=== PATIENT | male | born 1955 | race Caucasian/White ===

== ENCOUNTER 2017-05-30 13:33 | Inpatient (IN) | payer OTHER ==
[2017-05-30] VITALS (11 sets, daily range): BP systolic 138–193; BP diastolic 62–94; PULSE 74–98; RESP 22–28; TEMP 96.6–99.8; O2SAT 97–100
[2017-05-30] MEDS ORDERED: PROPOFOL 1000 MG/100 ML INJ 100 ML ONE (13:40)
--- NOTE | 2017-05-30 13:58 | RADRPT ---
EXAM DATE/TIME: 05/30/2017 13:24 [facility] COMPARISON: No previous studies available for comparison. INDICATIONS : Fell 6ft hitting head, unresponsive. MEDICAL HISTORY : None. SURGICAL HISTORY : None. ENCOUNTER: Initial ACUITY: 1 day PAIN SCORE: Non-responsive. LOCATION: Bilateral pelvis. FINDINGS: A single frontal view of the pelvis demonstrates no evidence of fracture. The bony pelvic ring is in tact. Bony mineralization is normal. The soft tissues are intact. There are degenerative changes of the lower lumbar spine. CONCLUSION: The bony structures are grossly intact. Sanjay Donis MD on May 30, 2017 at 13:55 Board Certified Radiologist. This report was verified electronically.
[2017-05-30 13:59] LABS: AUTOMATED NEUTROPHIL # 7.1 TH/MM3 (1.8-7.7); BASOPHIL # 0.1 TH/MM3 (0-0.2); BASOPHIL % 0.7 % (0.0-2.0); EOSINOPHIL # 0.1 TH/MM3 (0-0.4); HEMATOCRIT 47.1 % (39.0-51.0); HEMO FLAGS DIFF FINAL; LYMPH % 35.6 % (9.0-44.0); LYMPHOCYTE # 4.5 TH/MM3 (1.0-4.8); MEAN CELL VOLUME 89.5 FL (80.0-100.0); MEAN CORPUSCULAR HEMOGLOBIN 28.6 PG (27.0-34.0); MEAN CORPUSCULAR HGB CONC 31.9 % (32.0-36.0); MONO % 6.4 % (0.0-8.0); NEUT % 56.3 % (16.0-70.0); PLATELET COUNT 222 TH/MM3 (150-450); RED BLOOD COUNT 5.26 MIL/MM3 (4.50-5.90); RED CELL DISTRIBUTION WIDTH 14.6 % (11.6-17.2); WHITE BLOOD COUNT 12.5 TH/MM3 (4.0-11.0)
--- NOTE | 2017-05-30 13:59 | RADRPT ---
EXAM DATE/TIME: 05/30/2017 13:24 [facility] COMPARISON: No previous studies available for comparison. INDICATIONS : Fell 6ft from ladder hit head. ET tube placement. MEDICAL HISTORY : None. SURGICAL HISTORY : None. ENCOUNTER: Initial ACUITY: 1 day PAIN SCORE: Non-responsive. LOCATION: Bilateral chest FINDINGS: The ET tube appears to be in good position. There is no pneumothorax. The lungs are grossly clear. Th e heart size is within normal limits. No definite pleural effusions. The bony structures are grossly intact. CONCLUSION: ET tube in good position. Lungs are grossly clear. The CT thorax will be performed for further evalua tion. Sanjay Donis MD on May 30, 2017 at 13:56 Board Certified Radiologist. This report was verified electronically.
[2017-05-30 14:01] LABS: I-STAT POTASSIUM 3.6 MMOL/L (3.5-4.9)
[2017-05-30] MEDS ORDERED: IOHEXOL 350 MG/ML 10 ML VIAL (for RAD DIAG) IV ONE (14:03)
[2017-05-30 14:08] LABS: APTT (PATIENT) 25.4 SEC (24.3-30.1); PROTHROMBIN TIME - PATIENT 10.7 SEC (9.8-11.6)
--- NOTE | 2017-05-30 14:09 | RADRPT ---
EXAM DATE/TIME: 05/30/2017 13:53 [facility] COMPARISON: No previous studies available for comparison. INDICATIONS : Trauma alert, fall from ladder. RADIATION DOSE: 56.35 CTDIvol (mGy) MEDICAL HISTORY : Non-responsive. SURGICAL HISTORY : Non-responsive. ENCOUNTER: Initial ACUITY: 1 day PAIN SCALE: Non-responsive LOCATION: cranial TECHNIQUE: Multiple contiguous axial images were obtained of the head. Using automated exposure control and adj ustment of the mA and/or kV according to patient size, radiation dose was kept as low as reasonably a chievable to obtain optimal diagnostic quality images. DICOM format image data is available electro nically for review and comparison. FINDINGS: Ventricles are normal in size and midline in position. No mass effect or midline shift is demonstrate d. There is bilateral subarachnoid hemorrhage, left greater than right. There appears to be a hemorrh agic contusion in the left temporal lobe. There is a small left-sided subdural hematoma with 6 mm of separation adjacent to the left temporal lobe. There appear to be some punctate hemorrhagic contusion s in the frontal lobes bilaterally. The calvarium appears to be grossly intact. CONCLUSION: 1. Small left-sided subdural hematoma with approximately 6 mm of separation adjacent to the left temp oral lobe. 2. Bilateral subarachnoid hemorrhage, left greater than right. 3. Tiny hemorrhagic contusions in both frontal lobes. 4. Hemorrhagic contusion the left temporal lobe. Sanjay Donis MD on May 30, 2017 at 14:03 Board Certified Radiologist. This report was verified electronically.
--- NOTE | 2017-05-30 14:12 | RADRPT ---
EXAM DATE/TIME: 05/30/2017 13:53 [facility] COMPARISON: No previous studies available for comparison. INDICATIONS : Trauma alert, fall from ladder. IV CONTRAST: 96 cc Omnipaque 350 (iohexol) IV ; Cumulative dose for multiple exams. RADIATION DOSE: 8.19 CTDIvol (mGy) ; Combined studies MEDICAL HISTORY : Non-responsive. SURGICAL HISTORY : Non-responsive. ENCOUNTER: Initial ACUITY: 1 day PAIN SCALE: Non-responsive LOCATION: cranial TECHNIQUE: Volumetric scanning of the chest was performed. Using automated exposure control and adjustment of t he mA and/or kV according to patient size, radiation dose was kept as low as reasonably achievable to obtain optimal diagnostic quality images. DICOM format image data is available electronically for review and comparison. FINDINGS: LUNGS: There are infiltrates in both posterior lung bases suggestive of pulmonary contusions. The upper lung carpenter are grossly clear. No evidence of pneumothorax. PLEURA: There is no pleural thickening or pleural effusion. MEDIASTINUM: The heart and great vessels demonstrate no acute abnormality. There is no mediastinal or hilar lymph adenopathy. AXILLAE: Within normal limits. No lymphadenopathy. SKELETAL: Within normal limits for patient age. No definite acute bony fracture. CONCLUSION: Bibasilar nonspecific infiltrates suggestive of pulmonary contusions. Sanjay Donis MD on May 30, 2017 at 14:06 Board Certified Radiologist. This report was verified electronically.
--- NOTE | 2017-05-30 14:18 | RADRPT ---
EXAM DATE/TIME: 05/30/2017 13:53 [facility] COMPARISON: No previous studies available for comparison. INDICATIONS : Trauma alert, fall from ladder. IV CONTRAST: 96 cc Omnipaque 350 (iohexol) IV ; Cumulative dose for multiple exams. ORAL CONTRAST: No oral contrast ingested. RADIATION DOSE: 8.19 CTDIvol (mGy) ; Combined studies MEDICAL HISTORY : Non-responsive. SURGICAL HISTORY : Non-responsive. ENCOUNTER: Initial ACUITY: 1 day PAIN SCALE: Non-responsive LOCATION: abdomen TECHNIQUE: Volumetric scanning of the abdomen and pelvis was performed. Using automated exposure control and ad justment of the mA and/or kV according to patient size, radiation dose was kept as low as reasonably achievable to obtain optimal diagnostic quality images. DICOM format image data is available electro nically for review and comparison. FINDINGS: LOWER LUNGS: Bibasilar infiltrates.. LIVER: Homogeneous density without lesion. There is no dilation of the biliary tree. No calcified gallston es. SPLEEN: Normal size. There is a small amount of fluid along the inferior lower portion of the spleen. Suspici ous for a small inferior laceration. PANCREAS: Within normal limits. KIDNEYS: Normal in size and shape. There is no mass, stone or hydronephrosis. 2.5 cm left renal cyst midpole. ADRENAL GLANDS: Within normal limits. VASCULAR: There is no aortic aneurysm. BOWEL/MESENTERY: The stomach, small bowel, and colon demonstrate no acute abnormality. There is no free intraperitone al air or fluid. ABDOMINAL WALL: Within normal limits. RETROPERITONEUM: There is no lymphadenopathy. BLADDER: No wall thickening or mass. REPRODUCTIVE: Within normal limits. INGUINAL: There is no lymphadenopathy or hernia. MUSCULOSKELETAL: Within normal limits for patient age. No definite acute bony fracture. CONCLUSION: 1. There appears to be a small amount of fluid along the inferior aspect of the spleen suspicious for a inferior laceration. No significant free fluid is seen in the abdomen or pelvis. 2. Benign-appearing left renal cyst. 3. Bibasilar infiltrates suggestive of pulmonary contusions. Sanjay Donis MD on May 30, 2017 at 14:10 Board Certified Radiologist. This report was verified electronically.
[2017-05-30] MEDS ORDERED: MANNITOL INJ 50 ML ONE (14:21)
--- NOTE | 2017-05-30 14:27 | PD.CONS ---
[facility] Service neurosurg Consult Requested By [facility] Reason for Consult Trauma alert Primary Care Physician Unknown History of Present Illness This is an aduklt male brought to [facility] emergency department as a trauma alert. 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 He was working with his colleagues and they saw him just prior to the accident when he was at his baseline mental status. He fell. The exact nature of the fall is unknown. According to EMS he was combative at the scene and not making sens, repeating the same words which do not make sense. Was hypertensive with blood pressure in 185 systolic. His pst medical history is unknown. At scene GCS 11 and blood pressure was 205 systolic. He was combative. Upon arrival he was intubated by ER physician, evaluated by trauma team and subsequently underwent imaging studies and was transferred to ICU. He also had some bleeding from a scalp laceration on arrival to the ICU. Patient required sedation with propofol following arrival to the ICU . Neurosurgery consultation was requested Review of Systems Unable to obtain ROS Limitations: Clinical Condition, Intubated, Altered Mental Status, Unresponsive Past Family Social History Allergies: Coded Allergies: UNOBTAINABLE (Unverified , 05/30/17) Past Medical History Unavailable Past Surgical History Unavailable Reported Medications Unavailable Active Ordered Medications Unavailable Family History Unavailable Social History Unavailable Physical Exam Physical Exam Sedated, orally intubated, Scalp laceration on posterior part of head noted with minimal oozing, Cranial Nerves: Pupils equal, round, reactive to light. Eyes appear conjugated. There was no nystagmus, no papilledema. Face musculature appeared symmetrical at rest. Face sensation, olfaction, visual carpenter, and hearing cannot be adequately assessed due to his neurological condition. The patient has a corneal reflex. He has a gag reflex. The sternocleidomastoid and trapezius are symmetrical. Cervical Spine: His neck is soft, supple, without nuchal rigidity. Motor: His muscle tone and bulk are normal. He moves purposefully all 4 extremities symmetrically. Reflexes: Deep tendon reflexes are 1+ and symmetrical in the biceps, triceps, and brachioradialis, bilaterally, in the upper extremities. In the lower extremities, the patellar and ankles are 1+, bilaterally. There is a bilateral plantar flexion response. There is no clonus or other abnormal reflexes noted. Sensory: On examination there is response to painful stimuli, localizing with both upper and lower extremities. Cerebellar: Examination cannot be adequately assessed due to the patient's neurological condition. Laboratory Laboratory Tests Test 05/30/17 13:40 White Blood Count 12.5 Red Blood Count 5.26 Hemoglobin 15.0 Bedside Hemoglobin 16.3 Hematocrit 47.1 Bedside Hematocrit 48.0 Mean Corpuscular Volume 89.5 Mean Corpuscular Hemoglobin 28.6 Mean Corpuscular Hemoglobin 31.9 Concent Red Cell Distribution Width 14.6 Platelet Count 222 Mean Platelet Volume 9.6 Neutrophils (%) (Auto) 56.3 Lymphocytes (%) (Auto) 35.6 Monocytes (%) (Auto) 6.4 Eosinophils (%) (Auto) 1.0 Basophils (%) (Auto) 0.7 Neutrophils # (Auto) 7.1 Lymphocytes # (Auto) 4.5 Monocytes # (Auto) 0.8 Eosinophils # (Auto) 0.1 Basophils # (Auto) 0.1 CBC Comment DIFF FINAL Differential Comment Prothrombin Time 10.7 Prothromb Time International 1.0 Ratio Activated Partial 25.4 Thromboplast Time Bedside Sodium 143 Bedside Potassium 3.6 Bedside Chloride 109 Bedside Blood Urea Nitrogen 14 Bedside Creatinine 1.1 Bedside Glucose 120 Blood Type O POSITIVE Result Diagram: 05/30/17 1340 Imaging Last Impressions Chest CT 05/30/171346 Signed Impressions: Service Date/Time: Tuesday, May 30, 2017 13:53 - CONCLUSION: Bibasilar nonspecific infiltrates suggestive of pulmonary contusions. Sanjay Donis MD Abdomen/Pelvis CT 05/30/171346 Signed Impressions: Service Date/Time: Tuesday, May 30, 2017 13:53 - CONCLUSION: 1. There appears to be a small amount of fluid along the inferior aspect of the spleen suspicious for a inferior laceration. No significant free fluid is seen in the abdomen or pelvis. 2. Benign-appearing left renal cyst. 3. Bibasilar infiltrates suggestive of pulmonary contusions. Sanjay Donis MD Pelvis X-Ray 05/30/177 Signed Impressions: Service Date/Time: Tuesday, May 30, 2017 13:24 - CONCLUSION: The bony structures are grossly intact. Sanjay Donis MD Head CT 05/30/171336 Signed Impressions: Service Date/Time: Tuesday, May 30, 2017 13:53 - CONCLUSION: 1. Small left-sided subdural hematoma with approximately 6 mm of separation adjacent to the left temporal lobe. 2. Bilateral subarachnoid hemorrhage, left greater than right. 3. Tiny hemorrhagic contusions in both frontal lobes. 4. Hemorrhagic contusion the left temporal lobe. Sanjay Donis MD Chest X-Ray 05/30/171336 Signed Impressions: Service Date/Time: Tuesday, May 30, 2017 13:24 - CONCLUSION: ET tube in good position. Lungs are grossly clear. The CT thorax will be performed for further evaluation. Sanjay Donis MD Cervical Spine CT 05/30/171336 Signed Impressions: Service Date/Time: Tuesday, May 30, 2017 13:55 - CONCLUSION: 1. No acute bony fracture. 2. Moderate diffuse primary bony degenerative changes, disc degeneration and disc space narrowing at multiple levels from C3-C7. Sanjay Donis MD Attending Statement Severe TBI. SAH, Subdural bleed, Neuro checks in a serial fashion. Placement of ICP monitor is recommended according to the recommendations of the [place] [employer] of neurological surgeons A follow-up CT of the head will be obtained in 24 hours. Pulmonary. Full mechanical ventilation in assist control mode of ventilation, aggressive pulmonary toilette, nasotracheal suction, and breathing treatments with nebulizers. PT and OT evaluation Splenic laceration. Defer to trauma surgeon Nutrition. NPO Renal. monitor closely urine output, BUN and creatinine Endocrine. Monitor serial Acu checks and SSI as needed in detail ID monitor for signs of infection Protonix for stress ulcer prophylaxis Vel hose and SCD's for DVT prophylaxis Thee Stone MD May 30, 2017 14:27 Vel hose and SCD's for DVT prophylaxis Thee Stone MD May 30, 2017 14:27
--- NOTE | 2017-05-30 14:28 | RADRPT ---
EXAM DATE/TIME: 05/30/2017 13:55 [facility] COMPARISON: No previous studies available for comparison. INDICATIONS : Trauma alert, fall from ladder. RADIATION DOSE: 37.59 CTDIvol (mGy) MEDICAL HISTORY : Non-responsive. SURGICAL HISTORY : Non-responsive. ENCOUNTER: Initial ACUITY: 1 day PAIN SCALE: Non-responsive LOCATION: neck TECHNIQUE: Volumetric scanning of the cervical spine was performed. Multiplanar reconstructions in the sagittal, coronal and oblique axial planes were performed. Using automated exposure control and adjustment o f the mA and/or kV according to patient size, radiation dose was kept as low as reasonably achievable to obtain optimal diagnostic quality images. DICOM format image data is available electronically f or review and comparison. FINDINGS: VERTEBRAE: Normal vertebral body height. No acute bony fracture. There is moderate diffuse primary degenerative changes, disc degeneration and disc space narrowing involving the cervical spine from C3-C7. ALIGNMENT: No evidence of subluxation. C2-C3: The bony spinal canal is normal in size. No evidence of disc bulge or herniation. The neural forami na are bilaterally patent. C3-C4: The bony spinal canal is normal in size. No evidence of disc bulge or herniation. The neural forami na are bilaterally patent. C4-C5: The bony spinal canal is normal in size. No evidence of disc bulge or herniation. The neural forami na are bilaterally patent. C5-C6: Broad-based bulging with disc osteophyte complex. There is narrowing of the neural foramina bilateral ly. C6-C7: Broad-based bulging with disc osteophyte complex. Mild narrowing of the neural foramina bilaterally. C7-T1: The bony spinal canal is normal in size. No evidence of disc bulge or herniation. The neural forami na are bilaterally patent. CONCLUSION: 1. No acute bony fracture. 2. Moderate diffuse primary bony degenerative changes, disc degeneration and disc space narrowing at multiple levels from C3-C7. Sanjay Donis MD on May 30, 2017 at 14:23 Board Certified Radiologist. This report was verified electronically.
[2017-05-30] MEDS ORDERED: MAGNESIUM HYDROXIDE SUSP 30 ML CUP PO PRN (14:30)
[2017-05-30] MEDS ORDERED: MISCELLANEOUS NURSING INFORMATION XX SCH (14:30)
[2017-05-30] MEDS ORDERED: CHLORHEXIDINE GLUCONATE 2 % 1 PACK (2 CLOTHS) TOP PRN (14:30)
--- NOTE | 2017-05-30 14:35 | PD ---
HPI Chief Complaint: trauma alert Time Seen by Provider: 13:37 Travel History International Travel<30 days: No Contact w/Intl Traveler<30days: No Traveled to known affect area: No History of Present Illness HPI Patient came in as a trauma alert. I was present in the room prior to patient' s arrival waiting for him. 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 He was working with his colleagues and they saw him just prior to the accident when he was at his baseline mental status. He fell. The exact nature of the fall is unknown. However after that he has been acting bizarre. As per EMS he was combative at the scene and not making sense. He is repeating the same words which do not make sense. Was hypertensive with blood pressure in 185 systolic. As per EMS GCS at the best was 11. Past medical history is unknown. Upon arrival patient was a GCS 11 and blood pressure was 205 systolic. He was combative. [facility] Past Medical History Narrative Medical Unknown Social History Tobacco Use: Yes Allergies-Medications (Allergen,Severity, Reaction): Coded Allergies: UNOBTAINABLE (Unverified , 05/30/17) Comments Unobtainable Reported Meds & Prescriptions Reported Meds & Active Scripts Active Reported Lisinopril 10 Mg Tab 10 Mg PO DAILY Carvedilol 3.125 Mg Tab 3.125 Mg PO BID Plavix (Clopidogrel Bisulfate) 75 Mg Tab 75 Mg PO DAILY Narrative Medication Unobtainable Review of Systems Except as stated in HPI: all other systems reviewed are Neg Physical Exam Narrative GENERAL: Eyes open but confused and repeating the same sentence that doesn't make sense. Not following commands at all SKIN: Warm and diaphoretic HEAD: Laceration on the occipital area of the scalp approximately 5 cm EYES: Pupils equal and round. No scleral icterus. No injection or drainage. ENT: No nasal bleeding or discharge. Mucous membranes pink and moist. NECK: Trachea midline. No JVD. CARDIOVASCULAR: Regular rate and rhythm. No murmur appreciated. RESPIRATORY: No accessory muscle use. Clear to auscultation. Breath sounds equal bilaterally. GASTROINTESTINAL: Abdomen soft, non-tender, nondistended. Hepatic and splenic margins not palpable. MUSCULOSKELETAL: No obvious deformities. No clubbing. No cyanosis. No edema. NEUROLOGICAL: GCS of 11, not following commands PSYCHIATRIC: Unable to assess Data Data Last Documented VS Vital Signs Date Time Temp Pulse Resp B/P Pulse Ox O2 Delivery O2 Flow Rate FiO2 05/30/17 13:45 100 05/30/17 13:34 4.00 Orders I-Stat Profile (05/30/17 13:37) I-Stat Creatinine (05/30/17 13:37) Complete Blood Count With Diff (05/30/17 13:37) Prothrombin Time / Inr (Pt) (05/30/17 13:37) Act Partial Throm Time (Ptt) (05/30/17 13:37) Type And Screen (05/30/17 13:37) Chest, Single Ap (05/30/17 13:37) Pelvis, Ap Only (Routine) (05/30/17 13:37) Ct Brain W/O Iv Contrast(Rout) (05/30/17 13:37) Ct Cerv Spine W/O Contrast (05/30/17 13:37) Iv Access Insert/Monitor (05/30/17 13:37) Ecg Monitoring (05/30/17 13:37) Oximetry (05/30/17 13:37) Oxygen Administration (05/30/17 13:37) Propofol 1000 Mg/100 Ml Inj (Diprivan 10 (05/30/17 13:40) Ct Abd/Pel W Iv Contrast(Rout) (05/30/17 13:47) Ct Thorax/ Chest W Iv Contrast (05/30/17 13:47) Iohexol 350 Inj (Omnipaque 350 Inj) (05/30/17 14:03) Admit Order (Ed Use Only) (05/30/17 14:10) Labs Laboratory Tests Test 05/30/17 13:40 White Blood Count 12.5 TH/MM3 Red Blood Count 5.26 MIL/MM3 Hemoglobin 15.0 GM/DL Bedside Hemoglobin 16.3 G/DL Hematocrit 47.1 % Bedside Hematocrit 48.0 % Mean Corpuscular Volume 89.5 FL Mean Corpuscular Hemoglobin 28.6 PG Mean Corpuscular Hemoglobin 31.9 % Concent Red Cell Distribution Width 14.6 % Platelet Count 222 TH/MM3 Mean Platelet Volume 9.6 FL Neutrophils (%) (Auto) 56.3 % Lymphocytes (%) (Auto) 35.6 % Monocytes (%) (Auto) 6.4 % Eosinophils (%) (Auto) 1.0 % Basophils (%) (Auto) 0.7 % Neutrophils # (Auto) 7.1 TH/MM3 Lymphocytes # (Auto) 4.5 TH/MM3 Monocytes # (Auto) 0.8 TH/MM3 Eosinophils # (Auto) 0.1 TH/MM3 Basophils # (Auto) 0.1 TH/MM3 CBC Comment DIFF FINAL Differential Comment Prothrombin Time 10.7 SEC Prothromb Time International 1.0 RATIO Ratio Activated Partial 25.4 SEC Thromboplast Time Bedside Sodium 143 MMOL/L Sodium Level 141 MEQ/L Bedside Potassium 3.6 MMOL/L Potassium Level 3.6 MEQ/L Bedside Chloride 109 MMOL/L Chloride Level 109 MEQ/L Carbon Dioxide Level 19.1 MEQ/L Anion Gap 13 MEQ/L Bedside Blood Urea Nitrogen 14 MG/DL Blood Urea Nitrogen 15 MG/DL Creatinine 1.28 MG/DL Bedside Creatinine 1.1 MG/DL Estimat Glomerular Filtration 48 ML/MIN Rate Bedside Glucose 120 MG/DL Random Glucose 114 MG/DL Calcium Level 10.0 MG/DL Total Bilirubin 0.4 MG/DL Aspartate Amino Transf 31 U/L (AST/SGOT) Alanine Aminotransferase 29 U/L (ALT/SGPT) Alkaline Phosphatase 89 U/L Total Protein 8.1 GM/DL Albumin 4.1 GM/DL Blood Type O POSITIVE Antibody Screen NEGATIVE MDM Medical Decision Making Medical Screen Exam Complete: Yes Emergency Medical Condition: Yes Medical Record Reviewed: Yes Differential Diagnosis Intracranial bleed, cervical fracture, intrathoracic injury, intra-abdominal injury, spontaneous head bleed due to hypertension Narrative Course 2:31 PM I made the decision to intubate the patient in order to get better control of the situation since he was so combative. Suspicion was really high for intracranial bleed. Patient had a laceration on the back of his head. Please refer to my procedure note regarding the intubation. Patient was rolled off the board after he was intubated to check the back of his head. No step- offs or contusion. There was a laceration noted on the occipital area of the scalp. Patient was given Ancef and tetanus. He was taken to the CT scanner where subarachnoid and subdural hemorrhage was noticed. The trauma surgeon to come to the ICU and patient is admitted under trauma surgeon. The surgeon was called and informed about the trauma at 1321. Critical Care Narrative Aggregate critical care time was 30 minutes. Time to perform other separately billable procedures was not included in the critical care time. My time did not include minutes spent treating any other patients simultaneously or on activities that did not directly contribute to the patient's treatment. The services I provided to this patient were to treat and/or prevent clinically significant deterioration that could result in: Trauma alert, altered mental status, respiratory failure, intubation I provided critical care services requiring my management, as noted below: Chart data review, documentation time, medication orders and management, vital sign assessments/reviewing monitor data, ordering and reviewing lab tests, ordering and interpreting/reviewing x-rays and diagnostic studies, care of the patient and discussion of the patient with the admitting physicians. Procedures Procedure Narrative After the risks and benefits were discussed the following procedure was performed: INTUBATION: The patient was put in optimal position for the procedure. Rapid sequence intubation was initiated by me using 20 milligrams of etomidate IV and 100 milligrams of succinylcholine IV. The patient was intubated with a 7.5 cuffed endotracheal tube. Tube placement was confirmed by visualization of the tube and balloon passing through the cords, capnometry and subsequent chest x-ray. Breath sounds were equal and well aerated bilaterally postintubation. No breath sounds over stomach. Patient tolerated procedure well. EKG Prior to Arrival: No Physician Communication Physician Communication Diagnosis Primary Impression: Altered mental status Qualified Code: R41.0 - Delirium Additional Impressions: Head injury Qualified Code: S09.90XA - Head injury, initial encounter Subarachnoid hemorrhage Respiratory failure Qualified Code: J96.00 - Acute respiratory failure, unspecified whether with hypoxia or hypercapnia Admitting Information Admitting Physician Requests: Mary Mercado MD May 30, 2017 14:35
[2017-05-30] MEDS ORDERED: ETOMIDATE 20 MG/10 ML VIAL ONE (14:37)
[2017-05-30] MEDS ORDERED: MANNITOL 12.5 GM/50 ML VIAL IV ONE (15:00)
[2017-05-30] MEDS ORDERED: fentaNYL DRIP 250 ML IV SCH (15:00)
--- NOTE | 2017-05-30 15:22 | PD.CONS ---
[facility] Service Critical Care Medicine Consult Requested By Primary Care Physician Unknown History of Present Illness Patient came in as a trauma alert. 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 He was working with his colleagues and they saw him just prior to the accident when he was at his baseline mental status. He fell. The exact nature of the fall is unknown. However after that he was acting bizarre. As per EMS he was combative at the scene and not making sens, repeating the same words which do not make sense. Was hypertensive with blood pressure in 185 systolic. As per EMS GCS at the best was 11. Past medical history is unknown. Upon arrival patient was a GCS 11 and blood pressure was 205 systolic. He was combative. Patient was intubated by ER physician, evaluated by trauma team and subsequently underwent imaging studies and was transferred to ICU. Critical care was consulted by Dr. Araiza for TBI with acute respiratory failure. Per discussion with Dr. Araiza patient didn't appear to have traumatic subdural and subarachnoid hemorrhage as well as a splenic laceration. He also had some bleeding from a scalp laceration on arrival to the ICU. Patient required sedation with propofol following arrival to the ICU as he was starting to gag and cough and was attempting to move both lower extremities. I emergently placed a right subclavian central line for central vascular access. Neurosurgery Dr. Stone had all ready been informed by trauma team and was planning to do a bolt for ICP monitoring. History was obtained by reviewing records and discussion with Dr. Araiza and ICU nursing staff. Review of Systems ROS Limitations: Clinical Condition, Intubated, Altered Mental Status Past Family Social History Allergies: Coded Allergies: UNOBTAINABLE (Unverified , 05/30/17) Past Medical History Unavailable Past Surgical History Unavailable Reported Medications Unavailable Family History Unavailable Social History Unavailable Physical Exam Vital Signs Vital Signs Date Time Temp Pulse Resp B/P Pulse Ox O2 Delivery O2 Flow Rate FiO2 05/30/17 13:34 97 4.00 Physical Exam HEENT/ Neuro: Sedated, orally intubated, Pallor present, no icterus, tongue/ mucosa moist. Scalp laceration on posterior part of head noted with minimal oozing. Pupils 3 mm bilaterally reacting actively to light. Moving/ localizing with both upper and lower extremities prior to sedation. Neck: Cervical collar in place Chest/Pulm: on mech vent, good air entry bilaterally, no wheezing or crackles CVS: S1-S2 regular, no murmur GI/abdomen: soft, nontender, bowel sounds sluggish Extremities: warm bilaterally, no edema Laboratory Laboratory Tests Test 05/30/17 13:40 White Blood Count 12.5 Red Blood Count 5.26 Hemoglobin 15.0 Bedside Hemoglobin 16.3 Hematocrit 47.1 Bedside Hematocrit 48.0 Mean Corpuscular Volume 89.5 Mean Corpuscular Hemoglobin 28.6 Mean Corpuscular Hemoglobin 31.9 Concent Red Cell Distribution Width 14.6 Platelet Count 222 Mean Platelet Volume 9.6 Neutrophils (%) (Auto) 56.3 Lymphocytes (%) (Auto) 35.6 Monocytes (%) (Auto) 6.4 Eosinophils (%) (Auto) 1.0 Basophils (%) (Auto) 0.7 Neutrophils # (Auto) 7.1 Lymphocytes # (Auto) 4.5 Monocytes # (Auto) 0.8 Eosinophils # (Auto) 0.1 Basophils # (Auto) 0.1 CBC Comment DIFF FINAL Differential Comment Prothrombin Time 10.7 Prothromb Time International 1.0 Ratio Activated Partial 25.4 Thromboplast Time Bedside Sodium 143 Bedside Potassium 3.6 Bedside Chloride 109 Bedside Blood Urea Nitrogen 14 Bedside Creatinine 1.1 Bedside Glucose 120 Blood Type O POSITIVE Antibody Screen NEGATIVE Result Diagram: 05/30/17 1340 Imaging Last Impressions Chest CT 05/30/171346 Signed Impressions: Service Date/Time: Tuesday, May 30, 2017 13:53 - CONCLUSION: Bibasilar nonspecific infiltrates suggestive of pulmonary contusions. Sanjay Donis MD Abdomen/Pelvis CT 05/30/171346 Signed Impressions: Service Date/Time: Tuesday, May 30, 2017 13:53 - CONCLUSION: 1. There appears to be a small amount of fluid along the inferior aspect of the spleen suspicious for a inferior laceration. No significant free fluid is seen in the abdomen or pelvis. 2. Benign-appearing left renal cyst. 3. Bibasilar infiltrates suggestive of pulmonary contusions. Sanjay Donis MD Pelvis X-Ray 05/30/177 Signed Impressions: Service Date/Time: Tuesday, May 30, 2017 13:24 - CONCLUSION: The bony structures are grossly intact. Sanjay Donis MD Head CT 05/30/171336 Signed Impressions: Service Date/Time: Tuesday, May 30, 2017 13:53 - CONCLUSION: 1. Small left-sided subdural hematoma with approximately 6 mm of separation adjacent to the left temporal lobe. 2. Bilateral subarachnoid hemorrhage, left greater than right. 3. Tiny hemorrhagic contusions in both frontal lobes. 4. Hemorrhagic contusion the left temporal lobe. Sanjay Donis MD Chest X-Ray 05/30/171336 Signed Impressions: Service Date/Time: Tuesday, May 30, 2017 13:24 - CONCLUSION: ET tube in good position. Lungs are grossly clear. The CT thorax will be performed for further evaluation. Sanjay Donis MD Cervical Spine CT 05/30/171336 Signed Impressions: Service Date/Time: Tuesday, May 30, 2017 13:55 - CONCLUSION: 1. No acute bony fracture. 2. Moderate diffuse primary bony degenerative changes, disc degeneration and disc space narrowing at multiple levels from C3-C7. Sanjay Donis MD Assessment and Plan Assessment and Plan Middle age male brought in as trauma alert following fall from a 6 foot ladder with: TBI: Left subdural hemorrhage, bilateral subarachnoid hemorrhage left greater than right, bifrontal contusions, left temporal lobe contusion Encephalopathy Splenic laceration Acute respiratory failure on mechanical ventilation Plan: Neuro: Sedation with propofol, neurosurgery consulted. Awaiting eval by Dr. Stone. Neurosurgery deciding regarding ICP monitoring with [place]. We will initiate Dilantin for seizure prophylaxis. Daily sedation vacation. Cardiovascular: IV hydration, watch for hypotension. Pulmonary: Continue mechanical ventilation, vent bundle, bronchodilators as needed. If neuro status permits, we'll initiate C Pap trials tomorrow. GI/liver: Insert OG tube. Nothing by mouth for now. Place NG tube to low intermittent wall suction. Splenic laceration noted on imaging studies, being followed by trauma team. Follow CBC. Renal/: IV hydration, strict intake output, monitor and replete electrolytes, follow BUN/creatinine. ID: Bibasilar infiltrates. Possible aspiration/ atelectasis versus pulmonary contusions. Will obtain sputum for Gram stain and cultures. Hold off on antibiotics at this time. Heme: Reportedly patient was on Brilinta per Dr. Araiza - to receive platelet transfusion. Follow CBC Endocrine: Watch for hyperglycemia, SSI for glycemic control if needed Prophylaxis: PPI/SCDs. Subcutaneous heparin/Lovenox deferred (in view of TBI with ICH/ splenic lac) till cleared by neurosurgery and trauma team. Condition critical Time spent on critical care excluding procedures: 50 minutes Perico Collado MD May 30, 2017 15:21
[2017-05-30] MEDS ORDERED: PROPOFOL 1000 MG/100 ML INJ 100 ML IV SCH (15:30)
[2017-05-30] MEDS: SODIUM CHLOR 0.9% 1000 ML INJ 1,000 ML IV SCH ×2 (15:30→23:15)
--- NOTE | 2017-05-30 15:42 | RADRPT ---
EXAM DATE/TIME: 05/30/2017 15:18 [facility] COMPARISON: CT THORAX W CONTRAST, May 30, 2017, 13:53. CHEST SINGLE AP, May 30, 2017, 13:24. INDICATIONS : Central line placement. MEDICAL HISTORY : None. SURGICAL HISTORY : None. ENCOUNTER: Subsequent ACUITY: 1 day PAIN SCORE: Non-responsive. LOCATION: Bilateral chest FINDINGS: There is a stable ETT in place. Interval placement of NGT with tip beyond the GE junction omitted fro m this image. Interval placement right subclavian central line with catheter tip projecting beyond th e imaged lower cervical soft tissues. Minimal bilateral lower lobe airspace disease. No pneumothorax. Remainder of the exam is unchanged. CONCLUSION: 1. Right subclavian central line catheter tip projecting over the course of the right IJ with tip bey ond the visualized lower cervical soft tissues. No pneumothorax. 2. Interval placement of suction type nasogastric catheter with tip beyond the GE junction omitted fr om this exam. 3. Remainder of the exam is unchanged. Cordell Parkinson MD on May 30, 2017 at 15:36 Board Certified Radiologist. This report was verified electronically.
--- NOTE | 2017-05-30 15:57 | HHI.HP ---
HPI Service Critical Care Medicine Primary Care Physician Unknown Admission Diagnosis subarachnoid hemorrhage, respiratory failure, fall Diagnosis: Chief Complaint: Fall Travel History International Travel<30 Days: No Contact w/Intl Traveler <30 Da: No Traveled to Known Affected Are: No History of Present Illness This is a gentleman in his 60s who is reportedly on a 6 foot ladder at work when he fell striking the back of his head onto a curb. He was trauma alerted for altered mental status. Patient arrived hypertensive and confused. He was intubated for patient safety and staff in order to facilitate a timely CT scan for suspected head injury. His pressure responded well to propofol and a Cardene drip was ordered to travel with the patient if needed. Review of Systems ROS Limitations: Clinical Condition, Altered Mental Status Past Family Social History Allergies: Coded Allergies: UNOBTAINABLE (Unverified , 05/30/17) Past Medical History Unobtainable due to the patient's condition Past Surgical History Unobtainable due to the patient's condition Reported Medications Unobtainable due to the patient's condition Family History Unobtainable due to the patient's condition Social History Unobtainable due to the patient's condition Physical Exam Vital Signs Vital Signs Date Time Temp Pulse Resp B/P Pulse Ox O2 Delivery O2 Flow Rate FiO2 05/30/17 14:30 100 100 05/30/17 13:45 100 05/30/17 13:34 97 4.00 Physical Exam HEENT/ Neuro: Sedated, orally intubated, Pallor present, no icterus, tongue/ mucosa moist. Scalp laceration on posterior part of head noted with minimal oozing. Pupils 3 mm bilaterally reacting actively to light. Moving/ localizing with both upper and lower extremities prior to sedation. Neck: Cervical collar in place, trachea is midline, no JVD Chest/Pulm: on mech vent, good air entry bilaterally, no wheezing or crackles, no bony crepitus or subcutaneous emphysema appreciated CVS: Regular rate and rhythm GI/abdomen: soft, nontender nondistended Extremities: Pelvis is stable, No clubbing cyanosis or edema, distal pulses are palpable bilaterally Skin is warm dry and intact, he is diaphoretic 7 cm laceration on the right occipital scalp, adjacent is a 3 cm laceration Laboratory Laboratory Tests Test 05/30/17 05/30/17 13:40 14:58 White Blood Count 12.5 Red Blood Count 5.26 Hemoglobin 15.0 Bedside Hemoglobin 16.3 Hematocrit 47.1 Bedside Hematocrit 48.0 Mean Corpuscular Volume 89.5 Mean Corpuscular Hemoglobin 28.6 Mean Corpuscular Hemoglobin 31.9 Concent Red Cell Distribution Width 14.6 Platelet Count 222 Mean Platelet Volume 9.6 Neutrophils (%) (Auto) 56.3 Lymphocytes (%) (Auto) 35.6 Monocytes (%) (Auto) 6.4 Eosinophils (%) (Auto) 1.0 Basophils (%) (Auto) 0.7 Neutrophils # (Auto) 7.1 Lymphocytes # (Auto) 4.5 Monocytes # (Auto) 0.8 Eosinophils # (Auto) 0.1 Basophils # (Auto) 0.1 CBC Comment DIFF FINAL Differential Comment Prothrombin Time 10.7 Prothromb Time International 1.0 Ratio Activated Partial 25.4 Thromboplast Time Bedside Sodium 143 Bedside Potassium 3.6 Bedside Chloride 109 Bedside Blood Urea Nitrogen 14 Bedside Creatinine 1.1 Bedside Glucose 120 Blood Type O POSITIVE Antibody Screen NEGATIVE Blood Bank Comment Result Diagram: 05/30/17 1340 Imaging Last [address] 05/30/171346 Signed Impressions: Service Date/Time: Tuesday, May 30, 2017 13:53 - CONCLUSION: Bibasilar nonspecific infiltrates suggestive of pulmonary contusions. Sanjay Donis MD Abdomen/Pelvis CT 05/30/171346 Signed Impressions: Service Date/Time: Tuesday, May 30, 2017 13:53 - CONCLUSION: 1. There appears to be a small amount of fluid along the inferior aspect of the spleen suspicious for a inferior laceration. No significant free fluid is seen in the abdomen or pelvis. 2. Benign-appearing left renal cyst. 3. Bibasilar infiltrates suggestive of pulmonary contusions. Sanjay Donis MD Pelvis X-Ray 05/30/171336 Signed Impressions: Service Date/Time: Tuesday, May 30, 2017 13:24 - CONCLUSION: The bony structures are grossly intact. Sanjay Donis MD Head CT 05/30/171336 Signed Impressions: Service Date/Time: Tuesday, May 30, 2017 13:53 - CONCLUSION: 1. Small left-sided subdural hematoma with approximately 6 mm of separation adjacent to the left temporal lobe. 2. Bilateral subarachnoid hemorrhage, left greater than right. 3. Tiny hemorrhagic contusions in both frontal lobes. 4. Hemorrhagic contusion the left temporal lobe. Sanjay Donis MD Chest X-Ray 05/30/171336 Signed Impressions: Service Date/Time: Tuesday, May 30, 2017 13:24 - CONCLUSION: ET tube in good position. Lungs are grossly clear. The CT thorax will be performed for further evaluation. Sanjay Donis MD Cervical Spine CT 05/30/171336 Signed Impressions: Service Date/Time: Tuesday, May 30, 2017 13:55 - CONCLUSION: 1. No acute bony fracture. 2. Moderate diffuse primary bony degenerative changes, disc degeneration and disc space narrowing at multiple levels from C3-C7. Sanjay Donis MD Assessment and Plan Assessment and Plan Middle age male brought in as trauma alert following fall from a 6 foot ladder with: TBI: Left subdural hemorrhage, bilateral subarachnoid hemorrhage left greater than right, bifrontal contusions, left temporal lobe contusion Encephalopathy Splenic laceration Acute respiratory failure on mechanical ventilation Plan: Maintain sedation with propofol, pain control with fentanyl, repeat head CT in the morning, continue to trend ICP with hypertonic saline boluses to treat elevations Continue full ventilator support and wean as tolerated Nothing by mouth for now, start tube feeds in the morning Continue IV rehydration with normal saline and permissive hypernatremia, [place] for urine output Ancef given in the trauma bay, no active ID issues at the moment Serial hemoglobins to trend his grade 1 splenic laceration although there is no evidence of active bleeding 2 units of platelets were given due to his medication induced platelet dysfunction Patient is critically ill as a above, total critical care time in evaluation and management of this trauma activation was 60 minutes Josr Araiza MD May 30, 2017 15:57
[2017-05-30] MEDS ORDERED: PHENYTOIN INJ 500 MG in SODIUM CHLORIDE 0.9% INJ 100 ML IV ONE (16:00)
[2017-05-30] MEDS ORDERED: CARV3.12 PO (16:06)
[2017-05-30] MEDS ORDERED: PLAV75TA29 PO (16:06)
[2017-05-30] MEDS ORDERED: LISI10TA3 PO (16:06)
[2017-05-30] MEDS: PANTOPRAZOLE SODIUM 40 MG VIAL IVP SCH (16:48)
--- NOTE | 2017-05-30 16:56 | PD.OP ---
Operative Report Date of Surgery: May 30, 2017 Preoperative Diagnosis: Severe traumatic brain injury Postoperative Diagnosis: Severe traumatic brain injury Procedure: Right frontal bur hole with placement of an intracranial pressure monitor. Anesthesia: local Surgeon: Thee Stone Line Supervisor(s): VINCE Operation and Findings: INTRAOPERATIVE FINDINGS Intracranial pressures of 12 mmHg. INDICATIONS FOR THE PROCEDURE The patient is an adult male who was brought to [facility] as a trauma alert with a severe traumatic brain injury He had a GCS of 3 wioth pupils dilated and fixed. CT of the brain showed a large acute subdural hematoma with mass effect and midline shift Placement of ICP monitor was indicated as recommended by the Trauma Commitee of [place] [employer] DETAILS OF THE SURGICAL PROCEDURE The left frontal area was shaved, prepped and draped in the usual sterile fashion. An entry point was selected behind the hairline, approximately 30 mm lateral to the midline. The incision was infiltrated with 1% lidocaine with epinephrine 1:100,000 dilution. A small incision was made with a 15 blade down to the level of the periosteum. Using a twist drill a srinivas hole was made. The dura was opened with a blunt stylet, and a Reading bolt was secured to the bone. A fiberoptic transducer was calibrated according to the carbon grinder's instructions, and advanced into the parenchyma of the frontal lobe through the bolt. An intracranial pressure of 12 mmHg was achieved with a good waveform. A Betadine sterile dressing was applied. The patient tolerated the procedure well. There were no intraoperative complications. Blood loss was minimal. Thee Stone MD May 30, 2017 16:56
--- NOTE | 2017-05-30 16:58 | PD.PROCEDR ---
Central Line Procedure REASON FOR PROCEDURE Central venous access PROCEDURE PERFORMED Central line placement: Left subclavian vein. (Previous central line placed was going up the internal jugular vein) CONSENT Informed consent not obtained as this was an emergent procedure ANESTHESIA Local injection of 1% Lidocaine DESCRIPTION OF THE PROCEDURE The patient was placed in supine, mild Trendelenburg position. The area was exposed and cleansed with ChloraPrep, times two. Large sterile drape was used to cover the patient, with the site exposed, under sterile conditions including cap, face mask, sterile gown, and sterile gloves. On single attempt, the introducer needle was inserted with negative pressure in syringe and venous flash was obtained. The guide wire was then advanced without any restriction and the needle was removed. The dilator was used without any complications. Using Seldinger technique a 20 cm antimicrobial coated triple lumen catheter was advanced over the guide wire to a depth of 18 centimeters. The guide wire was removed. All ports were aspirated with dark venous blood return and flushed easily with sterile saline. All ports were capped. Antibiotic disc was placed around central line at puncture site. The central line was secured to the skin with a stat lock. The area was bandaged with sterile see-through central line bandage. COMPLICATIONS: No apparent complications ESTIMATED BLOOD LOSS: Less than 1 cc. Perico Collado MD May 30, 2017 16:58
--- NOTE | 2017-05-30 17:13 | RADRPT ---
EXAM DATE/TIME: 05/30/2017 16:51 [facility] COMPARISON: CHEST SINGLE AP, May 30, 2017, 15:18. INDICATIONS : Central line placement. MEDICAL HISTORY : None. SURGICAL HISTORY : None. ENCOUNTER: Subsequent ACUITY: 1 day PAIN SCORE: Non-responsive. LOCATION: Bilateral chest FINDINGS: The support devices remain in place and are unchanged in position. There is a new left sided central line in place. There is no pneumothorax. The chest demonstrates the lungs to be symmetrically aerated without evidence of mass, infiltrate or effusion. The cardiomediastinal contours are unremarkable. Osseous structures are intact. CONCLUSION: 1. There is a new left sided central line in place and in good position. No pneumothorax. 2. The lungs are well-aerated. Sanjay Donis MD on May 30, 2017 at 17:09 Board Certified Radiologist. This report was verified electronically.
[2017-05-30 17:18] LABS: BLOOD GAS BASE EXCESS -1.4 mmol/L (-2-2); BLOOD GAS CARBOXYHEMOGLOBIN 1.5 % (0-4); BLOOD GAS HCO3 23 mmol/L (22-26); BLOOD GAS METHEMOGLOBIN 1.2 % (0-2); BLOOD GAS O2 HGB SATURATION 96 % (90-100); BLOOD GAS OXYGEN CONTENT 18.7 Vol % (12.0-20.0); BLOOD GAS PCO2 43 mmHg (38-42); BLOOD GAS PO2 141 mmHg (61-120); BLOOD GAS TOTAL HGB 13.7 G/DL (12.0-16.0); CRITICAL VALUE NO; DRAW SITE RT RADIAL; FIO2 50 %; NUMBER OF ARTERIAL PUNCTURES 1; OXYGEN DEVICE VENTILATOR; STAT YES; TEMP CORR TO 98.6; ULNAR PULSE PRESENT; VENT SETTINGS PRVC 20/500/1.0/5+
[2017-05-30 17:36] LABS: ALT (GPT) 29 U/L (12-78)
[2017-05-30 17:38] LABS: ALKALINE PHOSPHATASE 89 U/L (45-117); TOTAL BILIRUBIN ADULT 0.4 MG/DL (0.2-1.0)
[2017-05-30] MEDS ORDERED: NOREPINEPHRINE-DEXTROSE DRIP 250 ML IV ONE (17:48)
[2017-05-30 17:56] LABS: ANION GAP 13 MEQ/L (5-15); AST (GOT) 31 U/L (15-37); BICARBONATE 19.1 MEQ/L (21.0-32.0); BLOOD UREA NITROGEN 15 MG/DL (7-18); CHLORIDE 109 MEQ/L (98-107); GLOMERULAR FILTRATION RATE 48 ML/MIN (>89); POTASSIUM 3.6 MEQ/L (3.5-5.1); SODIUM (NA) 141 MEQ/L (136-145)
[2017-05-30] MEDS ORDERED: TERBUTALINE INJ 1 MG/ML AMP SQ PRN (18:00)
[2017-05-30] MEDS ORDERED: 3% SALINE INJ 500 ML IV ONE (18:00)
[2017-05-30] MEDS ORDERED: SODIUM CHLORIDE 23.4% INJ 240 MEQ in SYRINGE/BAG 1 EA IV ONE (18:30)
[2017-05-30] MEDS ORDERED: MIDAZOLAM 100 MG/ML INJ 100 ML IV SCH (18:45)
[2017-05-30] MEDS: MANNITOL 12.5 GM/50 ML VIAL IV SCH (20:28)
[2017-05-30] MEDS: NOREPINEPHRINE INJ 4 MG in SODIUM CHLOR 0.9% 250 ML INJ 246 ML IV SCH ×2 (20:45→23:18)
[2017-05-30] MEDS: PHENYTOIN INJ 100 MG/2 ML VIAL IV SCH (21:02)
[2017-05-30] MEDS: PROPOFOL 1000 MG/100 ML INJ 100 ML IV SCH (21:02)
[2017-05-30] MEDS: CHLORHEXIDINE 0.12% (ORAL KIT) 15 ML CUP MT SCH (23:14)
[2017-05-30] MEDS: DOCUSATE SODIUM 100 MG/10 ML UDC PO SCH (23:17)
[2017-05-30] MEDS: MIDAZOLAM 100 MG/ML INJ 100 ML IV SCH (23:29)
[2017-05-30] MEDS: fentaNYL DRIP 250 ML IV SCH (23:30)
[2017-05-31] VITALS (23 sets, daily range): BP systolic 133–148; BP diastolic 54–62; PULSE 57–67; RESP 16–28; TEMP 95.6–97.9; O2SAT 99–100
[2017-05-31] MEDS: PROPOFOL 1000 MG/100 ML INJ 100 ML IV SCH ×7 (02:34→20:10)
[2017-05-31 02:41] LABS: BLOOD GAS BASE EXCESS -4.4 mmol/L (-2-2); BLOOD GAS CARBOXYHEMOGLOBIN 0.8 % (0-4); BLOOD GAS HCO3 18 mmol/L (22-26); BLOOD GAS METHEMOGLOBIN 1.2 % (0-2); BLOOD GAS O2 HGB SATURATION 98 % (90-100); BLOOD GAS OXYGEN CONTENT 16.4 Vol % (12.0-20.0); BLOOD GAS PO2 251 mmHg (61-120); BLOOD GAS TOTAL HGB 11.5 G/DL (12.0-16.0); TEMP CORR TO 98.6
[2017-05-31 02:42] LABS: CRITICAL VALUE YES; DRAW SITE ART LINE; FIO2 50 %; OXYGEN DEVICE VENTILATOR; VENT SETTINGS PRVC/AC
[2017-05-31 02:43] LABS: BLOOD GAS PCO2 21 mmHg (38-42); STAT NO
[2017-05-31] MEDS: MANNITOL 12.5 GM/50 ML VIAL IV SCH ×3 (05:00→21:00)
[2017-05-31] MEDS: CHLORHEXIDINE GLUCONATE 2 % 1 PACK (2 CLOTHS) TOP SCH (05:07)
[2017-05-31] MEDS: SODIUM CHLOR 0.9% 1000 ML INJ 1,000 ML IV SCH ×4 (05:08→17:00)
[2017-05-31 05:21] LABS: BASOPHIL % 0.4 % (0.0-2.0); EOSINOPHIL # 0.2 TH/MM3 (0-0.4); EOSINOPHIL % 1.8 % (0.0-4.0); HEMATOCRIT 34.9 % (39.0-51.0); HEMO FLAGS DIFF FINAL; LYMPH % 16.6 % (9.0-44.0); LYMPHOCYTE # 1.8 TH/MM3 (1.0-4.8); MEAN CELL VOLUME 88.7 FL (80.0-100.0); MEAN CORPUSCULAR HEMOGLOBIN 30.2 PG (27.0-34.0); MONO % 8.8 % (0.0-8.0); NEUT % 72.4 % (16.0-70.0); PLATELET COUNT 247 TH/MM3 (150-450); RED BLOOD COUNT 3.93 MIL/MM3 (4.50-5.90); RED CELL DISTRIBUTION WIDTH 14.9 % (11.6-17.2)
--- NOTE | 2017-05-31 05:32 | RADRPT ---
EXAM DATE/TIME: 05/31/2017 04:39 [facility] COMPARISON: CHEST SINGLE AP, May 30, 2017, 16:51. INDICATIONS : Short of breath. MEDICAL HISTORY : None. SURGICAL HISTORY : None. ENCOUNTER: Subsequent ACUITY: 2 days PAIN SCORE: Non-responsive. LOCATION: Bilateral chest FINDINGS: A single view of the chest demonstrates the lungs to be symmetrically aerated without evidence of mas s, infiltrate or effusion. Endotracheal tube and nasogastric tube are unchanged. The cardiomediastina l contours are unremarkable. Osseous structures are intact. CONCLUSION: No acute disease. Terry Hussein MD on May 31, 2017 at 5:29 Board Certified Radiologist. This report was verified electronically.
[2017-05-31] MEDS: NOREPINEPHRINE INJ 4 MG in SODIUM CHLOR 0.9% 250 ML INJ 246 ML IV SCH ×3 (05:48→20:09)
[2017-05-31] MEDS: PHENYTOIN INJ 100 MG/2 ML VIAL IV SCH ×3 (05:48→21:43)
[2017-05-31] MEDS: 3% SALINE INJ 500 ML IV SCH ×2 (06:55→21:34)
[2017-05-31] MEDS: fentaNYL DRIP 250 ML IV SCH ×3 (07:22→20:05)
[2017-05-31] MEDS: CHLORHEXIDINE 0.12% (ORAL KIT) 15 ML CUP MT SCH ×2 (08:55→20:05)
[2017-05-31] MEDS: DOCUSATE SODIUM 100 MG/10 ML UDC PO SCH ×2 (08:55→20:11)
[2017-05-31] MEDS: MIDAZOLAM 100 MG/ML INJ 100 ML IV SCH ×2 (08:55→15:27)
[2017-05-31] MEDS ORDERED: VECURONIUM BROMIDE 10 MG VIAL IV PUSH ONE (09:45)
[2017-05-31] MEDS ORDERED: CISATRACURIUM BESYLATE 20 MG/10 ML VIAL IVP ONE (09:45)
--- NOTE | 2017-05-31 09:45 | HHI.NSPN ---
(Gabriela Manzo) Note Status Status: Progress Note (Gabriela Manzo) Interval History Interval History This is an aduklt male brought to [place] emergency department as a trauma alert. 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 He was working with his colleagues and they saw him just prior to the accident when he was at his baseline mental status. He fell. The exact nature of the fall is unknown. According to EMS he was combative at the scene and not making sense, repeating the same words which do not make sense. Was hypertensive with blood pressure in 185 systolic. His pst medical history is unknown. At scene GCS 11 and blood pressure was 205 systolic. He was combative. Upon arrival he was intubated by ER physician, evaluated by trauma team and subsequently underwent imaging studies and was transferred to ICU. He also had some bleeding from a scalp laceration on arrival to the ICU. Patient required sedation with propofol following arrival to the ICU . Neurosurgery consultation was requested 05/31: pt underwent placement of ICP monitor yesterday. He is intubated and well sedated on propofol, versed, and fentanyl. Nursing reports elevated ICPs overnight in the 20's. He was given dose of 23% NS. Serum sodium today 151. ICPs currently now increasing back to low 20's, pupils 2 mm equal (Gabriela Manzo) Interval History his is an aduklt male brought to [place] emergency department as a trauma alert. 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 He was working with his colleagues and they saw him just prior to the accident when he was at his baseline mental status. He fell. The exact nature of the fall is unknown. According to EMS he was combative at the scene and not making sense, repeating the same words which do not make sense. Was hypertensive with blood pressure in 185 systolic. His pst medical history is unknown. At scene GCS 11 and blood pressure was 205 systolic. He was combative. Upon arrival he was intubated by ER physician, evaluated by trauma team and subsequently underwent imaging studies and was transferred to ICU. He also had some bleeding from a scalp laceration on arrival to the ICU. Patient required sedation with propofol following arrival to the ICU . Neurosurgery consultation was requested (Thee Stone MD) Labs, Micro, & Vital Signs Results Date Time Temp Pulse Resp B/P Pulse Ox O2 Delivery O2 Flow Rate FiO2 05/31/17 07:12 100 50 05/31/17 07:00 100 Mechanical Ventilator 50 05/31/17 06:00 63 05/31/17 04:06 100 50 05/31/17 04:00 50 05/31/17 04:00 63 05/31/17 03:35 100 50 05/31/17 02:40 99 50 05/31/17 02:16 50 05/31/17 02:11 100 50 05/31/17 02:00 63 05/31/17 00:00 50 05/31/17 00:00 97.9 64 28 148/62 100 05/31/17 00:00 67 05/30/17 22:00 78 05/30/17 20:00 99.8 74 28 138/62 100 05/30/17 20:00 50 05/30/17 20:00 89 05/30/17 19:00 100 Mechanical Ventilator 50 05/30/17 18:54 99 50 05/30/17 18:00 98 05/30/17 16:35 100 50 05/30/17 16:29 100 50 05/30/17 16:00 96.6 91 22 165/79 100 05/30/17 16:00 91 05/30/17 16:00 50 05/30/17 14:30 100 100 05/30/17 14:20 100 Mechanical Ventilator 50 05/30/17 14:20 97.6 77 22 193/94 100 05/30/17 13:45 100 05/30/17 13:34 97 4.00 05/31/17 07:00 Intake Total 4488 ml Output Total 4050 ml Balance 438 ml Constitutional Vital Signs Date Time Temp Pulse Resp B/P Pulse Ox O2 Delivery O2 Flow Rate FiO2 05/31/17 07:12 100 50 05/31/17 07:00 100 Mechanical Ventilator 50 05/31/17 06:00 63 05/31/17 04:06 100 50 05/31/17 04:00 50 05/31/17 04:00 63 05/31/17 03:35 100 50 05/31/17 02:40 99 50 05/31/17 02:16 50 05/31/17 02:11 100 50 05/31/17 02:00 63 05/31/17 00:00 50 05/31/17 00:00 97.9 64 28 148/62 100 05/31/17 00:00 67 05/30/17 22:00 78 05/30/17 20:00 99.8 74 28 138/62 100 05/30/17 20:00 50 05/30/17 20:00 89 05/30/17 19:00 100 Mechanical Ventilator 50 05/30/17 18:54 99 50 05/30/17 18:00 98 05/30/17 16:35 100 50 05/30/17 16:29 100 50 05/30/17 16:00 96.6 91 22 165/79 100 05/30/17 16:00 91 05/30/17 16:00 50 05/30/17 14:30 100 100 05/30/17 14:20 100 Mechanical Ventilator 50 05/30/17 14:20 97.6 77 22 193/94 100 05/30/17 13:45 100 05/30/17 13:34 97 4.00 05/31/17 07:00 Intake Total 4488 ml Output Total 4050 ml Balance 438 ml (Gabriela Manzo) Review of Systems/Exam Exam The patient is intubated and well sedated on multiple drips. Right ICP monitor in place, ICPs trending up to low 20's Cranial Nerves: Pupils 2 mm equal nonreactive. Conjugate gaze. Face musculature appeared symmetrical at rest. Face sensation, olfaction, visual carpenter, and hearing cannot be adequately assessed due to his neurological condition. Cervical Spine: immobilized by [place] collar Motor: His muscle tone and bulk are normal. No movements x 4 Reflexes: trace throughout. Plantars silent b/l. Sensory: no response to painful stimuli Cerebellar: Examination cannot be adequately assessed due to the patient's neurological condition. (Gabriela Manzo) Exam Intubated and well sedated on multiple drips. No response to pain Right ICP monitor in place, Cranial Nerves: Pupils 2 mm equal nonreactive. Conjugate gaze. Face musculature appeared symmetrical at rest. Face sensation, olfaction, visual carpenter, and hearing cannot be adequately assessed due to his neurological condition. Cervical Spine: immobilized by [place] collar Motor: His muscle tone and bulk are normal. No movements x 4 Reflexes: trace throughout. Plantars silent b/l. Sensory: no response to painful stimuli Cerebellar: Examination cannot be adequately assessed due to the patient's neurological condition (Thee Stone MD) Medications Current Medications Current Medications Medications (Trade) Dose Ordered Sig/Alexandru Route PRN Reason Start Time Stop Time Status Last Admin Dose Admin Sodium Chloride (NS 1000 ml Inj) 1,000 ml @ 150 mls/hr Q6H40M IV 05/30/17 15:30 05/31/17 08:55 Sodium Chloride (NS Flush) 2 ml UNSCH PRN IV FLUSH FLUSH AFTER USING IV ACCESS 05/30/17 14:30 Enalaprilat (Vasotec Inj) 1.25 mg Q8H PRN IV SBP>180, DBP>95 05/30/17 14:30 Ondansetron HCl (Zofran Inj) 4 mg Q6H PRN IV NAUSEA OR VOMITING 05/30/17 14:30 Pantoprazole Sodium (Protonix Inj) 40 mg Q24H IVP 05/30/17 16:00 05/30/17 16:48 Docusate Sodium (Colace Liq) 100 mg BID PO 05/30/17 21:00 05/31/17 08:55 Magnesium Hydroxide (Milk Of Magnesia Liq) 30 ml Q6H PRN PO CONSTIPATION 05/30/17 14:30 Miscellaneous Information 1 Q361D XX 05/30/17 14:30 Chlorhexidine Gluconate (Chlorhexidine 2% Cloth) 3 pack Taper DAILY@04 TOP 05/31/17 04:00 05/27/18 03:59 05/31/17 05:07 Chlorhexidine Gluconate (Chlorhexidine 2% Cloth) 3 pack UNSCH PRN TOP HYGIENIC CARE 05/30/17 14:30 Phenytoin Sodium (Dilantin Inj) 100 mg Q8HR IV 05/30/17 22:00 05/31/17 05:48 Chlorhexidine Gluconate 15 ml 15 ml BID@08,20 MT 05/30/17 20:00 05/31/17 08:55 Nicardipine HCl 25 mg/Sodium Chloride 260 ml @ 0 mls/hr TITRATE IV 05/30/17 17:15 Norepinephrine Bitartrate/Sodium Chloride (Levophed Inj/NS 250 ml Inj) 250 ml @ 0 mls/hr TITRATE IV 05/30/17 18:00 05/31/17 05:48 Terbutaline Sulfate 1 mg 1 mg UNSCH PRN SQ For Extravasation 05/30/17 18:00 Fentanyl Citrate 250 ml @ 0 mls/hr TITRATE IV 05/30/17 20:15 05/31/17 08:56 Midazolam HCl 100 ml @ 0 mls/hr TITRATE IV 05/30/17 20:15 05/31/17 08:55 Propofol (Diprivan 1000 Mg/100ml Inj) 100 ml @ 0 mls/hr TITRATE IV 05/30/17 20:15 05/31/17 08:56 Mannitol 12.5 gm 12.5 gm Q8H IV 05/30/17 21:00 05/30/17 20:28 Sodium Chloride (Sodium Chloride 3% Inj) 500 ml @ 40 mls/hr CONTINUOUS IV 05/31/17 07:00 05/31/17 06:55 Vecuronium [place] (Norcuron 10 Mg Inj) 10 mg STAT ONCE IV PUSH 05/31/17 09:45 05/31/17 09:46 UNV Cisatracurium Besylate (Nimbex Inj) 15 mg ONCE ONCE IVP 05/31/17 09:45 05/31/17 09:46 UNV (Gabriela Manzo) Current Medications Current Medications Propofol (Diprivan 1000 Mg/100ml Inj) 100 ml @ As Directed STK-MED ONCE .ROUTE Last administered on 05/30/17t 13:40; Start 05/30/17 at 13:40; Stop 05/30/17 at 13:41; Status DC Iohexol 96 ml 96 ml STK-MED ONCE IV ; Start 05/30/17 at 14:03; Stop 05/30/17 at 14 :04; Status DC Mannitol (Mannitol Inj) 50 ml @ As Directed STK-MED ONCE .ROUTE ; Start 05/30/17 at 14:21; Stop 05/30/17 at 14:22; Status DC Fentanyl Citrate (fentaNYL INJ) 100 mcg STK-MED ONCE .ROUTE ; Start 05/30/17 at 14:33; Stop 05/30/17 at 14:34; Status DC Etomidate 40 mg 40 mg STK-MED ONCE .ROUTE ; Start 05/30/17 at 14:37; Stop at 14:38; Status DC Sodium Chloride (NS 1000 ml Inj) 1,000 ml @ 150 mls/hr Q6H40M IV Last administered on 05/31/17 08:55; Start 05/30/17 at 15:30 Sodium Chloride (NS Flush) 2 ml UNSCH PRN IV FLUSH FLUSH AFTER USING IV ACCESS ; Start 05/30/17 at 14:30 Enalaprilat (Vasotec Inj) 1.25 mg Q8H PRN IV SBP>180, DBP>95; Start 05/30/17 at 14:30 Ondansetron HCl (Zofran Inj) 4 mg Q6H PRN IV NAUSEA OR VOMITING; Start 05/30/17 at 14:30 Pantoprazole Sodium (Protonix Inj) 40 mg Q24H IVP Last administered on 16:48; Start 05/30/17 at 16:00 Docusate Sodium (Colace Liq) 100 mg BID PO Last administered on 05/31/17 08:55 ; Start 05/30/17 at 21:00 Magnesium Hydroxide (Milk Of Magnesia Liq) 30 ml Q6H PRN PO CONSTIPATION; Start 05/30/17 at 14:30 Miscellaneous Information 1 Q361D XX ; Start 05/30/17 at 14:30 Chlorhexidine Gluconate (Chlorhexidine 2% Cloth) 3 pack Taper DAILY@04 TOP Last administered on 05/31/17 05:07; Start 05/31/17 at 04:00; Stop 05/27/18 at 03: 59 Chlorhexidine Gluconate 3 pack 3 pack UNSCH PRN TOP HYGIENIC CARE; Start at 14:30 Fentanyl Citrate 250 ml @ 0 mls/hr TITRATE IV ; Start 05/30/17 at 15:00; Stop 05/30/17 at 20:14; Status DC Propofol (Diprivan 1000 Mg/100ml Inj) 100 ml @ 0 mls/hr TITRATE IV Last administered on 05/30/17 19:32; Start 05/30/17 at 15:30; Stop 05/30/17 at 20:15; Status DC Phenytoin Sodium 100 mg 100 mg Q8HR IV Last administered on 05/31/17 13:22; Start 05/30/17 at 22:00 Phenytoin Sodium/ Sodium Chloride (Dilantin Inj/NS Inj) 110 ml @ 240 mls/hr ONCE ONCE IV Last administered on 05/30/17 18:02; Start 05/30/17 at 16:00; Stop 05/30/17 at 16:27; Status DC Chlorhexidine Gluconate (Peridex 0.12% Liq) 15 ml BID@08,20 MT Last administered on 05/31/17 08:55; Start 05/30/17 at 20:00 Fentanyl Citrate (fentaNYL INJ) 100 mcg STK-MED ONCE .ROUTE ; Start 05/30/17 at 15:27; Stop 05/30/17 at 15:28; Status DC Fentanyl Citrate (fentaNYL INJ) 100 mcg ONCE ONCE IV Last administered on 16:44; Start 05/30/17 at 14:45; Stop 05/30/17 at 16:19; Status DC Mannitol (Mannitol Inj) 50 gm ONCE ONCE IV Last administered on 05/30/17 15:00 ; Start 05/30/17 at 15:00; Stop 05/30/17 at 16:19; Status DC Fentanyl Citrate 200 mcg 200 mcg ONCE ONCE IV Last administered on 05/30/17 15 :30; Start 05/30/17 at 15:30; Stop 05/30/17 at 16:19; Status DC Nicardipine HCl 25 mg/Sodium Chloride 260 ml @ 0 mls/hr TITRATE IV ; Start at 17:15 Norepinephrine Bitartrate 250 ml @ As Directed STK-MED ONCE IV ; Start 05/30/17 at 17:48; Stop 05/30/17 at 17:49; Status DC Sodium Chloride 500 ml @ 40 mls/hr ONCE ONCE IV Last administered on 18:00; Start 05/30/17 at 18:00; Stop 05/31/17 at 06:29; Status DC Norepinephrine Bitartrate/Sodium Chloride (Levophed Inj/NS 250 ml Inj) 250 ml @ 0 mls/hr TITRATE IV Last administered on 05/31/17 05:48; Start 05/30/17 at 18:00 Terbutaline Sulfate 1 mg 1 mg UNSCH PRN SQ For Extravasation; Start 05/30/17 at 18:00 Sodium Chloride 240 meq/Syringe / Bag 60 ml @ 120 mls/hr ONCE ONCE IV Last administered on 05/30/17 18:16; Start 05/30/17 at 18:30; Stop 05/30/17 at 18:59; Status DC Midazolam HCl 100 ml @ 0 mls/hr TITRATE IV Last administered on 05/30/17 19:28 ; Start 05/30/17 at 18:45; Stop 05/30/17 at 20:15; Status DC Fentanyl Citrate 250 ml @ 0 mls/hr TITRATE IV Last administered on 05/31/17 08: 56; Start 05/30/17 at 20:15 Midazolam HCl 100 ml @ 0 mls/hr TITRATE IV Last administered on 05/31/17 08:55 ; Start 05/30/17 at 20:15 Propofol (Diprivan 1000 Mg/100ml Inj) 100 ml @ 0 mls/hr TITRATE IV Last administered on 05/31/17 13:22; Start 05/30/17 at 20:15 Mannitol 12.5 gm 12.5 gm Q8H IV Last administered on 05/31/17 13:00; Start 05/30 at 21:00 Sodium Chloride (Sodium Chloride 3% Inj) 500 ml @ 40 mls/hr CONTINUOUS IV Last administered on 05/31/17 06:55; Start 05/31/17 at 07:00 Vecuronium [place] (Norcuron 10 Mg Inj) 10 mg STAT ONCE IV PUSH Last administered on 05/31/17 09:45; Start 05/31/17 at 09:45; Stop 05/31/17 at 10:18; Status DC Cisatracurium Besylate 15 mg 15 mg ONCE ONCE IVP Last administered on 09:45; Start 05/31/17 at 09:45; Stop 05/31/17 at 10:18; Status DC Cisatracurium Besylate/Sodium Chloride (Nimbex Inj/NS 250 ml Inj) 250 ml @ 0 mls /hr TITRATE IV Last administered on 05/31/17 10:58; Start 05/31/17 at 09:45 ( Thee Stone MD) Medical Decision Making MDM Remarks 62 y/o male TBI, s/p placement of intracranial pressure monitor 05/30/17, progressing elevated ICPs (Gabriela Manzo) MDM Remarks Last Impressions Head CT 05/31/17 0000 Signed Impressions: Service Date/Time: , May 31, 2017 10:13 - CONCLUSION: 1. No significant change in the left-sided subdural hematoma with approximately 6 mm of separation. 2. Hemorrhagic contusions are better visualized along the inferior left frontal lobe. The largest contusion measures 1.4 cm. 3. Mild improvement in the bilateral subarachnoid hemorrhage. 4. Ventricles remain normal in size and midline in position. Sanjay Donis MD Chest X-Ray 05/31/17 0000 Signed Impressions: Service Date/Time: , May 31, 2017 04:39 - CONCLUSION: No acute disease. Terry Hussein MD Chest CT 05/30/17 1347 Signed Impressions: Service Date/Time: Tuesday, May 30, 2017 13:53 - CONCLUSION: Bibasilar nonspecific infiltrates suggestive of pulmonary contusions. Sanjay Donis MD Abdomen/Pelvis CT 05/30/171346 Signed Impressions: Service Date/Time: Tuesday, May 30, 2017 13:53 - CONCLUSION: 1. There appears to be a small amount of fluid along the inferior aspect of the spleen suspicious for a inferior laceration. No significant free fluid is seen in the abdomen or pelvis. 2. Benign-appearing left renal cyst. 3. Bibasilar infiltrates suggestive of pulmonary contusions. Sanjay Donis MD Pelvis X-Ray 05/30/171336 Signed Impressions: Service Date/Time: Tuesday, May 30, 2017 13:24 - CONCLUSION: The bony structures are grossly intact. Sanjay Donis MD Cervical Spine CT 05/30/171336 Signed Impressions: Service Date/Time: Tuesday, May 30, 2017 13:55 - CONCLUSION: 1. No acute bony fracture. 2. Moderate diffuse primary bony degenerative changes, disc degeneration and disc space narrowing at multiple levels from C3-C7. Sanjay Donis MD (Thee Stone MD) Plan Plan Remarks obtain f/u CT Head now cont keep well sedated, cont hyperosmotics 3% NS and Mannitol, f/u levels cont ICP monitoring, serial neuro checks, critical care management nonchemical dvt prophylaxis in view of ICH, Protonix for stress ulcer prophylaxis (Gabriela Manzo) Attending Statement Status post ICP monitor. I reviewed his follow-up CT of the brain in stable Pulmonary. Full mechanical ventilation in assist control mode of ventilation, aggressive pulmonary toilette, nasotracheal suction, and breathing treatments with nebulizers. PT and OT evaluation Splenic laceration. Defer to trauma surgeon Nutrition. NPO Renal. monitor closely urine output, BUN and creatinine Endocrine. Monitor serial Acu checks and SSI as needed in detail ID monitor for signs of infection Protonix for stress ulcer prophylaxis Vel hose and SCD's for DVT prophylaxis The exam, history, and the medical decision-making described in the above note were completed with the assistance of the mid-level provider. I reviewed and agree with the findings presented. I attest that I had a [id number] encounter with the patient on the same day, and personally performed and documented my assessment and findings in the medical record. (Thee Stone MD) Gabriela Manzo May 31, 2017 09:45 Thee Stone MD May 31, 2017 15:05
--- NOTE | 2017-05-31 10:31 | RADRPT ---
EXAM DATE/TIME: 05/31/2017 10:13 [facility] COMPARISON: CT BRAIN W/O CONTRAST, May 30, 2017, 13:53. INDICATIONS : Follow up of subarachnoid hemorrhage. RADIATION DOSE: 58.42 CTDIvol (mGy) MEDICAL HISTORY : Cardiovascular disease. Myocardial infarction. Hypertension. SURGICAL HISTORY : [place] in right skull. ENCOUNTER: Subsequent ACUITY: 1 day PAIN SCALE: Non-responsive LOCATION: cranial TECHNIQUE: Multiple contiguous axial images were obtained of the head. Using automated exposure control and adj ustment of the mA and/or kV according to patient size, radiation dose was kept as low as reasonably a chievable to obtain optimal diagnostic quality images. DICOM format image data is available electro nically for review and comparison. FINDINGS: Today's exam is compared to the prior study of 05/30/2017. There continues to be an acute left-sided hernandez bdural hematoma with approximately 6 mm of separation. This is not significantly changed compared to the prior study. Punctate areas of hemorrhagic contusion are seen in the inferior left frontal lobe. The largest contusion measures 1.4 cm. There continues to be subarachnoid hemorrhage bilaterally. How ever this appears to be mildly improved compared to the prior examination. The ventricles remain norm al in size and midline in position. No significant mass effect or midline shift is demonstrated. The posterior fossa is unremarkable and stable. There is a pressure monitor in the right frontal lobe. CONCLUSION: 1. No significant change in the left-sided subdural hematoma with approximately 6 mm of separation. 2. Hemorrhagic contusions are better visualized along the inferior left frontal lobe. The largest con tusion measures 1.4 cm. 3. Mild improvement in the bilateral subarachnoid hemorrhage. 4. Ventricles remain normal in size and midline in position. Sanjay Donis MD on May 31, 2017 at 10:25 Board Certified Radiologist. This report was verified electronically.
[2017-05-31] MEDS: CISATRACURIUM INJ 100 MG in SODIUM CHLOR 0.9% 250 ML INJ 240 ML IV SCH ×2 (10:58→20:07)
--- NOTE | 2017-05-31 13:04 | PD.PROCEDR ---
Central Line Procedure Date of procedure: 05/30/2017 REASON FOR PROCEDURE Central venous access PROCEDURE PERFORMED Central line placement: Right subclavian vein CONSENT Informed consent not obtained as this was an emergent procedure ANESTHESIA Local injection of 1% Lidocaine DESCRIPTION OF THE PROCEDURE The patient was placed in supine, mild Trendelenburg position. The area was exposed and cleansed with ChloraPrep, times two. Large sterile drape was used to cover the patient, with the site exposed, under sterile conditions including cap, face mask, sterile gown, and sterile gloves. On single attempt, the introducer needle was inserted with negative pressure in syringe and venous flash was obtained. The guide wire was then advanced without any restriction and the needle was removed. The dilator was used without any complications. Using Seldinger technique triple-lumen catheter was advanced over the guide wire to a depth of 17 centimeters. The guide wire was removed. All ports were aspirated with dark venous blood return and flushed easily with sterile saline. All ports were capped. Antibiotic disc was placed around central line at puncture site. The central line was secured to the skin with a stat lock. The area was bandaged with sterile see-through central line bandage. COMPLICATIONS: Postprocedure chest x-ray revealed left subclavian central line turning up into the internal jugular vein ESTIMATED BLOOD LOSS: Less than 1 cc. This central line was removed after placing a new left subclavian central line following review of chest x-ray. Perico Collado MD May 31, 2017 13:04
--- NOTE | 2017-05-31 13:15 | HHI.CCPN ---
Subjective 24 Hour Review/Hospital Course 05/31/17 Patient suffered elevation in his ICP, responsive to increase sedation and hypertonic saline boluses Repeat imaging shows slight improvement Objective Vital Signs Date Time Temp Pulse Resp B/P Pulse Ox O2 Delivery O2 Flow Rate FiO2 05/31/17 12:58 100 50 05/31/17 12:00 97.5 66 16 140/55 05/31/17 07:00 Mechanical Ventilator 05/30/17 13:34 4.00 Intake and Output 05/30/17 05/30/17 05/31/17 08:00 16:00 00:00 Intake Total 2288 ml Output Total 2850 ml Balance -562 ml Result Diagram: 05/31/17 0500 05/31/17 0800 Other Results Laboratory Tests Test 05/30/17 05/31/17 17:06 02:25 Blood Gas Puncture Site RT RADIAL ART LINE Blood Gas Patient Temperature 98.6 98.6 Blood Gas HCO3 23 mmol/L 18 mmol/L (22-26) (22-26) Blood Gas Base Excess -1.4 mmol/L -4.4 mmol/L (-2-2) (-2-2) Blood Gas Oxygen Saturation 96 % (90-100) 98 % (90-100) Arterial Blood pH 7.35 7.54 (7.380-7.420) (7.380-7.420) Arterial Blood Partial 43 mmHg (38-42) 21 mmHg (38-42) Pressure CO2 Arterial Blood Partial 141 mmHg 251 mmHg Pressure O2 (61-120) (61-120) Arterial Blood Oxygen Content 18.7 Vol % 16.4 Vol % (12.0-20.0) (12.0-20.0) Arterial Blood 1.5 % (0-4) 0.8 % (0-4) Carboxyhemoglobin Arterial Blood Methemoglobin 1.2 % (0-2) 1.2 % (0-2) Blood Gas Hemoglobin 13.7 G/DL 11.5 G/DL (12.0-16.0) (12.0-16.0) Oxygen Delivery Device VENTILATOR VENTILATOR Blood Gas Ventilator Setting [facility] PRVC/AC 20/500/1.0/5+ Blood Gas Inspired Oxygen 50 % 50 % Imaging Last [address] 05/31/17 0000 Signed Impressions: Service Date/Time: May 10:13 - CONCLUSION: 1. No significant change in the left-sided subdural hematoma with approximately 6 mm of separation. 2. Hemorrhagic contusions are better visualized along the inferior left frontal lobe. The largest contusion measures 1.4 cm. 3. Mild improvement in the bilateral subarachnoid hemorrhage. 4. Ventricles remain normal in size and midline in position. Sanjay Donis MD Chest X-Ray 05/31/17 0000 Signed Impressions: Service Date/Time: May 04:39 - CONCLUSION: No acute disease. Terry Hussein MD Chest CT 05/30/171346 Signed Impressions: Service Date/Time: Tuesday, May 30, 2017 13:53 - CONCLUSION: Bibasilar nonspecific infiltrates suggestive of pulmonary contusions. Sanjay Donis MD Abdomen/Pelvis CT 05/30/171346 Signed Impressions: Service Date/Time: Tuesday, May 30, 2017 13:53 - CONCLUSION: 1. There appears to be a small amount of fluid along the inferior aspect of the spleen suspicious for a inferior laceration. No significant free fluid is seen in the abdomen or pelvis. 2. Benign-appearing left renal cyst. 3. Bibasilar infiltrates suggestive of pulmonary contusions. Sanjay Donis MD Pelvis X-Ray 05/30/171336 Signed Impressions: Service Date/Time: Tuesday, May 30, 2017 13:24 - CONCLUSION: The bony structures are grossly intact. Sanjay Donis MD Head CT 05/30/171336 Signed Impressions: Service Date/Time: Tuesday, May 30, 2017 13:53 - CONCLUSION: 1. Small left-sided subdural hematoma with approximately 6 mm of separation adjacent to the left temporal lobe. 2. Bilateral subarachnoid hemorrhage, left greater than right. 3. Tiny hemorrhagic contusions in both frontal lobes. 4. Hemorrhagic contusion the left temporal lobe. Sanjay Donis MD Chest X-Ray 05/30/171336 Signed Impressions: Service Date/Time: Tuesday, May 30, 2017 13:24 - CONCLUSION: ET tube in good position. Lungs are grossly clear. The CT thorax will be performed for further evaluation. Sanjay Donis MD Cervical Spine CT 05/30/171336 Signed Impressions: Service Date/Time: Tuesday, May 30, 2017 13:55 - CONCLUSION: 1. No acute bony fracture. 2. Moderate diffuse primary bony degenerative changes, disc degeneration and disc space narrowing at multiple levels from C3-C7. Sanjay Donis MD Exam MANAGER CREDIT COLLECTIONS Intubated, sedated ICPs in the normal range Hemodynamic/Cardiac Regular rate and rhythm, stable Pulmonary/Respiratory Clear to auscultation bilaterally Abdomen/GI Nutrition Soft, nontender, nondistended Renal/I&O Adequate urine output, iatrogenic hypernatremia for ICP control Hematologic Stable Assessment and Plan Plan Continue hyper osmolar therapy and sedation to reduce intracranial swelling Continue full ventilator support for respiratory failure Cardene to maintain systolic blood pressure less than or equal to 160 Begin tube feeds Mechanical VTE prophylaxis Seizure prophylaxis with Keppra Patient remains critically ill with traumatic brain injury following a fall, total critical care time 35 minutes Josr Araiza MD May 31, 2017 13:15
--- NOTE | 2017-05-31 13:40 | HHI.CCPN ---
Subjective Remarks/Hospital Course 05/30: Patient came in as a trauma alert. 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 He was working with his colleagues and they saw him just prior to the accident when he was at his baseline mental status. He fell. The exact nature of the fall is unknown. However after that he was acting bizarre. As per EMS he was combative at the scene and not making sens, repeating the same words which do not make sense. Was hypertensive with blood pressure in 185 systolic. As per EMS GCS at the best was 11. Past medical history is unknown. Upon arrival patient was a GCS 11 and blood pressure was 205 systolic. He was combative. Patient was intubated by ER physician, evaluated by trauma team and subsequently underwent imaging studies and was transferred to ICU. Critical care was consulted by Dr. Araiza for TBI with acute respiratory failure. Per discussion with Dr. Araiza patient didn't appear to have traumatic subdural and subarachnoid hemorrhage as well as a splenic laceration. He also had some bleeding from a scalp laceration on arrival to the ICU. Patient required sedation with propofol following arrival to the ICU as he was starting to gag and cough and was attempting to move both lower extremities. I emergently placed a right subclavian central line for central vascular access which was replaced with a left subclavian central line subsequently as it was turning up into the internal jugular vein. Neurosurgery Dr. Stone had all ready been informed by trauma team and was planning to do a bolt for ICP monitoring. History was obtained by reviewing records and discussion with Dr. Araiza and ICU nursing staff. 05/31: Remains sedated, orally intubated on mechanical ventilation. Required initiation of 3% saline and received 23% saline last night for elevated ICP. On propofol/Versed/fentanyl drips as well as 3% saline this morning and was started on Nimbex for neuromuscular blockade for elevated ICPs. Objective Vital Signs Date Time Temp Pulse Resp B/P Pulse Ox O2 Delivery O2 Flow Rate FiO2 05/31/17 12:00 97.5 66 16 140/55 100 05/31/17 10:35 50 05/31/17 07:00 Mechanical Ventilator 05/30/17 13:34 4.00 Intake and Output 05/30/17 05/30/17 05/31/17 08:00 16:00 00:00 Intake Total 2288 ml Output Total 2850 ml Balance -562 ml Result Diagram: 05/31/17 0500 05/31/17 0800 Other Results Laboratory Tests Test 05/30/17 05/31/17 17:06 02:25 Blood Gas Puncture Site RT RADIAL ART LINE Blood Gas Patient Temperature 98.6 98.6 Blood Gas HCO3 23 mmol/L 18 mmol/L (22-26) (22-26) Blood Gas Base Excess -1.4 mmol/L -4.4 mmol/L (-2-2) (-2-2) Blood Gas Oxygen Saturation 96 % (90-100) 98 % (90-100) Arterial Blood pH 7.35 7.54 (7.380-7.420) (7.380-7.420) Arterial Blood Partial 43 mmHg (38-42) 21 mmHg (38-42) Pressure CO2 Arterial Blood Partial 141 mmHg 251 mmHg Pressure O2 (61-120) (61-120) Arterial Blood Oxygen Content 18.7 Vol % 16.4 Vol % (12.0-20.0) (12.0-20.0) Arterial Blood 1.5 % (0-4) 0.8 % (0-4) Carboxyhemoglobin Arterial Blood Methemoglobin 1.2 % (0-2) 1.2 % (0-2) Blood Gas Hemoglobin 13.7 G/DL 11.5 G/DL (12.0-16.0) (12.0-16.0) Oxygen Delivery Device VENTILATOR VENTILATOR Blood Gas Ventilator Setting PRVC PRVC/AC 20/500/1.0/5+ Blood Gas Inspired Oxygen 50 % 50 % Imaging Last [address] 05/30/171346 Signed Impressions: Service Date/Time: Tuesday, May 30, 2017 13:53 - CONCLUSION: Bibasilar nonspecific infiltrates suggestive of pulmonary contusions. Sanjay Donis MD Abdomen/Pelvis CT 05/30/171346 Signed Impressions: Service Date/Time: Tuesday, May 30, 2017 13:53 - CONCLUSION: 1. There appears to be a small amount of fluid along the inferior aspect of the spleen suspicious for a inferior laceration. No significant free fluid is seen in the abdomen or pelvis. 2. Benign-appearing left renal cyst. 3. Bibasilar infiltrates suggestive of pulmonary contusions. Sanjay Donis MD Pelvis X-Ray 05/30/171336 Signed Impressions: Service Date/Time: Tuesday, May 30, 2017 13:24 - CONCLUSION: The bony structures are grossly intact. Sanjay Donis MD Head CT 05/30/171336 Signed Impressions: Service Date/Time: Tuesday, May 30, 2017 13:53 - CONCLUSION: 1. Small left-sided subdural hematoma with approximately 6 mm of separation adjacent to the left temporal lobe. 2. Bilateral subarachnoid hemorrhage, left greater than right. 3. Tiny hemorrhagic contusions in both frontal lobes. 4. Hemorrhagic contusion the left temporal lobe. Sanjay Donis MD Chest X-Ray 05/30/171336 Signed Impressions: Service Date/Time: Tuesday, May 30, 2017 13:24 - CONCLUSION: ET tube in good position. Lungs are grossly clear. The CT thorax will be performed for further evaluation. Sanjay Donis MD Cervical Spine CT 05/30/171336 Signed Impressions: Service Date/Time: Tuesday, May 30, 2017 13:55 - CONCLUSION: 1. No acute bony fracture. 2. Moderate diffuse primary bony degenerative changes, disc degeneration and disc space narrowing at multiple levels from C3-C7. Sanjay Donis MD Objective Remarks HEENT/ Neuro: Sedated, orally intubated, Pallor present, no icterus, tongue/ mucosa moist. Scalp laceration on posterior part of head . Pupils 3 mm bilaterally reacting actively to light. Neck: Cervical collar in place, trachea is midline, no JVD Chest/Pulm: on mech vent, good air entry bilaterally, no wheezing or crackles, CVS: Regular rate and rhythm GI/abdomen: soft, nontender nondistended Extremities: No clubbing cyanosis or edema, distal pulses are palpable bilaterally Skin is warm dry and intact, Urinary Catheter: Yes Assessment to: Continue Vascular Central Line Catheter: Yes Assessment to: Continue Line: Central Venous Catheter Side: Left Location: Subclavian A/P Assessment and Plan Middle age male brought in as trauma alert following fall from a 6 foot ladder with: TBI: Left subdural hemorrhage, bilateral subarachnoid hemorrhage left greater than right, bifrontal contusions, left temporal lobe contusion Encephalopathy Elevated ICP Splenic laceration Acute respiratory failure on mechanical ventilation Plan: Neuro : Maintain sedation with propofol, Versed and fentanyl, repeat head CT per neurosurgery, continue to treat elevated ICP with hypertonic saline/ Mannitol. Maintain CPP 70 mmHg and above. Starting neuromuscular blockade with Nimbex for episodic elevations in ICP Pulmonary : Continue full ventilator support. Vent bundle, bronchodilators as needed. Maintain end-tidal CO2 to keep PCO2 30-35 Cardiovascular: IV hydration. Levophed to maintain CPP greater than 70 mmHg. GI/liver: Nothing by mouth for now, start tube feeds when okay with trauma team. Currently NG tube to low intermittent wall suction. Renal/: Strict intake output, monitor and replete electrolites, follow BUN/creatinine. IV hydration. ID Ancef given in the trauma bay, no active ID issues at the moment Heme Serial hemoglobins to trend his grade 1 splenic laceration although there is no evidence of active bleeding 2 units of platelets were given due to his medication induced platelet dysfunction Endocrine: Watch for hyperglycemia, SSI for glycemic control if needed. Prophylaxis: PPI/SCDs. Discussed with neurosurgery, discussed with REVIEW ANALYST Time spent on critical care excluding procedures 45 minutes Perico Collado MD May 31, 2017 13:40
[2017-05-31] MEDS: PANTOPRAZOLE SODIUM 40 MG VIAL IVP SCH (15:23)
[2017-05-31] MEDS ORDERED: RESP: ALBUTEROL 2.5 MG/IPRATROPIUM 0.5 MG NEB (PRN) INH (16:00)
[2017-05-31] MEDS: RESP: ALBUTEROL 2.5 MG/IPRATROPIUM 0.5 MG NEB (SCH) INH ×2 (16:57→21:27)
--- NOTE | 2017-05-31 19:03 | HHI.PR ---
Progress Notes/Response to Tx Progress Note Narrative Dr. Lucero covering for Dr. Burns: Patient presently remains intubated and sedated with attentive family members bedside. Will attempt neuropsychological testing upon increased wakefulness and alertness. The family indicated that the patient has a history of stable employment and is a high school graduate. They reported that he is a nonsmoker and does not consume alcohol. He is and his is frequently bedside. He has no adult children. His sisters and his [id number] were present bedside, indicating there is good family support. Elvie Lucero PhD May 31, 2017 19:02
[2017-05-31 22:08] LABS: BICARBONATE 21.5 MEQ/L (21.0-32.0); POTASSIUM 3.7 MEQ/L (3.5-5.1)
[2017-06-01] VITALS (20 sets, daily range): BP systolic 123–154; BP diastolic 57–65; PULSE 60–73; RESP 16–18; TEMP 93.9–97.7; O2SAT 98–100
[2017-06-01] MEDS: PROPOFOL 1000 MG/100 ML INJ 100 ML IV SCH ×7 (00:19→22:53)
[2017-06-01] MEDS: MIDAZOLAM 100 MG/ML INJ 100 ML IV SCH ×3 (02:18→16:44)
[2017-06-01] MEDS: NOREPINEPHRINE INJ 4 MG in SODIUM CHLOR 0.9% 250 ML INJ 246 ML IV SCH ×4 (02:18→16:44)
[2017-06-01] MEDS: MANNITOL 12.5 GM/50 ML VIAL IV SCH ×3 (03:22→21:00)
[2017-06-01] MEDS: RESP: ALBUTEROL 2.5 MG/IPRATROPIUM 0.5 MG NEB (SCH) INH ×4 (03:25→19:45)
[2017-06-01] MEDS: CHLORHEXIDINE GLUCONATE 2 % 1 PACK (2 CLOTHS) TOP SCH (04:09)
[2017-06-01] MEDS: fentaNYL DRIP 250 ML IV SCH ×3 (04:09→16:44)
[2017-06-01 05:29] LABS: BLOOD GAS BASE EXCESS -7.3 mmol/L (-2-2); BLOOD GAS CARBOXYHEMOGLOBIN 0.6 % (0-4); BLOOD GAS HCO3 18 mmol/L (22-26); BLOOD GAS METHEMOGLOBIN 1.1 % (0-2); BLOOD GAS O2 HGB SATURATION 97 % (90-100); BLOOD GAS OXYGEN CONTENT 16.6 Vol % (12.0-20.0); BLOOD GAS PCO2 37 mmHg (38-42); BLOOD GAS PO2 188 mmHg (61-120); BLOOD GAS TOTAL HGB 11.8 G/DL (12.0-16.0); CRITICAL VALUE NO; OXYGEN DEVICE VENTILATOR; TEMP CORR TO 98.6
[2017-06-01 05:30] LABS: DRAW SITE ART LINE; FIO2 40 %; STAT NO; VENT SETTINGS PRVC/AC
[2017-06-01 05:39] LABS: AUTOMATED NEUTROPHIL # 5.6 TH/MM3 (1.8-7.7); BASOPHIL # 0.1 TH/MM3 (0-0.2); BASOPHIL % 0.6 % (0.0-2.0); EOSINOPHIL # 0.4 TH/MM3 (0-0.4); EOSINOPHIL % 4.7 % (0.0-4.0); HEMATOCRIT 35.4 % (39.0-51.0); HEMO FLAGS DIFF FINAL; LYMPH % 21.8 % (9.0-44.0); LYMPHOCYTE # 1.9 TH/MM3 (1.0-4.8); MEAN CELL VOLUME 92.1 FL (80.0-100.0); MEAN CORPUSCULAR HGB CONC 31.5 % (32.0-36.0); MONO % 8.8 % (0.0-8.0); NEUT % 64.1 % (16.0-70.0); PLATELET COUNT 183 TH/MM3 (150-450); RED BLOOD COUNT 3.84 MIL/MM3 (4.50-5.90); RED CELL DISTRIBUTION WIDTH 15.3 % (11.6-17.2); WHITE BLOOD COUNT 8.7 TH/MM3 (4.0-11.0)
[2017-06-01 06:00] LABS: ANION GAP 7 MEQ/L (5-15); AST (GOT) 31 U/L (15-37); BLOOD UREA NITROGEN 6 MG/DL (7-18); CHLORIDE 129 MEQ/L (98-107); GLOMERULAR FILTRATION RATE 95 ML/MIN (>89); MAGNESIUM 1.6 MG/DL (1.5-2.5); POTASSIUM 3.5 MEQ/L (3.5-5.1); SODIUM (NA) 155 MEQ/L (136-145)
[2017-06-01 06:02] LABS: ALT (GPT) 25 U/L (12-78)
[2017-06-01 06:04] LABS: ALKALINE PHOSPHATASE 72 U/L (45-117); TOTAL BILIRUBIN ADULT 0.3 MG/DL (0.2-1.0)
--- NOTE | 2017-06-01 06:14 | RADRPT ---
EXAM DATE/TIME: 06/01/2017 05:28 [facility] COMPARISON: CHEST SINGLE AP, May 31, 2017, 4:39. INDICATIONS : Trauma. Shortness of breath. MEDICAL HISTORY : None. SURGICAL HISTORY : None. ENCOUNTER: Subsequent ACUITY: 3 days PAIN SCORE: Non-responsive. LOCATION: Bilateral chest FINDINGS: A single view of the chest demonstrates the lungs to be symmetrically aerated without evidence of mas s, infiltrate or effusion. The cardiomediastinal contours are unremarkable. Osseous structures are intact with some degenerative spurring of the dorsal spine. Life support tubes including the endotrac heal tube, nasogastric tube and left subclavian central venous catheter are unchanged in position. CONCLUSION: 1. Lungs remain clear. 2. Stable position of life support tubes. Kamaljit El MD on June 01, 2017 at 6:11 Board Certified Radiologist. This report was verified electronically.
[2017-06-01] MEDS: PHENYTOIN INJ 100 MG/2 ML VIAL IV SCH ×3 (06:33→21:33)
[2017-06-01] MEDS: SODIUM CHLOR 0.9% 1000 ML INJ 1,000 ML IV SCH ×3 (06:44→20:50)
[2017-06-01] MEDS: CISATRACURIUM INJ 100 MG in SODIUM CHLOR 0.9% 250 ML INJ 240 ML IV SCH (08:14)
[2017-06-01] MEDS: CHLORHEXIDINE 0.12% (ORAL KIT) 15 ML CUP MT SCH ×2 (08:14→21:32)
[2017-06-01] MEDS: DOCUSATE SODIUM 100 MG/10 ML UDC PO SCH ×2 (08:14→21:32)
[2017-06-01] MEDS: 3% SALINE INJ 500 ML IV SCH (08:15)
[2017-06-01] MEDS ORDERED: MAGNESIUM OXIDE 400 MG TAB PO PRN (09:30)
[2017-06-01] MEDS ORDERED: SODIUM PHOSPHATE INJ 30 MMOL in SODIUM CHLOR 0.9% 250 ML INJ 240 ML IV PRN (09:30)
[2017-06-01] MEDS ORDERED: POTASSIUM PHOSPHATE INJ 30 MMOL in SODIUM CHLOR 0.9% 250 ML INJ 250 ML IV PRN (09:30)
[2017-06-01] MEDS ORDERED: POTASSIUM CHLOR 20 MEQ PREMIX 100 ML IV PRN ×2 (09:30→13:45)
[2017-06-01] MEDS ORDERED: MAGNESIUM SULFATE INJ 4 GM in SODIUM CHLORIDE 0.9% INJ 92 ML IV PRN (09:30)
[2017-06-01] MEDS ORDERED: POTASSIUM CHLORIDE 25 MEQ EFFERVESCENT TAB PO PRN (09:30)
[2017-06-01] MEDS ORDERED: POTASSIUM PHOSPHATE MONOBASIC 500 MG TAB PO/TUBE PRN (09:30)
[2017-06-01] MEDS ORDERED: MAGNESIUM SULFATE INJ 2 GM in SODIUM CHLORIDE 0.9% INJ 96 ML IV PRN (09:30)
--- NOTE | 2017-06-01 09:49 | HHI.NSPN ---
(Gabriela Manzo) Note Status Status: Progress Note (Gabriela Manzo) Interval History Interval History This is an aduklt male brought to [place] emergency department as a trauma alert. 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 He was working with his colleagues and they saw him just prior to the accident when he was at his baseline mental status. He fell. The exact nature of the fall is unknown. According to EMS he was combative at the scene and not making sense, repeating the same words which do not make sense. Was hypertensive with blood pressure in 185 systolic. His pst medical history is unknown. At scene GCS 11 and blood pressure was 205 systolic. He was combative. Upon arrival he was intubated by ER physician, evaluated by trauma team and subsequently underwent imaging studies and was transferred to ICU. He also had some bleeding from a scalp laceration on arrival to the ICU. Patient required sedation with propofol following arrival to the ICU . Neurosurgery consultation was requested 05/31: pt underwent placement of ICP monitor yesterday. He is intubated and well sedated on propofol, versed, and fentanyl. Nursing reports elevated ICPs overnight in the 20's. He was given dose of 23% NS. Serum sodium today 151. ICPs currently now increasing back to low 20's, pupils 2 mm equal 06/01: f/u CT Head yesterday was stable. Reports ICPs intermittently elevated overnight. Remains well sedated, also on Nimbex. pupils equal. (Gabriela Manzo) Labs, Micro, & Vital Signs Results Date Time Temp Pulse Resp B/P Pulse Ox O2 Delivery O2 Flow Rate FiO2 06/01/17 08:00 97.1 63 18 145/62 100 06/01/17 08:00 63 06/01/17 08:00 35 06/01/17 07:46 100 35 06/01/17 07:38 100 35 06/01/17 07:00 100 Mechanical Ventilator 35 06/01/17 06:00 65 06/01/17 04:00 96.3 65 16 154/64 100 06/01/17 04:00 65 06/01/17 04:00 45 06/01/17 03:21 100 40 06/01/17 02:00 66 06/01/17 00:00 96.3 63 16 145/61 100 06/01/17 00:00 62 06/01/17 00:00 45 05/31/17 23:49 100 40 05/31/17 22:00 60 05/31/17 20:00 45 05/31/17 20:00 96.7 62 16 146/58 100 05/31/17 20:00 60 05/31/17 19:30 100 Mechanical Ventilator 45 05/31/17 19:25 100 05/31/17 19:20 100 45 05/31/17 19:00 100 Mechanical Ventilator 50 05/31/17 18:00 59 05/31/17 16:09 100 50 05/31/17 16:00 50 05/31/17 16:00 62 05/31/17 16:00 96.3 62 16 139/54 100 05/31/17 14:00 60 05/31/17 12:58 100 50 05/31/17 12:00 97.5 66 16 140/55 100 05/31/17 12:00 50 05/31/17 12:00 66 05/31/17 10:35 100 50 05/31/17 10:00 100 50 05/31/17 10:00 66 06/01/17 07:00 Intake Total 7106 ml Output Total 1700.0 ml Balance 5406.0 ml Constitutional Vital Signs Date Time Temp Pulse Resp B/P Pulse Ox O2 Delivery O2 Flow Rate FiO2 06/01/17 08:00 97.1 63 18 145/62 100 06/01/17 08:00 63 06/01/17 08:00 35 06/01/17 07:46 100 35 06/01/17 07:38 100 35 06/01/17 07:00 100 Mechanical Ventilator 35 06/01/17 06:00 65 06/01/17 04:00 96.3 65 16 154/64 100 06/01/17 04:00 65 06/01/17 04:00 45 06/01/17 03:21 100 40 06/01/17 02:00 66 06/01/17 00:00 96.3 63 16 145/61 100 06/01/17 00:00 62 06/01/17 00:00 45 05/31/17 23:49 100 40 05/31/17 22:00 60 05/31/17 20:00 45 05/31/17 20:00 96.7 62 16 146/58 100 05/31/17 20:00 60 05/31/17 19:30 100 Mechanical Ventilator 45 05/31/17 19:25 100 05/31/17 19:20 100 45 05/31/17 19:00 100 Mechanical Ventilator 50 05/31/17 18:00 59 05/31/17 16:09 100 50 05/31/17 16:00 50 05/31/17 16:00 62 05/31/17 16:00 96.3 62 16 139/54 100 05/31/17 14:00 60 05/31/17 12:58 100 50 05/31/17 12:00 97.5 66 16 140/55 100 05/31/17 12:00 50 05/31/17 12:00 66 05/31/17 10:35 100 50 05/31/17 10:00 100 50 05/31/17 10:00 66 06/01/17 07:00 Intake Total 7106 ml Output Total 1700.0 ml Balance 5406.0 ml (Gabriela Manzo) Review of Systems/Exam Exam Intubated and well sedated on multiple drips. No response to pain Right ICP monitor in place, ICPs currently between 9-13 Cranial Nerves: Pupils 2 mm equal nonreactive. Conjugate gaze. Face musculature appeared symmetrical at rest. Face sensation, olfaction, visual carpenter, and hearing cannot be adequately assessed due to his neurological condition. Cervical Spine: this was cleared to be removed by Dr. Stone Motor: His muscle tone and bulk are normal. No movements x 4 Reflexes: trace throughout. Plantars silent b/l. Sensory: no response to painful stimuli Cerebellar: Examination cannot be adequately assessed due to the patient's neurological condition (Gabriela Manzo) Medications Current Medications Current Medications Medications (Trade) Dose Ordered Sig/Alexandru Route PRN Reason Start Time Stop Time Status Last Admin Dose Admin Sodium Chloride (NS 1000 ml Inj) 1,000 ml @ 75 mls/hr [id number] IV 05/30/17 15:30 06/01/17 06:44 Sodium Chloride (NS Flush) 2 ml UNSCH PRN IV FLUSH FLUSH AFTER USING IV ACCESS 05/30/17 14:30 Enalaprilat (Vasotec Inj) 1.25 mg Q8H PRN IV SBP>180, DBP>95 05/30/17 14:30 Ondansetron HCl (Zofran Inj) 4 mg Q6H PRN IV NAUSEA OR VOMITING 05/30/17 14:30 Pantoprazole Sodium (Protonix Inj) 40 mg Q24H IVP 05/30/17 16:00 05/31/17 15:23 Docusate Sodium (Colace Liq) 100 mg BID PO 05/30/17 21:00 06/01/17 08:14 Magnesium Hydroxide (Milk Of Magnesia Liq) 30 ml Q6H PRN PO CONSTIPATION 05/30/17 14:30 06/01/17 08:14 Miscellaneous Information 1 [id number] XX 05/30/17 14:30 Chlorhexidine Gluconate (Chlorhexidine 2% Cloth) 3 pack Taper DAILY@04 TOP 05/31/17 04:00 05/27/18 03:59 06/01/17 04:09 Chlorhexidine Gluconate (Chlorhexidine 2% Cloth) 3 pack UNSCH PRN TOP HYGIENIC CARE 05/30/17 14:30 Phenytoin Sodium (Dilantin Inj) 100 mg Q8HR IV 05/30/17 22:00 06/01/17 06:33 Chlorhexidine Gluconate 15 ml 15 ml BID@08,20 MT 05/30/17 20:00 06/01/17 08:14 Nicardipine HCl 25 mg/Sodium Chloride 260 ml @ 0 mls/hr TITRATE IV 05/30/17 17:15 Norepinephrine Bitartrate/Sodium Chloride (Levophed Inj/NS 250 ml Inj) 250 ml @ 0 mls/hr TITRATE IV 05/30/17 18:00 06/01/17 06:44 Terbutaline Sulfate 1 mg 1 mg UNSCH PRN SQ For Extravasation 05/30/17 18:00 Fentanyl Citrate 250 ml @ 0 mls/hr TITRATE IV 05/30/17 20:15 06/01/17 04:09 Midazolam HCl 100 ml @ 0 mls/hr TITRATE IV 05/30/17 20:15 06/01/17 02:18 Propofol (Diprivan 1000 Mg/100ml Inj) 100 ml @ 0 mls/hr TITRATE IV 05/30/17 20:15 06/01/17 08:15 Mannitol 12.5 gm 12.5 gm Q8H IV 05/30/17 21:00 05/31/17 13:00 Sodium Chloride 500 ml @ 40 mls/hr CONTINUOUS IV 05/31/17 07:00 06/01/17 08:15 Cisatracurium Besylate 100 mg/ Sodium Chloride 250 ml @ 0 mls/hr TITRATE IV 05/31/17 09:45 06/01/17 08:14 Sodium Chloride (NS 1000 ml Inj) 1,000 ml @ 20 mls/hr Q24H IV 05/31/17 17:00 06/01/17 06:44 (Gabriela Manzo) Medical Decision Making MDM Remarks 62 y/o male TBI, s/p placement of intracranial pressure monitor 05/30/17, f/u CT Head 05/31 stable findings, intermittent elevated ICPs, currently stable (Gabriela Manzo) Plan Plan Remarks cont to keep well sedated, cont hyperosmotics tx, f/u levels cont close ICP monitoring, cont serial neuro checks, critical care management nonchemical dvt prophylaxis in view of ICH, Protonix for stress ulcer prophylaxis Keppra for sz prophylaxis clear to discontinue cervical collar dw Dr. Collado and nursing Update: nursing called 1125: patient's ICPs sustaining now between 25-30, Dr. Stone was phoned - pt will be going to OR for left decompressive craniectomy with evacuation of subdural hematoma. (Gabriela Manzo) Attending Statement His ICP are uncontrolled despite maximum medical therapy. recommend a decompressive craniectomy with evacuation of the subdural hematoma. We have discussed with his family the details including the [id number] details of the surgical procedure, its indications, alternatives, risks, and potential complications. Risks and potential complications include, but are not limited to, infection, blood loss, CSF leak, partial or complete loss of sight in one or both eyes, paresis, paralysis, permanent pain or difficulty swallowing, loss of bowel or bladder function, complications from anesthesia, blood clot, stroke , myocardial infarction, or even . The exam, history, and the medical decision-making described in the above note were completed with the assistance of the mid-level provider. I reviewed and agree with the findings presented. I attest that I had a [id number] encounter with the patient on the same day, and personally performed and documented my assessment and findings in the medical record. (Thee Stone MD) Gabriela Manzo Jun 01, 2017 09:49 Thee Stone MD Jun 01, 2017 13:45
[2017-06-01] MEDS ORDERED: 3% SALINE INJ 500 ML IV SCH (10:00)
[2017-06-01] MEDS ORDERED: MAGNESIUM CITRATE SOLN 300 ML BTL PO ONE (10:45)
--- NOTE | 2017-06-01 11:56 | HHI.CCPN ---
Subjective 24 Hour Review/Hospital Course 05/31/17 Patient suffered elevation in his ICP, responsive to increase sedation and hypertonic saline boluses Repeat imaging shows slight improvement 06/01/17 ICP continue to increase when sedation is stopped, neurosurgery considering surgical intervention Objective Vital Signs Date Time Temp Pulse Resp B/P Pulse Ox O2 Delivery O2 Flow Rate FiO2 06/01/17 11:39 100 35 06/01/17 10:00 60 06/01/17 08:00 97.1 18 145/62 06/01/17 07:00 Mechanical Ventilator 05/30/17 13:34 4.00 Intake and Output 05/31/17 05/31/17 06/01/17 08:00 16:00 00:00 Intake Total 2200 ml 2612 ml 2247 ml Output Total 1200 ml 675 ml 450 ml Balance 1000 ml 1937 ml 1797 ml Result Diagram: 06/01/17 0522 06/01/17 0809 Other Results Laboratory Tests Test 06/01/17 05:20 Blood Gas Puncture Site ART LINE Blood Gas Patient Temperature 98.6 Blood Gas HCO3 18 mmol/L (22-26) Blood Gas Base Excess -7.3 mmol/L (-2-2) Blood Gas Oxygen Saturation 97 % (90-100) Arterial Blood pH 7.31 (7.380-7.420) Arterial Blood Partial 37 mmHg (38-42) Pressure CO2 Arterial Blood Partial 188 mmHg Pressure O2 (61-120) Arterial Blood Oxygen Content 16.6 Vol % (12.0-20.0) Arterial Blood 0.6 % (0-4) Carboxyhemoglobin Arterial Blood Methemoglobin 1.1 % (0-2) Blood Gas Hemoglobin 11.8 G/DL (12.0-16.0) Oxygen Delivery Device VENTILATOR Blood Gas Ventilator Setting PRVC/AC Blood Gas Inspired Oxygen 40 % Imaging Last 24 hours Impressions Chest X-Ray 06/01/17 0600 Signed Impressions: Service Date/Time: Thursday, June 01, 2017 05:28 - CONCLUSION: 1. Lungs remain clear. 2. Stable position of life support tubes. Kamaljit El MD Exam HABILITATION ASSISTANT Intubated sedated Hemodynamic/Cardiac Regular rate and rhythm, stable Pulmonary/Respiratory Clear to auscultation bilaterally Abdomen/GI Nutrition Soft, nontender, nondistended Renal/I&O Good urine output Hematologic Stable Vascular Central Line Catheter Line: Central Venous Catheter Side: Left Location: Subclavian Assessment and Plan Plan Continue hyper osmolar therapy and sedation to reduce intracranial swelling, neurosurgery considering surgical intervention Continue full ventilator support for respiratory failure Cardene to maintain systolic blood pressure less than or equal to 160 Continue nutritional support Mechanical VTE prophylaxis, chemical prophylaxis contraindicated Seizure prophylaxis with Keppra Patient remains critically ill with traumatic brain injury following a fall, total critical care time 35 minutes Josr Araiza MD Jun 01, 2017 11:56
[2017-06-01] MEDS ORDERED: PHENYLEPH/NS 1000 MCG/10 ML SYR IV ONE (12:00)
[2017-06-01] MEDS ORDERED: LIDOCAINE 1%/EPINEPHrine 1:100,000 SOLN 20 ML VIAL ONE (13:05)
[2017-06-01] MEDS ORDERED: ceFAZolin 2 GM PREMIX 50 ML ONE (13:05)
[2017-06-01] MEDS ORDERED: MICROFIBRILLAR COLLAGEN HEMOSTAT 70 X 35 MM BANDAGE ONE (13:05)
[2017-06-01] MEDS ORDERED: THROMBIN (TOPICAL) 5,000 UNIT VIAL ONE (13:05)
[2017-06-01] MEDS ORDERED: GELFOAM SIZE 100 ONE (13:05)
[2017-06-01] MEDS ORDERED: GENTAMICIN SULFATE 80 MG/2 ML VIAL ONE (13:05)
[2017-06-01] MEDS ORDERED: VANCOMYCIN HCL 1000 MG VIAL ONE (13:06)
[2017-06-01] MEDS ORDERED: MIDAZOLAM HCL 2 MG/2 ML VIAL ONE (13:15)
[2017-06-01] MEDS ORDERED: ARTIFICIAL TEARS OPTH OINT 3.5 APPLIC/3.5 GM TUBO ONE (13:15)
[2017-06-01] MEDS ORDERED: fentaNYL CITRATE 250 MCG/5 ML AMP ONE (13:15)
[2017-06-01] MEDS ORDERED: levETIRAcetam 500 MG/5 ML VIAL IV ONE (13:25)
[2017-06-01] MEDS ORDERED: SODIUM CHLORIDE 0.9% FLUSH 5 ML FLUSH IVF PRN (13:45)
[2017-06-01] MEDS ORDERED: MORPHINE SULFATE 4 MG/ML INJ IV PUSH PRN (13:45)
[2017-06-01] MEDS ORDERED: ACETAMINOPHEN/HYDROcodone 325 MG/10 MG TAB PO PRN (13:45)
[2017-06-01] MEDS ORDERED: MAGNESIUM SULFATE INJ 4 GM in SODIUM CHLORIDE 0.9% INJ 100 ML IV PRN (13:45)
[2017-06-01] MEDS ORDERED: CALCIUM GLUCONATE 10% 1 GM/10 ML VIAL IV PRN (13:45)
[2017-06-01] MEDS ORDERED: ONDANSETRON HCL 4 MG/2 ML VIAL IV PRN (13:45)
[2017-06-01] MEDS ORDERED: BISACODYL 10 MG SUPP RECTAL PRN (13:45)
--- NOTE | 2017-06-01 13:56 | HHI.CCPN ---
Subjective Remarks/Hospital Course 05/30: Patient came in as a trauma alert. 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 He was working with his colleagues and they saw him just prior to the accident when he was at his baseline mental status. He fell. The exact nature of the fall is unknown. However after that he was acting bizarre. As per EMS he was combative at the scene and not making sens, repeating the same words which do not make sense. Was hypertensive with blood pressure in 185 systolic. As per EMS GCS at the best was 11. Past medical history is unknown. Upon arrival patient was a GCS 11 and blood pressure was 205 systolic. He was combative. Patient was intubated by ER physician, evaluated by trauma team and subsequently underwent imaging studies and was transferred to ICU. Critical care was consulted by Dr. Araiza for TBI with acute respiratory failure. Per discussion with Dr. Araiza patient didn't appear to have traumatic subdural and subarachnoid hemorrhage as well as a splenic laceration. He also had some bleeding from a scalp laceration on arrival to the ICU. Patient required sedation with propofol following arrival to the ICU as he was starting to gag and cough and was attempting to move both lower extremities. I emergently placed a right subclavian central line for central vascular access which was replaced with a left subclavian central line subsequently as it was turning up into the internal jugular vein. Neurosurgery Dr. Stone had all ready been informed by trauma team and was planning to do a bolt for ICP monitoring. History was obtained by reviewing records and discussion with Dr. Araiza and ICU nursing staff. 05/31: Remains sedated, orally intubated on mechanical ventilation. Required initiation of 3% saline and received 23% saline last night for elevated ICP. On propofol/Versed/fentanyl drips as well as 3% saline this morning and was started on Nimbex for neuromuscular blockade for elevated ICPs. 06/01: Remains sedated, orally intubated on mechanical ventilation. On propofol/ Versed/fentanyl/Nimbex/3% saline drips this morning. Objective Vital Signs Date Time Temp Pulse Resp B/P Pulse Ox O2 Delivery O2 Flow Rate FiO2 06/01/17 12:00 35 06/01/17 12:00 97.7 62 18 123/57 100 06/01/17 07:00 Mechanical Ventilator 05/30/17 13:34 4.00 Intake and Output 05/31/17 05/31/17 06/01/17 08:00 16:00 00:00 Intake Total 2200 ml 2612 ml 2247 ml Output Total 1200 ml 675 ml 450 ml Balance 1000 ml 1937 ml 1797 ml Result Diagram: 06/01/17 0522 06/01/17 0809 Other Results Laboratory Tests Test 05/31/17 05/31/17 06/01/17 06/01/17 14:10 21:15 02:50 05:20 Sodium Level 152 MEQ/L 155 MEQ/L 156 MEQ/L Serum Osmolality 313 MOSM/KG 316 MOSM/KG 317 MOSM/KG Potassium Level 3.7 MEQ/L Chloride Level 126 MEQ/L Carbon Dioxide Level 21.5 MEQ/L Anion Gap 8 MEQ/L Blood Urea Nitrogen 7 MG/DL Creatinine 0.78 MG/DL Estimat Glomerular Filtration 102 ML/MIN Rate Random Glucose 109 MG/DL Calcium Level 8.1 MG/DL Blood Gas Puncture Site ART LINE Blood Gas Patient Temperature 98.6 Blood Gas HCO3 18 mmol/L Blood Gas Base Excess -7.3 mmol/L Blood Gas Oxygen Saturation 97 % Arterial Blood pH 7.31 Arterial Blood Partial 37 mmHg Pressure CO2 Arterial Blood Partial 188 mmHg Pressure O2 Arterial Blood Oxygen Content 16.6 Vol % Arterial Blood 0.6 % Carboxyhemoglobin Arterial Blood Methemoglobin 1.1 % Blood Gas Hemoglobin 11.8 G/DL Oxygen Delivery Device VENTILATOR Blood Gas Ventilator Setting PRVC/AC Blood Gas Inspired Oxygen 40 % Test 06/01/17 06/01/17 05:22 08:09 White Blood Count 8.7 TH/MM3 Red Blood Count 3.84 MIL/MM3 Hemoglobin 11.1 GM/DL Hematocrit 35.4 % Mean Corpuscular Volume 92.1 FL Mean Corpuscular Hemoglobin 29.0 PG Mean Corpuscular Hemoglobin 31.5 % Concent Red Cell Distribution Width 15.3 % Platelet Count 183 TH/MM3 Mean Platelet Volume 9.7 FL Neutrophils (%) (Auto) 64.1 % Lymphocytes (%) (Auto) 21.8 % Monocytes (%) (Auto) 8.8 % Eosinophils (%) (Auto) 4.7 % Basophils (%) (Auto) 0.6 % Neutrophils # (Auto) 5.6 TH/MM3 Lymphocytes # (Auto) 1.9 TH/MM3 Monocytes # (Auto) 0.8 TH/MM3 Eosinophils # (Auto) 0.4 TH/MM3 Basophils # (Auto) 0.1 TH/MM3 CBC Comment DIFF FINAL Differential Comment Sodium Level 155 MEQ/L 155 MEQ/L Potassium Level 3.5 MEQ/L Chloride Level 129 MEQ/L Carbon Dioxide Level 19.0 MEQ/L Anion Gap 7 MEQ/L Blood Urea Nitrogen 6 MG/DL Creatinine 0.83 MG/DL Estimat Glomerular Filtration 95 ML/MIN Rate Random Glucose 105 MG/DL Calcium Level 7.9 MG/DL Phosphorus Level 1.9 MG/DL Magnesium Level 1.6 MG/DL Total Bilirubin 0.3 MG/DL Aspartate Amino Transf 31 U/L (AST/SGOT) Alanine Aminotransferase 25 U/L (ALT/SGPT) Alkaline Phosphatase 72 U/L Total Protein 5.6 GM/DL Albumin 2.5 GM/DL Serum Osmolality 315 MOSM/KG Imaging Last 24 hours Impressions Chest X-Ray 06/01/17 0600 Signed Impressions: Service Date/Time: Thursday, June 01, 2017 05:28 - CONCLUSION: 1. Lungs remain clear. 2. Stable position of life support tubes. Kamaljit El MD Last [address] 05/30/171346 Signed Impressions: Service Date/Time: Tuesday, May 30, 2017 13:53 - CONCLUSION: Bibasilar nonspecific infiltrates suggestive of pulmonary contusions. Sanjay Donis MD Abdomen/Pelvis CT 05/30/171346 Signed Impressions: Service Date/Time: Tuesday, May 30, 2017 13:53 - CONCLUSION: 1. There appears to be a small amount of fluid along the inferior aspect of the spleen suspicious for a inferior laceration. No significant free fluid is seen in the abdomen or pelvis. 2. Benign-appearing left renal cyst. 3. Bibasilar infiltrates suggestive of pulmonary contusions. Sanjay Donis MD Pelvis X-Ray 05/30/171336 Signed Impressions: Service Date/Time: Tuesday, May 30, 2017 13:24 - CONCLUSION: The bony structures are grossly intact. Sanjay Donis MD Head CT 05/30/171336 Signed Impressions: Service Date/Time: Tuesday, May 30, 2017 13:53 - CONCLUSION: 1. Small left-sided subdural hematoma with approximately 6 mm of separation adjacent to the left temporal lobe. 2. Bilateral subarachnoid hemorrhage, left greater than right. 3. Tiny hemorrhagic contusions in both frontal lobes. 4. Hemorrhagic contusion the left temporal lobe. Sanjay Donis MD Chest X-Ray 05/30/171336 Signed Impressions: Service Date/Time: Tuesday, May 30, 2017 13:24 - CONCLUSION: ET tube in good position. Lungs are grossly clear. The CT thorax will be performed for further evaluation. Sanjay Donis MD Cervical Spine CT 05/30/171336 Signed Impressions: Service Date/Time: Tuesday, May 30, 2017 13:55 - CONCLUSION: 1. No acute bony fracture. 2. Moderate diffuse primary bony degenerative changes, disc degeneration and disc space narrowing at multiple levels from C3-C7. Sanjay Donis MD Objective Remarks HEENT/ Neuro: Sedated, orally intubated, Pallor present, no icterus, tongue/ mucosa moist. Scalp laceration on posterior part of head . Pupils 3 mm bilaterally reacting actively to light. On neuromuscular blockade. Grover in place. Neck: Cervical collar in place, trachea is midline, no JVD Chest/Pulm: on mech vent, good air entry bilaterally, no wheezing or crackles, CVS: Regular rate and rhythm GI/abdomen: soft, nontender nondistended Extremities: No clubbing cyanosis or edema, distal pulses are palpable bilaterally Skin is warm dry and intact, Line: Central Venous Catheter Side: Left Location: Subclavian A/P Assessment and Plan Middle age male brought in as trauma alert following fall from a 6 foot ladder with: TBI: Left subdural hemorrhage, bilateral subarachnoid hemorrhage left greater than right, bifrontal contusions, left temporal lobe contusion Encephalopathy Elevated ICP Splenic laceration Acute respiratory failure on mechanical ventilation Plan: Neuro : Maintain sedation with propofol, Versed and fentanyl, repeat head CT per neurosurgery, continue to treat elevated ICP with hypertonic saline/ Mannitol. Maintain CPP 70 mmHg and above. On neuromuscular blockade with Nimbex for episodic elevations in ICP. Pulmonary : Continue full ventilator support. Vent bundle, bronchodilators as needed. Maintain end-tidal CO2 to keep PCO2 30-35 Cardiovascular: IV hydration. Levophed to maintain CPP greater than 70 mmHg. GI/liver: Nothing by mouth for now, start tube feeds when okay with trauma team. Currently NG tube to low intermittent wall suction. Renal/: Strict intake output, monitor and replete electrolites, follow BUN/creatinine. IV hydration. ID Ancef given in the trauma bay, no active ID issues at the moment Heme Serial hemoglobins to trend his grade 1 splenic laceration although there is no evidence of active bleeding 2 units of platelets were given due to his medication induced platelet dysfunction Endocrine: Watch for hyperglycemia, SSI for glycemic control if needed. Prophylaxis: PPI/SCDs. Discussed with neurosurgery, discussed with SALICYLIC ACID BLENDER Time spent on critical care excluding procedures 45 minutes Perico Collado MD Jun 01, 2017 13:56
--- NOTE | 2017-06-01 14:10 | OTSOAPIP ---
TIME SESSION COMPLETED: 1130 TREATMENT TIME: 0 MINS. CHART REVIEWED. CLINICAL HISTORY: PATIENT IS A 62 Y/O Male REFERRED TO OCCUPATIONAL THERAPY. PATIENT WAS ADMITTED AFTER FALLING AT WORK. PATIENT WITH A DIAGNOSIS OF THE FOLLOWING' * ALERTED MENTAL STATUS * RESPIRATORY FAILURE S/P INTUBATION * BILATERAL SUBARACHNOID HEMORRHAGE, LEFT GREATER THAN RIGHT * HEMORRHAGIC CONTUSION IN BOTH FRONTAL LOBES AND LEFT TEMPORAL . * PULMONARY CONTUSIONS. * SPLEEN INFERIOR LACERATION * CERVCAL CT SCAN - NO ACUTE BONY FRACTURE. 2. MODERATE DIFFUSE PRIMARY BONY DEGENERATIVE CHANGES, DISC DEGENERATION AND DISC SPACE NARROWING AT MULTIPLE LEVELS FROM C3-C7 PHYSICIAN ORDER STATES: OCCUPATIONAL THERAPY EVALUATE AND TREAT. SURGERY ON THIS ADMISSION 05/30/17 - RIGHT FRONTAL BUR HOLE WITH PLACEMENT OF AN INTRACRANIAL PRESSURE MONITOR. INTERDISCIPLINARY COMMUNICATION: NURSING REQUEST TO HOLD TREATMENT TODAY DUE TO FLUCTUATING ICP's LEVELS PLAN: WILL SEE PATIENT NEXT TREATMENT DAY Therapist: FLORINA GONZALEZ/Stacie Signature on file
--- NOTE | 2017-06-01 14:22 | PD.OP ---
Operative Report Date of Surgery: Jun 01, 2017 Preoperative Diagnosis: Severe traumatic brain injury, left subdural hematoma Postoperative Diagnosis: Severe traumatic brain injury, left subdural hematoma Procedure: Left frontotemporal parietal decompressive craniectomy, evacuation of acute subdural hematoma Anesthesia: general Surgeon: Thee Stone Instrument Installer(s): Tracy Roblero Operation and Findings: INDICATIONS FOR THE SURGERY The patient is a 62 year old male who fell off a ladder and was brought to [place] with a severe traumatic brain injury. He had a left temporal acute subdural hematoma causing mass effect and midline shift. He failed maximum medical management. His intracranial pressures continue to elevate. A surgical decompression was indicated in an attempt to save his life. The step- by-step details of the procedure indications alternatives risks and potential complications were fully discussed with his . She understood all her questions were answered. No waranties were given. She voiced requesting the surgery and provided informed consents DETAILS OF THE SURGICAL PROCEDURE The patient was endotracheally intubated and mechanically ventilated. A [place] catheter, bilateral MARIAN hose and sequential compression devices were placed and kept throughout the procedure. The patient was positioned supine on a 3080 table over a soft mattress. The eyes were tapped shut after ointment was applied by the anesthesiologist to prevent corneal abrasion. A Gail hugger was placed over the exposed lower body to maintain control of the core body temperature. The head was placed on a gel doughnut. All pressure points were carefully padded with egg crate mattress. The frontotemporal parietal area was shaved, prepped and draped in the usual sterile fashion. A standard inverted question nato incision was outlined on the right frontotemporal parietal scalp and infiltrated with 1% lidocaine with epinephrine. The skin incision was made with a #10 blade down to the level of the periosteum in the left frontoparietal region and to the temporalis fascia in the temporal region. Omero clips were applied to the scalp. Using a Bovie, the temporalis fascia and muscle were incised and a subperiosteal dissection was performed reflecting the scalp flap anteriorly. The scalp was covered with a moist sponge and held in position using fish hooks. The TPS drill was brought to the field and a bur hole was made in the temporal region using the craniotome attachment. Then, using the footplate attachment, a large frontotemporoparietal craniotomy flap was elevated. The dura was bulging, very tense with severe pressure and an underlying dark coloration related to the acute subdural hematoma. The dura was opened with a 15 blade and metzembaun scissors and an acute subdural hematoma was found. The hematoma was evacuated by gentle irrigation and sent to the lab for histologic analysis. The bleeding was controlled using the bipolar materials management supervisor. The brain was diffusely edematous The bone flap was packed in sterile conditions and stored in the operative room freezer. Then the incision was irrigated with saline solution. The dural edges were tacked to the bone. The Dura was loosely reconstructed. A 7 millimeter Andrew-Roth drain was then left in the subgaleal space and externalized through a separate stab incision. The incision was then closed in layers. 0 Vicryl in interrupted sutures were used to close the temporalis fascia. The galea was closed with interrupted 3- 0 Vicryl. [place] were applied to the skin. The drain was secured with a 3-0 nylon. At the end of the procedure, the sponge, needle and instrument counts were all correct. Estimated blood loss was less than 100 cc. No blood transfusion was given. No intraoperative complications occurred. The patient received prophylactic antibiotics. The patient was then transferred to the recovery room in stable condition. Thee Stone MD Jun 01, 2017 14:22
[2017-06-01] MEDS ORDERED: LIDOCAINE 1%/EPINEPHrine 1:100,000 SOLN 30 ML VIAL INFIL ONE (14:27)
[2017-06-01] MEDS ORDERED: THROMBIN (TOPICAL) 5,000 UNIT VIAL TOP ONE (14:27)
[2017-06-01] MEDS ORDERED: GELFOAM SIZE 100 TOP ONE (14:27)
[2017-06-01] MEDS ORDERED: GENTAMICIN SULFATE 80 MG/2 ML VIAL IRRIGATION ONE (14:27)
[2017-06-01] MEDS ORDERED: MICROFIBRILLAR COLLAGEN HEMOSTAT 70 X 35 MM BANDAGE TOPICAL ONE (14:27)
[2017-06-01] MEDS ORDERED: BACITRACIN TOP OINT 15 GM TUBE ONE (15:19)
--- NOTE | 2017-06-01 16:58 | PD.CONS ---
HPI Service Rehabilitation Medicine Consult Requested By [facility] Trauma Service Reason for Consult Comprehensive rehabilitation evaluation. Primary Care Physician Unknown History of Present Illness Sherif Evans is a 62 year old right hand dominant male 05/30/17 after a fall 6 feet admitted to [facility]. SBP 205. GCS 11. Brain CT 05/30/17 showed small left-sided subdural hematoma with approximately 6 mm of separation adjacent to the left temporal lobe, bilateral subarachnoid hemorrhage, left greater than right, tiny hemorrhagic contusions in both frontal lobes and hemorrhagic contusion the left temporal lobe. Intubated. ICP monitor placed. He sustained a splenic laceration. Followup head CT 05/31/17 showed no change in left subdural hematoma with approximately 6 mm separation, inferior left frontal hemorrhagic contusions and mild improvement of bilateral subarachnoid hemorrhage. Review of Systems ROS Limitations: Intubated, Altered Mental Status (Sedated) Past Family Social History Allergies: Coded Allergies: UNOBTAINABLE (Unverified , 05/30/17) Past Medical History Unable to obtain Past Surgical History Unable to obtain Current Medications Current Medications Medications (Trade) Dose Ordered Sig/Alexandru Route Start Time Stop Time Status Last Admin (NS 1000 ml Inj) 1,000 ml @ 75 mls/hr [id number] IV 05/30/17 15:30 06/01/17 06:44 (NS Flush) 2 ml UNSCH PRN IV FLUSH 05/30/17 14:30 (Vasotec Inj) 1.25 mg Q8H PRN IV 05/30/17 14:30 (Zofran Inj) 4 mg Q6H PRN IV 05/30/17 14:30 (Colace Liq) 100 mg BID PO 05/30/17 21:00 06/01/17 08:14 (Milk Of Magnesia Liq) 30 ml Q6H PRN PO 05/30/17 14:30 06/01/17 08:14 Miscellaneous Information 1 [id number] XX 05/30/17 14:30 (Chlorhexidine 2% Cloth) 3 pack Taper DAILY@04 TOP 05/31/17 04:00 05/27/18 03:59 06/01/17 04:09 (Chlorhexidine 2% Cloth) 3 pack UNSCH PRN TOP 05/30/17 14:30 (Dilantin Inj) 100 mg Q8HR IV 05/30/17 22:00 06/01/17 13:31 Chlorhexidine Gluconate 15 ml 15 ml BID@08,20 MT 05/30/17 20:00 06/01/17 08:14 Nicardipine HCl 25 mg/Sodium Chloride 260 ml @ 0 mls/hr TITRATE IV 05/30/17 17:15 (Levophed Inj/NS 250 ml Inj) 250 ml @ 0 mls/hr TITRATE IV 05/30/17 18:00 06/01/17 16:44 Terbutaline Sulfate 1 mg 1 mg UNSCH PRN SQ 05/30/17 18:00 Fentanyl Citrate 250 ml @ 0 mls/hr TITRATE IV 05/30/17 20:15 06/01/17 16:44 Midazolam HCl 100 ml @ 0 mls/hr TITRATE IV 05/30/17 20:15 06/01/17 16:44 (Diprivan 1000 Mg/100ml Inj) 100 ml @ 0 mls/hr TITRATE IV 05/30/17 20:15 06/01/17 16:44 Mannitol 12.5 gm 12.5 gm Q8H IV 05/30/17 21:00 05/31/17 13:00 Cisatracurium Besylate 100 mg/ Sodium Chloride 250 ml @ 0 mls/hr TITRATE IV 05/31/17 09:45 06/01/17 08:14 Sodium Chloride 1,000 ml @ 20 mls/hr Q24H IV 05/31/17 17:00 06/01/17 06:44 Potassium Chloride 100 ml @ 50 mls/hr Q2H PRN IV 06/01/17 09:30 (KCl 20 Meq Premix Inj) 100 ml @ 50 mls/hr Q2H PRN IV 06/01/17 09:30 Potassium Bicarb/ Potassium Chloride 50 meq 50 meq UNSCH PRN PO 06/01/17 09:30 Potassium Chloride 100 ml @ 25 mls/hr UNSCH PRN IV 06/01/17 09:30 Potassium Chloride 100 ml @ 50 mls/hr Q2H PRN IV 06/01/17 09:30 (Magnesium Sulfate Inj/NS Inj) 100 ml @ 50 mls/hr UNSCH PRN IV 06/01/17 09:30 Magnesium Oxide 800 mg 800 mg UNSCH PRN PO 06/01/17 09:30 (Magnesium Sulfate Inj/NS Inj) 100 ml @ 50 mls/hr UNSCH PRN IV 06/01/17 09:30 Potassium Phosphate 2000 mg 2,000 mg Q4H PRN PO 06/01/17 09:30 (Sodium Phosphate Inj/NS 250 ml Inj) 250 ml @ 42 mls/hr UNSCH PRN IV 06/01/17 09:30 Potassium Phosphate 2000 mg 2,000 mg UNSCH PRN PO/TUBE 06/01/17 09:30 Potassium Phosphate 30 mmol/ Sodium Chloride 260 ml @ 42 mls/hr UNSCH PRN IV 06/01/17 09:30 06/01/17 10:08 Sodium Chloride 500 ml @ 20 mls/hr CONTINUOUS IV 06/01/17 10:00 (NS + KCl 20 Meq Inj) 1,000 ml @ 100 mls/hr Q10H IV 06/01/17 13:45 (NS Flush) 2 ml UNSCH PRN IVF 06/01/17 13:45 IV Flush 2 ml 2 ml BID IVF 06/01/17 21:00 Cefazolin Sodium/ Dextrose 50 ml @ 100 mls/hr Q8H IV 06/01/17 22:00 06/02/17 14:29 (Keppra Inj/NS Inj) 105 ml @ 400 mls/hr Q12H IV 06/01/17 16:00 (Dulcolax Supp) 10 mg DAILY PRN RECTAL 06/01/17 13:45 (Protonix) 40 mg DAILY PO 06/02/17 09:00 (Protonix Inj) 40 mg DAILY IVP 06/02/17 09:00 Calcium Gluconate 1 gm 1 gm UNSCH PRN IV 06/01/17 13:45 Potassium Chloride 100 ml @ 50 mls/hr UNSCH PRN IV 06/01/17 13:45 (Magnesium Sulfate Inj/NS Inj) 108 ml @ 108 mls/hr UNSCH PRN IV 06/01/17 13:45 ([place] 10-325 Mg) 1 tab Q4H PRN PO 06/01/17 13:45 ([place] 10-325 Mg) 2 tab Q4H PRN PO 06/01/17 13:45 (Morphine Inj) 2 mg Q2H PRN IV PUSH 06/01/17 13:45 (Morphine Inj) 4 mg Q2H PRN IV PUSH 06/01/17 13:45 (Tylenol) 650 mg Q4H PRN PO 06/01/17 13:45 Family History Unable to obtain Social History Prior to admission independent with mobility and ADL's. Lives in [place], [place] Exam I&O / VS 05/31/17 05/31/17 06/01/17 14:59 22:59 06:59 Intake Total 2612 ml 2247 ml 2247 ml Output Total 675 ml 450 ml 575 ml Balance 1937 ml 1797 ml 1672 ml Intake IV Total 2612 ml 2247 ml 2247 ml Output Urine Total 475 ml 450 ml 575 ml Gastric Drainage Total 200 ml Tube Feeding Residual Discard 0 ml # Bowel Movements 0 0 Vital Signs Date Time Temp Pulse Resp B/P Pulse Ox O2 Delivery O2 Flow Rate FiO2 06/01/17 16:03 98 35 06/01/17 13:41 100 06/01/17 12:00 35 06/01/17 12:00 97.7 62 18 123/57 100 06/01/17 12:00 62 06/01/17 11:39 100 35 06/01/17 10:00 60 06/01/17 08:00 97.1 63 18 145/62 100 06/01/17 08:00 63 06/01/17 08:00 35 06/01/17 07:46 100 35 06/01/17 07:38 100 35 06/01/17 07:00 100 Mechanical Ventilator 35 06/01/17 06:00 65 06/01/17 04:00 96.3 65 16 154/64 100 06/01/17 04:00 65 06/01/17 04:00 45 06/01/17 03:21 100 40 06/01/17 02:00 66 06/01/17 00:00 96.3 63 16 145/61 100 06/01/17 00:00 62 06/01/17 00:00 45 05/31/17 23:49 100 40 05/31/17 22:00 60 05/31/17 20:00 45 05/31/17 20:00 96.7 62 16 146/58 100 05/31/17 20:00 60 05/31/17 19:30 100 Mechanical Ventilator 45 05/31/17 19:25 100 05/31/17 19:20 100 45 05/31/17 19:00 100 Mechanical Ventilator 50 05/31/17 18:00 59 General: Intubated, No acute distress, Other (ICP monitor in place 12-13) Respiratory: Lungs CTA, Non-labored respirations, BS equal, Coarse breath sounds Gastrointestinal: Positive Bowel Sounds, Non-Distended, Non-Tender Cardiovascular: Normal rate, Regular Rhythm Musculoskeletal: ROM (Grossly within normal limits), Other (SCD's in place; Whitfield) Orientation: unable to asses Self, unable to asses Place, unable to asses Time , unable to asses Situation Neurologic: Pupils (2mm) Clonus: Negative Assessment and Plan Diagnosis: (1) Traumatic brain injury Encounter type: initial encounter Assessment 1. Fall 05/30/17 with traumatic brain injury including small left-sided subdural hematoma with approximately 6 mm of separation adjacent to the left temporal lobe, bilateral subarachnoid hemorrhage, left greater than right, tiny hemorrhagic contusions in both frontal lobes and hemorrhagic contusion the left temporal lobe. Now [place] level I: Intubated and sedated 2. Status post intracranial monitor placement 3. Splenic laceration Plan 1. No formal rehabilitation therapies are appropriate this time. Will follow to initiate 2. Neuropsychology consult for trauma protocol 3. Continue to reposition and monitor skin carefully 4. SCDs in place for PT prophylaxis 5. Referral to [place] [facility] spinal cord injury program 6. Will follow regarding rehabilitation needs were hospitalized and at discharge in conjunction with case management Thank you for this consult Ruby Rowe MD Jun 01, 2017 16:58
[2017-06-01] MEDS: NS + KCL 20 MEQ INJ 1,000 ML IV SCH (17:01)
[2017-06-01] MEDS: levETIRAcetam INJ 500 MG in SODIUM CHLORIDE 0.9% INJ 100 ML IV SCH (18:28)
[2017-06-01] MEDS ORDERED: DOCUSATE SODIUM 100 MG CAP PO SCH (21:00)
[2017-06-01] MEDS: SODIUM CHLORIDE 0.9% FLUSH 5 ML FLUSH IVF SCH (21:33)
[2017-06-01] MEDS: ceFAZolin 2 GM PREMIX 50 ML IV SCH (21:33)
[2017-06-01 21:42] LABS: POTASSIUM 3.4 MEQ/L (3.5-5.1)
[2017-06-02] VITALS (19 sets, daily range): BP systolic 110–141; BP diastolic 50–66; PULSE 61–71; RESP 15–18; TEMP 96.1–98.6; O2SAT 99–100
[2017-06-02] MEDS: fentaNYL DRIP 250 ML IV SCH ×3 (00:20→09:13)
[2017-06-02] MEDS: NS + KCL 20 MEQ INJ 1,000 ML IV SCH ×2 (00:21→09:13)
[2017-06-02] MEDS: PROPOFOL 1000 MG/100 ML INJ 100 ML IV SCH ×5 (01:29→23:28)
[2017-06-02] MEDS: MIDAZOLAM 100 MG/ML INJ 100 ML IV SCH ×2 (01:29→09:12)
[2017-06-02] MEDS: POTASSIUM CHLOR 40 MEQ PREMIX 100 ML IV PRN (01:45)
[2017-06-02] MEDS: RESP: ALBUTEROL 2.5 MG/IPRATROPIUM 0.5 MG NEB (SCH) INH ×4 (03:28→20:37)
[2017-06-02] MEDS: levETIRAcetam INJ 500 MG in SODIUM CHLORIDE 0.9% INJ 100 ML IV SCH ×2 (03:48→16:41)
[2017-06-02 04:41] LABS: AUTOMATED NEUTROPHIL # 5.7 TH/MM3 (1.8-7.7); BASOPHIL % 0.4 % (0.0-2.0); EOSINOPHIL # 0.3 TH/MM3 (0-0.4); EOSINOPHIL % 3.3 % (0.0-4.0); HEMATOCRIT 30.7 % (39.0-51.0); HEMO FLAGS DIFF FINAL; LYMPH % 17.1 % (9.0-44.0); LYMPHOCYTE # 1.3 TH/MM3 (1.0-4.8); MEAN CELL VOLUME 91.4 FL (80.0-100.0); MEAN CORPUSCULAR HEMOGLOBIN 29.4 PG (27.0-34.0); MEAN CORPUSCULAR HGB CONC 32.1 % (32.0-36.0); MONO % 6.5 % (0.0-8.0); NEUT % 72.7 % (16.0-70.0); PLATELET COUNT 144 TH/MM3 (150-450); RED BLOOD COUNT 3.35 MIL/MM3 (4.50-5.90); RED CELL DISTRIBUTION WIDTH 15.7 % (11.6-17.2); WHITE BLOOD COUNT 7.8 TH/MM3 (4.0-11.0)
--- NOTE | 2017-06-02 04:58 | RADRPT ---
EXAM DATE/TIME: 06/02/2017 03:54 [facility] COMPARISON: CHEST SINGLE AP, June 01, 2017, 5:28. INDICATIONS : Follow up respiratory status. Post trauma. MEDICAL HISTORY : None. SURGICAL HISTORY : Craniotomy. ENCOUNTER: Subsequent ACUITY: 4 - 6 days PAIN SCORE: Non-responsive. LOCATION: Bilateral chest FINDINGS: A single view of the chest demonstrates developing atelectatic changes in the left lower lung field. Right lung remains clear. Heart size is normal. Stable position of life support tubes including the e ndotracheal and nasogastric tubes as well as the left subclavian central venous catheter. CONCLUSION: 1. Developing linear atelectatic changes in the left lower lung field. Right lung remains clear. 2. Stable position of life support tubes. Kamaljit El MD on June 02, 2017 at 4:53 Board Certified Radiologist. This report was verified electronically.
[2017-06-02] MEDS: MANNITOL 12.5 GM/50 ML VIAL IV SCH ×3 (05:00→20:54)
--- NOTE | 2017-06-02 05:37 | RADRPT ---
EXAM DATE/TIME: 06/02/2017 04:39 [facility] COMPARISON: CT BRAIN W/O CONTRAST, May 31, 2017, 10:13. INDICATIONS : Follow up bleed. RADIATION DOSE: 65.67 CTDIvol (mGy) MEDICAL HISTORY : Myocardial infarction. Cardiovascular disease Hypertension. SURGICAL HISTORY : [place] in right skull. ENCOUNTER: Subsequent ACUITY: 2 days PAIN SCALE: Non-responsive LOCATION: cranial TECHNIQUE: Multiple contiguous axial images were obtained of the head. Using automated exposure control and adj ustment of the mA and/or kV according to patient size, radiation dose was kept as low as reasonably a chievable to obtain optimal diagnostic quality images. DICOM format image data is available electro nically for review and comparison. FINDINGS: CEREBRUM: There is been interval left-sided craniectomy with multiple left-sided subdural drains and evacuation of the previously seen subdural and subarachnoid blood. There is still some subarachnoid blood in th e high parietal convexities, left greater than right. Stable parenchymal contusion in the left fronta l lobe. Probable small amount of subdural blood tracking along the left side of the tentorium. No mid line shift. POSTERIOR FOSSA: The cerebellum and brainstem are intact. The 4th ventricle is midline. The cerebellopontine angle i s unremarkable. EXTRACRANIAL: The visualized portion of the orbits is intact. SKULL: The calvaria is intact. No evidence of skull fracture. CONCLUSION: 1. Interval left-sided parietal craniectomy with left-sided subdural drains. There is improvement wit h almost complete resolution of the previously seen left subdural hematoma and bilateral high convexi ty subarachnoid blood. 2. Minimal persistent subarachnoid hemorrhage in the high left parietal convexity with possible small subdural hematoma tracking along the left tentorium. 3. No midline shift Kamaljit lE MD on June 02, 2017 at 5:31 Board Certified Radiologist. This report was verified electronically.
[2017-06-02 05:39] LABS: BLOOD GAS CARBOXYHEMOGLOBIN 0.8 % (0-4); BLOOD GAS HCO3 17 mmol/L (22-26); BLOOD GAS METHEMOGLOBIN 1.3 % (0-2); BLOOD GAS O2 HGB SATURATION 98 % (90-100); BLOOD GAS OXYGEN CONTENT 14.1 Vol % (12.0-20.0); BLOOD GAS PCO2 30 mmHg (38-42); BLOOD GAS PO2 358 mmHg (61-120); BLOOD GAS TOTAL HGB 9.6 G/DL (12.0-16.0); CRITICAL VALUE NO; OXYGEN DEVICE VENTILATOR; TEMP CORR TO 98.6
[2017-06-02 05:40] LABS: DRAW SITE ALINE; FIO2 35 %; STAT NO; ULNAR PULSE PRESENT; VENT SETTINGS PRVC18/550/1.0/+5
[2017-06-02 05:46] LABS: BICARBONATE 19.4 MEQ/L (21.0-32.0); CALCIUM-PROTEIN CORRECTED 8.7 MG/DL (8.5-10.1); MAGNESIUM 1.5 MG/DL (1.5-2.5); TOTAL BILIRUBIN ADULT 0.3 MG/DL (0.2-1.0)
[2017-06-02] MEDS: CHLORHEXIDINE GLUCONATE 2 % 1 PACK (2 CLOTHS) TOP SCH (05:50)
[2017-06-02] MEDS: NOREPINEPHRINE INJ 4 MG in SODIUM CHLOR 0.9% 250 ML INJ 246 ML IV SCH ×2 (05:50→11:59)
[2017-06-02] MEDS: PHENYTOIN INJ 100 MG/2 ML VIAL IV SCH ×3 (06:01→22:10)
[2017-06-02] MEDS: ceFAZolin 2 GM PREMIX 50 ML IV SCH ×2 (06:02→14:14)
[2017-06-02] MEDS: SODIUM CHLORIDE 0.9% FLUSH 5 ML FLUSH IVF SCH ×2 (07:33→20:55)
[2017-06-02] MEDS: PANTOPRAZOLE SOD 40 MG DELAYED RELEASE TAB PO SCH (07:33)
[2017-06-02] MEDS: CHLORHEXIDINE 0.12% (ORAL KIT) 15 ML CUP MT SCH ×2 (09:11→20:55)
[2017-06-02] MEDS: PANTOPRAZOLE SODIUM 40 MG VIAL IVP SCH (09:12)
[2017-06-02] MEDS: DOCUSATE SODIUM 100 MG/10 ML UDC PO SCH ×2 (09:12→20:55)
[2017-06-02] MEDS: SODIUM CHLOR 0.9% 1000 ML INJ 1,000 ML IV SCH ×2 (10:10→16:41)
[2017-06-02] MEDS: POTASSIUM PHOSPHATE MONOBASIC 500 MG TAB PO PRN ×2 (12:08→16:41)
--- NOTE | 2017-06-02 12:31 | HHI.CCPN ---
Subjective Remarks/Hospital Course 05/30: Patient came in as a trauma alert. 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 He was working with his colleagues and they saw him just prior to the accident when he was at his baseline mental status. He fell. The exact nature of the fall is unknown. However after that he was acting bizarre. As per EMS he was combative at the scene and not making sens, repeating the same words which do not make sense. Was hypertensive with blood pressure in 185 systolic. As per EMS GCS at the best was 11. Past medical history is unknown. Upon arrival patient was a GCS 11 and blood pressure was 205 systolic. He was combative. Patient was intubated by ER physician, evaluated by trauma team and subsequently underwent imaging studies and was transferred to ICU. Critical care was consulted by Dr. Araiza for TBI with acute respiratory failure. Per discussion with Dr. Araiza patient didn't appear to have traumatic subdural and subarachnoid hemorrhage as well as a splenic laceration. He also had some bleeding from a scalp laceration on arrival to the ICU. Patient required sedation with propofol following arrival to the ICU as he was starting to gag and cough and was attempting to move both lower extremities. I emergently placed a right subclavian central line for central vascular access which was replaced with a left subclavian central line subsequently as it was turning up into the internal jugular vein. Neurosurgery Dr. Stone had all ready been informed by trauma team and was planning to do a bolt for ICP monitoring. History was obtained by reviewing records and discussion with Dr. Araiza and ICU nursing staff. 05/31: Remains sedated, orally intubated on mechanical ventilation. Required initiation of 3% saline and received 23% saline last night for elevated ICP. On propofol/Versed/fentanyl drips as well as 3% saline this morning and was started on Nimbex for neuromuscular blockade for elevated ICPs. 06/01: Remains sedated, orally intubated on mechanical ventilation. On propofol/ Versed/fentanyl/Nimbex/3% saline drips this morning. 06/02: Underwent decompressive hemicraniectomy done on 06/[address] Stone. Remains sedated, orally intubated on mechanical ventilation. Off Nimbex currently. Remains on propofol/versed/ fentanyl gtt. 3% saline off currently. Objective Vital Signs Date Time Temp Pulse Resp B/P Pulse Ox O2 Delivery O2 Flow Rate FiO2 06/02/17 12:00 35 06/02/17 12:00 66 06/02/17 12:00 97.0 15 114/50 99 06/02/17 07:00 Mechanical Ventilator 05/30/17 13:34 4.00 Intake and Output 06/01/17 06/01/17 06/02/17 08:00 16:00 00:00 Intake Total 2247 ml 1936 ml 2721 ml Output Total 575.0 ml 475.0 ml 1505.0 ml Balance 1672.0 ml 1461.0 ml 1216.0 ml Result Diagram: 06/02/17 0400 06/02/17 0830 Other Results Laboratory Tests Test 06/01/17 06/01/17 06/02/17 06/02/17 16:13 20:30 02:00 04:00 Sodium Level 154 MEQ/L 156 MEQ/L 158 MEQ/L 157 MEQ/L Serum Osmolality 314 MOSM/KG 317 MOSM/KG 314 MOSM/KG Potassium Level 3.4 MEQ/L 4.0 MEQ/L Phosphorus Level 2.7 MG/DL 1.7 MG/DL White Blood Count 7.8 TH/MM3 Red Blood Count 3.35 MIL/MM3 Hemoglobin 9.8 GM/DL Hematocrit 30.7 % Mean Corpuscular Volume 91.4 FL Mean Corpuscular Hemoglobin 29.4 PG Mean Corpuscular Hemoglobin 32.1 % Concent Red Cell Distribution Width 15.7 % Platelet Count 144 TH/MM3 Mean Platelet Volume 9.7 FL Neutrophils (%) (Auto) 72.7 % Lymphocytes (%) (Auto) 17.1 % Monocytes (%) (Auto) 6.5 % Eosinophils (%) (Auto) 3.3 % Basophils (%) (Auto) 0.4 % Neutrophils # (Auto) 5.7 TH/MM3 Lymphocytes # (Auto) 1.3 TH/MM3 Monocytes # (Auto) 0.5 TH/MM3 Eosinophils # (Auto) 0.3 TH/MM3 Basophils # (Auto) 0.0 TH/MM3 CBC Comment DIFF FINAL Differential Comment Chloride Level 130 MEQ/L Carbon Dioxide Level 19.4 MEQ/L Anion Gap 8 MEQ/L Blood Urea Nitrogen 5 MG/DL Creatinine 0.92 MG/DL Estimat Glomerular Filtration 84 ML/MIN Rate Random Glucose 94 MG/DL Calcium Level 7.4 MG/DL Protein Corrected Calcium 8.7 MG/DL Magnesium Level 1.5 MG/DL Total Bilirubin 0.3 MG/DL Aspartate Amino Transf 27 U/L (AST/SGOT) Alanine Aminotransferase 23 U/L (ALT/SGPT) Alkaline Phosphatase 88 U/L Total Protein 4.8 GM/DL Albumin 2.1 GM/DL Test 06/02/17 06/02/17 05:25 08:30 Blood Gas Puncture Site ANIYAH Blood Gas Patient Temperature 98.6 Blood Gas HCO3 17 mmol/L Blood Gas Base Excess -7.0 mmol/L Blood Gas Oxygen Saturation 98 % Arterial Blood pH 7.38 Arterial Blood Partial 30 mmHg Pressure CO2 Arterial Blood Partial 358 mmHg Pressure O2 Arterial Blood Oxygen Content 14.1 Vol % Arterial Blood 0.8 % Carboxyhemoglobin Arterial Blood Methemoglobin 1.3 % Blood Gas Hemoglobin 9.6 G/DL Oxygen Delivery Device VENTILATOR Blood Gas Ventilator Setting PRVC18/550/1.0/+5 Blood Gas Inspired Oxygen 35 % Sodium Level 155 MEQ/L Serum Osmolality 314 MOSM/KG Imaging Last 24 hours Impressions Chest X-Ray 06/02/17 0600 Signed Impressions: Service Date/Time: Friday, June 02, 2017 03:54 - CONCLUSION: 1. Developing linear atelectatic changes in the left lower lung field. Right lung remains clear. 2. Stable position of life support tubes. Kamaljit El MD Head CT 06/02/17 0000 Signed Impressions: Service Date/Time: Friday, June 02, 2017 04:39 - CONCLUSION: 1. Interval left-sided parietal craniectomy with left-sided subdural drains. There is improvement with almost complete resolution of the previously seen left subdural hematoma and bilateral high convexity subarachnoid blood. 2. Minimal persistent subarachnoid hemorrhage in the high left parietal convexity with possible small subdural hematoma tracking along the left tentorium. 3. No midline shift Kamaljit El MD Last 24 hours Impressions Chest X-Ray 06/01/17 0600 Signed Impressions: Service Date/Time: Thursday, June 01, 2017 05:28 - CONCLUSION: 1. Lungs remain clear. 2. Stable position of life support tubes. Kamaljit El MD Last [address] 7/5/17 1347 Signed Impressions: Service Date/Time: Tuesday, May 30, 2017 13:53 - CONCLUSION: Bibasilar nonspecific infiltrates suggestive of pulmonary contusions. Sanjay Donis MD Abdomen/Pelvis CT 05/30/[id number] Signed Impressions: Service Date/Time: Tuesday, May 30, 2017 13:53 - CONCLUSION: 1. There appears to be a small amount of fluid along the inferior aspect of the spleen suspicious for a inferior laceration. No significant free fluid is seen in the abdomen or pelvis. 2. Benign-appearing left renal cyst. 3. Bibasilar infiltrates suggestive of pulmonary contusions. Sanjay Donis MD Pelvis X-Ray 05/30/171336 Signed Impressions: Service Date/Time: Tuesday, May 30, 2017 13:24 - CONCLUSION: The bony structures are grossly intact. Sanjay Donis MD Head CT [id number]/30/171336 Signed Impressions: Service Date/Time: Tuesday, May 30, 2017 13:53 - CONCLUSION: 1. Small left-sided subdural hematoma with approximately 6 mm of separation adjacent to the left temporal lobe. 2. Bilateral subarachnoid hemorrhage, left greater than right. 3. Tiny hemorrhagic contusions in both frontal lobes. 4. Hemorrhagic contusion the left temporal lobe. Sanjay Donis MD Chest X-Ray 05/30/171336 Signed Impressions: Service Date/Time: Tuesday, May 30, 2017 13:24 - CONCLUSION: ET tube in good position. Lungs are grossly clear. The CT thorax will be performed for further evaluation. Sanjay Donis MD Cervical Spine CT 05/30/171336 Signed Impressions: Service Date/Time: Tuesday, May 30, 2017 13:55 - CONCLUSION: 1. No acute bony fracture. 2. Moderate diffuse primary bony degenerative changes, disc degeneration and disc space narrowing at multiple levels from C3-C7. Sanjay Donis MD Objective Remarks HEENT/ Neuro: Dressing over hemicraniectomy site clean dry and intact, MONTY drains in place. Sedated, orally intubated, Pallor present, no icterus, tongue / mucosa moist. Pupils 3 mm bilaterally reacting actively to light. Seffner in place. Neck: Cervical collar in place, trachea is midline, no JVD Chest/Pulm: on mech vent, good air entry bilaterally, no wheezing or crackles, CVS: Regular rate and rhythm GI/abdomen: soft, nontender nondistended Extremities: No clubbing cyanosis or edema, distal pulses are palpable bilaterally Skin is warm dry and intact, Line: Central Venous Catheter Side: Left Location: Subclavian A/P Assessment and Plan Middle age male brought in as trauma alert following fall from a 6 foot ladder with: TBI: Left subdural hemorrhage, bilateral subarachnoid hemorrhage left greater than right, bifrontal contusions, left temporal lobe contusion Encephalopathy Elevated ICP status post left hemicraniectomy with decompression Splenic laceration Acute respiratory failure on mechanical ventilation Plan: Neuro : Maintain sedation with propofol, Versed and fentanyl, repeat head CT per neurosurgery, Maintain CPP 70 mmHg and above. Off Nimbex. Underwent decompressive hemicraniectomy on the left by Dr. Stone on 06/01. Seffner in place for ICP monitoring. 3% saline if sodium drops below 155. Pulmonary : Continue full ventilator support. Vent bundle, bronchodilators as needed. Maintain end-tidal CO2 to keep PCO2 30-35 Cardiovascular: IV hydration. Levophed to maintain CPP greater than 70 mmHg. GI/liver: Continue tube feeds and advanced to goal as tolerated. Currently having high residuals. Continue laxatives. Add Reglan 10 mg IV every 8 hourly to improve GI motility on 06/02. Renal/: Strict intake output, monitor and replete electrolites, follow BUN/creatinine. IV hydration. Decrease IV fluids to 50 cc/h ID Ancef given in the trauma bay, no active ID issues at the moment Heme Serial hemoglobins to trend his grade 1 splenic laceration although there is no evidence of active bleeding 2 units of platelets were given due to his medication induced platelet dysfunction Endocrine: Watch for hyperglycemia, SSI for glycemic control if needed. Prophylaxis: PPI/SCDs. Discussed with neurosurgery, discussed with [employer] Further recommendations per trauma team and neurosurgery. Time spent on critical care excluding procedures 45 minutes Perico Collado MD Jun 02, 2017 12:31
--- NOTE | 2017-06-02 13:05 | HHI.CCPN ---
Subjective 24 Hour Review/Hospital Course 05/31/17 Patient suffered elevation in his ICP, responsive to increase sedation and hypertonic saline boluses Repeat imaging shows slight improvement 06/01/17 ICP continue to increase when sedation is stopped, neurosurgery considering surgical intervention 06/02/17 Patient underwent right craniectomy yesterday, his ICPs have been in the single digits Weaning Versed drip to off, we will continue propofol for sedation as he does continue to become agitated Discuss likelihood of tracheostomy and PEG placement with Objective Vital Signs Date Time Temp Pulse Resp B/P Pulse Ox O2 Delivery O2 Flow Rate FiO2 06/02/17 12:00 35 06/02/17 12:00 66 06/02/17 12:00 97.0 15 114/50 99 06/02/17 07:00 Mechanical Ventilator 05/30/17 13:34 4.00 Intake and Output 06/01/17 06/01/17 06/02/17 08:00 16:00 00:00 Intake Total 2247 ml 1936 ml 2721 ml Output Total 575.0 ml 475.0 ml 1505.0 ml Balance 1672.0 ml 1461.0 ml 1216.0 ml Result Diagram: 06/02/17 0400 06/02/17 0830 Other Results Laboratory Tests Test 06/02/17 05:25 Blood Gas Puncture Site ANIYAH Blood Gas Patient Temperature 98.6 Blood Gas HCO3 17 mmol/L (22-26) Blood Gas Base Excess -7.0 mmol/L (-2-2) Blood Gas Oxygen Saturation 98 % (90-100) Arterial Blood pH 7.38 (7.380-7.420) Arterial Blood Partial 30 mmHg (38-42) Pressure CO2 Arterial Blood Partial 358 mmHg Pressure O2 (61-120) Arterial Blood Oxygen Content 14.1 Vol % (12.0-20.0) Arterial Blood 0.8 % (0-4) Carboxyhemoglobin Arterial Blood Methemoglobin 1.3 % (0-2) Blood Gas Hemoglobin 9.6 G/DL (12.0-16.0) Oxygen Delivery Device VENTILATOR Blood Gas Ventilator Setting PRVC18/550/1.0/+5 Blood Gas Inspired Oxygen 35 % Imaging Last 24 hours Impressions Chest X-Ray 06/02/17 0600 Signed Impressions: Service Date/Time: Friday, June 02, 2017 03:54 - CONCLUSION: 1. Developing linear atelectatic changes in the left lower lung field. Right lung remains clear. 2. Stable position of life support tubes. Kamaljit El MD Head CT 06/02/17 0000 Signed Impressions: Service Date/Time: Sunday, June 02, 2017 04:39 - CONCLUSION: 1. Interval left-sided parietal craniectomy with left-sided subdural drains. There is improvement with almost complete resolution of the previously seen left subdural hematoma and bilateral high convexity subarachnoid blood. 2. Minimal persistent subarachnoid hemorrhage in the high left parietal convexity with possible small subdural hematoma tracking along the left tentorium. 3. No midline shift Kamaljit El MD Exam [employer] Intubated sedated GCS 3T Hemodynamic/Cardiac Regular rate and rhythm, stable Pulmonary/Respiratory Clear to auscultation bilaterally Abdomen/GI Nutrition Soft, nontender, nondistended, tolerating tube feeds at 30 Renal/I&O Adequate urine output Hematologic Stable Vascular Central Line Catheter Line: Central Venous Catheter Side: Left Location: Subclavian Assessment and Plan Plan Continue hyper osmolar therapy and sedation, wean Versed off Continue full ventilator support for respiratory failure Continue nutritional support, transition to by mouth pain medication once tolerating diet at goal Mechanical VTE prophylaxis, chemical prophylaxis contraindicated Seizure prophylaxis with Dora Discussed likelihood of tracheostomy and PEG placement next week with Patient remains critically ill with traumatic brain injury following a fall, total critical care time 40 minutes Josr Araiza MD Jun 02, 2017 13:05
[2017-06-02] MEDS: METOCLOPRAMIDE HCL 10 MG/2 ML VIAL IV PUSH SCH ×2 (14:15→22:10)
[2017-06-02] MEDS: NORMOSOL R INJ 1,000 ML IV SCH (14:25)
--- NOTE | 2017-06-02 20:30 | HHI.NSPN ---
History Chief Complaint: intubated and sedated Interval History 62-year-old male brought to [facility] emergency room 05/30/17 with traumatic brain injury after a fall from a proximally 6 feet from a ladder. Patient underwent initial ICP monitor placement. Initial ICP elevation managed with hypertonic saline, ventilatory support. 06/01/17: Left decompressive craniotomy due to increasing ICP. 06/02/17: Remains intubated. ICP mostly 10. Follow-up CT scan 06/02/17 with no residual midline shift. Exam Results Vital Signs Date Time Temp Pulse Resp B/P Pulse Ox O2 Delivery O2 Flow Rate FiO2 06/02/17 18:00 61 06/02/17 16:00 35 06/02/17 16:00 96.5 15 141/66 99 06/02/17 07:00 Mechanical Ventilator 05/30/17 13:34 4.00 Intake and Output 06/01/17 06/01/17 06/02/17 08:00 16:00 00:00 Intake Total 2247 ml 1936 ml 2721 ml Output Total 575.0 ml 475.0 ml 1505.0 ml Balance 1672.0 ml 1461.0 ml 1216.0 ml Physical Examination Intubated and well sedated on multiple drips. No response to pain Respirations clear to auscultation Cardiac exam regular rhythm without murmur Abdomen soft nondistended Right ICP monitor in place, ICPs currently 10 with good waveform Cranial Nerves: Pupils 2 mm equal nonreactive. Mild corneal responses Mild conjugate oculocephalic responses. Cervical Spine: this was cleared to be removed by Dr. Stone Motor: His muscle tone and bulk are normal. No movements x 4 Reflexes: trace throughout. Plantars silent b/l. Sensory: no response to painful stimuli Cerebellar: Examination cannot be adequately assessed due to the patient's neurological condition Lab, Micro, Other Results Laboratory Tests Test 06/01/17 06/02/17 06/02/17 06/02/17 20:30 02:00 04:00 05:25 Sodium Level 156 MEQ/L 158 MEQ/L 157 MEQ/L Potassium Level 3.4 MEQ/L 4.0 MEQ/L Serum Osmolality 317 MOSM/KG 314 MOSM/KG Phosphorus Level 2.7 MG/DL 1.7 MG/DL White Blood Count 7.8 TH/MM3 Red Blood Count 3.35 MIL/MM3 Hemoglobin 9.8 GM/DL Hematocrit 30.7 % Mean Corpuscular Volume 91.4 FL Mean Corpuscular Hemoglobin 29.4 PG Mean Corpuscular Hemoglobin 32.1 % Concent Red Cell Distribution Width 15.7 % Platelet Count 144 TH/MM3 Mean Platelet Volume 9.7 FL Neutrophils (%) (Auto) 72.7 % Lymphocytes (%) (Auto) 17.1 % Monocytes (%) (Auto) 6.5 % Eosinophils (%) (Auto) 3.3 % Basophils (%) (Auto) 0.4 % Neutrophils # (Auto) 5.7 TH/MM3 Lymphocytes # (Auto) 1.3 TH/MM3 Monocytes # (Auto) 0.5 TH/MM3 Eosinophils # (Auto) 0.3 TH/MM3 Basophils # (Auto) 0.0 TH/MM3 CBC Comment DIFF FINAL Differential Comment Chloride Level 130 MEQ/L Carbon Dioxide Level 19.4 MEQ/L Anion Gap 8 MEQ/L Blood Urea Nitrogen 5 MG/DL Creatinine 0.92 MG/DL Estimat Glomerular Filtration 84 ML/MIN Rate Random Glucose 94 MG/DL Calcium Level 7.4 MG/DL Protein Corrected Calcium 8.7 MG/DL Magnesium Level 1.5 MG/DL Total Bilirubin 0.3 MG/DL Aspartate Amino Transf 27 U/L (AST/SGOT) Alanine Aminotransferase 23 U/L (ALT/SGPT) Alkaline Phosphatase 88 U/L Total Protein 4.8 GM/DL Albumin 2.1 GM/DL Blood Gas Puncture Site ANIYAH Blood Gas Patient Temperature 98.6 Blood Gas HCO3 17 mmol/L Blood Gas Base Excess -7.0 mmol/L Blood Gas Oxygen Saturation 98 % Arterial Blood pH 7.38 Arterial Blood Partial 30 mmHg Pressure CO2 Arterial Blood Partial 358 mmHg Pressure O2 Arterial Blood Oxygen Content 14.1 Vol % Arterial Blood 0.8 % Carboxyhemoglobin Arterial Blood Methemoglobin 1.3 % Blood Gas Hemoglobin 9.6 G/DL Oxygen Delivery Device VENTILATOR Blood Gas Ventilator Setting PRVC18/550/1.0/+5 Blood Gas Inspired Oxygen 35 % Test 06/02/17 06/02/17 08:30 14:10 Sodium Level 155 MEQ/L 156 MEQ/L Serum Osmolality 314 MOSM/KG 320 MOSM/KG 06/02/17 CT scan head images reviewed by the undersigned. Agree with findings as noted below: Chest X-Ray 06/02/17 0600 Signed Impressions: Service Date/Time: Friday, June 02, 2017 03:54 - CONCLUSION: 1. Developing linear atelectatic changes in the left lower lung field. Right lung remains clear. 2. Stable position of life support tubes. Kamaljit El MD Head CT 06/02/17 0000 Signed Impressions: Service Date/Time: Friday, June 02, 2017 04:39 - CONCLUSION: 1. Interval left-sided parietal craniectomy with left-sided subdural drains. There is improvement with almost complete resolution of the previously seen left subdural hematoma and bilateral high convexity subarachnoid blood. 2. Minimal persistent subarachnoid hemorrhage in the high left parietal convexity with possible small subdural hematoma tracking along the left tentorium. 3. No midline shift Kamaljit El MD Medical Decision Making Impression and Plan Impression: 1. Stable neurologic exam with satisfactory ICPs following left decompressive craniotomy 06/01/17 following traumatic brain injury. Plan: Continuing ventilatory support and full sedation. We will begin sedation vacation 06/03/17 if ICPs remained stable.. Seizure prophylaxis Non-chemical DVT prophylaxis Ulcer prophylaxis Gio Rios MD Jun 02, 2017 20:30
[2017-06-02 21:53] LABS: POTASSIUM 3.7 MEQ/L (3.5-5.1)
[2017-06-02 22:15] LABS: MAGNESIUM 1.8 MG/DL (1.5-2.5)
[2017-06-03] VITALS (18 sets, daily range): BP systolic 126–149; BP diastolic 58–62; PULSE 62–87; RESP 15–18; TEMP 97–99.9; O2SAT 97–100
[2017-06-03] MEDS: NOREPINEPHRINE INJ 4 MG in SODIUM CHLOR 0.9% 250 ML INJ 246 ML IV SCH ×2 (02:00→08:16)
[2017-06-03] MEDS: PROPOFOL 1000 MG/100 ML INJ 100 ML IV SCH ×2 (03:00→07:53)
[2017-06-03] MEDS: fentaNYL DRIP 250 ML IV SCH (03:00)
[2017-06-03] MEDS: RESP: ALBUTEROL 2.5 MG/IPRATROPIUM 0.5 MG NEB (SCH) INH ×4 (03:05→20:22)
[2017-06-03] MEDS: CHLORHEXIDINE GLUCONATE 2 % 1 PACK (2 CLOTHS) TOP SCH (03:53)
[2017-06-03] MEDS: levETIRAcetam INJ 500 MG in SODIUM CHLORIDE 0.9% INJ 100 ML IV SCH ×2 (04:18→16:00)
[2017-06-03 04:36] LABS: AUTOMATED NEUTROPHIL # 6.4 TH/MM3 (1.8-7.7); BASOPHIL % 0.3 % (0.0-2.0); EOSINOPHIL # 0.3 TH/MM3 (0-0.4); EOSINOPHIL % 3.9 % (0.0-4.0); HEMATOCRIT 30.7 % (39.0-51.0); HEMO FLAGS DIFF FINAL; LYMPH % 11.9 % (9.0-44.0); MEAN CORPUSCULAR HGB CONC 32.2 % (32.0-36.0); MONO % 7.2 % (0.0-8.0); NEUT % 76.7 % (16.0-70.0); PLATELET COUNT 128 TH/MM3 (150-450); RED BLOOD COUNT 3.41 MIL/MM3 (4.50-5.90); RED CELL DISTRIBUTION WIDTH 15.8 % (11.6-17.2); WHITE BLOOD COUNT 8.3 TH/MM3 (4.0-11.0)
[2017-06-03 05:03] LABS: ALT (GPT) 18 U/L (12-78); ANION GAP 8 MEQ/L (5-15); AST (GOT) 35 U/L (15-37); BICARBONATE 21.4 MEQ/L (21.0-32.0); BLOOD UREA NITROGEN 4 MG/DL (7-18); CHLORIDE 125 MEQ/L (98-107); GLOMERULAR FILTRATION RATE 97 ML/MIN (>89); MAGNESIUM 1.8 MG/DL (1.5-2.5); POTASSIUM 3.8 MEQ/L (3.5-5.1); SODIUM (NA) 154 MEQ/L (136-145)
[2017-06-03 05:03] LABS: BLOOD GAS BASE EXCESS -5.2 mmol/L (-2-2); BLOOD GAS CARBOXYHEMOGLOBIN 1.1 % (0-4); BLOOD GAS HCO3 19 mmol/L (22-26); BLOOD GAS METHEMOGLOBIN 1.2 % (0-2); BLOOD GAS O2 HGB SATURATION 96 % (90-100); BLOOD GAS OXYGEN CONTENT 13.4 Vol % (12.0-20.0); BLOOD GAS PCO2 33 mmHg (38-42); BLOOD GAS PO2 119 mmHg (61-120); BLOOD GAS TOTAL HGB 9.8 G/DL (12.0-16.0); CRITICAL VALUE NO; OXYGEN DEVICE VENTILATOR; TEMP CORR TO 98.6
[2017-06-03 05:04] LABS: DRAW SITE ART LINE; FIO2 35 %; STAT NO; VENT SETTINGS PRVC/AC
[2017-06-03 05:06] LABS: ALKALINE PHOSPHATASE 63 U/L (45-117); TOTAL BILIRUBIN ADULT 0.4 MG/DL (0.2-1.0)
--- NOTE | 2017-06-03 05:27 | RADRPT ---
EXAM DATE/TIME: 06/03/2017 04:31 [facility] COMPARISON: CHEST SINGLE AP, June 02, 2017, 3:54. INDICATIONS : Evaluate respiratory failure, post trauma MEDICAL HISTORY : None. SURGICAL HISTORY : Craniotomy. ENCOUNTER: Subsequent ACUITY: 1 week PAIN SCORE: Non-responsive. LOCATION: Bilateral chest FINDINGS: A single view of the chest demonstrates slight worsening of bibasilar densities. Endotracheal tube, n asogastric tube and left subclavian central line are stable position. Osseous structures are intact. CONCLUSION: Slight worsening of bibasilar consolidation. Terry Hussein MD on June 03, 2017 at 5:25 Board Certified Radiologist. This report was verified electronically.
[2017-06-03] MEDS: MANNITOL 12.5 GM/50 ML VIAL IV SCH ×3 (06:03→20:19)
[2017-06-03] MEDS: PHENYTOIN INJ 100 MG/2 ML VIAL IV SCH ×3 (06:03→22:39)
[2017-06-03] MEDS: METOCLOPRAMIDE HCL 10 MG/2 ML VIAL IV PUSH SCH ×3 (06:03→22:39)
[2017-06-03] MEDS: SODIUM CHLORIDE 0.9% FLUSH 5 ML FLUSH IVF SCH ×2 (07:19→20:19)
[2017-06-03] MEDS: PANTOPRAZOLE SOD 40 MG DELAYED RELEASE TAB PO SCH (07:20)
[2017-06-03] MEDS: NORMOSOL R INJ 1,000 ML IV SCH (07:52)
[2017-06-03] MEDS: DOCUSATE SODIUM 100 MG/10 ML UDC PO SCH ×2 (07:52→20:18)
[2017-06-03] MEDS: PANTOPRAZOLE SODIUM 40 MG VIAL IVP SCH (07:52)
[2017-06-03] MEDS: CHLORHEXIDINE 0.12% (ORAL KIT) 15 ML CUP MT SCH ×2 (08:16→20:03)
[2017-06-03] MEDS: LABETALOL HCL 100 MG/20 ML VIAL IV PUSH PRN ×3 (11:24→23:09)
--- NOTE | 2017-06-03 11:38 | HHI.CCPN ---
Subjective Remarks/Hospital Course 05/30: Patient came in as a trauma alert. 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 He was working with his colleagues and they saw him just prior to the accident when he was at his baseline mental status. He fell. The exact nature of the fall is unknown. However after that he was acting bizarre. As per EMS he was combative at the scene and not making sens, repeating the same words which do not make sense. Was hypertensive with blood pressure in 185 systolic. As per EMS GCS at the best was 11. Past medical history is unknown. Upon arrival patient was a GCS 11 and blood pressure was 205 systolic. He was combative. Patient was intubated by ER physician, evaluated by trauma team and subsequently underwent imaging studies and was transferred to ICU. Critical care was consulted by Dr. Araiza for TBI with acute respiratory failure. Per discussion with Dr. Araiza patient didn't appear to have traumatic subdural and subarachnoid hemorrhage as well as a splenic laceration. He also had some bleeding from a scalp laceration on arrival to the ICU. Patient required sedation with propofol following arrival to the ICU as he was starting to gag and cough and was attempting to move both lower extremities. I emergently placed a right subclavian central line for central vascular access which was replaced with a left subclavian central line subsequently as it was turning up into the internal jugular vein. Neurosurgery Dr. Stone had all ready been informed by trauma team and was planning to do a bolt for ICP monitoring. History was obtained by reviewing records and discussion with Dr. Araiza and ICU nursing staff. 05/31: Remains sedated, orally intubated on mechanical ventilation. Required initiation of 3% saline and received 23% saline last night for elevated ICP. On propofol/Versed/fentanyl drips as well as 3% saline this morning and was started on Nimbex for neuromuscular blockade for elevated ICPs. 06/01: Remains sedated, orally intubated on mechanical ventilation. On propofol/ Versed/fentanyl/Nimbex/3% saline drips this morning. 06/02: Underwent decompressive hemicraniectomy done on 06/[address] Stone. Remains sedated, orally intubated on mechanical ventilation. Off Nimbex currently. Remains on propofol/versed/ fentanyl gtt. 3% saline off currently. 06/03: Remains sedated, orally intubated on [facility] vent. Tolerating tube feeds. Sedation being titrated down. Objective Vital Signs Date Time Temp Pulse Resp B/P Pulse Ox O2 Delivery O2 Flow Rate FiO2 06/03/17 10:00 81 06/03/17 08:15 100 35 06/03/17 08:00 97.0 15 134/61 06/03/17 07:00 Mechanical Ventilator 05/30/17 13:34 4.00 Intake and Output 06/02/17 06/02/17 06/03/17 08:00 16:00 00:00 Intake Total 2489 ml 1192 ml 1099 ml Output Total 490.0 ml 635.0 ml 485 ml Balance 1999.0 ml 557.0 ml 614 ml Result Diagram: 06/03/17 0408 06/03/17 0800 Other Results Laboratory Tests Test 06/02/17 06/02/17 06/03/17 06/03/17 14:10 21:17 04:08 04:44 Sodium Level 156 MEQ/L 154 MEQ/L Serum Osmolality 320 MOSM/KG 309 MOSM/KG Potassium Level 3.7 MEQ/L 3.8 MEQ/L Phosphorus Level 3.4 MG/DL 2.9 MG/DL Magnesium Level 1.8 MG/DL 1.8 MG/DL White Blood Count 8.3 TH/MM3 Red Blood Count 3.41 MIL/MM3 Hemoglobin 9.9 GM/DL Hematocrit 30.7 % Mean Corpuscular Volume 90.0 FL Mean Corpuscular Hemoglobin 29.0 PG Mean Corpuscular Hemoglobin 32.2 % Concent Red Cell Distribution Width 15.8 % Platelet Count 128 TH/MM3 Mean Platelet Volume 9.9 FL Neutrophils (%) (Auto) 76.7 % Lymphocytes (%) (Auto) 11.9 % Monocytes (%) (Auto) 7.2 % Eosinophils (%) (Auto) 3.9 % Basophils (%) (Auto) 0.3 % Neutrophils # (Auto) 6.4 TH/MM3 Lymphocytes # (Auto) 1.0 TH/MM3 Monocytes # (Auto) 0.6 TH/MM3 Eosinophils # (Auto) 0.3 TH/MM3 Basophils # (Auto) 0.0 TH/MM3 CBC Comment DIFF FINAL Differential Comment Chloride Level 125 MEQ/L Carbon Dioxide Level 21.4 MEQ/L Anion Gap 8 MEQ/L Blood Urea Nitrogen 4 MG/DL Creatinine 0.81 MG/DL Estimat Glomerular Filtration 97 ML/MIN Rate Random Glucose 93 MG/DL Calcium Level 7.8 MG/DL Total Bilirubin 0.4 MG/DL Aspartate Amino Transf 35 U/L (AST/SGOT) Alanine Aminotransferase 18 U/L (ALT/SGPT) Alkaline Phosphatase 63 U/L Total Protein 5.2 GM/DL Albumin 1.9 GM/DL Blood Gas Puncture Site ART LINE Blood Gas Patient Temperature 98.6 Blood Gas HCO3 19 mmol/L Blood Gas Base Excess -5.2 mmol/L Blood Gas Oxygen Saturation 96 % Arterial Blood pH 7.38 Arterial Blood Partial 33 mmHg Pressure CO2 Arterial Blood Partial 119 mmHg Pressure O2 Arterial Blood Oxygen Content 13.4 Vol % Arterial Blood 1.1 % Carboxyhemoglobin Arterial Blood Methemoglobin 1.2 % Blood Gas Hemoglobin 9.8 G/DL Oxygen Delivery Device VENTILATOR Blood Gas Ventilator Setting PRVC/AC Blood Gas Inspired Oxygen 35 % Test 06/03/17 08:00 Sodium Level 151 MEQ/L Serum Osmolality 311 MOSM/KG Imaging Last 24 hours Impressions Chest X-Ray 06/03/17599 Signed Impressions: Service Date/Time: Saturday, June 03, 2017 04:31 - CONCLUSION: Slight worsening of bibasilar consolidation. Terry Hussein MD Last 24 hours Impressions Chest X-Ray 06/02/17599 Signed Impressions: Service Date/Time: Friday, June 02, 2017 03:54 - CONCLUSION: 1. Developing linear atelectatic changes in the left lower lung field. Right lung remains clear. 2. Stable position of life support tubes. Kamaljit El MD Head CT 06/02/17 0000 Signed Impressions: Service Date/Time: Friday, June 02, 2017 04:39 - CONCLUSION: 1. Interval left-sided parietal craniectomy with left-sided subdural drains. There is improvement with almost complete resolution of the previously seen left subdural hematoma and bilateral high convexity subarachnoid blood. 2. Minimal persistent subarachnoid hemorrhage in the high left parietal convexity with possible small subdural hematoma tracking along the left tentorium. 3. No midline shift Kamaljit El MD Last 24 hours Impressions Chest X-Ray 06/01/17 06 Signed Impressions: Service Date/Time: Thursday, June 01, 2017 05:28 - CONCLUSION: 1. Lungs remain clear. 2. Stable position of life support tubes. Kamaljit El MD Last [address] 05/30/171346 Signed Impressions: Service Date/Time: Tuesday, May 30, 2017 13:53 - CONCLUSION: Bibasilar nonspecific infiltrates suggestive of pulmonary contusions. Sanjay Donis MD Abdomen/Pelvis CT 05/30/171346 Signed Impressions: Service Date/Time: Tuesday, May 30, 2017 13:53 - CONCLUSION: 1. There appears to be a small amount of fluid along the inferior aspect of the spleen suspicious for a inferior laceration. No significant free fluid is seen in the abdomen or pelvis. 2. Benign-appearing left renal cyst. 3. Bibasilar infiltrates suggestive of pulmonary contusions. Sanjay Donis MD Pelvis X-Ray 05/30/171336 Signed Impressions: Service Date/Time: Tuesday, May 30, 2017 13:24 - CONCLUSION: The bony structures are grossly intact. Sanjay Donis MD Head CT 05/30/171336 Signed Impressions: Service Date/Time: Tuesday, May 30, 2017 13:53 - CONCLUSION: 1. Small left-sided subdural hematoma with approximately 6 mm of separation adjacent to the left temporal lobe. 2. Bilateral subarachnoid hemorrhage, left greater than right. 3. Tiny hemorrhagic contusions in both frontal lobes. 4. Hemorrhagic contusion the left temporal lobe. Sanjay Donis MD Chest X-Ray 05/30/171336 Signed Impressions: Service Date/Time: Tuesday, May 30, 2017 13:24 - CONCLUSION: ET tube in good position. Lungs are grossly clear. The CT thorax will be performed for further evaluation. Sanjay Donis MD Cervical Spine CT 05/30/171336 Signed Impressions: Service Date/Time: Tuesday, May 30, 2017 13:55 - CONCLUSION: 1. No acute bony fracture. 2. Moderate diffuse primary bony degenerative changes, disc degeneration and disc space narrowing at multiple levels from C3-C7. Sanjay Donis MD Objective Remarks HEENT/ Neuro: Dressing over hemicraniectomy site clean dry and intact, MONTY drains in place. Sedated, orally intubated, Pallor present, no icterus, tongue / mucosa moist. Pupils 3 mm bilaterally reacting actively to light. Croswell in place. Neck: Cervical collar in place, trachea is midline, no JVD Chest/Pulm: on mech vent, good air entry bilaterally, no wheezing or crackles, CVS: Regular rate and rhythm GI/abdomen: soft, nontender nondistended Extremities: No clubbing cyanosis or edema, distal pulses are palpable bilaterally Skin is warm dry and intact, Urinary Catheter: Yes Assessment to: Continue Vascular Central Line Catheter: Yes Assessment to: Continue Line: Central Venous Catheter Side: Left Location: Subclavian A/P Assessment and Plan Middle age male brought in as trauma alert following fall from a 6 foot ladder with: TBI: Left subdural hemorrhage, bilateral subarachnoid hemorrhage left greater than right, bifrontal contusions, left temporal lobe contusion Encephalopathy Elevated ICP status post left hemicraniectomy with decompression Splenic laceration Acute respiratory failure on mechanical ventilation Suspect aspiration pneumonia Plan: Neuro : Maintain sedation with propofol, Versed and fentanyl, titrating down on sedation , repeat head CT per neurosurgery, Maintain CPP 70 mmHg and above. Off Nimbex. Underwent decompressive hemicraniectomy on the left by Dr. Stone on 06/01. Croswell in place for ICP monitoring. Off 3% saline. Pulmonary : Continue full ventilator support. Vent bundle, bronchodilators as needed. Maintain end-tidal CO2 to keep PCO2 30-35 Cardiovascular: IV hydration. Off pressors. Labetalol prn for SBP greater than 160mm Hg, Nicardipine gtt as needed. GI/liver: Continue tube feeds and advanced to goal as tolerated. Continue laxatives. Add Reglan 10 mg IV every 8 hourly to improve GI motility on 06/02. Renal/: Strict intake output, monitor and replete electrolites, follow BUN/creatinine. IV hydration. KVO IVF ID Ancef given in the trauma bay. Pancultures ordered on 06/03, start empiric zosyn ( 06/03) to cover for aspiration pneumonia Heme Serial hemoglobins to trend his grade 1 splenic laceration although there is no evidence of active bleeding 2 units of platelets were given due to his medication induced platelet dysfunction Endocrine: Watch for hyperglycemia, SSI for glycemic control if needed. Prophylaxis: PPI/SCDs. Discussed with [facility] Further recommendations per trauma team and neurosurgery. Time spent on critical care excluding procedures 45 minutes Perico Collado MD Jun 03, 2017 11:38
[2017-06-03] MEDS: PIPERACIL-TAZO 4.5 GM PREMIX 100 ML IV SCH ×3 (12:00→23:11)
[2017-06-03 12:24] LABS: BLOOD GAS BASE EXCESS -5.3 mmol/L (-2-2); BLOOD GAS CARBOXYHEMOGLOBIN 1.1 % (0-4); BLOOD GAS HCO3 19 mmol/L (22-26); BLOOD GAS METHEMOGLOBIN 1.2 % (0-2); BLOOD GAS O2 HGB SATURATION 95 % (90-100); BLOOD GAS OXYGEN CONTENT 14.1 Vol % (12.0-20.0); BLOOD GAS PCO2 31 mmHg (38-42); BLOOD GAS PO2 92 mmHg (61-120); BLOOD GAS TOTAL HGB 10.5 G/DL (12.0-16.0); CRITICAL VALUE NO; DRAW SITE ART LINE; FIO2 35 %; OXYGEN DEVICE VENTILATOR; STAT NO; TEMP CORR TO 98.6
--- NOTE | 2017-06-03 12:44 | HHI.CCPN ---
Subjective 24 Hour Review/Hospital Course 05/31/17 Patient suffered elevation in his ICP, responsive to increase sedation and hypertonic saline boluses Repeat imaging shows slight improvement 06/01/17 ICP continue to increase when sedation is stopped, neurosurgery considering surgical intervention 06/02/17 Patient underwent right craniectomy yesterday, his ICPs have been in the single digits Weaning Versed drip to off, we will continue propofol for sedation as he does continue to become agitated Discuss likelihood of tracheostomy and PEG placement with 06/03/17 Clinically patient is stable, he continues to be on sedation CT scan suggests loss of bowen-white matter indicative of possible [place] DVT from cooling catheter resulted in small pulmonary embolus Will add prophylactic Lovenox, therapeutic Lovenox however is risky Will order IVC filter to prophylax against further pulmonary embolus Patient remains critically ill with severe traumatic brain injury and the possibility he remains in a comatose state. He will require tracheostomy and PEG to further his management once stable enough to do so. Total critical care time 45 minutes Objective Vital Signs Date Time Temp Pulse Resp B/P Pulse Ox O2 Delivery O2 Flow Rate FiO2 06/03/17 12:04 98 35 06/03/17 12:00 78 06/03/17 12:00 98.4 18 141/62 06/03/17 07:00 Mechanical Ventilator 05/30/17 13:34 4.00 Intake and Output 06/02/17 06/02/17 06/03/17 08:00 16:00 00:00 Intake Total 2489 ml 1192 ml 1099 ml Output Total 490.0 ml 635.0 ml 485 ml Balance 1999.0 ml 557.0 ml 614 ml Result Diagram: 06/03/17 0408 06/03/17 0800 Other Results Laboratory Tests Test 06/03/17 06/03/17 04:44 12:10 Blood Gas Puncture Site ART LINE ART LINE Blood Gas Patient Temperature 98.6 98.6 Blood Gas HCO3 19 mmol/L 19 mmol/L (22-26) (22-26) Blood Gas Base Excess -5.2 mmol/L -5.3 mmol/L (-2-2) (-2-2) Blood Gas Oxygen Saturation 96 % (90-100) 95 % (90-100) Arterial Blood pH 7.38 7.39 (7.380-7.420) (7.380-7.420) Arterial Blood Partial 33 mmHg (38-42) 31 mmHg (38-42) Pressure CO2 Arterial Blood Partial 119 mmHg 92 mmHg Pressure O2 (61-120) (61-120) Arterial Blood Oxygen Content 13.4 Vol % 14.1 Vol % (12.0-20.0) (12.0-20.0) Arterial Blood 1.1 % (0-4) 1.1 % (0-4) Carboxyhemoglobin Arterial Blood Methemoglobin 1.2 % (0-2) 1.2 % (0-2) Blood Gas Hemoglobin 9.8 G/DL 10.5 G/DL (12.0-16.0) (12.0-16.0) Oxygen Delivery Device VENTILATOR VENTILATOR Blood Gas Ventilator Setting PRVC/AC Blood Gas Inspired Oxygen 35 % 35 % Imaging Last 24 hours Impressions Chest X-Ray 06/03/17 0600 Signed Impressions: Service Date/Time: Saturday, June 03, 2017 04:31 - CONCLUSION: Slight worsening of bibasilar consolidation. Terry Hussein MD Vascular Central Line Catheter Line: Central Venous Catheter Side: Left Location: Subclavian Assessment and Plan Plan Continue hyper osmolar therapy and sedation, wean Versed off Continue full ventilator support for respiratory failure Continue nutritional support, transition to by mouth pain medication once tolerating diet at goal Mechanical VTE prophylaxis, chemical prophylaxis contraindicated Seizure prophylaxis with Dora Discussed likelihood of tracheostomy and PEG placement next week with Patient remains critically ill with traumatic brain injury following a fall, total critical care time 40 minutes Josr Araiza MD Jun 03, 2017 12:44
--- NOTE | 2017-06-03 13:43 | HHI.NSPN ---
History Chief Complaint: intubated and sedated Interval History 62-year-old male brought to [facility] emergency room 05/30/17 with traumatic brain injury after a fall from a proximally 6 feet from a ladder. Patient underwent initial ICP monitor placement. Initial ICP elevation managed with hypertonic saline, ventilatory support. 06/01/17: Left decompressive craniotomy due to increasing ICP. 06/02/17: Remains intubated. ICP mostly 10. Follow-up CT scan 06/02/17 with no residual midline shift. 06/03/17: ICPs remained stable. No change in neurologic exam. Exam Results Vital Signs Date Time Temp Pulse Resp B/P Pulse Ox O2 Delivery O2 Flow Rate FiO2 06/03/17 12:04 98 35 06/03/17 12:00 78 06/03/17 12:00 98.4 18 141/62 06/03/17 07:00 Mechanical Ventilator 05/30/17 13:34 4.00 Intake and Output 06/02/17 06/02/17 06/03/17 08:00 16:00 00:00 Intake Total 2489 ml 1192 ml 1099 ml Output Total 490.0 ml 635.0 ml 485 ml Balance 1999.0 ml 557.0 ml 614 ml Physical Examination Intubated. Off of sedation during examination today. Respirations clear to auscultation Cardiac exam regular rhythm without murmur Abdomen soft nondistended Right ICP monitor in place, ICPs currently 8-10 with good waveform No eye opening to voice or deep pain Cranial Nerves: Pupils 2 mm equal nonreactive. Mild corneal responses Absent oculocephalic responses No grimacing to deep pain. Motor: His muscle tone and bulk are normal. No movements x 4 Reflexes: trace throughout. Plantars silent b/l. Sensory: no response to painful stimuli Cerebellar: Examination cannot be adequately assessed due to the patient's neurological condition Lab, Micro, Other Results Laboratory Tests Test 06/02/17 06/02/17 06/03/17 06/03/17 14:10 21:17 04:08 04:44 Sodium Level 156 MEQ/L 154 MEQ/L Serum Osmolality 320 MOSM/KG 309 MOSM/KG Potassium Level 3.7 MEQ/L 3.8 MEQ/L Phosphorus Level 3.4 MG/DL 2.9 MG/DL Magnesium Level 1.8 MG/DL 1.8 MG/DL White Blood Count 8.3 TH/MM3 Red Blood Count 3.41 MIL/MM3 Hemoglobin 9.9 GM/DL Hematocrit 30.7 % Mean Corpuscular Volume 90.0 FL Mean Corpuscular Hemoglobin 29.0 PG Mean Corpuscular Hemoglobin 32.2 % Concent Red Cell Distribution Width 15.8 % Platelet Count 128 TH/MM3 Mean Platelet Volume 9.9 FL Neutrophils (%) (Auto) 76.7 % Lymphocytes (%) (Auto) 11.9 % Monocytes (%) (Auto) 7.2 % Eosinophils (%) (Auto) 3.9 % Basophils (%) (Auto) 0.3 % Neutrophils # (Auto) 6.4 TH/MM3 Lymphocytes # (Auto) 1.0 TH/MM3 Monocytes # (Auto) 0.6 TH/MM3 Eosinophils # (Auto) 0.3 TH/MM3 Basophils # (Auto) 0.0 TH/MM3 CBC Comment DIFF FINAL Differential Comment Chloride Level 125 MEQ/L Carbon Dioxide Level 21.4 MEQ/L Anion Gap 8 MEQ/L Blood Urea Nitrogen 4 MG/DL Creatinine 0.81 MG/DL Estimat Glomerular Filtration 97 ML/MIN Rate Random Glucose 93 MG/DL Calcium Level 7.8 MG/DL Total Bilirubin 0.4 MG/DL Aspartate Amino Transf 35 U/L (AST/SGOT) Alanine Aminotransferase 18 U/L (ALT/SGPT) Alkaline Phosphatase 63 U/L Total Protein 5.2 GM/DL Albumin 1.9 GM/DL Blood Gas Puncture Site ART LINE Blood Gas Patient Temperature 98.6 Blood Gas HCO3 19 mmol/L Blood Gas Base Excess -5.2 mmol/L Blood Gas Oxygen Saturation 96 % Arterial Blood pH 7.38 Arterial Blood Partial 33 mmHg Pressure CO2 Arterial Blood Partial 119 mmHg Pressure O2 Arterial Blood Oxygen Content 13.4 Vol % Arterial Blood 1.1 % Carboxyhemoglobin Arterial Blood Methemoglobin 1.2 % Blood Gas Hemoglobin 9.8 G/DL Oxygen Delivery Device VENTILATOR Blood Gas Ventilator Setting PRVC/AC Blood Gas Inspired Oxygen 35 % Test 06/03/17 06/03/17 08:00 12:10 Sodium Level 151 MEQ/L Serum Osmolality 311 MOSM/KG Blood Gas Puncture Site ART LINE Blood Gas Patient Temperature 98.6 Blood Gas HCO3 19 mmol/L Blood Gas Base Excess -5.3 mmol/L Blood Gas Oxygen Saturation 95 % Arterial Blood pH 7.39 Arterial Blood Partial 31 mmHg Pressure CO2 Arterial Blood Partial 92 mmHg Pressure O2 Arterial Blood Oxygen Content 14.1 Vol % Arterial Blood 1.1 % Carboxyhemoglobin Arterial Blood Methemoglobin 1.2 % Blood Gas Hemoglobin 10.5 G/DL Oxygen Delivery Device VENTILATOR Blood Gas Ventilator Setting Blood Gas Inspired Oxygen 35 % Medical Decision Making Impression and Plan Impression: 1. Stable neurologic exam with satisfactory ICPs following left decompressive craniotomy 06/01/17 following traumatic brain injury. Plan: Discussed with nursing staff Follow-up CT scan head 06/04/17. Serum sodium satisfactory Continuing ventilatory support with sedation vacations Seizure prophylaxis Non-chemical DVT prophylaxis Ulcer prophylaxis Gio Rios MD Jun 03, 2017 13:43
[2017-06-03 14:09] LABS: BACTERIA, URINE OCC /hpf; BLOOD, URINE NEG (NEG); GLUCOSE,URINE NEG (NEG); KETONE, URINE NEG (NEG); MUCUS URINE FEW /lpf (OCC); NITRITE,URINE NEG (NEG); SQUAMOUS EPITHELIAL CELL URINE <1 /hpf (0-5); URINE COLOR LIGHT-YELLOW (YELLW/STRAW)
[2017-06-03 14:13] LABS: COMMENT (UR) CATH-CULTURE IND; CULTURE IF INDICATED CATH CULTURE IND
[2017-06-03] MEDS: SODIUM CHLOR 0.9% 1000 ML INJ 1,000 ML IV SCH (17:00)
[2017-06-03] MEDS: SODIUM CHLORIDE 0.9% FLUSH 10 ML FLUSH IV FLUSH PRN (20:18)
[2017-06-03 23:35] LABS: BLOOD GAS BASE EXCESS -3.1 mmol/L (-2-2); BLOOD GAS HCO3 22 mmol/L (22-26); BLOOD GAS METHEMOGLOBIN 1.2 % (0-2); BLOOD GAS O2 HGB SATURATION 96 % (90-100); BLOOD GAS OXYGEN CONTENT 14.3 Vol % (12.0-20.0); BLOOD GAS PCO2 41 mmHg (38-42); BLOOD GAS PO2 118 mmHg (61-120); BLOOD GAS TOTAL HGB 10.4 G/DL (12.0-16.0); CRITICAL VALUE NO; DRAW SITE ART LINE; FIO2 35 %; OXYGEN DEVICE VENTILATOR; STAT NO; TEMP CORR TO 98.6; VENT SETTINGS PRVC/AC
[2017-06-04] VITALS (19 sets, daily range): BP systolic 138–170; BP diastolic 60–74; PULSE 75–88; RESP 15–20; TEMP 98.1–99; O2SAT 95–100
[2017-06-04] MEDS: LABETALOL HCL 100 MG/20 ML VIAL IV PUSH PRN ×2 (02:12→04:04)
[2017-06-04] MEDS: RESP: ALBUTEROL 2.5 MG/IPRATROPIUM 0.5 MG NEB (SCH) INH ×3 (03:20→15:51)
[2017-06-04] MEDS: levETIRAcetam INJ 500 MG in SODIUM CHLORIDE 0.9% INJ 100 ML IV SCH ×2 (04:05→15:06)
[2017-06-04] MEDS: CHLORHEXIDINE GLUCONATE 2 % 1 PACK (2 CLOTHS) TOP SCH (04:05)
[2017-06-04] MEDS: MANNITOL 12.5 GM/50 ML VIAL IV SCH ×3 (04:16→21:48)
[2017-06-04] MEDS: NORMOSOL R INJ 1,000 ML IV SCH ×2 (04:45→18:55)
--- NOTE | 2017-06-04 05:25 | RADRPT ---
EXAM DATE/TIME: 06/04/2017 04:57 [facility] COMPARISON: CT BRAIN W/O CONTRAST, June 02, 2017, 4:39. INDICATIONS : Follow up trauma. RADIATION DOSE: 56.35 CTDIvol (mGy) MEDICAL HISTORY : Cardiovascular disease. Hypertension. Myocardial infarction. SURGICAL HISTORY : Spraggs in right skull. ENCOUNTER: Subsequent ACUITY: 4 - 6 days PAIN SCALE: Non-responsive LOCATION: cranial TECHNIQUE: Multiple contiguous axial images were obtained of the head. Using automated exposure control and adj ustment of the mA and/or kV according to patient size, radiation dose was kept as low as reasonably a chievable to obtain optimal diagnostic quality images. DICOM format image data is available electro nically for review and comparison. FINDINGS: The patient had a left temporal craniotomy with a prominent bony defect. 2 surgical drains overlie th e postoperative site with very little surrounding hemorrhage. There is residual hemorrhage in the lef t frontal lobe measuring 1.7 x 0.9 cm across. I don't it has significantly changed since previous cookie dy. The suprasellar cistern is patent. The paramesencephalic cisterns are patent as is the foramen m agnum. The globes are both normal in shape. The sinuses are grossly clear. There is no obvious midline shift. There is some layering areas of subarachnoid hemorrhage in th e high left frontal and left parietal regions similar to the previous study. CONCLUSION: Continued evolution of the blood products throughout the brain status post left temporal craniotomy. The catheters are in excellent position. No new hemorrhage is identified. Ze Alicea MD on June 04, 2017 at 5:22 Board Certified Radiologist. This report was verified electronically.
[2017-06-04 05:40] LABS: AUTOMATED NEUTROPHIL # 7.6 TH/MM3 (1.8-7.7); BASOPHIL % 0.3 % (0.0-2.0); EOSINOPHIL # 0.1 TH/MM3 (0-0.4); EOSINOPHIL % 1.6 % (0.0-4.0); HEMATOCRIT 30.9 % (39.0-51.0); HEMO FLAGS DIFF FINAL; LYMPH % 9.5 % (9.0-44.0); LYMPHOCYTE # 0.9 TH/MM3 (1.0-4.8); MEAN CELL VOLUME 88.7 FL (80.0-100.0); MEAN CORPUSCULAR HEMOGLOBIN 29.7 PG (27.0-34.0); MEAN CORPUSCULAR HGB CONC 33.5 % (32.0-36.0); NEUT % 79.6 % (16.0-70.0); PLATELET COUNT 129 TH/MM3 (150-450); RED BLOOD COUNT 3.48 MIL/MM3 (4.50-5.90); RED CELL DISTRIBUTION WIDTH 15.4 % (11.6-17.2); WHITE BLOOD COUNT 9.5 TH/MM3 (4.0-11.0)
[2017-06-04 06:00] LABS: ALT (GPT) 21 U/L (12-78); ANION GAP 6 MEQ/L (5-15); AST (GOT) 42 U/L (15-37); BICARBONATE 25.1 MEQ/L (21.0-32.0); BLOOD UREA NITROGEN 8 MG/DL (7-18); CHLORIDE 118 MEQ/L (98-107); GLOMERULAR FILTRATION RATE 108 ML/MIN (>89); MAGNESIUM 2.1 MG/DL (1.5-2.5); SODIUM (NA) 149 MEQ/L (136-145)
[2017-06-04 06:02] LABS: ALKALINE PHOSPHATASE 123 U/L (45-117); TOTAL BILIRUBIN ADULT 0.5 MG/DL (0.2-1.0)
[2017-06-04] MEDS: PHENYTOIN INJ 100 MG/2 ML VIAL IV SCH ×3 (06:28→21:47)
[2017-06-04] MEDS: METOCLOPRAMIDE HCL 10 MG/2 ML VIAL IV PUSH SCH ×3 (06:29→21:48)
[2017-06-04] MEDS: PIPERACIL-TAZO 4.5 GM PREMIX 100 ML IV SCH ×3 (06:29→17:06)
--- NOTE | 2017-06-04 06:37 | RADRPT ---
EXAM DATE/TIME: 06/04/2017 05:23 [facility] COMPARISON: CHEST SINGLE AP, June 03, 2017, 4:31. INDICATIONS : Short of breath. MEDICAL HISTORY : None. SURGICAL HISTORY : Craniotomy. ENCOUNTER: Subsequent ACUITY: 1 week PAIN SCORE: 0/10 LOCATION: Bilateral chest FINDINGS: A single view of the chest demonstrates the endotracheal tube, nasogastric tube and left subclavian c entral line are in good position. Indistinctness in the right lung base may be a small layering pleur al effusion. The cardiomediastinal contours are unremarkable. Osseous structures are intact. CONCLUSION: Tubes and catheters are in good position. Small right pleural effusion Ze Alicea MD on June 04, 2017 at 6:35 Board Certified Radiologist. This report was verified electronically.
[2017-06-04] MEDS: PANTOPRAZOLE SODIUM 40 MG VIAL IVP SCH (08:48)
[2017-06-04] MEDS: DOCUSATE SODIUM 100 MG/10 ML UDC PO SCH ×2 (08:49→20:11)
[2017-06-04] MEDS: SODIUM CHLORIDE 0.9% FLUSH 5 ML FLUSH IVF SCH ×2 (08:49→20:11)
[2017-06-04] MEDS: CHLORHEXIDINE 0.12% (ORAL KIT) 15 ML CUP MT SCH ×2 (08:49→20:11)
[2017-06-04] MEDS: PANTOPRAZOLE SOD 40 MG DELAYED RELEASE TAB PO SCH (08:49)
[2017-06-04] MEDS: SODIUM CHLORIDE 0.9% FLUSH 10 ML FLUSH IV FLUSH PRN (08:49)
[2017-06-04] MEDS: ENALAPRILAT 1.25 MG/ML VIAL IV PRN (12:26)
[2017-06-04] MEDS ORDERED: PROPRANOLOL HCL 10 MG TAB PO SCH (14:00)
[2017-06-04] MEDS: METOPROLOL TARTRATE 5 MG/5 ML VIAL IV PUSH SCH ×2 (14:45→20:11)
[2017-06-04] MEDS: MORPHINE SULFATE 4 MG/ML INJ IV PUSH PRN (14:46)
[2017-06-04] MEDS: niCARdipine 25 MG/NS 250 ML Vial2Bag or IV room IV SCH ×4 (14:49→20:12)
--- NOTE | 2017-06-04 15:53 | HHI.CCPN ---
Subjective Remarks/Hospital Course 05/30: Patient came in as a trauma alert. 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 He was working with his colleagues and they saw him just prior to the accident when he was at his baseline mental status. He fell. The exact nature of the fall is unknown. However after that he was acting bizarre. As per EMS he was combative at the scene and not making sens, repeating the same words which do not make sense. Was hypertensive with blood pressure in 185 systolic. As per EMS GCS at the best was 11. Past medical history is unknown. Upon arrival patient was a GCS 11 and blood pressure was 205 systolic. He was combative. Patient was intubated by ER physician, evaluated by trauma team and subsequently underwent imaging studies and was transferred to ICU. Critical care was consulted by Dr. Araiza for TBI with acute respiratory failure. Per discussion with Dr. Araiza patient didn't appear to have traumatic subdural and subarachnoid hemorrhage as well as a splenic laceration. He also had some bleeding from a scalp laceration on arrival to the ICU. Patient required sedation with propofol following arrival to the ICU as he was starting to gag and cough and was attempting to move both lower extremities. I emergently placed a right subclavian central line for central vascular access which was replaced with a left subclavian central line subsequently as it was turning up into the internal jugular vein. Neurosurgery Dr. Stone had all ready been informed by trauma team and was planning to do a bolt for ICP monitoring. History was obtained by reviewing records and discussion with Dr. Araiza and ICU nursing staff. 05/31: Remains sedated, orally intubated on mechanical ventilation. Required initiation of 3% saline and received 23% saline last night for elevated ICP. On propofol/Versed/fentanyl drips as well as 3% saline this morning and was started on Nimbex for neuromuscular blockade for elevated ICPs. 06/01: Remains sedated, orally intubated on mechanical ventilation. On propofol/ Versed/fentanyl/Nimbex/3% saline drips this morning. 06/02: Underwent decompressive hemicraniectomy done on 06/[address] Stone. Remains sedated, orally intubated on mechanical ventilation. Off Nimbex currently. Remains on propofol/versed/ fentanyl gtt. 3% saline off currently. 06/03: Remains sedated, orally intubated on mech vent. Tolerating tube feeds. Sedation being titrated down. 06/04: Remains sedated, orally intubated on mechanical ventilation, tolerating tube feeds. Objective Vital Signs Date Time Temp Pulse Resp B/P Pulse Ox O2 Delivery O2 Flow Rate FiO2 06/04/17 14:51 20 06/04/17 14:00 79 06/04/17 12:43 35 06/04/17 12:41 99 06/04/17 12:00 98.4 155/74 06/04/17 07:00 Mechanical Ventilator Intake and Output 06/03/17 06/03/17 06/04/17 08:00 16:00 00:00 Intake Total 1045 ml 1220 ml 1022 ml Output Total 495.0 ml 742 ml 770 ml Balance 550.0 ml 478 ml 252 ml Result Diagram: 06/04/17 0530 06/04/17 0749 Other Results Laboratory Tests Test 06/03/17 23:20 Blood Gas Puncture Site ART LINE Blood Gas Patient Temperature 98.6 Blood Gas HCO3 22 mmol/L (22-26) Blood Gas Base Excess -3.1 mmol/L (-2-2) Blood Gas Oxygen Saturation 96 % (90-100) Arterial Blood pH 7.35 (7.380-7.420) Arterial Blood Partial 41 mmHg (38-42) Pressure CO2 Arterial Blood Partial 118 mmHg Pressure O2 (61-120) Arterial Blood Oxygen Content 14.3 Vol % (12.0-20.0) Arterial Blood 1.0 % (0-4) Carboxyhemoglobin Arterial Blood Methemoglobin 1.2 % (0-2) Blood Gas Hemoglobin 10.4 G/DL (12.0-16.0) Oxygen Delivery Device VENTILATOR Blood Gas Ventilator Setting PRVC/AC Blood Gas Inspired Oxygen 35 % Imaging Last [address] 06/04/17 06 Signed Impressions: Service Date/Time: Sunday, June 04, 2017 04:57 - CONCLUSION: Continued evolution of the blood products throughout the brain status post left temporal craniotomy. The catheters are in excellent position. No new hemorrhage is identified. Ze Alicea MD Chest X-Ray 06/04/17 06 Signed Impressions: Service Date/Time: Sunday, June 04, 2017 05:23 - CONCLUSION: Tubes and catheters are in good position. Small right pleural effusion Ze Alicea MD Last 24 hours Impressions Chest X-Ray 06/03/17 0600 Signed Impressions: Service Date/Time: Saturday, June 03, 2017 04:31 - CONCLUSION: Slight worsening of bibasilar consolidation. Terry Hussein MD Last 24 hours Impressions Chest X-Ray 06/02/17 0600 Signed Impressions: Service Date/Time: Friday, June 02, 2017 03:54 - CONCLUSION: 1. Developing linear atelectatic changes in the left lower lung field. Right lung remains clear. 2. Stable position of life support tubes. Kamaljit El MD Head CT 06/02/17 0000 Signed Impressions: Service Date/Time: Friday, June 02, 2017 04:39 - CONCLUSION: 1. Interval left-sided parietal craniectomy with left-sided subdural drains. There is improvement with almost complete resolution of the previously seen left subdural hematoma and bilateral high convexity subarachnoid blood. 2. Minimal persistent subarachnoid hemorrhage in the high left parietal convexity with possible small subdural hematoma tracking along the left tentorium. 3. No midline shift Kamaljit El MD Last 24 hours Impressions Chest X-Ray 06/01/17 0600 Signed Impressions: Service Date/Time: Thursday, June 01, 2017 05:28 - CONCLUSION: 1. Lungs remain clear. 2. Stable position of life support tubes. Kamaljit El MD Last [address] 05/30/17 1347 Signed Impressions: Service Date/Time: Tuesday, May 30, 2017 13:53 - CONCLUSION: Bibasilar nonspecific infiltrates suggestive of pulmonary contusions. Sanjay Donis MD Abdomen/Pelvis CT 05/30/17 1347 Signed Impressions: Service Date/Time: Tuesday, May 30, 2017 13:53 - CONCLUSION: 1. There appears to be a small amount of fluid along the inferior aspect of the spleen suspicious for a inferior laceration. No significant free fluid is seen in the abdomen or pelvis. 2. Benign-appearing left renal cyst. 3. Bibasilar infiltrates suggestive of pulmonary contusions. Sanjay Donis MD Pelvis X-Ray 05/30/17 1337 Signed Impressions: Service Date/Time: Tuesday, May 30, 2017 13:24 - CONCLUSION: The bony structures are grossly intact. Sanjay Donis MD Head CT 05/30/171336 Signed Impressions: Service Date/Time: Tuesday, May 30, 2017 13:53 - CONCLUSION: 1. Small left-sided subdural hematoma with approximately 6 mm of separation adjacent to the left temporal lobe. 2. Bilateral subarachnoid hemorrhage, left greater than right. 3. Tiny hemorrhagic contusions in both frontal lobes. 4. Hemorrhagic contusion the left temporal lobe. Sanjay Donis MD Chest X-Ray 05/30/171336 Signed Impressions: Service Date/Time: Tuesday, May 30, 2017 13:24 - CONCLUSION: ET tube in good position. Lungs are grossly clear. The CT thorax will be performed for further evaluation. Sanjay Donis MD Cervical Spine CT 05/30/171336 Signed Impressions: Service Date/Time: Tuesday, May 30, 2017 13:55 - CONCLUSION: 1. No acute bony fracture. 2. Moderate diffuse primary bony degenerative changes, disc degeneration and disc space narrowing at multiple levels from C3-C7. Sanjay Donis MD Objective Remarks HEENT/ Neuro: Dressing over hemicraniectomy site clean dry and intact, MONTY drains in place. Sedated, orally intubated, Pallor present, no icterus, tongue / mucosa moist. Pupils 3 mm bilaterally reacting actively to light. Moss in place - ICP 5-10. Neck: Cervical collar in place, trachea is midline, no JVD Chest/Pulm: on mech vent, good air entry bilaterally, no wheezing or crackles, CVS: Regular rate and rhythm GI/abdomen: soft, nontender nondistended Extremities: No clubbing cyanosis or edema, distal pulses are palpable bilaterally Skin is warm dry and intact, Line: Central Venous Catheter Side: Left Location: Subclavian A/P Assessment and Plan Middle age male brought in as trauma alert following fall from a 6 foot ladder with: TBI: Left subdural hemorrhage, bilateral subarachnoid hemorrhage left greater than right, bifrontal contusions, left temporal lobe contusion Encephalopathy Elevated ICP status post left hemicraniectomy with decompression Splenic laceration Acute respiratory failure on mechanical ventilation Suspect aspiration pneumonia Plan: Neuro : Maintain sedation with propofol, Versed and fentanyl, titrating down on sedation , repeat head CT per neurosurgery, Maintain CPP 70 mmHg and above. Off Nimbex. Underwent decompressive hemicraniectomy on the left by Dr. Stone on 06/01. Moss in place for ICP monitoring. Off 3% saline. Daily sedation vacation okayed with neurosurgery. Pulmonary : Continue full ventilator support. Vent bundle, bronchodilators as needed. Maintain end-tidal CO2 to keep PCO2 30-35 Cardiovascular: IV hydration. Off pressors. Labetalol prn for SBP greater than 160mm Hg, Nicardipine gtt as needed. GI/liver: Continue tube feeds and advanced to goal as tolerated. Continue laxatives. Added Reglan 10 mg IV every 8 hourly to improve GI motility on 06/02. Renal/: Strict intake output, monitor and replete electrolites, follow BUN/creatinine. IV hydration. KVO IVF ID Ancef given in the trauma bay. Pancultures ordered on 06/03, start empiric zosyn ( 06/03) to cover for aspiration pneumonia Heme Serial hemoglobins to trend his grade 1 splenic laceration although there is no evidence of active bleeding 2 units of platelets were given due to his medication induced platelet dysfunction Endocrine: Watch for hyperglycemia, SSI for glycemic control if needed. Prophylaxis: PPI/SCDs. Discussed with ASSET MANAGEMENT LEAD Further recommendations per trauma team and neurosurgery. Time spent on critical care excluding procedures 40 minutes Perico Collado MD Jun 04, 2017 15:53
[2017-06-04] MEDS: SODIUM CHLOR 0.9% 1000 ML INJ 1,000 ML IV SCH (16:10)
[2017-06-04] MEDS: PROPOFOL 1000 MG/100 ML INJ 100 ML IV SCH ×2 (16:10→20:12)
--- NOTE | 2017-06-04 16:41 | HHI.PR ---
Progress Notes/Response to Tx Progress Note Narrative Pt. withdrew left hand to pain and attempted to open eyes according to nursing. Otherwise, his status remains grossly unchanged. Elvie Lucero PhD Jun 04, 2017 16:41
--- NOTE | 2017-06-04 17:01 | HHI.CCPN ---
Subjective 24 Hour Review/Hospital Course 05/31/17 Patient suffered elevation in his ICP, responsive to increase sedation and hypertonic saline boluses Repeat imaging shows slight improvement 06/01/17 ICP continue to increase when sedation is stopped, neurosurgery considering surgical intervention 06/02/17 Patient underwent right craniectomy yesterday, his ICPs have been in the single digits Weaning Versed drip to off, we will continue propofol for sedation as he does continue to become agitated Discuss likelihood of tracheostomy and PEG placement with 06/03/17 Clinically patient is stable, he continues to be on sedation CT scan suggests loss of bowen-white matter indicative of possible RICO 06/04/17 off sedation moving extremities opening eyes but not following commands ICP ies in normal range Objective Vital Signs Date Time Temp Pulse Resp B/P Pulse Ox O2 Delivery O2 Flow Rate FiO2 06/04/17 14:51 20 06/04/17 14:00 79 06/04/17 12:43 35 06/04/17 12:41 99 06/04/17 12:00 98.4 155/74 06/04/17 07:00 Mechanical Ventilator Intake and Output 06/03/17 06/03/17 06/04/17 08:00 16:00 00:00 Intake Total 1045 ml 1220 ml 1022 ml Output Total 495.0 ml 742 ml 770 ml Balance 550.0 ml 478 ml 252 ml Result Diagram: 06/04/17 0530 06/04/17 1545 Other Results Laboratory Tests Test 06/03/17 23:20 Blood Gas Puncture Site ART LINE Blood Gas Patient Temperature 98.6 Blood Gas HCO3 22 mmol/L (22-26) Blood Gas Base Excess -3.1 mmol/L (-2-2) Blood Gas Oxygen Saturation 96 % (90-100) Arterial Blood pH 7.35 (7.380-7.420) Arterial Blood Partial 41 mmHg (38-42) Pressure CO2 Arterial Blood Partial 118 mmHg Pressure O2 (61-120) Arterial Blood Oxygen Content 14.3 Vol % (12.0-20.0) Arterial Blood 1.0 % (0-4) Carboxyhemoglobin Arterial Blood Methemoglobin 1.2 % (0-2) Blood Gas Hemoglobin 10.4 G/DL (12.0-16.0) Oxygen Delivery Device VENTILATOR Blood Gas Ventilator Setting PRVC/AC Blood Gas Inspired Oxygen 35 % Imaging Last [address] 06/04/17599 Signed Impressions: Service Date/Time: Sunday, June 04, 2017 04:57 - CONCLUSION: Continued evolution of the blood products throughout the brain status post left temporal craniotomy. The catheters are in excellent position. No new hemorrhage is identified. Ze Alicea MD Chest X-Ray 06/04/17599 Signed Impressions: Service Date/Time: Sunday, June 04, 2017 05:23 - CONCLUSION: Tubes and catheters are in good position. Small right pleural effusion Ze Alicea MD Exam [employer] GCS 6T Hemodynamic/Cardiac stable Pulmonary/Respiratory mechanical ventilation Abdomen/GI Nutrition soft,tolerating tube feeds Renal/I&O uo adequat Hematologic stable H&H Urinary Catheter Assessment Urinary Catheter: Yes Whitfield insert reason: Measure Accurate Output Vascular Central Line Catheter Line: Central Venous Catheter Side: Left Location: Subclavian Assessment and Plan Plan Continue hyper osmolar therapy -sedation off for 24 hrs Continue full ventilator support for respiratory failure Continue nutritional support, transition to by mouth pain medication once tolerating diet at goal Seizure prophylaxis with Dora Discussed likelihood of tracheostomy and PEG with Patient remains critically ill with traumatic brain injury following a fall Nora Adlre MD Jun 04, 2017 17:01
--- NOTE | 2017-06-04 18:04 | HHI.NSPN ---
(Gabriela Manzo) Note Status Status: Progress Note (Gabriela Manzo) Interval History Interval History This is an aduklt male brought to [place] emergency department as a trauma alert. 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 He was working with his colleagues and they saw him just prior to the accident when he was at his baseline mental status. He fell. The exact nature of the fall is unknown. According to EMS he was combative at the scene and not making sense, repeating the same words which do not make sense. Was hypertensive with blood pressure in 185 systolic. His pst medical history is unknown. At scene GCS 11 and blood pressure was 205 systolic. He was combative. Upon arrival he was intubated by ER physician, evaluated by trauma team and subsequently underwent imaging studies and was transferred to ICU. He also had some bleeding from a scalp laceration on arrival to the ICU. Patient required sedation with propofol following arrival to the ICU . Neurosurgery consultation was requested 05/31: pt underwent placement of ICP monitor yesterday. He is intubated and well sedated on propofol, versed, and fentanyl. Nursing reports elevated ICPs overnight in the 20's. He was given dose of 23% NS. Serum sodium today 151. ICPs currently now increasing back to low 20's, pupils 2 mm equal 06/01: f/u CT Head yesterday was stable. Reports ICPs intermittently elevated overnight. Remains well sedated, also on Nimbex. pupils equal. 06/04: ICPs controlled, off sedation since yesterday, nursing reports mildly opening eyes, extends LE's to pain stimuli (Gabriela Manzo) Labs, Micro, & Vital Signs Results Date Time Temp Pulse Resp B/P Pulse Ox O2 Delivery O2 Flow Rate FiO2 06/04/17 17:56 98 35 06/04/17 16:00 35 06/04/17 16:00 88 06/04/17 16:00 98.1 88 20 140/64 97 06/04/17 14:51 20 06/04/17 14:00 79 06/04/17 13:01 20 06/04/17 12:43 35 06/04/17 12:41 99 35 06/04/17 12:00 35 06/04/17 12:00 98.4 79 20 155/74 99 06/04/17 12:00 79 06/04/17 10:00 78 06/04/17 08:30 99 35 06/04/17 08:00 35 06/04/17 08:00 98.4 77 20 139/63 99 06/04/17 08:00 78 06/04/17 07:00 99 Mechanical Ventilator 35 06/04/17 06:00 81 06/04/17 05:28 96 35 06/04/17 04:40 100 100 06/04/17 04:00 35 06/04/17 04:00 83 06/04/17 04:00 99.0 83 20 166/74 100 06/04/17 02:00 84 06/04/17 00:00 80 06/04/17 00:00 35 06/04/17 00:00 98.8 84 20 138/60 99 06/03/17 23:27 98 35 06/03/17 22:00 85 06/03/17 20:22 100 35 06/03/17 20:22 100 35 06/03/17 20:00 84 06/03/17 20:00 98.8 84 15 138/60 99 06/03/17 20:00 35 06/03/17 19:00 98 Mechanical Ventilator 35 06/04/17 07:00 Intake Total 3283 ml Output Total 2217.0 ml Balance 1066.0 ml Constitutional Vital Signs Date Time Temp Pulse Resp B/P Pulse Ox O2 Delivery O2 Flow Rate FiO2 06/04/17 17:56 98 35 06/04/17 16:00 35 06/04/17 16:00 88 06/04/17 16:00 98.1 88 20 140/64 97 06/04/17 14:51 20 06/04/17 14:00 79 06/04/17 13:01 20 06/04/17 12:43 35 06/04/17 12:41 99 35 06/04/17 12:00 35 06/04/17 12:00 98.4 79 20 155/74 99 06/04/17 12:00 79 06/04/17 10:00 78 06/04/17 08:30 99 35 06/04/17 08:00 35 06/04/17 08:00 98.4 77 20 139/63 99 06/04/17 08:00 78 06/04/17 07:00 99 Mechanical Ventilator 35 06/04/17 06:00 81 06/04/17 05:28 96 35 06/04/17 04:40 100 100 06/04/17 04:00 35 06/04/17 04:00 83 06/04/17 04:00 99.0 83 20 166/74 100 06/04/17 02:00 84 06/04/17 00:00 80 06/04/17 00:00 35 06/04/17 00:00 98.8 84 20 138/60 99 06/03/17 23:27 98 35 06/03/17 22:00 85 06/03/17 20:22 100 35 06/03/17 20:22 100 35 06/03/17 20:00 84 06/03/17 20:00 98.8 84 15 138/60 99 06/03/17 20:00 35 06/03/17 19:00 98 Mechanical Ventilator 35 06/04/17 07:00 Intake Total 3283 ml Output Total 2217.0 ml Balance 1066.0 ml (Gabriela Manzo) Review of Systems/Exam Exam Intubated, off sedation since yesterday. Right ICP monitor in place, ICPs currently 2-3 with good waveform No eye opening to voice or deep pain Cranial Nerves: Pupils 2 mm equal nonreactive. Mild corneal responses Absent oculocephalic responses No grimacing to deep pain. Motor: His muscle tone and bulk are normal. No movements x 4 Reflexes: trace throughout. Plantars silent b/l. Sensory: no response to painful stimuli Cerebellar: cannot be adequately assessed due to the patient's neurological condition (Garbiela Manzo) Exam The patient is intubated and sedated. No response to pain Cranial Nerves: Pupils equal, round, reactive to light. Eyes appear conjugated. There was no nystagmus, no papilledema. Face musculature appeared symmetrical at rest. Face sensation, olfaction, visual carpenter, and hearing cannot be adequately assessed due to his neurological condition. The patient has a corneal reflex. He has a gag reflex. The sternocleidomastoid and trapezius are symmetrical. Motor: Normal response to pain Reflexes: Deep tendon reflexes are 1+ and symmetrical in the biceps, triceps, and brachioradialis, bilaterally, in the upper extremities. In the lower extremities, the patellar and ankles are 1+, bilaterally. There is a bilateral neutral plantar response. There is no clonus Sensory: On examination there is no response to painful stimuli Cerebellar: Examination cannot be adequately assessed due to the patient's neurological condition. (Thee Stone MD) Medications Current Medications Current Medications Medications (Trade) Dose Ordered Sig/Alexandru Route PRN Reason Start Time Stop Time Status Last Admin Dose Admin Sodium Chloride (NS Flush) 2 ml UNSCH PRN IV FLUSH FLUSH AFTER USING IV ACCESS 05/30/17 14:30 06/04/17 08:49 Enalaprilat (Vasotec Inj) 1.25 mg Q8H PRN IV SBP>180, DBP>95 05/30/17 14:30 06/04/17 12:26 Ondansetron HCl (Zofran Inj) 4 mg Q6H PRN IV NAUSEA OR VOMITING 05/30/17 14:30 Docusate Sodium (Colace Liq) 100 mg BID PO 05/30/17 21:00 06/04/17 08:49 Magnesium Hydroxide (Milk Of Magnesia Liq) 30 ml Q6H PRN PO CONSTIPATION 05/30/17 14:30 06/01/17 08:14 Miscellaneous Information 1 Q361D XX 05/30/17 14:30 Chlorhexidine Gluconate (Chlorhexidine 2% Cloth) 3 pack Taper DAILY@04 TOP 05/31/17 04:00 05/27/18 03:59 06/04/17 04:05 Chlorhexidine Gluconate (Chlorhexidine 2% Cloth) 3 pack UNSCH PRN TOP HYGIENIC CARE 05/30/17 14:30 Phenytoin Sodium (Dilantin Inj) 100 mg Q8HR IV 05/30/17 22:00 06/04/17 13:46 Chlorhexidine Gluconate 15 ml 15 ml BID@08,20 MT 05/30/17 20:00 06/04/17 08:49 Nicardipine HCl 25 mg/Sodium Chloride 260 ml @ 0 mls/hr TITRATE IV 05/30/17 17:15 06/04/17 14:49 Norepinephrine Bitartrate/Sodium Chloride (Levophed Inj/NS 250 ml Inj) 250 ml @ 0 mls/hr TITRATE IV 05/30/17 18:00 06/03/17 08:16 Terbutaline Sulfate 1 mg 1 mg UNSCH PRN SQ For Extravasation 05/30/17 18:00 Fentanyl Citrate 250 ml @ 0 mls/hr TITRATE IV 05/30/17 20:15 06/03/17 03:00 Midazolam HCl 100 ml @ 0 mls/hr TITRATE IV 05/30/17 20:15 06/02/17 09:12 Propofol (Diprivan 1000 Mg/100ml Inj) 100 ml @ 0 mls/hr TITRATE IV 05/30/17 20:15 06/04/17 16:10 Mannitol 12.5 gm 12.5 gm Q8H IV 05/30/17 21:00 06/03/17 20:19 Sodium Chloride 1,000 ml @ 20 mls/hr Q24H IV 05/31/17 17:00 06/01/17 06:44 Potassium Chloride 100 ml @ 50 mls/hr Q2H PRN IV For Potassium 2.8 - 3.2 mEq/L 06/01/17 09:30 Potassium Chloride (KCl 20 Meq Premix Inj) 100 ml @ 50 mls/hr Q2H PRN IV For Potassium 2.8 - 3.2 mEq/L 06/01/17 09:30 Potassium Bicarb/ Potassium Chloride 50 meq 50 meq UNSCH PRN PO For Potassium 3.3 - 3.5 mEq/L 06/01/17 09:30 Potassium Chloride 100 ml @ 25 mls/hr UNSCH PRN IV For Potassium 3.3 - 3.5 mEq/L 06/01/17 09:30 06/02/17 01:45 Potassium Chloride 100 ml @ 50 mls/hr Q2H PRN IV For Potassium 3.3 - 3.5 mEq/L 06/01/17 09:30 Magnesium Sulfate/ Sodium Chloride (Magnesium Sulfate Inj/NS Inj) 100 ml @ 50 mls/hr UNSCH PRN IV For Magnesium 0.9 - 1.1 mg/dL 06/01/17 09:30 Magnesium Oxide 800 mg 800 mg UNSCH PRN PO For Magnesium 1.2 - 1.6 mg/dL 06/01/17 09:30 06/02/17 09:12 Magnesium Sulfate/ Sodium Chloride (Magnesium Sulfate Inj/NS Inj) 100 ml @ 50 mls/hr UNSCH PRN IV For Magnesium 1.2 - 1.6 mg/dL 06/01/17 09:30 Potassium Phosphate 2000 mg 2,000 mg Q4H PRN PO For Phosphorus < 2.5 mg/dL 06/01/17 09:30 06/02/17 16:41 Sodium Phosphate/ Sodium Chloride (Sodium Phosphate Inj/NS 250 ml Inj) 250 ml @ 42 mls/hr UNSCH PRN IV For Phosphorus < 2.5 mg/dL 06/01/17 09:30 Potassium Phosphate 2000 mg 2,000 mg UNSCH PRN PO/TUBE SEE LABEL COMMENTS 06/01/17 09:30 Potassium Phosphate 30 mmol/ Sodium Chloride 260 ml @ 42 mls/hr UNSCH PRN IV SEE LABEL COMMENTS 06/01/17 09:30 06/01/17 10:08 Sodium Chloride (Sodium Chloride 3% Inj) 500 ml @ 20 mls/hr CONTINUOUS IV 06/01/17 10:00 IV Flush (NS Flush) 2 ml UNSCH PRN IVF FLUSH AFTER USING IV ACCESS 06/01/17 13:45 IV Flush 2 ml 2 ml BID IVF 06/01/17 21:00 06/04/17 08:49 Levetriacetam/ Sodium Chloride (Keppra Inj/NS Inj) 105 ml @ 400 mls/hr Q12H IV 06/01/17 16:00 06/04/17 15:06 Bisacodyl (Dulcolax Supp) 10 mg DAILY PRN RECTAL CONSTIPATION 06/01/17 13:45 Pantoprazole Sodium (Protonix) 40 mg DAILY PO 06/02/17 09:00 Pantoprazole Sodium (Protonix Inj) 40 mg DAILY IVP 06/02/17 09:00 06/04/17 08:48 Calcium Gluconate 1 gm 1 gm UNSCH PRN IV SEE LABEL COMMENTS 06/01/17 13:45 Potassium Chloride 100 ml @ 50 mls/hr UNSCH PRN IV POTASSIUM LESS THAN 4 06/01/17 13:45 Magnesium Sulfate/ Sodium Chloride (Magnesium Sulfate Inj/NS Inj) 108 ml @ 108 mls/hr UNSCH PRN IV MAGNESIUM LESS THAN 2 06/01/17 13:45 Acetaminophen/ Hydrocodone Bitart ([place] 10-325 Mg) 1 tab Q4H PRN PO PAIN SCALE 1 TO 5 06/01/17 13:45 Acetaminophen/ Hydrocodone Bitart ([place] 10-325 Mg) 2 tab Q4H PRN PO PAIN SCALE 6 TO 10 06/01/17 13:45 Morphine Sulfate (Morphine Inj) 2 mg Q2H PRN IV PUSH PAIN SCALE 1 TO 6 06/01/17 13:45 06/04/17 12:56 Morphine Sulfate (Morphine Inj) 4 mg Q2H PRN IV PUSH PAIN SCALE 7 TO 10 06/01/17 13:45 06/04/17 14:46 Acetaminophen 650 mg 650 mg Q4H PRN PO TEMPERATURE > 101.5 F 06/01/17 13:45 Parenteral Electrolytes (Normosol R Inj) 1,000 ml @ 50 mls/hr Q20H IV 06/02/17 12:45 06/03/17 07:52 Metoclopramide HCl 10 mg 10 mg Q8HR IV PUSH 06/02/17 12:45 06/04/17 13:46 Piperacillin Sod/ Tazobactam Sod (Zosyn 4.5 Gm Premix) 100 ml @ 200 mls/hr Q6H IV 06/03/17 12:00 06/04/17 17:06 Metoprolol Tartrate (Lopressor Inj) 5 mg Q6H IV PUSH 06/04/17 15:00 06/04/17 14:45 (Gabriela Manzo) Current Medications Current Medications Propofol (Diprivan 1000 Mg/100ml Inj) 100 ml @ As Directed STK-MED ONCE .ROUTE Last administered on 05/30/17t 13:40; Start 05/30/17 at 13:40; Stop 05/30/17 at 13:41; Status DC Iohexol 96 ml 96 ml STK-MED ONCE IV ; Start 05/30/17 at 14:03; Stop 05/30/17 at 14 :04; Status DC Mannitol (Mannitol Inj) 50 ml @ As Directed STK-MED ONCE .ROUTE ; Start 05/30/17 at 14:21; Stop 05/30/17 at 14:22; Status DC Fentanyl Citrate (fentaNYL INJ) 100 mcg STK-MED ONCE .ROUTE ; Start 05/30/17 at 14:33; Stop 05/30/17 at 14:34; Status DC Etomidate 40 mg 40 mg STK-MED ONCE .ROUTE ; Start 05/30/17 at 14:37; Stop at 14:38; Status DC Sodium Chloride (NS 1000 ml Inj) 1,000 ml @ 75 mls/hr [id number] IV Last administered on 06/01/17 06:44; Start 05/30/17 at 15:30; Stop 06/02/17 at 12:33; Status DC Sodium Chloride (NS Flush) 2 ml UNSCH PRN IV FLUSH FLUSH AFTER USING IV ACCESS Last administered on 06/10/17 19:41; Start 05/30/17 at 14:30 Enalaprilat (Vasotec Inj) 1.25 mg Q8H PRN IV SBP>180, DBP>95 Last administered on 06/07/17 08:13; Start 05/30/17 at 14:30; Stop 06/10/17 at 11:27 ; Status DC Ondansetron HCl (Zofran Inj) 4 mg Q6H PRN IV NAUSEA OR VOMITING Last administered on 06/05/17 13:23; Start 05/30/17 at 14:30 Pantoprazole Sodium (Protonix Inj) 40 mg Q24H IVP Last administered on 15:23; Start 05/30/17 at 16:00; Stop 06/01/17 at 15:12; Status DC Docusate Sodium (Colace Liq) 100 mg BID PO Last administered on 06/08/17 20:58 ; Start 05/30/17 at 21:00 Magnesium Hydroxide (Milk Of Magnesia Liq) 30 ml Q6H PRN PO CONSTIPATION Last administered on 06/01/17 08:14; Start 05/30/17 at 14:30 Miscellaneous Information 1 Q361D XX ; Start 05/30/17 at 14:30 Chlorhexidine Gluconate (Chlorhexidine 2% Cloth) Taper DAILY@04 TOP Last administered on 06/10/17 03:18; Start 05/31/17 at 04:00; Stop 05/27/18 at 03:59 Chlorhexidine Gluconate 3 pack 3 pack UNSCH PRN TOP HYGIENIC CARE; Start at 14:30 Fentanyl Citrate 250 ml @ 0 mls/hr TITRATE IV ; Start 05/30/17 at 15:00; Stop 05/30/17 at 20:14; Status DC Propofol (Diprivan 1000 Mg/100ml Inj) 100 ml @ 0 mls/hr TITRATE IV Last administered on 05/30/17 19:32; Start 05/30/17 at 15:30; Stop 05/30/17 at 20:15; Status DC Phenytoin Sodium 100 mg 100 mg Q8HR IV Last administered on 06/06/17 21:59; Start 05/30/17 at 22:00; Stop 06/06/17 at 22:08; Status DC Phenytoin Sodium/ Sodium Chloride (Dilantin Inj/NS Inj) 110 ml @ 240 mls/hr ONCE ONCE IV Last administered on 05/30/17 18:02; Start 05/30/17 at 16:00; Stop 05/30/17 at 16:27; Status DC Chlorhexidine Gluconate (Peridex 0.12% Liq) 15 ml BID@08,20 MT Last administered on 06/10/17 19:42; Start 05/30/17 at 20:00 Fentanyl Citrate (fentaNYL INJ) 100 mcg STK-MED ONCE .ROUTE ; Start 05/30/17 at 15:27; Stop 05/30/17 at 15:28; Status DC Fentanyl Citrate (fentaNYL INJ) 100 mcg ONCE ONCE IV Last administered on 16:44; Start 05/30/17 at 14:45; Stop 05/30/17 at 16:19; Status DC Mannitol (Mannitol Inj) 50 gm ONCE ONCE IV Last administered on 05/30/17 15:00 ; Start 05/30/17 at 15:00; Stop 05/30/17 at 16:19; Status DC Fentanyl Citrate 200 mcg 200 mcg ONCE ONCE IV Last administered on 05/30/17 15 :30; Start 05/30/17 at 15:30; Stop 05/30/17 at 16:19; Status DC Nicardipine HCl 25 mg/Sodium Chloride 260 ml @ 0 mls/hr TITRATE IV Last administered on 06/10/17 09:49; Start 05/30/17 at 17:15; Stop 06/10/17 at 11:48 ; Status DC Norepinephrine Bitartrate 250 ml @ As Directed STK-MED ONCE IV ; Start 05/30/17 at 17:48; Stop 05/30/17 at 17:49; Status DC Sodium Chloride 500 ml @ 40 mls/hr ONCE ONCE IV Last administered on 18:00; Start 05/30/17 at 18:00; Stop 05/31/17 at 06:29; Status DC Norepinephrine Bitartrate/Sodium Chloride (Levophed Inj/NS 250 ml Inj) 250 ml @ 0 mls/hr TITRATE IV Last administered on 06/03/17 08:16; Start 05/30/17 at 18:00 ; Stop 06/07/17 at 10:36; Status DC Terbutaline Sulfate 1 mg 1 mg UNSCH PRN SQ For Extravasation; Start 05/30/17 at 18:00 Sodium Chloride 240 meq/Syringe / Bag 60 ml @ 120 mls/hr ONCE ONCE IV Last administered on 05/30/17 18:16; Start 05/30/17 at 18:30; Stop 05/30/17 at 18:59; Status DC Midazolam HCl 100 ml @ 0 mls/hr TITRATE IV Last administered on 05/30/17 19:28 ; Start 05/30/17 at 18:45; Stop 05/30/17 at 20:15; Status DC Fentanyl Citrate 250 ml @ 0 mls/hr TITRATE IV Last administered on 06/03/17 03: 00; Start 05/30/17 at 20:15; Stop 06/07/17 at 10:36; Status DC Midazolam HCl 100 ml @ 0 mls/hr TITRATE IV Last administered on 06/02/17 09:12 ; Start 05/30/17 at 20:15; Stop 06/07/17 at 10:36; Status DC Propofol (Diprivan 1000 Mg/100ml Inj) 100 ml @ 0 mls/hr TITRATE IV Last administered on 06/10/17 10:34; Start 05/30/17 at 20:15 Mannitol 12.5 gm 12.5 gm Q8H IV Last administered on 06/06/17 05:02; Start 05/30/17 at 21:00; Stop 06/06/17 at 10:12; Status DC Sodium Chloride (Sodium Chloride 3% Inj) 500 ml @ 40 mls/hr CONTINUOUS IV Last administered on 06/01/17 08:15; Start 05/31/17 at 07:00; Stop 06/01/17 at 09: 57; Status DC Vecuronium [place] (Norcuron 10 Mg Inj) 10 mg STAT ONCE IV PUSH Last administered on 05/31/17 09:45; Start 05/31/17 at 09:45; Stop 05/31/17 at 10:18; Status DC Cisatracurium Besylate 15 mg 15 mg ONCE ONCE IVP Last administered on 09:45; Start 05/31/17 at 09:45; Stop 05/31/17 at 10:18; Status DC Cisatracurium Besylate/Sodium Chloride (Nimbex Inj/NS 250 ml Inj) 250 ml @ 0 mls /hr TITRATE IV Last administered on 06/01/17 08:14; Start 05/31/17 at 09:45; Stop 06/02/17 at 12:33; Status DC Albuterol/ Ipratropium (Duoneb Neb) 1 ampule Q6HR NEB INH Last administered on 06/04/17 15:51; Start 05/31/17 at 16:00; Stop 06/04/17 at 16:00; Status DC Albuterol/ Ipratropium 1 ampule 1 ampule Q2HR NEB PRN INH WHEEZING Last administered on 06/01/17 16:14; Start 05/31/17 at 16:00 Sodium Chloride 1,000 ml @ 20 mls/hr Q24H IV Last administered on 06/01/17 06: 44; Start 05/31/17 at 17:00; Stop 06/05/17 at 13:28; Status DC Potassium Chloride 100 ml @ 50 mls/hr Q2H PRN IV For Potassium 2.8 - 3.2 mEq/ L Last administered on 06/08/17 23:57; Start 06/01/17 at 09:30 Potassium Chloride (KCl 20 Meq Premix Inj) 100 ml @ 50 mls/hr Q2H PRN IV For Potassium 2.8 - 3.2 mEq/L; Start 06/01/17 at 09:30 Potassium Bicarb/ Potassium Chloride 50 meq 50 meq UNSCH PRN PO For Potassium 3.3 - 3.5 mEq/L; Start 06/01/17 at 09:30 Potassium Chloride 100 ml @ 25 mls/hr UNSCH PRN IV For Potassium 3.3 - 3.5 mEq /L Last administered on 06/02/17 01:45; Start 06/01/17 at 09:30 Potassium Chloride 100 ml @ 50 mls/hr Q2H PRN IV For Potassium 3.3 - 3.5 mEq/L ; Start 06/01/17 at 09:30 Magnesium Sulfate/ Sodium Chloride (Magnesium Sulfate Inj/NS Inj) 100 ml @ 50 mls/hr UNSCH PRN IV For Magnesium 0.9 - 1.1 mg/dL; Start 06/01/17 at 09:30 Magnesium Oxide 800 mg 800 mg UNSCH PRN PO For Magnesium 1.2 - 1.6 mg/dL Last administered on 06/02/17 09:12; Start 06/01/17 at 09:30 Magnesium Sulfate/ Sodium Chloride (Magnesium Sulfate Inj/NS Inj) 100 ml @ 50 mls/hr UNSCH PRN IV For Magnesium 1.2 - 1.6 mg/dL; Start 06/01/17 at 09:30 Potassium Phosphate 2000 mg 2,000 mg Q4H PRN PO For Phosphorus < 2.5 mg/dL Last administered on 06/06/17 19:48; Start 06/01/17 at 09:30 Sodium Phosphate/ Sodium Chloride (Sodium Phosphate Inj/NS 250 ml Inj) 250 ml @ 42 mls/hr UNSCH PRN IV For Phosphorus < 2.5 mg/dL; Start 06/01/17 at 09:30 Potassium Phosphate 2000 mg 2,000 mg UNSCH PRN PO/TUBE SEE LABEL COMMENTS; Start 06/01/17 at 09:30 Potassium Phosphate/Sodium Chloride (Potassium Phosphate Inj/NS 250 ml Inj) 260 ml @ 42 mls/hr UNSCH PRN IV SEE LABEL COMMENTS Last administered on 06/01/17 10:08; Start 06/01/17 at 09:30 Magnesium Citrate 300 ml 300 ml ONCE ONCE PO Last administered on 06/01/17 10: 58; Start 06/01/17 at 10:45; Stop 06/01/17 at 11:02; Status DC Sodium Chloride (Sodium Chloride 3% Inj) 500 ml @ 20 mls/hr CONTINUOUS IV ; Start 06/01/17 at 10:00; Stop 06/07/17 at 10:36; Status DC Microfibriller Collagen Hemostat (Avitene Bandage) 1 bandage STK-MED ONCE .ROUTE ; Start 06/01/17 at 13:05; Stop 06/01/17 at 13:06; Status DC Thrombin 00643 units 10,000 units STK-MED ONCE .ROUTE ; Start 06/01/17 at 13:05; Stop 06/01/17 at 13:06; Status DC Cefazolin Sodium/ Dextrose (Ancef 2 Gm Premix) 50 ml @ As Directed STK-MED ONCE .ROUTE Last administered on 06/01/17 14:12; Start 06/01/17 at 13:05; Stop at 13:06; Status DC Gelatin (Gelfoam 100 Top) 1 foam STK-MED ONCE .ROUTE ; Start 06/01/17 at 13:05; Stop 06/01/17 at 13:06; Status DC Gentamicin Sulfate (Gentamicin Inj) 240 mg STK-MED ONCE .ROUTE ; Start 06/01/17 at 13:05; Stop 06/01/17 at 13:06; Status DC Lidocaine/ Epinephrine (Xylocaine-Epi 1%-1:100,000 Inj) 40 ml STK-MED ONCE .ROUTE ; Start 06/01/17 at 13:05; Stop 06/01/17 at 13:06; Status DC Vancomycin HCl (Vancomycin Inj) 1,000 mg STK-MED ONCE .ROUTE Last administered on 06/01/17 14:27; Start 06/01/17 at 13:06; Stop 06/01/17 at 13:07; Status DC Artificial Tears (Lacrilube Opht Oint) 3.5 applic STK-MED ONCE .ROUTE ; Start at 13:15; Stop 06/01/17 at 13:16; Status DC Midazolam HCl (Versed Inj) 2 mg STK-MED ONCE .ROUTE ; Start 06/01/17 at 13:15; Stop 06/01/17 at 13:16; Status DC Fentanyl Citrate (fentaNYL INJ) 250 mcg STK-MED ONCE .ROUTE ; Start 06/01/17 at 13:15; Stop 06/01/17 at 13:16; Status DC Levetriacetam 1000 mg 1,000 mg STK-MED ONCE IV ; Start 06/01/17 at 13:25; Stop at 13:26; Status DC Potassium Chloride/Sodium Chloride (NS + KCl 20 Meq Inj) 1,000 ml @ 100 mls/hr Q10H IV Last administered on 06/02/17 09:13; Start 06/01/17 at 13:45; Stop at 12:33; Status DC IV Flush (NS Flush) 2 ml UNSCH PRN IVF FLUSH AFTER USING IV ACCESS; Start at 13:45 IV Flush 2 ml 2 ml BID IVF Last administered on 06/10/17 19:41; Start 06/01/17 at 21:00 Cefazolin Sodium/ Dextrose 50 ml @ 100 mls/hr Q8H IV Last administered on 14:14; Start 06/01/17 at 22:00; Stop 06/02/17 at 14:29; Status DC Levetriacetam/ Sodium Chloride (Keppra Inj/NS Inj) 105 ml @ 400 mls/hr Q12H IV Last administered on 06/10/17 15:33; Start 06/01/17 at 16:00 Bisacodyl (Dulcolax Supp) 10 mg DAILY PRN RECTAL CONSTIPATION; Start 06/01/17 at 13:45 Docusate Sodium (Colace) 100 mg BID PO ; Start 06/01/17 at 21:00; Stop 06/01/17 at 21:00; Status DC Pantoprazole Sodium (Protonix) 40 mg DAILY PO ; Start 06/02/17 at 09:00; Stop at 10:36; Status DC Pantoprazole Sodium (Protonix Inj) 40 mg DAILY IVP Last administered on 08:38; Start 06/02/17 at 09:00; Stop 06/10/17 at 11:27; Status DC Ondansetron HCl (Zofran Inj) 4 mg Q6H PRN IV NAUSEA OR VOMITING; Start 06/01/17 at 13:45; Stop 06/01/17 at 15:13; Status DC Calcium Gluconate 1 gm 1 gm UNSCH PRN IV SEE LABEL COMMENTS; Start 06/01/17 at 13:45 Potassium Chloride 100 ml @ 50 mls/hr UNSCH PRN IV POTASSIUM LESS THAN 4; Start 06/01/17 at 13:45 Magnesium Sulfate/ Sodium Chloride (Magnesium Sulfate Inj/NS Inj) 108 ml @ 108 mls/hr UNSCH PRN IV MAGNESIUM LESS THAN 2; Start 06/01/17 at 13:45 Acetaminophen/ Hydrocodone Bitart ([place] 10-325 Mg) 1 tab Q4H PRN PO PAIN SCALE 1 TO 5; Start 06/01/17 at 13:45; Stop 06/09/17 at 09:33; Status DC Acetaminophen/ Hydrocodone Bitart ([place] 10-325 Mg) 2 tab Q4H PRN PO PAIN SCALE 6 TO 10 Last administered on 06/09/17 05:05; Start 06/01/17 at 13:45; Stop 06/09/17 at 09:34; Status DC Morphine Sulfate (Morphine Inj) 2 mg Q2H PRN IV PUSH PAIN SCALE 1 TO 6 Last administered on 06/04/17 12:56; Start 06/01/17 at 13:45; Stop 06/09/17 at 11:50 ; Status DC Morphine Sulfate (Morphine Inj) 4 mg Q2H PRN IV PUSH PAIN SCALE 7 TO 10 Last administered on 06/09/17 08:52; Start 06/01/17 at 13:45; Stop 06/09/17 at 11:51 ; Status DC Acetaminophen (Tylenol) 650 mg Q4H PRN PO TEMPERATURE > 101.5 F Last administered on 06/07/17 17:21; Start 06/01/17 at 13:45 Gentamicin Sulfate (Gentamicin Inj) 240 mg STK-MED ONCE IRRIGATION Last administered on 06/01/17 14:27; Start 06/01/17 at 14:27; Stop 06/01/17 at 14:49; Status DC Gelatin (Gelfoam 100 Top) 1 foam STK-MED ONCE TOP Last administered on 14:27; Start 06/01/17 at 14:27; Stop 06/01/17 at 14:49; Status DC Thrombin (Thrombin Top Soln) 5,000 units STK-MED ONCE TOP Last administered on 06/01/17 14:27; Start 06/01/17 at 14:27; Stop 06/01/17 at 14:49; Status DC Microfibriller Collagen Hemostat (Avitene Bandage) 1 bandage STK-MED ONCE TOPICAL Last administered on 06/01/17 14:27; Start 06/01/17 at 14:27; Stop at 14:49; Status DC Lidocaine/ Epinephrine (Xylocaine-Epi 1%-1:100,000 Inj) 30 ml STK-MED ONCE INFIL Last administered on 06/01/17 14:27; Start 06/01/17 at 14:27; Stop at 14:50; Status DC Bacitracin 15 applic 15 applic STK-MED ONCE .ROUTE ; Start 06/01/17 at 15:19; Stop 06/01/17 at 15:20; Status DC Parenteral Electrolytes (Normosol R Inj) 1,000 ml @ 50 mls/hr Q20H IV Last administered on 06/04/17 18:55; Start 06/02/17 at 12:45; Stop 06/05/17 at 15:49 ; Status DC Metoclopramide HCl (Reglan Inj) 10 mg Q8HR IV PUSH Last administered on 04:46; Start 06/02/17 at 12:45; Stop 06/10/17 at 11:27; Status DC Labetalol HCl 20 mg 20 mg Q2HR PRN IV PUSH SBP greater than 160mm Hg Last administered on 06/04/17 04:04; Start 06/03/17 at 11:15; Stop 06/04/17 at 10:17 ; Status DC Piperacillin Sod/ Tazobactam Sod (Zosyn 4.5 Gm Premix) 100 ml @ 200 mls/hr Q6H IV Last administered on 06/10/17 16:29; Start 06/03/17 at 12:00 Propranolol HCl (Inderal) 10 mg Q8HR PO ; Start 06/04/17 at 14:00; Stop at 14:00; Status DC Metoprolol Tartrate (Lopressor Inj) 5 mg Q6H IV PUSH Last administered on 07:45; Start 06/04/17 at 15:00; Stop 06/06/17 at 10:39; Status DC Meperidine HCl 25 mg 25 mg NOW ONCE IM Last administered on 06/05/17 03:43; Start 06/05/17 at 04:00; Stop 06/05/17 at 04:01; Status DC Sodium Chloride (NS 1000 ml Inj) 1,000 ml @ 75 mls/hr [id number] IV Last administered on 06/07/17 05:54; Start 06/05/17 at 14:15; Stop 06/07/17 at 17:15 ; Status DC Metoprolol Tartrate (Lopressor Inj) 7.5 mg Q6H IV PUSH Last administered on 07:50; Start 06/06/17 at 15:00; Stop 06/08/17 at 10:04; Status DC Hydralazine HCl (Apresoline Inj) 10 mg Q6H PRN IV PUSH SBP > 160 Last administered on 06/09/17 09:54; Start 06/06/17 at 10:30; Stop 06/09/17 at 11:42 ; Status DC Clonidine (Catapres) 0.1 mg Q8HR PO Last administered on 06/07/17 05:54; Start 06/06/17 at 14:00; Stop 06/07/17 at 10:36; Status DC Fosphenytoin Sodium (Cerebyx Inj) 100 mgpe Q6HR IV ; Start 06/07/17 at 00:00; Status UNV Fosphenytoin Sodium 300 mgpe 300 mgpe ONCE ONCE IV ; Start 06/06/17 at 22:15; Stop 06/06/17 at 22:16; Status UNV Fosphenytoin Sodium 300 mgpe/ Sodium Chloride 56 ml @ 200 mls/hr ONCE ONCE IV Last administered on 06/07/17 01:03; Start 06/07/17 at 00:00; Stop 06/07/17 at 00:16; Status DC Fosphenytoin Sodium/Sodium Chloride (Cerebyx Inj/NS Inj) 52 ml @ 200 mls/hr Q6HR IV Last administered on 06/10/17 15:34; Start 06/07/17 at 06:00 Metoprolol Tartrate (Lopressor) 25 mg Q8H PO Last administered on 06/07/17 09: 25; Start 06/07/17 at 09:00; Stop 06/07/17 at 10:36; Status DC Amlodipine Besylate (Norvasc) 10 mg DAILY PO Last administered on 06/10/17 08: 39; Start 06/07/17 at 09:00 Clonidine 0.2 mg 0.2 mg Q8HR PO Last administered on 06/08/17 05:13; Start at 14:00; Stop 06/08/17 at 10:26; Status DC Sodium Chloride (NS 1000 ml Inj) 1,000 ml @ 0 mls/hr Q24H IV Last administered on 06/10/17 17:15; Start 06/07/17 at 17:15 Albuterol/ Ipratropium (Duoneb Neb) 1 ampule Q6HR NEB NEB Last administered on 06/10/17 17:11; Start 06/07/17 at 23:00 Albuterol/ Ipratropium (Duoneb Neb) 1 ampule Q2HR NEB PRN NEB WHEEZING; Start 06/07/17 at 23:00 Metoprolol Tartrate (Lopressor) 50 mg Q8H OG-TUBE ; Start 06/08/17 at 11:00; Stop 06/08/17 at 11:00; Status DC Clonidine (Catapres) 0.3 mg Q8HR PO Last administered on 06/10/17 04:48; Start 06/08/17 at 14:00; Stop 06/10/17 at 11:27; Status DC Propranolol HCl (Inderal) 10 mg Q8HR PO Last administered on 06/09/17 04:46; Start 06/08/17 at 14:00; Stop 06/09/17 at 11:42; Status DC Water (Free Water) VOLUME: 200 ML Q8HR G-TUBE Last administered on 06/10/17 14 :00; Start 06/08/17 at 14:00 Oxycodone HCl (Roxicodone) 5 mg Q4H PO Last administered on 06/09/17 09:43; Start 06/09/17 at 09:30; Stop 06/09/17 at 11:42; Status DC Hydralazine HCl (Apresoline Inj) 10 mg Q1HR PRN IV PUSH SBP > 160 Last administered on 06/09/17 15:51; Start 06/09/17 at 12:00 Oxycodone HCl (Roxicodone) 10 mg Q4H PO Last administered on 06/10/17 08:39; Start 06/09/17 at 13:30; Stop 06/10/17 at 11:27; Status DC Propranolol HCl (Inderal) 20 mg Q8HR PO Last administered on 06/10/17 14:49; Start 06/09/17 at 14:00; Stop 06/10/17 at 17:45; Status DC Labetalol HCl (Trandate Inj) 10 mg Q1HR PRN IV PUSH SBP>160, DBP>90, HR>65 Last administered on 06/09/17 16:19; Start 06/09/17 at 11:45; Stop 06/10/17 at 11:27; Status DC Morphine Sulfate (Morphine Inj) 2 mg Q2H PRN IV PUSH PAIN SCALE 1 TO 6; Start 06/09/17 at 11:50; Stop 06/10/17 at 11:27; Status DC Morphine Sulfate (Morphine Inj) 4 mg Q2H PRN IV PUSH PAIN SCALE 7 TO 10 Last administered on 06/10/17 00:23; Start 06/09/17 at 11:51; Stop 06/10/17 at 11:27 ; Status DC Lorazepam (Ativan Inj) 2 mg ONCE ONCE IV PUSH Last administered on 06/09/17 17:19; Start 06/09/17 at 17:15; Stop 06/09/17 at 17:16; Status DC Enoxaparin Sodium (Lovenox Inj) 40 mg Q24H SQ Last administered on 06/10/17 11 :46; Start 06/10/17 at 12:00; Status Hold Clonidine (Catapres-Tts 0.3 Mg Patch.7d) 1 patch Q7D T-DERMAL Last administered on 06/10/17 14:49; Start 06/10/17 at 11:15 Famotidine 20 mg 20 mg BID NG ; Start 06/10/17 at 21:00 Fentanyl Citrate 250 ml @ 0 mls/hr TITRATE IV Last administered on 06/10/17 19 :40; Start 06/10/17 at 12:00 Nicardipine HCl 25 mg/Sodium Chloride 250 ml @ 0 mls/hr TITRATE IV ; Start 06/10 at 12:00; Stop 06/10/17 at 12:07; Status DC Nicardipine HCl 100 mg/Sodium Chloride 250 ml @ 0 mls/hr TITRATE IV ; Start at 12:15; Status Cancel Valproate Sodium 500 mg/Sodium Chloride 105 ml @ 105 mls/hr Q8H IV ; Start at 15:00; Stop 06/10/17 at 15:00; Status DC Valproate Sodium/ Sodium Chloride (Depacon Inj/NS Inj) 105 ml @ 105 mls/hr Q8H IV Last administered on 06/10/17t 15:00; Start 06/10/17 at 15:00 Propranolol HCl 60 mg 60 mg Q8HR PO ; Start 06/10/17 at 22:00 Nicardipine HCl 100 mg/Sodium Chloride 250 ml @ 0 mls/hr TITRATE IV ; Start at 19:45; Status Cancel Nicardipine HCl 100 mg/Sodium Chloride 250 ml @ 0 mls/hr TITRATE IV ; Start at 20:00; Status Cancel Nicardipine HCl/ Sodium Chloride (Cardene Inj/NS 250 ml Inj) 250 ml @ 0 mls/hr TITRATE IV ; Start 06/10/17 at 20:00 (Thee Stone MD) Medical Decision Making MDM Remarks 62 y/o male TBI, s/p placement of intracranial pressure monitor 05/30/17 with uncontrolled ICPs, s/p emergent left craniectomy with evacuation of SDH 06/08/17 (Gabriela Manzo) Plan Plan Remarks cont ICP monitoring today f/u neuro exam cont critical care management (Gabriela Manzo) Plan Remarks Continue neuro checks in a serial fashion. Pulmonary. Continue mechanical ventilation, aggressive pulmonary toilette, nasotracheal suction, and breathing treatments with nebulizers. PT and OT evaluation Nutrition. NPO after midnoght Renal. Continue monitor closely urine output, BUN and creatinine Endocrine. Continue Monitor serial Acu checks and SSI as needed in detail ID Continue monitor for signs of infection Continue Protonix for stress ulcer prophylaxis Continue Vel hose and SCD's for DVT prophylaxis The exam, history, and the medical decision-making described in the above note were completed with the assistance of the mid-level provider. I reviewed and agree with the findings presented. I attest that I had a [id number] encounter with the patient on the same day, and personally performed and documented my assessment and findings in the medical record. (Thee Stone MD) Gabriela Manzo Jun 04, 2017 18:04 Thee Stone MD Jun 10, 2017 19:58
[2017-06-05] VITALS (20 sets, daily range): BP systolic 134–166; BP diastolic 59–74; PULSE 74–93; RESP 15–21; TEMP 98.2–100.2; O2SAT 92–100
[2017-06-05] MEDS: PIPERACIL-TAZO 4.5 GM PREMIX 100 ML IV SCH ×4 (00:02→17:55)
[2017-06-05] MEDS: niCARdipine 25 MG/NS 250 ML Vial2Bag or IV room IV SCH ×8 (00:02→20:29)
[2017-06-05] MEDS: ACETAMINOPHEN 325 MG TAB PO PRN (01:08)
[2017-06-05] MEDS: PROPOFOL 1000 MG/100 ML INJ 100 ML IV SCH ×4 (02:36→21:30)
[2017-06-05] MEDS: METOPROLOL TARTRATE 5 MG/5 ML VIAL IV PUSH SCH ×4 (03:39→20:23)
[2017-06-05] MEDS: CHLORHEXIDINE GLUCONATE 2 % 1 PACK (2 CLOTHS) TOP SCH (03:43)
[2017-06-05] MEDS: levETIRAcetam INJ 500 MG in SODIUM CHLORIDE 0.9% INJ 100 ML IV SCH ×2 (03:43→16:23)
[2017-06-05] MEDS ORDERED: MEPERIDINE HCL 25 MG/ML VIAL IM ONE (04:00)
[2017-06-05 05:05] LABS: ALT (GPT) 19 U/L (12-78); ANION GAP 7 MEQ/L (5-15); AST (GOT) 32 U/L (15-37); BICARBONATE 25.2 MEQ/L (21.0-32.0); BLOOD UREA NITROGEN 14 MG/DL (7-18); CHLORIDE 114 MEQ/L (98-107); GLOMERULAR FILTRATION RATE 105 ML/MIN (>89); POTASSIUM 3.9 MEQ/L (3.5-5.1); SODIUM (NA) 146 MEQ/L (136-145)
[2017-06-05 05:08] LABS: ALKALINE PHOSPHATASE 120 U/L (45-117); TOTAL BILIRUBIN ADULT 0.4 MG/DL (0.2-1.0)
[2017-06-05 05:17] LABS: BLOOD GAS BASE EXCESS 0.8 mmol/L (-2-2); BLOOD GAS CARBOXYHEMOGLOBIN 1.1 % (0-4); BLOOD GAS HCO3 24 mmol/L (22-26); BLOOD GAS METHEMOGLOBIN 1.1 % (0-2); BLOOD GAS O2 HGB SATURATION 95 % (90-100); BLOOD GAS OXYGEN CONTENT 13.7 Vol % (12.0-20.0); BLOOD GAS PCO2 32 mmHg (38-42); BLOOD GAS PO2 90 mmHg (61-120); BLOOD GAS TOTAL HGB 10.2 G/DL (12.0-16.0); CRITICAL VALUE NO; OXYGEN DEVICE VENTILATOR; TEMP CORR TO 98.6
[2017-06-05 05:18] LABS: DRAW SITE ART LINE; FIO2 35 %; STAT NO; VENT SETTINGS PRVC/AC
[2017-06-05 05:29] LABS: BASOPHIL % 0.4 % (0.0-2.0); EOSINOPHIL # 0.2 TH/MM3 (0-0.4); EOSINOPHIL % 2.2 % (0.0-4.0); HEMO FLAGS DIFF FINAL; LYMPH % 15.3 % (9.0-44.0); LYMPHOCYTE # 1.3 TH/MM3 (1.0-4.8); MEAN CELL VOLUME 89.3 FL (80.0-100.0); MEAN CORPUSCULAR HEMOGLOBIN 29.8 PG (27.0-34.0); MEAN CORPUSCULAR HGB CONC 33.4 % (32.0-36.0); MONO % 9.2 % (0.0-8.0); NEUT % 72.9 % (16.0-70.0); PLATELET COUNT 131 TH/MM3 (150-450); RED BLOOD COUNT 3.25 MIL/MM3 (4.50-5.90); RED CELL DISTRIBUTION WIDTH 15.1 % (11.6-17.2); WHITE BLOOD COUNT 8.3 TH/MM3 (4.0-11.0)
[2017-06-05] MEDS: MANNITOL 12.5 GM/50 ML VIAL IV SCH ×3 (06:01→20:45)
[2017-06-05] MEDS: PHENYTOIN INJ 100 MG/2 ML VIAL IV SCH ×3 (06:01→20:25)
[2017-06-05] MEDS: METOCLOPRAMIDE HCL 10 MG/2 ML VIAL IV PUSH SCH ×3 (06:02→20:25)
--- NOTE | 2017-06-05 06:23 | RADRPT ---
EXAM DATE/TIME: 06/05/2017 05:20 [facility] COMPARISON: CHEST SINGLE AP, June 04, 2017, 5:23. INDICATIONS : Short of breath. MEDICAL HISTORY : None. SURGICAL HISTORY : Craniotomy. ENCOUNTER: Subsequent ACUITY: 4 - 6 days PAIN SCORE: Non-responsive. LOCATION: Bilateral chest FINDINGS: Mild consolidation worsening of each lung base. Probably a small pleural effusion on the left. I don' t see a pneumothorax. Heart size stable, within normal limits. Endotracheal tube tip is about 5 cm above the goran. Nasogastric tube courses into the stomach. Ther e is a left subclavian central venous catheter with tip in the superior vena cava. CONCLUSION: Modest worsening of bibasilar consolidation and left pleural effusion. Rodney Ribeiro MD on June 05, 2017 at 6:21 Board Certified Radiologist. This report was verified electronically.
[2017-06-05] MEDS: CHLORHEXIDINE 0.12% (ORAL KIT) 15 ML CUP MT SCH ×2 (07:52→20:23)
[2017-06-05] MEDS: DOCUSATE SODIUM 100 MG/10 ML UDC PO SCH ×2 (07:53→20:22)
[2017-06-05] MEDS: PANTOPRAZOLE SODIUM 40 MG VIAL IVP SCH (07:53)
[2017-06-05] MEDS: SODIUM CHLORIDE 0.9% FLUSH 10 ML FLUSH IV FLUSH PRN (07:54)
[2017-06-05] MEDS: PANTOPRAZOLE SOD 40 MG DELAYED RELEASE TAB PO SCH (07:54)
[2017-06-05] MEDS: SODIUM CHLORIDE 0.9% FLUSH 5 ML FLUSH IVF SCH ×2 (07:55→20:23)
--- NOTE | 2017-06-05 12:58 | HHI.CCPN ---
Subjective Remarks/Hospital Course 05/30: Patient came in as a trauma alert. 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 He was working with his colleagues and they saw him just prior to the accident when he was at his baseline mental status. He fell. The exact nature of the fall is unknown. However after that he was acting bizarre. As per EMS he was combative at the scene and not making sens, repeating the same words which do not make sense. Was hypertensive with blood pressure in 185 systolic. As per EMS GCS at the best was 11. Past medical history is unknown. Upon arrival patient was a GCS 11 and blood pressure was 205 systolic. He was combative. Patient was intubated by ER physician, evaluated by trauma team and subsequently underwent imaging studies and was transferred to ICU. Critical care was consulted by Dr. Araiza for TBI with acute respiratory failure. Per discussion with Dr. Araiza patient didn't appear to have traumatic subdural and subarachnoid hemorrhage as well as a splenic laceration. He also had some bleeding from a scalp laceration on arrival to the ICU. Patient required sedation with propofol following arrival to the ICU as he was starting to gag and cough and was attempting to move both lower extremities. I emergently placed a right subclavian central line for central vascular access which was replaced with a left subclavian central line subsequently as it was turning up into the internal jugular vein. Neurosurgery Dr. Stone had all ready been informed by trauma team and was planning to do a bolt for ICP monitoring. History was obtained by reviewing records and discussion with Dr. Araiza and ICU nursing staff. 05/31: Remains sedated, orally intubated on mechanical ventilation. Required initiation of 3% saline and received 23% saline last night for elevated ICP. On propofol/Versed/fentanyl drips as well as 3% saline this morning and was started on Nimbex for neuromuscular blockade for elevated ICPs. 06/01: Remains sedated, orally intubated on mechanical ventilation. On propofol/ Versed/fentanyl/Nimbex/3% saline drips this morning. 06/02: Underwent decompressive hemicraniectomy done on 06/[address] Stone. Remains sedated, orally intubated on mechanical ventilation. Off Nimbex currently. Remains on propofol/versed/ fentanyl gtt. 3% saline off currently. 06/03: Remains sedated, orally intubated on mech vent. Tolerating tube feeds. Sedation being titrated down. 06/04: Remains sedated, orally intubated on mechanical ventilation, tolerating tube feeds. 06/05: Sedated, orally intubated on mechanical ventilation. Tolerating tube feeds. ICPs remain around 5-10 Objective Vital Signs Date Time Temp Pulse Resp B/P Pulse Ox O2 Delivery O2 Flow Rate FiO2 06/05/17 12:00 35 06/05/17 12:00 98.6 82 18 157/71 97 06/05/17 07:00 Mechanical Ventilator Intake and Output 06/04/17 06/04/17 06/05/17 08:00 16:00 00:00 Intake Total 1041 ml 1141 ml 1387 ml Output Total 705.0 ml 1010 ml 1200 ml Balance 336.0 ml 131 ml 187 ml Result Diagram: 06/05/17 0421 06/05/17 1150 Other Results Microbiology Date/Time Procedure Status Source Growth 06/03/17 11:30 Gram Stain - Final Complete Sputum Endotracheal 06/03/17 11:30 Sputum Culture - Final Complete Enterobacter Cloacae Beta Strep Not Group A 06/03/17 11:30 Urine Culture - Final Complete Urine Catheterized Urine NO GROWTH IN 48 HOURS. Laboratory Tests Test 06/05/17 05:01 Blood Gas Puncture Site ART LINE Blood Gas Patient Temperature 98.6 Blood Gas HCO3 24 mmol/L (22-26) Blood Gas Base Excess 0.8 mmol/L (-2-2) Blood Gas Oxygen Saturation 95 % (90-100) Arterial Blood pH 7.48 (7.380-7.420) Arterial Blood Partial 32 mmHg (38-42) Pressure CO2 Arterial Blood Partial 90 mmHg Pressure O2 (61-120) Arterial Blood Oxygen Content 13.7 Vol % (12.0-20.0) Arterial Blood 1.1 % (0-4) Carboxyhemoglobin Arterial Blood Methemoglobin 1.1 % (0-2) Blood Gas Hemoglobin 10.2 G/DL (12.0-16.0) Oxygen Delivery Device VENTILATOR Blood Gas Ventilator Setting PRVC/AC Blood Gas Inspired Oxygen 35 % Imaging Last [address] 06/04/17 0600 Signed Impressions: Service Date/Time: Sunday, June 04, 2017 04:57 - CONCLUSION: Continued evolution of the blood products throughout the brain status post left temporal craniotomy. The catheters are in excellent position. No new hemorrhage is identified. Ze Alicea MD Chest X-Ray 06/04/17 0600 Signed Impressions: Service Date/Time: Sunday, June 04, 2017 05:23 - CONCLUSION: Tubes and catheters are in good position. Small right pleural effusion Ze Alicea MD Last 24 hours Impressions Chest X-Ray 06/03/17 06 Signed Impressions: Service Date/Time: Saturday, June 03, 2017 04:31 - CONCLUSION: Slight worsening of bibasilar consolidation. Terry Hussein MD Last 24 hours Impressions Chest X-Ray 06/02/17 06 Signed Impressions: Service Date/Time: Friday, June 02, 2017 03:54 - CONCLUSION: 1. Developing linear atelectatic changes in the left lower lung field. Right lung remains clear. 2. Stable position of life support tubes. Kamaljit El MD Head CT 06/02/17 0000 Signed Impressions: Service Date/Time: Friday, June 02, 2017 04:39 - CONCLUSION: 1. Interval left-sided parietal craniectomy with left-sided subdural drains. There is improvement with almost complete resolution of the previously seen left subdural hematoma and bilateral high convexity subarachnoid blood. 2. Minimal persistent subarachnoid hemorrhage in the high left parietal convexity with possible small subdural hematoma tracking along the left tentorium. 3. No midline shift Kamaljit El MD Last 24 hours Impressions Chest X-Ray 06/01/17 0600 Signed Impressions: Service Date/Time: Thursday, June 01, 2017 05:28 - CONCLUSION: 1. Lungs remain clear. 2. Stable position of life support tubes. Kamaljit El MD Last [address] 05/30/17 1347 Signed Impressions: Service Date/Time: Tuesday, May 30, 2017 13:53 - CONCLUSION: Bibasilar nonspecific infiltrates suggestive of pulmonary contusions. Sanjay Donis MD Abdomen/Pelvis CT 05/30/17 1347 Signed Impressions: Service Date/Time: Tuesday, May 30, 2017 13:53 - CONCLUSION: 1. There appears to be a small amount of fluid along the inferior aspect of the spleen suspicious for a inferior laceration. No significant free fluid is seen in the abdomen or pelvis. 2. Benign-appearing left renal cyst. 3. Bibasilar infiltrates suggestive of pulmonary contusions. Sanjay Donis MD Pelvis X-Ray 05/30/171336 Signed Impressions: Service Date/Time: Tuesday, May 30, 2017 13:24 - CONCLUSION: The bony structures are grossly intact. Sanjay Donis MD Head CT 05/30/171336 Signed Impressions: Service Date/Time: Tuesday, May 30, 2017 13:53 - CONCLUSION: 1. Small left-sided subdural hematoma with approximately 6 mm of separation adjacent to the left temporal lobe. 2. Bilateral subarachnoid hemorrhage, left greater than right. 3. Tiny hemorrhagic contusions in both frontal lobes. 4. Hemorrhagic contusion the left temporal lobe. Sanjay Donis MD Chest X-Ray 05/30/171336 Signed Impressions: Service Date/Time: Tuesday, May 30, 2017 13:24 - CONCLUSION: ET tube in good position. Lungs are grossly clear. The CT thorax will be performed for further evaluation. Sanjay Donis MD Cervical Spine CT 05/30/171336 Signed Impressions: Service Date/Time: Tuesday, May 30, 2017 13:55 - CONCLUSION: 1. No acute bony fracture. 2. Moderate diffuse primary bony degenerative changes, disc degeneration and disc space narrowing at multiple levels from C3-C7. Sanjay Donis MD Objective Remarks HEENT/ Neuro: Dressing over hemicraniectomy site clean dry and intact, MONTY drains in place. Sedated, orally intubated, Pallor present, no icterus, tongue / mucosa moist. Pupils 3 mm bilaterally reacting actively to light. [place] in place - ICP 5-10. Neck: Cervical collar in place, trachea is midline, no JVD Chest/Pulm: on mech vent, good air entry bilaterally, no wheezing or crackles, CVS: Regular rate and rhythm GI/abdomen: soft, nontender nondistended Extremities: No clubbing cyanosis or edema, distal pulses are palpable bilaterally Skin is warm dry and intact, Line: Central Venous Catheter Side: Left Location: Subclavian A/P Assessment and Plan Middle age male brought in as trauma alert following fall from a 6 foot ladder with: TBI: Left subdural hemorrhage, bilateral subarachnoid hemorrhage left greater than right, bifrontal contusions, left temporal lobe contusion Encephalopathy Elevated ICP status post left hemicraniectomy with decompression Splenic laceration Acute respiratory failure on mechanical ventilation Suspect aspiration pneumonia Plan: Neuro : Maintain sedation with propofol, Versed and fentanyl, titrating down on sedation , repeat head CT per neurosurgery, Maintain CPP 70 mmHg and above. Off Nimbex. Underwent decompressive hemicraniectomy on the left by Dr. Stone on 06/01. [place] in place for ICP monitoring. Off 3% saline. Daily sedation vacation okayed with neurosurgery. Pulmonary : Continue full ventilator support. Vent bundle, bronchodilators as needed. Maintain end-tidal CO2 to keep PCO2 30-35 Cardiovascular: IV hydration. Off pressors. Labetalol prn for SBP greater than 160mm Hg, Nicardipine gtt as needed. GI/liver: Continue tube feeds and advanced to goal as tolerated. Continue laxatives. Added Reglan 10 mg IV every 8 hourly to improve GI motility on 06/02. Renal/: Strict intake output, monitor and replete electrolites, follow BUN/creatinine. IV hydration. KVO IVF ID Ancef given in the trauma bay. Pancultures ordered on 06/03, start empiric zosyn ( 06/03) to cover for aspiration pneumonia Heme Serial hemoglobins to trend his grade 1 splenic laceration although there is no evidence of active bleeding 2 units of platelets were given due to his medication induced platelet dysfunction Endocrine: Watch for hyperglycemia, SSI for glycemic control if needed. Prophylaxis: PPI/SCDs. Discussed with INTERMODAL DISPATCHER Further recommendations per trauma team and neurosurgery. Possible tracheostomy and PEG tube placement by . Discussed with Dr. Adler and Dr. Stone Time spent on critical care excluding procedures 35 minutes Perico Collado MD Jun 05, 2017 12:58
--- NOTE | 2017-06-05 13:11 | HHI.NSPN ---
(Gabriela Manzo) Note Status Status: Progress Note (Gabriela Manzo) Interval History Interval History This is an aduklt male brought to [place] emergency department as a trauma alert. 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 He was working with his colleagues and they saw him just prior to the accident when he was at his baseline mental status. He fell. The exact nature of the fall is unknown. According to EMS he was combative at the scene and not making sense, repeating the same words which do not make sense. Was hypertensive with blood pressure in 185 systolic. His pst medical history is unknown. At scene GCS 11 and blood pressure was 205 systolic. He was combative. Upon arrival he was intubated by ER physician, evaluated by trauma team and subsequently underwent imaging studies and was transferred to ICU. He also had some bleeding from a scalp laceration on arrival to the ICU. Patient required sedation with propofol following arrival to the ICU . Neurosurgery consultation was requested 05/31: pt underwent placement of ICP monitor yesterday. He is intubated and well sedated on propofol, versed, and fentanyl. Nursing reports elevated ICPs overnight in the 20's. He was given dose of 23% NS. Serum sodium today 151. ICPs currently now increasing back to low 20's, pupils 2 mm equal 06/01: f/u CT Head yesterday was stable. Reports ICPs intermittently elevated overnight. Remains well sedated, also on Nimbex. pupils equal. 06/04: ICPs controlled, off sedation since yesterday, nursing reports mildly opening eyes, extends LE's to pain stimuli 06/05: stable ICPs overnight, MONTY drains with minimal drainage. diprivan restarted due to elevated bp and vent agitation per nursing. (Gabriela Manzo) Labs, Micro, & Vital Signs Results Date Time Temp Pulse Resp B/P Pulse Ox O2 Delivery O2 Flow Rate FiO2 06/05/17 12:00 35 06/05/17 12:00 98.6 82 18 157/71 97 06/05/17 12:00 82 06/05/17 10:25 96 35 06/05/17 10:00 77 06/05/17 08:38 94 35 06/05/17 08:38 93 35 06/05/17 08:00 35 06/05/17 08:00 98.2 78 21 156/69 100 06/05/17 08:00 78 06/05/17 07:00 99 Mechanical Ventilator 35 06/05/17 06:00 79 06/05/17 04:42 99 35 06/05/17 04:35 99 35 06/05/17 04:00 74 06/05/17 04:00 35 06/05/17 04:00 98.8 74 15 134/60 100 06/05/17 02:00 74 06/05/17 01:31 94 35 06/05/17 00:00 35 06/05/17 00:00 100.2 82 20 144/59 95 06/05/17 00:00 82 06/04/17 22:00 79 06/04/17 20:34 96 35 06/04/17 20:26 95 35 06/04/17 20:00 87 06/04/17 20:00 98.9 87 20 170/71 96 06/04/17 20:00 35 06/04/17 19:00 96 Mechanical Ventilator 35 06/04/17 18:00 75 06/04/17 17:56 98 35 06/04/17 16:00 35 06/04/17 16:00 88 06/04/17 16:00 98.1 88 20 140/64 97 06/04/17 14:51 20 06/04/17 14:00 79 06/05/17 07:00 Intake Total 4130 ml Output Total 3045.0 ml Balance 1085.0 ml Constitutional Vital Signs Date Time Temp Pulse Resp B/P Pulse Ox O2 Delivery O2 Flow Rate FiO2 06/05/17 12:00 35 06/05/17 12:00 98.6 82 18 157/71 97 06/05/17 12:00 82 06/05/17 10:25 96 35 06/05/17 10:00 77 06/05/17 08:38 94 35 06/05/17 08:38 93 35 06/05/17 08:00 35 06/05/17 08:00 98.2 78 21 156/69 100 06/05/17 08:00 78 06/05/17 07:00 99 Mechanical Ventilator 35 06/05/17 06:00 79 06/05/17 04:42 99 35 06/05/17 04:35 99 35 06/05/17 04:00 74 06/05/17 04:00 35 06/05/17 04:00 98.8 74 15 134/60 100 06/05/17 02:00 74 06/05/17 01:31 94 35 06/05/17 00:00 35 06/05/17 00:00 100.2 82 20 144/59 95 06/05/17 00:00 82 06/04/17 22:00 79 06/04/17 20:34 96 35 06/04/17 20:26 95 35 06/04/17 20:00 87 06/04/17 20:00 98.9 87 20 170/71 96 06/04/17 20:00 35 06/04/17 19:00 96 Mechanical Ventilator 35 06/04/17 18:00 75 06/04/17 17:56 98 35 06/04/17 16:00 35 06/04/17 16:00 88 06/04/17 16:00 98.1 88 20 140/64 97 06/04/17 14:51 20 06/04/17 14:00 79 06/05/17 07:00 Intake Total 4130 ml Output Total 3045.0 ml Balance 1085.0 ml (Gabriela Manzo) Review of Systems/Exam Exam Intubated, currently mildly sedated on Diprivan due to vent agitation. Right ICP monitor in place, ICPs currently 2-3 with good waveform. Left flap full but soft to palpate, pulsations seen. Surgical wound is healing well without signs of infection there was minimal eye opening seen to pain stimuli Cranial Nerves: Pupils 2 mm equal nonreactive. Mild corneal responses Absent oculocephalic responses Sensorimotor: His muscle tone and bulk are normal. very minimal response to pain to LE's Reflexes: trace throughout. Plantars silent b/l. Cerebellar: cannot be adequately assessed due to the patient's neurological condition (Gabriela Manzo) Medications Current Medications Current Medications Medications (Trade) Dose Ordered Sig/Alexandru Route PRN Reason Start Time Stop Time Status Last Admin Dose Admin Sodium Chloride (NS Flush) 2 ml UNSCH PRN IV FLUSH FLUSH AFTER USING IV ACCESS 05/30/17 14:30 06/05/17 07:54 Enalaprilat (Vasotec Inj) 1.25 mg Q8H PRN IV SBP>180, DBP>95 05/30/17 14:30 06/04/17 12:26 Ondansetron HCl (Zofran Inj) 4 mg Q6H PRN IV NAUSEA OR VOMITING 05/30/17 14:30 Docusate Sodium (Colace Liq) 100 mg BID PO 05/30/17 21:00 06/05/17 07:53 Magnesium Hydroxide (Milk Of Magnesia Liq) 30 ml Q6H PRN PO CONSTIPATION 05/30/17 14:30 06/01/17 08:14 Miscellaneous Information 1 Q361D XX 05/30/17 14:30 Chlorhexidine Gluconate (Chlorhexidine 2% Cloth) Taper DAILY@04 TOP 05/31/17 04:00 05/27/18 03:59 06/04/17 04:05 Chlorhexidine Gluconate (Chlorhexidine 2% Cloth) 3 pack UNSCH PRN TOP HYGIENIC CARE 05/30/17 14:30 Phenytoin Sodium (Dilantin Inj) 100 mg Q8HR IV 05/30/17 22:00 06/05/17 13:00 Chlorhexidine Gluconate 15 ml 15 ml BID@08,20 MT 05/30/17 20:00 06/05/17 07:52 Nicardipine HCl 25 mg/Sodium Chloride 260 ml @ 0 mls/hr TITRATE IV 05/30/17 17:15 06/05/17 13:00 Norepinephrine Bitartrate/Sodium Chloride (Levophed Inj/NS 250 ml Inj) 250 ml @ 0 mls/hr TITRATE IV 05/30/17 18:00 06/03/17 08:16 Terbutaline Sulfate 1 mg 1 mg UNSCH PRN SQ For Extravasation 05/30/17 18:00 Fentanyl Citrate 250 ml @ 0 mls/hr TITRATE IV 05/30/17 20:15 06/03/17 03:00 Midazolam HCl 100 ml @ 0 mls/hr TITRATE IV 05/30/17 20:15 06/02/17 09:12 Propofol (Diprivan 1000 Mg/100ml Inj) 100 ml @ 0 mls/hr TITRATE IV 05/30/17 20:15 06/05/17 11:54 Mannitol 12.5 gm 12.5 gm Q8H IV 05/30/17 21:00 06/05/17 06:01 Sodium Chloride 1,000 ml @ 20 mls/hr Q24H IV 05/31/17 17:00 06/01/17 06:44 Potassium Chloride 100 ml @ 50 mls/hr Q2H PRN IV For Potassium 2.8 - 3.2 mEq/L 06/01/17 09:30 Potassium Chloride (KCl 20 Meq Premix Inj) 100 ml @ 50 mls/hr Q2H PRN IV For Potassium 2.8 - 3.2 mEq/L 06/01/17 09:30 Potassium Bicarb/ Potassium Chloride 50 meq 50 meq UNSCH PRN PO For Potassium 3.3 - 3.5 mEq/L 06/01/17 09:30 Potassium Chloride 100 ml @ 25 mls/hr UNSCH PRN IV For Potassium 3.3 - 3.5 mEq/L 06/01/17 09:30 06/02/17 01:45 Potassium Chloride 100 ml @ 50 mls/hr Q2H PRN IV For Potassium 3.3 - 3.5 mEq/L 06/01/17 09:30 Magnesium Sulfate/ Sodium Chloride (Magnesium Sulfate Inj/NS Inj) 100 ml @ 50 mls/hr UNSCH PRN IV For Magnesium 0.9 - 1.1 mg/dL 06/01/17 09:30 Magnesium Oxide 800 mg 800 mg UNSCH PRN PO For Magnesium 1.2 - 1.6 mg/dL 06/01/17 09:30 06/02/17 09:12 Magnesium Sulfate/ Sodium Chloride (Magnesium Sulfate Inj/NS Inj) 100 ml @ 50 mls/hr UNSCH PRN IV For Magnesium 1.2 - 1.6 mg/dL 06/01/17 09:30 Potassium Phosphate 2000 mg 2,000 mg Q4H PRN PO For Phosphorus < 2.5 mg/dL 06/01/17 09:30 06/02/17 16:41 Sodium Phosphate/ Sodium Chloride (Sodium Phosphate Inj/NS 250 ml Inj) 250 ml @ 42 mls/hr UNSCH PRN IV For Phosphorus < 2.5 mg/dL 06/01/17 09:30 Potassium Phosphate 2000 mg 2,000 mg UNSCH PRN PO/TUBE SEE LABEL COMMENTS 06/01/17 09:30 Potassium Phosphate 30 mmol/ Sodium Chloride 260 ml @ 42 mls/hr UNSCH PRN IV SEE LABEL COMMENTS 06/01/17 09:30 06/01/17 10:08 Sodium Chloride (Sodium Chloride 3% Inj) 500 ml @ 20 mls/hr CONTINUOUS IV 06/01/17 10:00 IV Flush (NS Flush) 2 ml UNSCH PRN IVF FLUSH AFTER USING IV ACCESS 06/01/17 13:45 IV Flush 2 ml 2 ml BID IVF 06/01/17 21:00 06/05/17 07:55 Levetriacetam/ Sodium Chloride (Keppra Inj/NS Inj) 105 ml @ 400 mls/hr Q12H IV 06/01/17 16:00 06/05/17 03:43 Bisacodyl (Dulcolax Supp) 10 mg DAILY PRN RECTAL CONSTIPATION 06/01/17 13:45 Pantoprazole Sodium (Protonix) 40 mg DAILY PO 06/02/17 09:00 Pantoprazole Sodium (Protonix Inj) 40 mg DAILY IVP 06/02/17 09:00 06/05/17 07:53 Calcium Gluconate 1 gm 1 gm UNSCH PRN IV SEE LABEL COMMENTS 06/01/17 13:45 Potassium Chloride 100 ml @ 50 mls/hr UNSCH PRN IV POTASSIUM LESS THAN 4 06/01/17 13:45 Magnesium Sulfate/ Sodium Chloride (Magnesium Sulfate Inj/NS Inj) 108 ml @ 108 mls/hr UNSCH PRN IV MAGNESIUM LESS THAN 2 06/01/17 13:45 Acetaminophen/ Hydrocodone Bitart ([place] 10-325 Mg) 1 tab Q4H PRN PO PAIN SCALE 1 TO 5 06/01/17 13:45 Acetaminophen/ Hydrocodone Bitart ([place] 10-325 Mg) 2 tab Q4H PRN PO PAIN SCALE 6 TO 10 06/01/17 13:45 Morphine Sulfate (Morphine Inj) 2 mg Q2H PRN IV PUSH PAIN SCALE 1 TO 6 06/01/17 13:45 06/04/17 12:56 Morphine Sulfate (Morphine Inj) 4 mg Q2H PRN IV PUSH PAIN SCALE 7 TO 10 06/01/17 13:45 06/04/17 14:46 Acetaminophen 650 mg 650 mg Q4H PRN PO TEMPERATURE > 101.5 F 06/01/17 13:45 06/05/17 01:08 Parenteral Electrolytes (Normosol R Inj) 1,000 ml @ 50 mls/hr Q20H IV 06/02/17 12:45 06/04/17 18:55 Metoclopramide HCl 10 mg 10 mg Q8HR IV PUSH 06/02/17 12:45 06/05/17 13:00 Piperacillin Sod/ Tazobactam Sod (Zosyn 4.5 Gm Premix) 100 ml @ 200 mls/hr Q6H IV 06/03/17 12:00 06/05/17 11:53 Metoprolol Tartrate (Lopressor Inj) 5 mg Q6H IV PUSH 06/04/17 15:00 06/05/17 07:53 (Gabriela Manzo) Medical Decision Making MDM Remarks 62 y/o male TBI, s/p placement of intracranial pressure monitor 05/30/17 with uncontrolled ICPs, s/p emergent left craniectomy with evacuation of SDH 06/08/17 (Gabriela Manzo) Plan Plan Remarks ICP monitor and MONTY drains dc'ed, cont critical care management f/u neuro examination (Gabriela Manzo) Attending Statement Continue neuro checks in a serial fashion. Pulmonary. Continue mechanical ventilation, aggressive pulmonary toilette, nasotracheal suction, and breathing treatments with nebulizers. PT and OT evaluation Nutrition. NPO after midnoght Renal. Continue monitor closely urine output, BUN and creatinine Endocrine. Continue Monitor serial Acu checks and SSI as needed in detail ID Continue monitor for signs of infection Continue Protonix for stress ulcer prophylaxis Continue Vel hose and SCD's for DVT prophylaxis The exam, history, and the medical decision-making described in the above note were completed with the assistance of the mid-level provider. I reviewed and agree with the findings presented. I attest that I had a [id number] encounter with the patient on the same day, and personally performed and documented my assessment and findings in the medical record. (Thee Stone MD) Gabriela Manzo Jun 05, 2017 13:11 Thee Stone MD Jun 10, 2017 19:59
[2017-06-05] MEDS: ONDANSETRON HCL 4 MG/2 ML VIAL IV PRN (13:23)
[2017-06-05] MEDS: SODIUM CHLOR 0.9% 1000 ML INJ 1,000 ML IV SCH (14:26)
[2017-06-05] MEDS: ACETAMINOPHEN/HYDROcodone 325 MG/10 MG TAB PO PRN ×2 (16:32→20:27)
--- NOTE | 2017-06-05 20:19 | HHI.CCPN ---
Subjective 24 Hour Review/Hospital Course 05/31/17 Patient suffered elevation in his ICP, responsive to increase sedation and hypertonic saline boluses Repeat imaging shows slight improvement 06/01/17 ICP continue to increase when sedation is stopped, neurosurgery considering surgical intervention 06/02/17 Patient underwent right craniectomy yesterday, his ICPs have been in the single digits Weaning Versed drip to off, we will continue propofol for sedation as he does continue to become agitated Discuss likelihood of tracheostomy and PEG placement with 06/03/17 Clinically patient is stable, he continues to be on sedation CT scan suggests loss of bowen-white matter indicative of possible RICO 06/04/17 off sedation moving extremities opening eyes but not following commands ICP ies in normal range 06/05 mental status unchanged,not opening eyes today requires sedation prn Objective Vital Signs Date Time Temp Pulse Resp B/P Pulse Ox O2 Delivery O2 Flow Rate FiO2 06/05/17 18:00 83 06/05/17 17:32 18 06/05/17 16:28 97 35 06/05/17 16:00 99.5 160/72 06/05/17 07:00 Mechanical Ventilator Intake and Output 06/04/17 06/04/17 06/05/17 08:00 16:00 00:00 Intake Total 1041 ml 1141 ml 1387 ml Output Total 705.0 ml 1010 ml 1200 ml Balance 336.0 ml 131 ml 187 ml Result Diagram: 06/05/17 0421 06/05/17 1840 Other Results Microbiology Date/Time Procedure Status Source Growth 06/03/17 11:30 Gram Stain - Final Complete Sputum Endotracheal 06/03/17 11:30 Sputum Culture - Final Complete Enterobacter Cloacae Beta Strep Not Group A 06/03/17 11:30 Urine Culture - Final Complete Urine Catheterized Urine NO GROWTH IN 48 HOURS. Laboratory Tests Test 06/05/17 05:01 Blood Gas Puncture Site ART LINE Blood Gas Patient Temperature 98.6 Blood Gas HCO3 24 mmol/L (22-26) Blood Gas Base Excess 0.8 mmol/L (-2-2) Blood Gas Oxygen Saturation 95 % (90-100) Arterial Blood pH 7.48 (7.380-7.420) Arterial Blood Partial 32 mmHg (38-42) Pressure CO2 Arterial Blood Partial 90 mmHg Pressure O2 (61-120) Arterial Blood Oxygen Content 13.7 Vol % (12.0-20.0) Arterial Blood 1.1 % (0-4) Carboxyhemoglobin Arterial Blood Methemoglobin 1.1 % (0-2) Blood Gas Hemoglobin 10.2 G/DL (12.0-16.0) Oxygen Delivery Device VENTILATOR Blood Gas Ventilator Setting PRVC/AC Blood Gas Inspired Oxygen 35 % Imaging Last 24 hours Impressions Chest X-Ray 06/05/17 0600 Signed Impressions: Service Date/Time: Monday, June 05, 2017 05:20 - CONCLUSION: Modest worsening of bibasilar consolidation and left pleural effusion. Rodney Ribeiro MD Exam ASSISTANT COMMUNITY DIRECTOR gcs 6T Hemodynamic/Cardiac stable Pulmonary/Respiratory mechanical ventilation,clear BS Abdomen/GI Nutrition soft,vomitting x1 today Urinary Catheter Assessment Urinary Catheter: Yes Whitfield insert reason: Measure Accurate Output Vascular Central Line Catheter Vascular Central Line Catheter: No Line: Central Venous Catheter Side: Left Location: Subclavian Assessment and Plan Plan Continue hyper osmolar therapy -sedation off for 24 hrs Continue full ventilator support for respiratory failure Continue nutritional support, transition to by mouth pain medication once tolerating diet at goal Seizure prophylaxis with Dora Discussed likelihood of tracheostomy and PEG with Patient remains critically ill with traumatic brain injury following a fall Nora Adler MD Jun 05, 2017 20:18
[2017-06-06] VITALS (19 sets, daily range): BP systolic 141–164; BP diastolic 62–70; PULSE 78–110; RESP 18–22; TEMP 100–100.9; O2SAT 95–99
[2017-06-06] MEDS: PIPERACIL-TAZO 4.5 GM PREMIX 100 ML IV SCH ×5 (00:13→23:14)
[2017-06-06] MEDS: niCARdipine 25 MG/NS 250 ML Vial2Bag or IV room IV SCH ×18 (00:13→18:39)
[2017-06-06] MEDS: PROPOFOL 1000 MG/100 ML INJ 100 ML IV SCH ×5 (01:28→23:14)
[2017-06-06] MEDS: METOPROLOL TARTRATE 5 MG/5 ML VIAL IV PUSH SCH ×4 (02:56→19:49)
[2017-06-06] MEDS: SODIUM CHLOR 0.9% 1000 ML INJ 1,000 ML IV SCH ×2 (02:57→16:51)
[2017-06-06] MEDS: levETIRAcetam INJ 500 MG in SODIUM CHLORIDE 0.9% INJ 100 ML IV SCH ×2 (02:57→16:52)
[2017-06-06] MEDS: CHLORHEXIDINE GLUCONATE 2 % 1 PACK (2 CLOTHS) TOP SCH (02:58)
--- NOTE | 2017-06-06 04:06 | RADRPT ---
EXAM DATE/TIME: 06/06/2017 03:31 [facility] COMPARISON: CHEST SINGLE AP, June 05, 2017, 5:20. INDICATIONS : Short of breath. MEDICAL HISTORY : None. SURGICAL HISTORY : Craniotomy. ENCOUNTER: Subsequent ACUITY: 1 week PAIN SCORE: 0/10 LOCATION: Bilateral chest FINDINGS: Mild bilateral basilar infiltrates are again seen without significant change. A small left pleural ef fusion is present, also not significantly changed. I don't see a pneumothorax. Endotracheal tube tip is approximately 5 cm above the goran. There is a nasogastric tube coiled in t he stomach. Left subclavian central venous catheter again noted, tip in the superior vena cava. CONCLUSION: No significant change. Rodney Ribeiro MD on June 06, 2017 at 4:04 Board Certified Radiologist. This report was verified electronically.
[2017-06-06] MEDS: ACETAMINOPHEN/HYDROcodone 325 MG/10 MG TAB PO PRN (04:08)
[2017-06-06 04:38] LABS: AUTOMATED NEUTROPHIL # 9.9 TH/MM3 (1.8-7.7); BASOPHIL # 0.1 TH/MM3 (0-0.2); BASOPHIL % 0.5 % (0.0-2.0); EOSINOPHIL # 0.1 TH/MM3 (0-0.4); EOSINOPHIL % 0.6 % (0.0-4.0); HEMATOCRIT 32.8 % (39.0-51.0); HEMO FLAGS DIFF FINAL; LYMPH % 5.2 % (9.0-44.0); LYMPHOCYTE # 0.6 TH/MM3 (1.0-4.8); MEAN CELL VOLUME 88.3 FL (80.0-100.0); MEAN CORPUSCULAR HEMOGLOBIN 29.9 PG (27.0-34.0); MEAN CORPUSCULAR HGB CONC 33.8 % (32.0-36.0); MONO % 7.6 % (0.0-8.0); NEUT % 86.1 % (16.0-70.0); PLATELET COUNT 205 TH/MM3 (150-450); RED BLOOD COUNT 3.71 MIL/MM3 (4.50-5.90); RED CELL DISTRIBUTION WIDTH 15.1 % (11.6-17.2); WHITE BLOOD COUNT 11.5 TH/MM3 (4.0-11.0)
[2017-06-06] MEDS: METOCLOPRAMIDE HCL 10 MG/2 ML VIAL IV PUSH SCH ×3 (05:02→21:59)
[2017-06-06] MEDS: MANNITOL 12.5 GM/50 ML VIAL IV SCH (05:02)
[2017-06-06] MEDS: PHENYTOIN INJ 100 MG/2 ML VIAL IV SCH ×3 (05:02→21:59)
[2017-06-06 05:11] LABS: ANION GAP 11 MEQ/L (5-15); AST (GOT) 33 U/L (15-37); BICARBONATE 21.4 MEQ/L (21.0-32.0); BLOOD UREA NITROGEN 26 MG/DL (7-18); CHLORIDE 110 MEQ/L (98-107); GLOMERULAR FILTRATION RATE 83 ML/MIN (>89); MAGNESIUM 2.1 MG/DL (1.5-2.5); POTASSIUM 3.9 MEQ/L (3.5-5.1); SODIUM (NA) 142 MEQ/L (136-145)
[2017-06-06 05:17] LABS: ALKALINE PHOSPHATASE 123 U/L (45-117); ALT (GPT) 21 U/L (12-78); TOTAL BILIRUBIN ADULT 0.7 MG/DL (0.2-1.0)
[2017-06-06 05:21] LABS: BLOOD GAS BASE EXCESS -2.8 mmol/L (-2-2); BLOOD GAS CARBOXYHEMOGLOBIN 1.1 % (0-4); BLOOD GAS HCO3 20 mmol/L (22-26); BLOOD GAS METHEMOGLOBIN 1.3 % (0-2); BLOOD GAS O2 HGB SATURATION 94 % (90-100); BLOOD GAS OXYGEN CONTENT 13.7 Vol % (12.0-20.0); BLOOD GAS PCO2 29 mmHg (38-42); BLOOD GAS PO2 81 mmHg (61-120); BLOOD GAS TOTAL HGB 10.4 G/DL (12.0-16.0); CRITICAL VALUE NO; OXYGEN DEVICE VENTILATOR; TEMP CORR TO 98.6
[2017-06-06 05:22] LABS: DRAW SITE ART LINE; FIO2 35 %; STAT NO; VENT SETTINGS PRVC/AC
[2017-06-06] MEDS: CHLORHEXIDINE 0.12% (ORAL KIT) 15 ML CUP MT SCH ×2 (07:45→19:49)
[2017-06-06] MEDS: PANTOPRAZOLE SOD 40 MG DELAYED RELEASE TAB PO SCH (07:46)
[2017-06-06] MEDS: PANTOPRAZOLE SODIUM 40 MG VIAL IVP SCH (07:46)
[2017-06-06] MEDS: DOCUSATE SODIUM 100 MG/10 ML UDC PO SCH ×2 (07:46→19:49)
[2017-06-06] MEDS: SODIUM CHLORIDE 0.9% FLUSH 5 ML FLUSH IVF SCH ×2 (07:47→19:49)
[2017-06-06] MEDS: MORPHINE SULFATE 4 MG/ML INJ IV PUSH PRN ×3 (10:57→17:20)
--- NOTE | 2017-06-06 11:26 | HHI.NSPN ---
(Gabriela Manzo) Note Status Status: Progress Note (Gabriela Manzo) Interval History Interval History This is an aduklt male brought to [place] emergency department as a trauma alert. 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 He was working with his colleagues and they saw him just prior to the accident when he was at his baseline mental status. He fell. The exact nature of the fall is unknown. According to EMS he was combative at the scene and not making sense, repeating the same words which do not make sense. Was hypertensive with blood pressure in 185 systolic. His pst medical history is unknown. At scene GCS 11 and blood pressure was 205 systolic. He was combative. Upon arrival he was intubated by ER physician, evaluated by trauma team and subsequently underwent imaging studies and was transferred to ICU. He also had some bleeding from a scalp laceration on arrival to the ICU. Patient required sedation with propofol following arrival to the ICU . Neurosurgery consultation was requested 05/31: pt underwent placement of ICP monitor yesterday. He is intubated and well sedated on propofol, versed, and fentanyl. Nursing reports elevated ICPs overnight in the 20's. He was given dose of 23% NS. Serum sodium today 151. ICPs currently now increasing back to low 20's, pupils 2 mm equal 06/01: f/u CT Head yesterday was stable. Reports ICPs intermittently elevated overnight. Remains well sedated, also on Nimbex. pupils equal. 06/04: ICPs controlled, off sedation since yesterday, nursing reports mildly opening eyes, extends LE's to pain stimuli 06/05: stable ICPs overnight, MONTY drains with minimal drainage. diprivan restarted due to elevated bp and vent agitation per nursing. 06/06: remains on sedation due to agitation, (Gabirela Manzo) Labs, Micro, & Vital Signs Results Date Time Temp Pulse Resp B/P Pulse Ox O2 Delivery O2 Flow Rate FiO2 06/06/17 10:00 110 06/06/17 09:07 96 35 06/06/17 08:00 95 06/06/17 08:00 100.9 95 22 141/62 95 06/06/17 08:00 35 06/06/17 07:00 96 Mechanical Ventilator 35 06/06/17 06:00 96 06/06/17 05:08 20 06/06/17 04:00 100.8 103 22 144/68 97 06/06/17 04:00 103 06/06/17 04:00 35 06/06/17 03:40 97 35 06/06/17 02:00 106 06/06/17 00:18 97 35 06/06/17 00:00 35 06/06/17 00:00 100.0 96 18 164/70 97 06/06/17 00:00 94 06/05/17 22:00 78 06/05/17 20:33 96 35 06/05/17 20:00 35 06/05/17 20:00 93 06/05/17 20:00 99.3 93 20 166/74 99 06/05/17 19:00 99 Mechanical Ventilator 35 06/05/17 18:00 83 06/05/17 16:28 97 35 06/05/17 16:00 89 06/05/17 16:00 99.5 78 19 160/72 97 06/05/17 16:00 35 06/05/17 14:00 78 06/05/17 13:38 92 35 06/05/17 12:00 35 06/05/17 12:00 98.6 82 18 157/71 97 06/05/17 12:00 82 06/06/17 07:00 Intake Total 5027 ml Output Total 4095.0 ml Balance 932.0 ml Constitutional Vital Signs Date Time Temp Pulse Resp B/P Pulse Ox O2 Delivery O2 Flow Rate FiO2 06/06/17 10:00 110 06/06/17 09:07 96 35 06/06/17 08:00 95 06/06/17 08:00 100.9 95 22 141/62 95 06/06/17 08:00 35 06/06/17 07:00 96 Mechanical Ventilator 35 06/06/17 06:00 96 06/06/17 05:08 20 06/06/17 04:00 100.8 103 22 144/68 97 06/06/17 04:00 103 06/06/17 04:00 35 06/06/17 03:40 97 35 06/06/17 02:00 106 06/06/17 00:18 97 35 06/06/17 00:00 35 06/06/17 00:00 100.0 96 18 164/70 97 06/06/17 00:00 94 06/05/17 22:00 78 06/05/17 20:33 96 35 06/05/17 20:00 35 06/05/17 20:00 93 06/05/17 20:00 99.3 93 20 166/74 99 06/05/17 19:00 99 Mechanical Ventilator 35 06/05/17 18:00 83 06/05/17 16:28 97 35 06/05/17 16:00 89 06/05/17 16:00 99.5 78 19 160/72 97 06/05/17 16:00 35 06/05/17 14:00 78 06/05/17 13:38 92 35 06/05/17 12:00 35 06/05/17 12:00 98.6 82 18 157/71 97 06/05/17 12:00 82 06/06/17 07:00 Intake Total 5027 ml Output Total 4095.0 ml Balance 932.0 ml (Gabriela Manzo) Review of Systems/Exam Exam Intubated, currently mildly sedated on Diprivan due to vent agitation. Left flap full but soft to palpate, pulsations seen. Surgical wound is healing well without signs of infection there was minimal eye opening to pain stimuli Cranial Nerves: Pupils 2 mm equal nonreactive. Mild corneal responses Absent oculocephalic responses Sensorimotor: His muscle tone and bulk are normal. very minimal response to pain to LE's Reflexes: trace throughout. Plantars silent b/l. Cerebellar: cannot be adequately assessed due to the patient's neurological condition (Gabriela Manzo) Medications Current Medications Current Medications Medications (Trade) Dose Ordered Sig/Alexandru Route PRN Reason Start Time Stop Time Status Last Admin Dose Admin Sodium Chloride (NS Flush) 2 ml UNSCH PRN IV FLUSH FLUSH AFTER USING IV ACCESS 05/30/17 14:30 06/05/17 07:54 Enalaprilat (Vasotec Inj) 1.25 mg Q8H PRN IV SBP>180, DBP>95 05/30/17 14:30 06/04/17 12:26 Ondansetron HCl (Zofran Inj) 4 mg Q6H PRN IV NAUSEA OR VOMITING 05/30/17 14:30 06/05/17 13:23 Docusate Sodium (Colace Liq) 100 mg BID PO 05/30/17 21:00 06/06/17 07:46 Magnesium Hydroxide (Milk Of Magnesia Liq) 30 ml Q6H PRN PO CONSTIPATION 05/30/17 14:30 06/01/17 08:14 Miscellaneous Information 1 [id number] XX 05/30/17 14:30 Chlorhexidine Gluconate (Chlorhexidine 2% Cloth) Taper DAILY@04 TOP 05/31/17 04:00 05/27/18 03:59 06/04/17 04:05 Chlorhexidine Gluconate (Chlorhexidine 2% Cloth) 3 pack UNSCH PRN TOP HYGIENIC CARE 05/30/17 14:30 Phenytoin Sodium (Dilantin Inj) 100 mg Q8HR IV 05/30/17 22:00 06/06/17 05:02 Chlorhexidine Gluconate 15 ml 15 ml BID@08,20 MT 05/30/17 20:00 06/06/17 07:45 Nicardipine HCl 25 mg/Sodium Chloride 260 ml @ 0 mls/hr TITRATE IV 05/30/17 17:15 06/06/17 10:08 Norepinephrine Bitartrate/Sodium Chloride (Levophed Inj/NS 250 ml Inj) 250 ml @ 0 mls/hr TITRATE IV 05/30/17 18:00 06/03/17 08:16 Terbutaline Sulfate 1 mg 1 mg UNSCH PRN SQ For Extravasation 05/30/17 18:00 Fentanyl Citrate 250 ml @ 0 mls/hr TITRATE IV 05/30/17 20:15 06/03/17 03:00 Midazolam HCl 100 ml @ 0 mls/hr TITRATE IV 05/30/17 20:15 06/02/17 09:12 Propofol 100 ml @ 0 mls/hr TITRATE IV 05/30/17 20:15 06/06/17 10:16 Potassium Chloride 100 ml @ 50 mls/hr Q2H PRN IV For Potassium 2.8 - 3.2 mEq/L 06/01/17 09:30 Potassium Chloride (KCl 20 Meq Premix Inj) 100 ml @ 50 mls/hr Q2H PRN IV For Potassium 2.8 - 3.2 mEq/L 06/01/17 09:30 Potassium Bicarb/ Potassium Chloride 50 meq 50 meq UNSCH PRN PO For Potassium 3.3 - 3.5 mEq/L 06/01/17 09:30 Potassium Chloride 100 ml @ 25 mls/hr UNSCH PRN IV For Potassium 3.3 - 3.5 mEq/L 06/01/17 09:30 06/02/17 01:45 Potassium Chloride 100 ml @ 50 mls/hr Q2H PRN IV For Potassium 3.3 - 3.5 mEq/L 06/01/17 09:30 Magnesium Sulfate/ Sodium Chloride (Magnesium Sulfate Inj/NS Inj) 100 ml @ 50 mls/hr UNSCH PRN IV For Magnesium 0.9 - 1.1 mg/dL 06/01/17 09:30 Magnesium Oxide 800 mg 800 mg UNSCH PRN PO For Magnesium 1.2 - 1.6 mg/dL 06/01/17 09:30 06/02/17 09:12 Magnesium Sulfate/ Sodium Chloride (Magnesium Sulfate Inj/NS Inj) 100 ml @ 50 mls/hr UNSCH PRN IV For Magnesium 1.2 - 1.6 mg/dL 06/01/17 09:30 Potassium Phosphate 2000 mg 2,000 mg Q4H PRN PO For Phosphorus < 2.5 mg/dL 06/01/17 09:30 06/02/17 16:41 Sodium Phosphate/ Sodium Chloride (Sodium Phosphate Inj/NS 250 ml Inj) 250 ml @ 42 mls/hr UNSCH PRN IV For Phosphorus < 2.5 mg/dL 06/01/17 09:30 Potassium Phosphate 2000 mg 2,000 mg UNSCH PRN PO/TUBE SEE LABEL COMMENTS 06/01/17 09:30 Potassium Phosphate 30 mmol/ Sodium Chloride 260 ml @ 42 mls/hr UNSCH PRN IV SEE LABEL COMMENTS 06/01/17 09:30 06/01/17 10:08 Sodium Chloride (Sodium Chloride 3% Inj) 500 ml @ 20 mls/hr CONTINUOUS IV 06/01/17 10:00 IV Flush (NS Flush) 2 ml UNSCH PRN IVF FLUSH AFTER USING IV ACCESS 06/01/17 13:45 IV Flush 2 ml 2 ml BID IVF 06/01/17 21:00 06/06/17 07:47 Levetriacetam/ Sodium Chloride (Keppra Inj/NS Inj) 105 ml @ 400 mls/hr Q12H IV 06/01/17 16:00 06/06/17 02:57 Bisacodyl (Dulcolax Supp) 10 mg DAILY PRN RECTAL CONSTIPATION 06/01/17 13:45 Pantoprazole Sodium (Protonix) 40 mg DAILY PO 06/02/17 09:00 Pantoprazole Sodium (Protonix Inj) 40 mg DAILY IVP 06/02/17 09:00 06/06/17 07:46 Calcium Gluconate 1 gm 1 gm UNSCH PRN IV SEE LABEL COMMENTS 06/01/17 13:45 Potassium Chloride 100 ml @ 50 mls/hr UNSCH PRN IV POTASSIUM LESS THAN 4 06/01/17 13:45 Magnesium Sulfate/ Sodium Chloride (Magnesium Sulfate Inj/NS Inj) 108 ml @ 108 mls/hr UNSCH PRN IV MAGNESIUM LESS THAN 2 06/01/17 13:45 Acetaminophen/ Hydrocodone Bitart ([place] 10-325 Mg) 1 tab Q4H PRN PO PAIN SCALE 1 TO 5 06/01/17 13:45 Acetaminophen/ Hydrocodone Bitart ([place] 10-325 Mg) 2 tab Q4H PRN PO PAIN SCALE 6 TO 10 06/01/17 13:45 06/06/17 04:08 Morphine Sulfate (Morphine Inj) 2 mg Q2H PRN IV PUSH PAIN SCALE 1 TO 6 06/01/17 13:45 06/04/17 12:56 Morphine Sulfate (Morphine Inj) 4 mg Q2H PRN IV PUSH PAIN SCALE 7 TO 10 06/01/17 13:45 06/06/17 10:57 Acetaminophen (Tylenol) 650 mg Q4H PRN PO TEMPERATURE > 101.5 F 06/01/17 13:45 06/05/17 01:08 Metoclopramide HCl 10 mg 10 mg Q8HR IV PUSH 06/02/17 12:45 06/06/17 05:02 Piperacillin Sod/ Tazobactam Sod 100 ml @ 200 mls/hr Q6H IV 06/03/17 12:00 06/06/17 10:57 Sodium Chloride (NS 1000 ml Inj) 1,000 ml @ 75 mls/hr [id number] IV 06/05/17 14:15 06/06/17 02:57 Metoprolol Tartrate (Lopressor Inj) 7.5 mg Q6H IV PUSH 06/06/17 15:00 UNV Hydralazine HCl (Apresoline Inj) 10 mg Q6H PRN IV PUSH SBP > 160 06/06/17 10:30 UNV Clonidine (Catapres) 0.1 mg Q8HR PO 06/06/17 14:00 UNV (Gabriela Manzo) Medical Decision Making MDM Remarks 62 y/o male TBI, s/p placement of intracranial pressure monitor 05/30/17 with uncontrolled ICPs, s/p emergent left craniectomy with evacuation of SDH 06/08/17 (Gabriela Manzo) Plan Plan Remarks cont current care sedation weaning as tolerated, f/u neuro examination cont critical care management per Dr. Stone, pt had seizure, will obtain EEG, cont Dilantin and Keppra, f/u levels (Gabriela Manzo) Attending Statement Continue neuro checks in a serial fashion. Pulmonary. Continue aggressive pulmonary toilette, nasotracheal suction, and breathing treatments with nebulizers. PT and OT evaluation Nutrition. NPO after midnoght Renal. Continue monitor closely urine output, BUN and creatinine Endocrine. Continue Monitor serial Acu checks and SSI as needed in detail ID Continue monitor for signs of infection Continue Protonix for stress ulcer prophylaxis Continue Vel hose and SCD's for DVT prophylaxisThe exam, history, and the medical decision-making described in the above note were completed with the assistance of the mid-level provider. I reviewed and agree with the findings presented. I attest that I had a [id number] encounter with the patient on the same day, and personally performed and documented my assessment and findings in the medical record. (Thee Stone MD) Gabriela Manzo Jun 06, 2017 11:26 Thee Stone MD Jun 11, 2017 12:18
--- NOTE | 2017-06-06 11:58 | HHI.CCPN ---
Subjective Remarks/Hospital Course 05/30: Patient came in as a trauma alert. 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 He was working with his colleagues and they saw him just prior to the accident when he was at his baseline mental status. He fell. The exact nature of the fall is unknown. However after that he was acting bizarre. As per EMS he was combative at the scene and not making sens, repeating the same words which do not make sense. Was hypertensive with blood pressure in 185 systolic. As per EMS GCS at the best was 11. Past medical history is unknown. Upon arrival patient was a GCS 11 and blood pressure was 205 systolic. He was combative. Patient was intubated by ER physician, evaluated by trauma team and subsequently underwent imaging studies and was transferred to ICU. Critical care was consulted by Dr. Araiza for TBI with acute respiratory failure. Per discussion with Dr. Araiza patient didn't appear to have traumatic subdural and subarachnoid hemorrhage as well as a splenic laceration. He also had some bleeding from a scalp laceration on arrival to the ICU. Patient required sedation with propofol following arrival to the ICU as he was starting to gag and cough and was attempting to move both lower extremities. I emergently placed a right subclavian central line for central vascular access which was replaced with a left subclavian central line subsequently as it was turning up into the internal jugular vein. Neurosurgery Dr. Stone had all ready been informed by trauma team and was planning to do a bolt for ICP monitoring. History was obtained by reviewing records and discussion with Dr. Araiza and ICU nursing staff. 05/31: Remains sedated, orally intubated on mechanical ventilation. Required initiation of 3% saline and received 23% saline last night for elevated ICP. On propofol/Versed/fentanyl drips as well as 3% saline this morning and was started on Nimbex for neuromuscular blockade for elevated ICPs. 06/01: Remains sedated, orally intubated on mechanical ventilation. On propofol/ Versed/fentanyl/Nimbex/3% saline drips this morning. 06/02: Underwent decompressive hemicraniectomy done on 06/[address] Stone. Remains sedated, orally intubated on mechanical ventilation. Off Nimbex currently. Remains on propofol/versed/ fentanyl gtt. 3% saline off currently. 06/03: Remains sedated, orally intubated on mech vent. Tolerating tube feeds. Sedation being titrated down. 06/04: Remains sedated, orally intubated on mechanical ventilation, tolerating tube feeds. 06/05: Sedated, orally intubated on mechanical ventilation. Tolerating tube feeds. ICPs remain around 5-10 06/06: Sedated, orally intubated on mechanical ventilation. Objective Vital Signs Date Time Temp Pulse Resp B/P Pulse Ox O2 Delivery O2 Flow Rate FiO2 06/06/17 11:02 18 06/06/17 10:00 110 06/06/17 09:07 96 35 06/06/17 08:00 100.9 141/62 06/06/17 07:00 Mechanical Ventilator Intake and Output 06/05/17 06/05/17 06/06/17 08:00 16:00 00:00 Intake Total 1602 ml 1556 ml 1495 ml Output Total 835.0 ml 1720 ml 1375 ml Balance 767.0 ml -164 ml 120 ml Result Diagram: 06/06/17 0415 06/06/17 0415 Other Results Laboratory Tests Test 06/06/17 05:09 Blood Gas Puncture Site ART LINE Blood Gas Patient Temperature 98.6 Blood Gas HCO3 20 mmol/L (22-26) Blood Gas Base Excess -2.8 mmol/L (-2-2) Blood Gas Oxygen Saturation 94 % (90-100) Arterial Blood pH 7.46 (7.380-7.420) Arterial Blood Partial 29 mmHg (38-42) Pressure CO2 Arterial Blood Partial 81 mmHg Pressure O2 (61-120) Arterial Blood Oxygen Content 13.7 Vol % (12.0-20.0) Arterial Blood 1.1 % (0-4) Carboxyhemoglobin Arterial Blood Methemoglobin 1.3 % (0-2) Blood Gas Hemoglobin 10.4 G/DL (12.0-16.0) Oxygen Delivery Device VENTILATOR Blood Gas Ventilator Setting PRVC/AC Blood Gas Inspired Oxygen 35 % Imaging Last [address] 06/04/17 0600 Signed Impressions: Service Date/Time: Sunday, June 04, 2017 04:57 - CONCLUSION: Continued evolution of the blood products throughout the brain status post left temporal craniotomy. The catheters are in excellent position. No new hemorrhage is identified. Ze Alicea MD Chest X-Ray 06/04/17 06 Signed Impressions: Service Date/Time: Sunday, June 04, 2017 05:23 - CONCLUSION: Tubes and catheters are in good position. Small right pleural effusion Ze Alicea MD Last 24 hours Impressions Chest X-Ray 06/03/17 06 Signed Impressions: Service Date/Time: Saturday, June 03, 2017 04:31 - CONCLUSION: Slight worsening of bibasilar consolidation. Terry Hussein MD Last 24 hours Impressions Chest X-Ray 06/02/17 06 Signed Impressions: Service Date/Time: Friday, June 02, 2017 03:54 - CONCLUSION: 1. Developing linear atelectatic changes in the left lower lung field. Right lung remains clear. 2. Stable position of life support tubes. Kamaljit El MD Head CT 06/02/17 0000 Signed Impressions: Service Date/Time: Friday, June 02, 2017 04:39 - CONCLUSION: 1. Interval left-sided parietal craniectomy with left-sided subdural drains. There is improvement with almost complete resolution of the previously seen left subdural hematoma and bilateral high convexity subarachnoid blood. 2. Minimal persistent subarachnoid hemorrhage in the high left parietal convexity with possible small subdural hematoma tracking along the left tentorium. 3. No midline shift Kamaljit El MD Last 24 hours Impressions Chest X-Ray 06/01/17 06 Signed Impressions: Service Date/Time: Thursday, June 01, 2017 05:28 - CONCLUSION: 1. Lungs remain clear. 2. Stable position of life support tubes. Kamaljit El MD Last [address] 05/30/171346 Signed Impressions: Service Date/Time: Tuesday, May 30, 2017 13:53 - CONCLUSION: Bibasilar nonspecific infiltrates suggestive of pulmonary contusions. Sanjay Donis MD Abdomen/Pelvis CT 05/30/171346 Signed Impressions: Service Date/Time: Tuesday, May 30, 2017 13:53 - CONCLUSION: 1. There appears to be a small amount of fluid along the inferior aspect of the spleen suspicious for a inferior laceration. No significant free fluid is seen in the abdomen or pelvis. 2. Benign-appearing left renal cyst. 3. Bibasilar infiltrates suggestive of pulmonary contusions. Sanjay Donis MD Pelvis X-Ray 05/30/171336 Signed Impressions: Service Date/Time: Tuesday, May 30, 2017 13:24 - CONCLUSION: The bony structures are grossly intact. Sanjay Donis MD Head CT 05/30/171336 Signed Impressions: Service Date/Time: Tuesday, May 30, 2017 13:53 - CONCLUSION: 1. Small left-sided subdural hematoma with approximately 6 mm of separation adjacent to the left temporal lobe. 2. Bilateral subarachnoid hemorrhage, left greater than right. 3. Tiny hemorrhagic contusions in both frontal lobes. 4. Hemorrhagic contusion the left temporal lobe. Sanjay Donis MD Chest X-Ray 05/30/171336 Signed Impressions: Service Date/Time: Tuesday, May 30, 2017 13:24 - CONCLUSION: ET tube in good position. Lungs are grossly clear. The CT thorax will be performed for further evaluation. Sanjay Donis MD Cervical Spine CT 05/30/171336 Signed Impressions: Service Date/Time: Tuesday, May 30, 2017 13:55 - CONCLUSION: 1. No acute bony fracture. 2. Moderate diffuse primary bony degenerative changes, disc degeneration and disc space narrowing at multiple levels from C3-C7. Sanjay Donis MD Objective Remarks HEENT/ Neuro: Dressing over hemicraniectomy site clean dry and intact, MONTY drains in place. Sedated, orally intubated, Pallor present, no icterus, tongue / mucosa moist. Pupils 3 mm bilaterally reacting actively to light. [place] removed Neck: Cervical collar in place, trachea is midline, no JVD Chest/Pulm: on mech vent, good air entry bilaterally, no wheezing or crackles, CVS: Regular rate and rhythm GI/abdomen: soft, nontender nondistended Extremities: No clubbing cyanosis or edema, distal pulses are palpable bilaterally Skin is warm dry and intact, Line: Central Venous Catheter Side: Left Location: Subclavian A/P Assessment and Plan Middle age male brought in as trauma alert following fall from a 6 foot ladder with: TBI: Left subdural hemorrhage, bilateral subarachnoid hemorrhage left greater than right, bifrontal contusions, left temporal lobe contusion Encephalopathy Elevated ICP status post left hemicraniectomy with decompression Splenic laceration Acute respiratory failure on mechanical ventilation Suspect aspiration pneumonia Plan: Neuro : Maintain sedation with propofol, off Versed and fentanyl, daily sedation medication, repeat head CT per neurosurgery, Underwent decompressive hemicraniectomy on the left by Dr. Stone on 06/01. Sigourney in place for ICP monitoring. Off 3% saline. Daily sedation vacation okayed with neurosurgery. Pulmonary : Continue full ventilator support. Vent bundle, bronchodilators as needed. Cardiovascular: IV hydration. Off pressors. Labetalol prn for SBP greater than 160mm Hg, Nicardipine gtt as needed. GI/liver: Continue tube feeds and advanced to goal as tolerated. Continue laxatives. Reglan 10 mg IV every 8 hourly to improve GI motility on 06/02. Renal/: Strict intake output, monitor and replete electrolites, follow BUN/creatinine. IV hydration. KVO IVF ID Ancef given in the trauma bay. Pancultures ordered on 06/03-sputum growing Enterobacter and beta strep, start zosyn (06/03) to cover for aspiration pneumonia Heme Serial hemoglobins to trend his grade 1 splenic laceration although there is no evidence of active bleeding 2 units of platelets were given due to his medication induced platelet dysfunction Endocrine: Watch for hyperglycemia, SSI for glycemic control if needed. Prophylaxis: PPI/SCDs. Discussed with RISK MANAGEMENT INTERN Further recommendations per trauma team and neurosurgery. Possible tracheostomy and PEG tube placement by . Discussed with Dr. Adler and Dr. Stone Time spent on critical care excluding procedures 35 minutes Perico Collado MD Jun 06, 2017 11:58
[2017-06-06] MEDS: cloNIDine HCL 0.1 MG TAB PO SCH ×2 (13:04→21:59)
--- NOTE | 2017-06-06 14:30 | PD.CONS ---
Consult Service Palliative Care Consult Requested By YVONNE Diego . Primary Care Physician Unknown Reason for Consultation a. To assist with evaluation and management of symptoms including: pain, agitation, dyspnea b. To assist medical decision maker(s) with: better understanding of current medical conditions; weighing benefits/burdens of medical treatment options; making medical treatment decisions. HPI History of Present Illness Mr. Evans is a 62 year old male patient who presented to [facility] ED on 05/30/2017 via EMS as a trauma alert after falling from a 6 foot ladder and hitting the back of his head on a concrete curb. It was unknown if the patient had any LOC. His colleagues stated patient's total status was at baseline prior to this event, and he was ambulatory after the fall. Upon EMS arrival, the patient was reportedly combative with repetitive nonsensical speech. He was tachycardic and tachypneic with a systolic blood pressure in the 180s. Blood glucose level was 83; GCS of 11 on scene. Patient presented to the ED hypertensive and confused with ongoing combativeness. He was intubated for patient safety and started on a Cardene drip. A laceration was noted on the back of the patient's scalp. Patient's past medical history previous myocardial infarctions with cardiac stent placement, hypertension and arthritis. She will diagnostic findings while in the ED: * Vital signs: Pulse 124, respirations 22, BP 210/102, oxygen saturation 97% on 4 L via nasal cannula, oral temperature 97.6 * WBC: 12.5, 15.0, hematocrit 47.1, platelets 222, neutrophils 56.3% * Sodium: 143, potassium 3.6, chloride 109, carbon dioxide 19.1, glucose 114, calcium 10.0 * BUN: 15, creatinine 1.28, GFR 48 * Total bilirubin: 0.4, AST 31, ALT 29, alkaline phosphatase 89 * Total protein: 8.1, albumin 4.1 * PT: 10.7, INR 1.0, APTT 25.4 * CT abdomen/pelvis showed a small amount of fluid along the inferior aspect of the spleen suspicious for an inferior laceration; no significant free fluid was seen in the abdomen or pelvis; benign appearing left renal cysts; bibasilar infiltrates suggestive of pulmonary contusions-also seen on CT chest. Pelvis x- ray indicated bony structures were grossly intact. * CT cervical spine showed no acute bony fractures; moderate diffuse primary bone degenerative changes disc degeneration and disc space narrowing at multiple levels from C3-C7. * CT brain revealed a small left-sided subdural hematoma with approximately 6mm of separation adjacent to the left temporal lobe; bilateral subarachnoid hemorrhage (left >right); tiny hemorrhagic contusions in both frontal lobes; hemorrhagic contusions of the left temporal lobe. Dr. Stone, neurosurgery, was consulted and patient subsequently underwent placement of ICP monitor. Patient was transferred to [facility]; sedated on Propofol, Versed and Fentanyl and intubated on mechanical ventilator. He was started on Dilantin for seizure prophylaxis. The patient was started on 3% saline and received 23% saline overnight for increasing ICPs in the 20s. He was started on Nimbex for neuromuscular blockade due to elevated ICPs. The patient's ICPs became unstable, uncontrolled despite maximum medical management. He was taken to the OR on 06/01/2017 for a decompressive craniectomy with evacuation of the subdural hematoma. Slightly worsening bibasilar consolidation was noted on follow-up chest x-ray on 06/03/2017. Boyle cultures were ordered; patient was started on empiric IV antibiotics. Blood and urine cultures were negative, Sputum culture + Enterobacter Cloacae. CT scan suggests loss of bowen-white matter indicative of possible RICO CT head on 06/04/2017 showed continued evolution of the blood products throughout the brain status post left temporal craniotomy; no new hemorrhages were identified. A follow-up chest x-ray at that time showed a small right pleural effusion. Patient remains sedated on propofol, intubated on mechanical ventilator. He has been weaned off Versed and Fentanyl drips, but remains on propofol. Patient not tolerating "sedation vacation" and SBT have not been initiated. Remains hypertensive on Cardene drip. Earlier today the patient was not tolerating artificial nutrition via TF with large residuals; feedings were held for several hours and will likely be restarted later today. Palliative Care was consulted to assist with symptom management and to discuss with the family the benefits and burdens of her current illnesses and the options regarding future care. . Function/Cognitive Trajectory No family is present at the time of exam; unable to reach patient's via telephone. A message was left on her voicemail, awaiting return phone call. . Review of Systems ROS Limitations: Clinical Condition (Limited ROS secondary to patient's clinical condition. Information obtained document reweiw and report), Intubated , Altered Mental Status (Sedated) Constitutional: COMPLAINS OF: Pain (secondary to fall and postoperative pain), Generalized weakness Ears, nose, mouth, throat: DENIES: Oral lesions, Epistaxis Respiratory: DENIES: Wheezing, Hemoptysis Cardiovascular: COMPLAINS OF: Lower Extremity Edema (Trace) Gastrointestinal: DENIES: Black stools, Bloody stools, Constipation, Vomiting, Vomiting blood Genitourinary: COMPLAINS OF: Testicular Swelling, DENIES: Hematuria Hematologic/Lymphatics: COMPLAINS OF: Bruising, History of transfusions Psychiatric: COMPLAINS OF: Anxiety, Confusion Past Family Social History Coded Allergies: No Known Allergies (Unverified , 06/06/17) Per patient's , the patient has no allergies. Past Medical History Myocardial infarction Cardiac stents Hypertension Arthritis . Past Surgical History Bilateral knee replacement Rotator cuff surgery . Reported Medications Lisinopril 10 mg daily Carvedilol 3.125 mg twice a day Plavix 75 mg daily . Current Medications Medications (Trade) Dose Ordered Sig/Alexandru Route Start Time Stop Time Status Last Admin (NS Flush) 2 ml UNSCH PRN IV FLUSH 05/30/17 14:30 06/05/17 07:54 (Vasotec Inj) 1.25 mg Q8H PRN IV 05/30/17 14:30 06/04/17 12:26 (Zofran Inj) 4 mg Q6H PRN IV 05/30/17 14:30 06/05/17 13:23 (Colace Liq) 100 mg BID PO 05/30/17 21:00 06/06/17 07:46 (Milk Of Magnesia Liq) 30 ml Q6H PRN PO 05/30/17 14:30 06/01/17 08:14 Miscellaneous Information 1 Q361D XX 05/30/17 14:30 (Chlorhexidine 2% Cloth) Taper DAILY@04 TOP 05/31/17 04:00 05/27/18 03:59 06/04/17 04:05 (Chlorhexidine 2% Cloth) 3 pack UNSCH PRN TOP 05/30/17 14:30 (Dilantin Inj) 100 mg Q8HR IV 05/30/17 22:00 06/06/17 13:06 Chlorhexidine Gluconate 15 ml 15 ml BID@08,20 MT 05/30/17 20:00 06/06/17 07:45 Nicardipine HCl 25 mg/Sodium Chloride 260 ml @ 0 mls/hr TITRATE IV 05/30/17 17:15 06/06/17 12:38 (Levophed Inj/NS 250 ml Inj) 250 ml @ 0 mls/hr TITRATE IV 05/30/17 18:00 06/03/17 08:16 Terbutaline Sulfate 1 mg 1 mg UNSCH PRN SQ 05/30/17 18:00 Fentanyl Citrate 250 ml @ 0 mls/hr TITRATE IV 05/30/17 20:15 06/03/17 03:00 Midazolam HCl 100 ml @ 0 mls/hr TITRATE IV 05/30/17 20:15 06/02/17 09:12 Propofol 100 ml @ 0 mls/hr TITRATE IV 05/30/17 20:15 06/06/17 10:16 Potassium Chloride 100 ml @ 50 mls/hr Q2H PRN IV 06/01/17 09:30 (KCl 20 Meq Premix Inj) 100 ml @ 50 mls/hr Q2H PRN IV 06/01/17 09:30 Potassium Bicarb/ Potassium Chloride 50 meq 50 meq UNSCH PRN PO 06/01/17 09:30 Potassium Chloride 100 ml @ 25 mls/hr UNSCH PRN IV 06/01/17 09:30 06/02/17 01:45 Potassium Chloride 100 ml @ 50 mls/hr Q2H PRN IV 06/01/17 09:30 (Magnesium Sulfate Inj/NS Inj) 100 ml @ 50 mls/hr UNSCH PRN IV 06/01/17 09:30 Magnesium Oxide 800 mg 800 mg UNSCH PRN PO 06/01/17 09:30 06/02/17 09:12 (Magnesium Sulfate Inj/NS Inj) 100 ml @ 50 mls/hr UNSCH PRN IV 06/01/17 09:30 Potassium Phosphate 2000 mg 2,000 mg Q4H PRN PO 06/01/17 09:30 06/02/17 16:41 (Sodium Phosphate Inj/NS 250 ml Inj) 250 ml @ 42 mls/hr UNSCH PRN IV 06/01/17 09:30 Potassium Phosphate 2000 mg 2,000 mg UNSCH PRN PO/TUBE 06/01/17 09:30 Potassium Phosphate 30 mmol/ Sodium Chloride 260 ml @ 42 mls/hr UNSCH PRN IV 06/01/17 09:30 06/01/17 10:08 (Sodium Chloride 3% Inj) 500 ml @ 20 mls/hr CONTINUOUS IV 06/01/17 10:00 (NS Flush) 2 ml UNSCH PRN IVF 06/01/17 13:45 IV Flush 2 ml 2 ml BID IVF 06/01/17 21:00 06/06/17 07:47 (Keppra Inj/NS Inj) 105 ml @ 400 mls/hr Q12H IV 06/01/17 16:00 06/06/17 02:57 (Dulcolax Supp) 10 mg DAILY PRN RECTAL 06/01/17 13:45 (Protonix) 40 mg DAILY PO 06/02/17 09:00 (Protonix Inj) 40 mg DAILY IVP 06/02/17 09:00 06/06/17 07:46 Calcium Gluconate 1 gm 1 gm UNSCH PRN IV 06/01/17 13:45 Potassium Chloride 100 ml @ 50 mls/hr UNSCH PRN IV 06/01/17 13:45 (Magnesium Sulfate Inj/NS Inj) 108 ml @ 108 mls/hr UNSCH PRN IV 06/01/17 13:45 (Eugene 10-325 Mg) 1 tab Q4H PRN PO 06/01/17 13:45 (Eugene 10-325 Mg) 2 tab Q4H PRN PO 06/01/17 13:45 06/06/17 04:08 (Morphine Inj) 2 mg Q2H PRN IV PUSH 06/01/17 13:45 06/04/17 12:56 (Morphine Inj) 4 mg Q2H PRN IV PUSH 06/01/17 13:45 06/06/17 10:57 (Tylenol) 650 mg Q4H PRN PO 06/01/17 13:45 06/05/17 01:08 Metoclopramide HCl 10 mg 10 mg Q8HR IV PUSH 06/02/17 12:45 06/06/17 13:05 Piperacillin Sod/ Tazobactam Sod 100 ml @ 200 mls/hr Q6H IV 06/03/17 12:00 06/06/17 10:57 (NS 1000 ml Inj) 1,000 ml @ 75 mls/hr [id number] IV 06/05/17 14:15 06/06/17 02:57 (Lopressor Inj) 7.5 mg Q6H IV PUSH 06/06/17 15:00 (Apresoline Inj) 10 mg Q6H PRN IV PUSH 06/06/17 10:30 (Catapres) 0.1 mg Q8HR PO 06/06/17 14:00 06/06/17 13:04 . Family History Patient is unable to provide information secondary to clinical condition; information pending meeting with patient's . Substance Use Tobacco: History of smoking per notes, no additional information available at this time. Alcohol: None known Prescription med abuse: None known Illicits: None known . Psychosocial History Patient is , living with his in [place], [place]. 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 Further information pending conversation/meeting with family . Spiritual/Cultural Factors No spiritual/cultural information available at this time. Further information pending family meeting and/or conversations. . Health Care Surrogate(s): Per [place] Statutes, in the absence of written advanced directives health care proxy decision making falls to the patient's . . Documented care wishes: No known documented care wishes available at this time. . Today's verbally stated goals: Patient is unable to verbalize medical treatment goals secondary to his clinical condition . Family/friends goals: Attempted to contact patient's via telephone. left on her voice mail, awaiting return phone call. Nurse (Nicola) states the patient's has verbalized she is amenable to proceeding with trach/PEG if medically indicated. Further clarification of family goals pending conversation with . . Ethical and Legal Issues No known ethical or legal issues at this time. . Physical Exam Vital Signs Date Time Temp Pulse Resp B/P Pulse Ox O2 Delivery O2 Flow Rate FiO2 06/06/17 12:00 95 06/06/17 12:00 100.2 95 19 148/67 97 06/06/17 12:00 35 06/06/17 11:24 97 35 06/06/17 11:02 18 06/06/17 10:00 110 06/06/17 09:07 96 35 06/06/17 08:00 95 06/06/17 08:00 100.9 95 22 141/62 95 06/06/17 08:00 35 06/06/17 07:00 96 Mechanical Ventilator 35 06/06/17 06:00 96 06/06/17 05:08 20 06/06/17 04:00 100.8 103 22 144/68 97 06/06/17 04:00 103 06/06/17 04:00 35 06/06/17 03:40 97 35 06/06/17 02:00 106 06/06/17 00:18 97 35 06/06/17 00:00 35 06/06/17 00:00 100.0 96 18 164/70 97 06/06/17 00:00 94 06/05/17 22:00 78 06/05/17 20:33 96 35 06/05/17 20:00 35 06/05/17 20:00 93 06/05/17 20:00 99.3 93 20 166/74 99 06/05/17 19:00 99 Mechanical Ventilator 35 06/05/17 18:00 83 06/05/17 16:28 97 35 06/05/17 16:00 89 06/05/17 16:00 99.5 78 19 160/72 97 06/05/17 16:00 35 06/05/17 14:00 78 06/05/17 13:38 92 35 . 06/05/17 06/06/17 19:00 07:00 Intake Total 1556 ml 3471 ml Output Total 1720 ml 2375 ml Balance -164 ml 1096 ml Intake IV Total 1063 ml 3231 ml Tube Feeding 393 ml 0 ml Tube Irrigant 100 ml Other 240 ml Output Urine Total 1700 ml 2375 ml Tube Feeding Residual Discard 0 ml 0 ml Drainage Total 20 ml # Bowel Movements 0 0 . Exam CONSTITUTIONAL/GENERAL: This is a critically ill, elderly male patient who is sedated and intubated on mechanical ventilator. TUBES/LINES/DRAINS:CVL, arterial line, PIV, NGT, ETT, Whitfield, soft restraints, SCDs SKIN: No jaundice, rashes, or lesions. Ecchymoses on upper extremities. No wounds seen anteriorly. Skin temperature appropriate. Not diaphoretic. HEAD: Atraumatic. Normocephalic. EYES: Pupils equal, sluggish. No scleral icterus. Fundi not examined. ENT: Unable to assess hearing secondary to patient's clinical condition. Nose without bleeding or purulent drainage. NECK: Trachea midline. Supple, nontender. No palpable thyroid enlargement or nodularity. CARDIOVASCULAR: Regular rate and rhythm without murmurs, gallops, or rubs. No JVD. Peripheral pulses symmetric. RESPIRATORY/CHEST: Intubated on mechanical ventilator. Breath sounds diminished bilaterally. No wheezes, rales, or rhonchi. GASTROINTESTINAL: Abdomen soft, non-tender, nondistended. No hepato-splenomegaly , or palpable masses. No guarding. Hypoactive bowel sounds present. Not tolerating TF earlier today GENITOURINARY: Without palpable bladder distension. Whitfield catheter in place. MUSCULOSKELETAL: Extremities without clubbing, cyanosis. Trace edema in bilateral lower extremities; hands with 2+ edema. LYMPHATICS: No palpable cervical or supraclavicular adenopathy. NEUROLOGICAL: Sedated PSYCHIATRIC: Unable to assess secondary to patient's clinical condition and sedation . Diagnostic Tests Laboratory . Laboratory Tests Test 06/03/17 06/03/17 06/03/17 06/04/17 15:00 22:00 23:20 02:10 Sodium Level 150 MEQ/L 149 MEQ/L 149 MEQ/L (136-145) (136-145) (136-145) Serum Osmolality 309 MOSM/KG 315 MOSM/KG 313 MOSM/KG (275-295) (275-295) (275-295) Blood Gas Puncture Site ART LINE Blood Gas Patient Temperature 98.6 Blood Gas HCO3 22 mmol/L (22-26) Blood Gas Base Excess -3.1 mmol/L (-2-2) Blood Gas Oxygen Saturation 96 % (90-100) Arterial Blood pH 7.35 (7.380-7.420) Arterial Blood Partial 41 mmHg (38-42) Pressure CO2 Arterial Blood Partial 118 mmHg Pressure O2 (61-120) Arterial Blood Oxygen Content 14.3 Vol % (12.0-20.0) Arterial Blood 1.0 % (0-4) Carboxyhemoglobin Arterial Blood Methemoglobin 1.2 % (0-2) Blood Gas Hemoglobin 10.4 G/DL (12.0-16.0) Oxygen Delivery Device VENTILATOR Blood Gas Ventilator Setting PRVC/AC Blood Gas Inspired Oxygen 35 % Test 06/04/17 06/04/17 06/04/17 06/04/17 05:30 07:49 15:45 19:46 White Blood Count 9.5 TH/MM3 (4.0-11.0) Red Blood Count 3.48 MIL/MM3 (4.50-5.90) Hemoglobin 10.3 GM/DL (13.0-17.0) Hematocrit 30.9 % (39.0-51.0) Mean Corpuscular Volume 88.7 FL (80.0-100.0) Mean Corpuscular Hemoglobin 29.7 PG (27.0-34.0) Mean Corpuscular Hemoglobin 33.5 % Concent (32.0-36.0) Red Cell Distribution Width 15.4 % (11.6-17.2) Platelet Count 129 TH/MM3 (150-450) Mean Platelet Volume 9.6 FL (7.0-11.0) Neutrophils (%) (Auto) 79.6 % (16.0-70.0) Lymphocytes (%) (Auto) 9.5 % (9.0-44.0) Monocytes (%) (Auto) 9.0 % (0.0-8.0) Eosinophils (%) (Auto) 1.6 % (0.0-4.0) Basophils (%) (Auto) 0.3 % (0.0-2.0) Neutrophils # (Auto) 7.6 TH/MM3 (1.8-7.7) Lymphocytes # (Auto) 0.9 TH/MM3 (1.0-4.8) Monocytes # (Auto) 0.9 TH/MM3 (0-0.9) Eosinophils # (Auto) 0.1 TH/MM3 (0-0.4) Basophils # (Auto) 0.0 TH/MM3 (0-0.2) CBC Comment DIFF FINAL Differential Comment Sodium Level 149 MEQ/L 149 MEQ/L 145 MEQ/L 145 MEQ/L (136-145) (136-145) (136-145) (136-145) Potassium Level 4.0 MEQ/L (3.5-5.1) Chloride Level 118 MEQ/L (98-107) Carbon Dioxide Level 25.1 MEQ/L (21.0-32.0) Anion Gap 6 MEQ/L (5-15) Blood Urea Nitrogen 8 MG/DL (7-18) Creatinine 0.74 MG/DL (0.60-1.30) Estimat Glomerular Filtration 108 ML/MIN Rate (>89) Random Glucose 100 MG/DL (74-106) Calcium Level 8.0 MG/DL (8.5-10.1) Phosphorus Level 2.9 MG/DL (2.5-4.9) Magnesium Level 2.1 MG/DL (1.5-2.5) Total Bilirubin 0.5 MG/DL (0.2-1.0) Aspartate Amino Transf 42 U/L (15-37) (AST/SGOT) Alanine Aminotransferase 21 U/L (12-78) (ALT/SGPT) Alkaline Phosphatase 123 U/L (45-117) Total Protein 5.7 GM/DL (6.4-8.2) Albumin 2.0 GM/DL (3.4-5.0) Serum Osmolality 311 MOSM/KG 310 MOSM/KG 307 MOSM/KG (275-295) (275-295) (275-295) Test 06/05/17 06/05/17 06/05/17 06/05/17 04:21 05:01 11:50 18:40 White Blood Count 8.3 TH/MM3 (4.0-11.0) Red Blood Count 3.25 MIL/MM3 (4.50-5.90) Hemoglobin 9.7 GM/DL (13.0-17.0) Hematocrit 29.0 % (39.0-51.0) Mean Corpuscular Volume 89.3 FL (80.0-100.0) Mean Corpuscular Hemoglobin 29.8 PG (27.0-34.0) Mean Corpuscular Hemoglobin 33.4 % Concent (32.0-36.0) Red Cell Distribution Width 15.1 % (11.6-17.2) Platelet Count 131 TH/MM3 (150-450) Mean Platelet Volume 10.2 FL (7.0-11.0) Neutrophils (%) (Auto) 72.9 % (16.0-70.0) Lymphocytes (%) (Auto) 15.3 % (9.0-44.0) Monocytes (%) (Auto) 9.2 % (0.0-8.0) Eosinophils (%) (Auto) 2.2 % (0.0-4.0) Basophils (%) (Auto) 0.4 % (0.0-2.0) Neutrophils # (Auto) 6.0 TH/MM3 (1.8-7.7) Lymphocytes # (Auto) 1.3 TH/MM3 (1.0-4.8) Monocytes # (Auto) 0.8 TH/MM3 (0-0.9) Eosinophils # (Auto) 0.2 TH/MM3 (0-0.4) Basophils # (Auto) 0.0 TH/MM3 (0-0.2) CBC Comment DIFF FINAL Differential Comment Sodium Level 146 MEQ/L 144 MEQ/L 142 MEQ/L (136-145) (136-145) (136-145) Potassium Level 3.9 MEQ/L (3.5-5.1) Chloride Level 114 MEQ/L (98-107) Carbon Dioxide Level 25.2 MEQ/L (21.0-32.0) Anion Gap 7 MEQ/L (5-15) Blood Urea Nitrogen 14 MG/DL (7-18) Creatinine 0.76 MG/DL (0.60-1.30) Estimat Glomerular Filtration 105 ML/MIN Rate (>89) Random Glucose 102 MG/DL (74-106) Serum Osmolality 304 MOSM/KG 304 MOSM/KG 302 MOSM/KG (275-295) (275-295) (275-295) Calcium Level 8.0 MG/DL (8.5-10.1) Phosphorus Level 2.4 MG/DL (2.5-4.9) Magnesium Level 2.0 MG/DL (1.5-2.5) Total Bilirubin 0.4 MG/DL (0.2-1.0) Aspartate Amino Transf 32 U/L (15-37) (AST/SGOT) Alanine Aminotransferase 19 U/L (12-78) (ALT/SGPT) Alkaline Phosphatase 120 U/L (45-117) Total Protein 5.5 GM/DL (6.4-8.2) Albumin 1.8 GM/DL (3.4-5.0) Blood Gas Puncture Site ART LINE Blood Gas Patient Temperature 98.6 Blood Gas HCO3 24 mmol/L (22-26) Blood Gas Base Excess 0.8 mmol/L (-2-2) Blood Gas Oxygen Saturation 95 % (90-100) Arterial Blood pH 7.48 (7.380-7.420) Arterial Blood Partial 32 mmHg (38-42) Pressure CO2 Arterial Blood Partial 90 mmHg Pressure O2 (61-120) Arterial Blood Oxygen Content 13.7 Vol % (12.0-20.0) Arterial Blood 1.1 % (0-4) Carboxyhemoglobin Arterial Blood Methemoglobin 1.1 % (0-2) Blood Gas Hemoglobin 10.2 G/DL (12.0-16.0) Oxygen Delivery Device VENTILATOR Blood Gas Ventilator Setting PRVC/AC Blood Gas Inspired Oxygen 35 % Test 06/06/17 06/06/17 04:15 05:09 White Blood Count 11.5 TH/MM3 (4.0-11.0) Red Blood Count 3.71 MIL/MM3 (4.50-5.90) Hemoglobin 11.1 GM/DL (13.0-17.0) Hematocrit 32.8 % (39.0-51.0) Mean Corpuscular Volume 88.3 FL (80.0-100.0) Mean Corpuscular Hemoglobin 29.9 PG (27.0-34.0) Mean Corpuscular Hemoglobin 33.8 % Concent (32.0-36.0) Red Cell Distribution Width 15.1 % (11.6-17.2) Platelet Count 205 TH/MM3 (150-450) Mean Platelet Volume 9.5 FL (7.0-11.0) Neutrophils (%) (Auto) 86.1 % (16.0-70.0) Lymphocytes (%) (Auto) 5.2 % (9.0-44.0) Monocytes (%) (Auto) 7.6 % (0.0-8.0) Eosinophils (%) (Auto) 0.6 % (0.0-4.0) Basophils (%) (Auto) 0.5 % (0.0-2.0) Neutrophils # (Auto) 9.9 TH/MM3 (1.8-7.7) Lymphocytes # (Auto) 0.6 TH/MM3 (1.0-4.8) Monocytes # (Auto) 0.9 TH/MM3 (0-0.9) Eosinophils # (Auto) 0.1 TH/MM3 (0-0.4) Basophils # (Auto) 0.1 TH/MM3 (0-0.2) CBC Comment DIFF FINAL Differential Comment Sodium Level 142 MEQ/L (136-145) Potassium Level 3.9 MEQ/L (3.5-5.1) Chloride Level 110 MEQ/L (98-107) Carbon Dioxide Level 21.4 MEQ/L (21.0-32.0) Anion Gap 11 MEQ/L (5-15) Blood Urea Nitrogen 26 MG/DL (7-18) Creatinine 0.93 MG/DL (0.60-1.30) Estimat Glomerular Filtration 83 ML/MIN (>89) Rate Random Glucose 120 MG/DL (74-106) Serum Osmolality 305 MOSM/KG (275-295) Calcium Level 8.4 MG/DL (8.5-10.1) Phosphorus Level 2.3 MG/DL (2.5-4.9) Magnesium Level 2.1 MG/DL (1.5-2.5) Total Bilirubin 0.7 MG/DL (0.2-1.0) Aspartate Amino Transf 33 U/L (15-37) (AST/SGOT) Alanine Aminotransferase 21 U/L (12-78) (ALT/SGPT) Alkaline Phosphatase 123 U/L (45-117) Total Protein 6.5 GM/DL (6.4-8.2) Albumin 2.2 GM/DL (3.4-5.0) Phenytoin (Dilantin) Level 9.4 MCG/ML (10.0-20.0) Blood Gas Puncture Site ART LINE Blood Gas Patient Temperature 98.6 Blood Gas HCO3 20 mmol/L (22-26) Blood Gas Base Excess -2.8 mmol/L (-2-2) Blood Gas Oxygen Saturation 94 % (90-100) Arterial Blood pH 7.46 (7.380-7.420) Arterial Blood Partial 29 mmHg (38-42) Pressure CO2 Arterial Blood Partial 81 mmHg Pressure O2 (61-120) Arterial Blood Oxygen Content 13.7 Vol % (12.0-20.0) Arterial Blood 1.1 % (0-4) Carboxyhemoglobin Arterial Blood Methemoglobin 1.3 % (0-2) Blood Gas Hemoglobin 10.4 G/DL (12.0-16.0) Oxygen Delivery Device VENTILATOR Blood Gas Ventilator Setting PRVC/AC Blood Gas Inspired Oxygen 35 % . Result Diagram: 06/06/17 0415 06/06/17 0415 Microbiology Microbiology Date/Time Procedure Status Source Growth 06/03/17 15:40 Aerobic Blood Culture - Preliminary Resulted Blood Peripheral NO GROWTH IN 3 DAYS 06/03/17 15:40 Anaerobic Blood Culture - Preliminary Resulted Blood Peripheral NO GROWTH IN 3 DAYS 06/03/17 15:50 Aerobic Blood Culture - Preliminary Resulted Blood Peripheral NO GROWTH IN 3 DAYS 06/03/17 15:50 Anaerobic Blood Culture - Preliminary Resulted Blood Peripheral NO GROWTH IN 3 DAYS . Imaging Last 72 hours Impressions Chest X-Ray 06/06/17599 Signed Impressions: Service Date/Time: Tuesday, June 06, 2017 03:31 - CONCLUSION: No significant change. Rodney Ribeiro MD Chest X-Ray 06/05/17599 Signed Impressions: Service Date/Time: Monday, June 05, 2017 05:20 - CONCLUSION: Modest worsening of bibasilar consolidation and left pleural effusion. Rodney Ribeiro MD Head CT 06/04/17599 Signed Impressions: Service Date/Time: Sunday, June 04, 2017 04:57 - CONCLUSION: Continued evolution of the blood products throughout the brain status post left temporal craniotomy. The catheters are in excellent position. No new hemorrhage is identified. Ze Alicea MD Chest X-Ray 06/04/17599 Signed Impressions: Service Date/Time: Sunday, June 04, 2017 05:23 - CONCLUSION: Tubes and catheters are in good position. Small right pleural effusion Ze Alicea MD . Procedures 05/30/17: Intubation 05/30/17: Nasogastric catheter placed 05/30/17: Right subclavian CVL placed . Patient/Family Conference Present at Family Conference: Message left on 's VM with Palliative Care contact information, awaiting return phone call. . Assessment and Plan Disease Oriented Problem List: (1) Subarachnoid hemorrhage (2) Respiratory failure (3) Altered mental status (4) Head injury (5) Traumatic brain injury (6) Previous myocardial infarction older than 8 weeks (7) Hypertension Symptom Scale: (1) Pain (2) Agitation (3) Dyspnea Pertinent Non-Medical Issues Psychosocial: Patient is and lives with his in [place]. 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 Important Contacts Stacy Evans Pato Ni, friend . Prognosis Patient is a 62-year-old man who sustained a traumatic brain injury after falling from a 6 foot ladder s/p decompressive craniectomy with evacuation of the subdural hematoma. F/u CT scan suggests loss of bowen-white matter indicative of possible RICO. Patient has had minimal neurological improvements. He remains intubated on mechanical ventilator, does not tolerate attempts to wean propofol for SBT. On Cardene drip. Patient was not tolerating tube feedings earlier today with large residuals, feedings were held for several hours today. Patient remains critically ill without significant improvements since admission approximately 7 days ago. Poor prognosis. . Code Status: Full Code Plan * FULL CODE * Decision making: Per [place] statutes, and absence of written advanced directives healthcare proxy decision-making falls to the patient's . * Goals remain aggressive at this time. * Palliative care attempted to contact patient's via telephone. A message was left on her voicemail with palliative care contact information; awaiting return phone call * Limited medical history and/or psychosocial history is available pending conversation/meeting with patient's . * Symptom managementpain: Patient remains on propofol, previously weaned off Versed and Fentanyl. PRN morphine and Eugene are available, being sparingly used. Continue to monitor her for signs and/or symptoms of nonverbal pain such as grimacing, moaning, furrowed brow, changes in vital signs. No recommendations at this time. * Symptom managementdyspnea: Patient remains intubated on mechanical ventilator. Not tolerating sedation vacation, therefore SBT have not been initiated. On empiric antibiotics for suspected pneumonia. No recommendations at this time. * Discussed patient with nurse (Nicola) and the trauma team. * Palliative care will continue to follow this patient throughout his hospitalization to establish trust, assist with symptom management and clarification of medical treatment goals. . Thank you for the opportunity to participate in the care of Mr. Evans. . Attestation To help prompt me to consider important information that might be impacting today's encounter and assessment, information from prior notes written by myself or my colleagues may have been "brought forward" into today's note. My signature on this note, however, is an attestation that I personally performed the exam, history, and/or decision-making noted today, and, unless otherwise indicated, the interactions with patient, family, and staff as well as the review of records all occurred today. I also attest that the listed assessment and stated plan reflect my best clinical judgment today based on the combination of historical information, prior notes, and today's exam/ interactions. When time spent is documented, it refers only to time spent today by the signer, or if indicated, combined time spent today by collaborating physician/nurse practitioner. . Felicia Mendez Jun 06, 2017 14:30
--- NOTE | 2017-06-06 15:50 | HHI.PR ---
Progress Notes/Response to Tx Progress Note Narrative intubated and sedated. No remarkable change in neuropsychological status Elvie Lucero PhD Jun 06, 2017 15:50
[2017-06-06] MEDS: hydrALAZINE HCL 20 MG/ML VIAL IV PUSH PRN (17:07)
--- NOTE | 2017-06-06 17:25 | HHI.CCPN ---
Subjective 24 Hour Review/Hospital Course 05/31/17 Patient suffered elevation in his ICP, responsive to increase sedation and hypertonic saline boluses Repeat imaging shows slight improvement 06/01/17 ICP continue to increase when sedation is stopped, neurosurgery considering surgical intervention 06/02/17 Patient underwent right craniectomy yesterday, his ICPs have been in the single digits Weaning Versed drip to off, we will continue propofol for sedation as he does continue to become agitated Discuss likelihood of tracheostomy and PEG placement with 06/03/17 Clinically patient is stable, he continues to be on sedation CT scan suggests loss of bowen-white matter indicative of possible RICO 06/04/17 off sedation moving extremities opening eyes but not following commands ICP ies in normal range 06/05 mental status unchanged,not opening eyes today requires sedation prn 06/06 no changes remains low GCS BP slightly elevated on cardene drip Had high residuals -tube feeds Objective Vital Signs Date Time Temp Pulse Resp B/P Pulse Ox O2 Delivery O2 Flow Rate FiO2 06/06/17 16:09 98 35 06/06/17 14:31 18 06/06/17 14:00 95 06/06/17 12:00 100.2 148/67 06/06/17 07:00 Mechanical Ventilator Intake and Output 06/05/17 06/05/17 06/06/17 08:00 16:00 00:00 Intake Total 1602 ml 1556 ml 1495 ml Output Total 835.0 ml 1720 ml 1375 ml Balance 767.0 ml -164 ml 120 ml Result Diagram: 06/06/17 0415 06/06/17 0415 Other Results Laboratory Tests Test 06/06/17 05:09 Blood Gas Puncture Site ART LINE Blood Gas Patient Temperature 98.6 Blood Gas HCO3 20 mmol/L (22-26) Blood Gas Base Excess -2.8 mmol/L (-2-2) Blood Gas Oxygen Saturation 94 % (90-100) Arterial Blood pH 7.46 (7.380-7.420) Arterial Blood Partial 29 mmHg (38-42) Pressure CO2 Arterial Blood Partial 81 mmHg Pressure O2 (61-120) Arterial Blood Oxygen Content 13.7 Vol % (12.0-20.0) Arterial Blood 1.1 % (0-4) Carboxyhemoglobin Arterial Blood Methemoglobin 1.3 % (0-2) Blood Gas Hemoglobin 10.4 G/DL (12.0-16.0) Oxygen Delivery Device VENTILATOR Blood Gas Ventilator Setting PRVC/AC Blood Gas Inspired Oxygen 35 % Imaging Last 24 hours Impressions Chest X-Ray 06/06/17 0600 Signed Impressions: Service Date/Time: Sunday, June 06, 2017 03:31 - CONCLUSION: No significant change. Rodney Ribeiro MD Exam AUTOMATION QTP TESTER GCS 5T Hemodynamic/Cardiac hypertensive Pulmonary/Respiratory clear b/l Abdomen/GI Nutrition soft Urinary Catheter Assessment Urinary Catheter: Yes Whitfield insert reason: Measure Accurate Output Vascular Central Line Catheter Line: Central Venous Catheter Side: Left Location: Subclavian Assessment and Plan Plan Off hyper osmolar therapy -sedation off for 24 hrs Continue full ventilator support for respiratory failure Continue nutritional support, transition to by mouth pain medication once tolerating diet at goal Seizure prophylaxis with Keppra clonidin for better BP control Discussed likelihood of tracheostomy and PEG with Patient remains critically ill with traumatic brain injury following a fall Nora Adler MD Jun 06, 2017 17:25
--- NOTE | 2017-06-06 18:46 | MG ---
cc: [facility] Lab No: Date: 06/06/2017 Age: Sex: M Race: ELECTROENCEPHALOGRAM NUMBER [id number] INTRODUCTION Hyperventilation not performed. The patient is Diprivan, although it was stopped for this recording. Left temporal craniotomy. Fell 6 feet. MEDICATIONS 1. [place]. 2. Keppra. 3. Dilantin. DESCRIPTION Diffuse 5 Hz slowing is noted with focal delta slowing over the left central head region probably from craniotomy defect. Some phase reversing sharply contoured theta waves are seen there. Hyperventilation not performed. No spikes are noted. Photic stimulation was performed without significant posterior driving. IMPRESSION Diffuse theta slowing consistent with a mild diffuse encephalopathy to moderate encephalopathy. In addition there is probably some breach rhythm from the craniotomy, but there is some focal slowing over the left frontal central head region which could indicate some underlying brain damage and also some phase reversing sharp waves although not greatly epileptiform this certainly is increased risk for seizures. Clinical correlation is needed. MD AURA Hairston/IIRNA /4:41 PM /6:41 PM
[2017-06-06] MEDS: POTASSIUM PHOSPHATE MONOBASIC 500 MG TAB PO PRN (19:48)
[2017-06-06] MEDS: ACETAMINOPHEN 325 MG TAB PO PRN (19:48)
[2017-06-06] MEDS ORDERED: FOSPHENYTOIN SODIUM 100 MG PE/2 ML VIAL IV ONE (22:15)
[2017-06-07] VITALS (18 sets, daily range): BP systolic 148–170; BP diastolic 64–74; PULSE 79–99; RESP 18–23; TEMP 99.1–100.2; O2SAT 97–99
[2017-06-07] MEDS ORDERED: FOSPHENYTOIN SODIUM 100 MG PE/2 ML VIAL IV SCH
[2017-06-07] MEDS ORDERED: FOSPHENYTOIN INJ 300 MGPE in SODIUM CHLORIDE 0.9% INJ 50 ML IV ONE ×2
[2017-06-07] MEDS: niCARdipine 25 MG/NS 250 ML Vial2Bag or IV room IV SCH ×12 (00:43→21:54)
--- NOTE | 2017-06-07 03:53 | RADRPT ---
EXAM DATE/TIME: 06/07/2017 02:58 [facility] COMPARISON: CHEST SINGLE AP, June 06, 2017, 3:31. INDICATIONS : Short of breath. MEDICAL HISTORY : None. SURGICAL HISTORY : Craniotomy. ENCOUNTER: Subsequent ACUITY: 1 week PAIN SCORE: Non-responsive. LOCATION: Bilateral chest FINDINGS: Single AP view of the chest. Endotracheal tube, nasogastric tube, and left subclavian central venous catheter remain in place. Bilateral lower lung zone parenchymal opacity left greater than right uncha nged. No evidence of pleural effusion or pneumothorax. Cardiomediastinal silhouette unchanged. CONCLUSION: No significant interval change with persistent left greater than right basilar lung opacity. Tarik Ahn MD on June 07, 2017 at 3:49 Board Certified Radiologist. This report was verified electronically.
[2017-06-07] MEDS: levETIRAcetam INJ 500 MG in SODIUM CHLORIDE 0.9% INJ 100 ML IV SCH ×2 (03:55→14:42)
[2017-06-07] MEDS: PROPOFOL 1000 MG/100 ML INJ 100 ML IV SCH ×4 (03:55→20:16)
[2017-06-07] MEDS: METOPROLOL TARTRATE 5 MG/5 ML VIAL IV PUSH SCH ×4 (03:55→20:16)
[2017-06-07] MEDS: CHLORHEXIDINE GLUCONATE 2 % 1 PACK (2 CLOTHS) TOP SCH (03:56)
[2017-06-07 05:08] LABS: AUTOMATED NEUTROPHIL # 5.3 TH/MM3 (1.8-7.7); BASOPHIL % 0.6 % (0.0-2.0); EOSINOPHIL # 0.1 TH/MM3 (0-0.4); EOSINOPHIL % 0.9 % (0.0-4.0); HEMATOCRIT 27.9 % (39.0-51.0); HEMO FLAGS DIFF FINAL; LYMPH % 11.4 % (9.0-44.0); LYMPHOCYTE # 0.8 TH/MM3 (1.0-4.8); MEAN CELL VOLUME 88.3 FL (80.0-100.0); MEAN CORPUSCULAR HEMOGLOBIN 29.7 PG (27.0-34.0); MEAN CORPUSCULAR HGB CONC 33.6 % (32.0-36.0); MONO % 12.1 % (0.0-8.0); PLATELET COUNT 145 TH/MM3 (150-450); RED BLOOD COUNT 3.16 MIL/MM3 (4.50-5.90); RED CELL DISTRIBUTION WIDTH 14.8 % (11.6-17.2)
[2017-06-07 05:30] LABS: ANION GAP 8 MEQ/L (5-15); AST (GOT) 34 U/L (15-37); BICARBONATE 21.3 MEQ/L (21.0-32.0); BLOOD UREA NITROGEN 31 MG/DL (7-18); CHLORIDE 113 MEQ/L (98-107); GLOMERULAR FILTRATION RATE 105 ML/MIN (>89); MAGNESIUM 2.2 MG/DL (1.5-2.5); POTASSIUM 3.5 MEQ/L (3.5-5.1); SODIUM (NA) 142 MEQ/L (136-145)
[2017-06-07 05:34] LABS: ALKALINE PHOSPHATASE 133 U/L (45-117); ALT (GPT) 21 U/L (12-78); TOTAL BILIRUBIN ADULT 0.5 MG/DL (0.2-1.0)
[2017-06-07] MEDS: PIPERACIL-TAZO 4.5 GM PREMIX 100 ML IV SCH ×4 (05:54→22:19)
[2017-06-07] MEDS: cloNIDine HCL 0.1 MG TAB PO SCH (05:54)
[2017-06-07] MEDS: SODIUM CHLOR 0.9% 1000 ML INJ 1,000 ML IV SCH ×2 (05:54→17:15)
[2017-06-07] MEDS: FOSPHENYTOIN INJ 100 MGPE in SODIUM CHLORIDE 0.9% INJ 50 ML IV SCH ×4 (05:54→23:29)
[2017-06-07] MEDS: METOCLOPRAMIDE HCL 10 MG/2 ML VIAL IV PUSH SCH ×3 (05:54→20:17)
[2017-06-07] MEDS: MORPHINE SULFATE 4 MG/ML INJ IV PUSH PRN ×2 (05:57→20:43)
[2017-06-07] MEDS: CHLORHEXIDINE 0.12% (ORAL KIT) 15 ML CUP MT SCH ×2 (08:00→20:16)
[2017-06-07] MEDS: ENALAPRILAT 1.25 MG/ML VIAL IV PRN (08:13)
[2017-06-07] MEDS: PANTOPRAZOLE SODIUM 40 MG VIAL IVP SCH (08:13)
[2017-06-07] MEDS: SODIUM CHLORIDE 0.9% FLUSH 5 ML FLUSH IVF SCH ×2 (08:14→20:17)
[2017-06-07] MEDS: PANTOPRAZOLE SOD 40 MG DELAYED RELEASE TAB PO SCH (08:14)
--- NOTE | 2017-06-07 08:52 | HHI.CCPN ---
Subjective Remarks/Hospital Course 05/30: Patient came in as a trauma alert. 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 He was working with his colleagues and they saw him just prior to the accident when he was at his baseline mental status. He fell. The exact nature of the fall is unknown. However after that he was acting bizarre. As per EMS he was combative at the scene and not making sens, repeating the same words which do not make sense. Was hypertensive with blood pressure in 185 systolic. As per EMS GCS at the best was 11. Past medical history is unknown. Upon arrival patient was a GCS 11 and blood pressure was 205 systolic. He was combative. Patient was intubated by ER physician, evaluated by trauma team and subsequently underwent imaging studies and was transferred to ICU. Critical care was consulted by Dr. Araiza for TBI with acute respiratory failure. Per discussion with Dr. Araiza patient didn't appear to have traumatic subdural and subarachnoid hemorrhage as well as a splenic laceration. He also had some bleeding from a scalp laceration on arrival to the ICU. Patient required sedation with propofol following arrival to the ICU as he was starting to gag and cough and was attempting to move both lower extremities. I emergently placed a right subclavian central line for central vascular access which was replaced with a left subclavian central line subsequently as it was turning up into the internal jugular vein. Neurosurgery Dr. Stone had all ready been informed by trauma team and was planning to do a bolt for ICP monitoring. History was obtained by reviewing records and discussion with Dr. Araiza and ICU nursing staff. 05/31: Remains sedated, orally intubated on mechanical ventilation. Required initiation of 3% saline and received 23% saline last night for elevated ICP. On propofol/Versed/fentanyl drips as well as 3% saline this morning and was started on Nimbex for neuromuscular blockade for elevated ICPs. 06/01: Remains sedated, orally intubated on mechanical ventilation. On propofol/ Versed/fentanyl/Nimbex/3% saline drips this morning. 06/02: Underwent decompressive hemicraniectomy done on 06/[address] Stone. Remains sedated, orally intubated on mechanical ventilation. Off Nimbex currently. Remains on propofol/versed/ fentanyl gtt. 3% saline off currently. 06/03: Remains sedated, orally intubated on mech vent. Tolerating tube feeds. Sedation being titrated down. 06/04: Remains sedated, orally intubated on mechanical ventilation, tolerating tube feeds. 06/05: Sedated, orally intubated on mechanical ventilation. Tolerating tube feeds. ICPs remain around 5-10 06/06, 06/07: Sedated, orally intubated on mechanical ventilation. Objective Vital Signs Date Time Temp Pulse Resp B/P Pulse Ox O2 Delivery O2 Flow Rate FiO2 06/07/17 06:02 18 06/07/17 06:00 82 06/07/17 04:14 98 35 06/07/17 04:00 100.0 162/70 06/06/17 19:00 Mechanical Ventilator Intake and Output 06/06/17 06/06/17 06/07/17 08:00 16:00 00:00 Intake Total 1976 ml 1596 ml 1671 ml Output Total 1300.0 ml 1400 ml 1100 ml Balance 676.0 ml 196 ml 571 ml Result Diagram: 06/07/17 0455 06/07/17 0455 Other Results Laboratory Tests Test 06/07/17 04:55 White Blood Count 7.0 TH/MM3 Red Blood Count 3.16 MIL/MM3 Hemoglobin 9.4 GM/DL Hematocrit 27.9 % Mean Corpuscular Volume 88.3 FL Mean Corpuscular Hemoglobin 29.7 PG Mean Corpuscular Hemoglobin 33.6 % Concent Red Cell Distribution Width 14.8 % Platelet Count 145 TH/MM3 Mean Platelet Volume 9.1 FL Neutrophils (%) (Auto) 75.0 % Lymphocytes (%) (Auto) 11.4 % Monocytes (%) (Auto) 12.1 % Eosinophils (%) (Auto) 0.9 % Basophils (%) (Auto) 0.6 % Neutrophils # (Auto) 5.3 TH/MM3 Lymphocytes # (Auto) 0.8 TH/MM3 Monocytes # (Auto) 0.8 TH/MM3 Eosinophils # (Auto) 0.1 TH/MM3 Basophils # (Auto) 0.0 TH/MM3 CBC Comment DIFF FINAL Differential Comment Sodium Level 142 MEQ/L Potassium Level 3.5 MEQ/L Chloride Level 113 MEQ/L Carbon Dioxide Level 21.3 MEQ/L Anion Gap 8 MEQ/L Blood Urea Nitrogen 31 MG/DL Creatinine 0.76 MG/DL Estimat Glomerular Filtration 105 ML/MIN Rate Random Glucose 121 MG/DL Calcium Level 8.3 MG/DL Phosphorus Level 2.7 MG/DL Magnesium Level 2.2 MG/DL Total Bilirubin 0.5 MG/DL Aspartate Amino Transf 34 U/L (AST/SGOT) Alanine Aminotransferase 21 U/L (ALT/SGPT) Alkaline Phosphatase 133 U/L Total Protein 5.6 GM/DL Albumin 1.8 GM/DL Imaging Last [address] 06/04/17599 Signed Impressions: Service Date/Time: Sunday, June 04, 2017 04:57 - CONCLUSION: Continued evolution of the blood products throughout the brain status post left temporal craniotomy. The catheters are in excellent position. No new hemorrhage is identified. eZ Alicea MD Chest X-Ray 06/04/17599 Signed Impressions: Service Date/Time: Sunday, June 04, 2017 05:23 - CONCLUSION: Tubes and catheters are in good position. Small right pleural effusion Ze Alicea MD Last 24 hours Impressions Chest X-Ray 06/03/17599 Signed Impressions: Service Date/Time: Saturday, June 03, 2017 04:31 - CONCLUSION: Slight worsening of bibasilar consolidation. Terry Hussein MD Last 24 hours Impressions Chest X-Ray 06/02/17599 Signed Impressions: Service Date/Time: Friday, June 02, 2017 03:54 - CONCLUSION: 1. Developing linear atelectatic changes in the left lower lung field. Right lung remains clear. 2. Stable position of life support tubes. Kamaljit El MD Head CT 06/02/17 0000 Signed Impressions: Service Date/Time: Friday, June 02, 2017 04:39 - CONCLUSION: 1. Interval left-sided parietal craniectomy with left-sided subdural drains. There is improvement with almost complete resolution of the previously seen left subdural hematoma and bilateral high convexity subarachnoid blood. 2. Minimal persistent subarachnoid hemorrhage in the high left parietal convexity with possible small subdural hematoma tracking along the left tentorium. 3. No midline shift Kamaljit El MD Last 24 hours Impressions Chest X-Ray 06/01/17599 Signed Impressions: Service Date/Time: Thursday, June 01, 2017 05:28 - CONCLUSION: 1. Lungs remain clear. 2. Stable position of life support tubes. Kamaljit El MD Last [address] 05/30/171346 Signed Impressions: Service Date/Time: Tuesday, May 30, 2017 13:53 - CONCLUSION: Bibasilar nonspecific infiltrates suggestive of pulmonary contusions. Sanjay Donis MD Abdomen/Pelvis CT 05/30/171346 Signed Impressions: Service Date/Time: Tuesday, May 30, 2017 13:53 - CONCLUSION: 1. There appears to be a small amount of fluid along the inferior aspect of the spleen suspicious for a inferior laceration. No significant free fluid is seen in the abdomen or pelvis. 2. Benign-appearing left renal cyst. 3. Bibasilar infiltrates suggestive of pulmonary contusions. Sanjay Donis MD Pelvis X-Ray 05/30/171336 Signed Impressions: Service Date/Time: Tuesday, May 30, 2017 13:24 - CONCLUSION: The bony structures are grossly intact. Sanjay Donis MD Head CT 05/30/171336 Signed Impressions: Service Date/Time: Tuesday, May 30, 2017 13:53 - CONCLUSION: 1. Small left-sided subdural hematoma with approximately 6 mm of separation adjacent to the left temporal lobe. 2. Bilateral subarachnoid hemorrhage, left greater than right. 3. Tiny hemorrhagic contusions in both frontal lobes. 4. Hemorrhagic contusion the left temporal lobe. Sanjay Donis MD Chest X-Ray 05/30/171336 Signed Impressions: Service Date/Time: Tuesday, May 30, 2017 13:24 - CONCLUSION: ET tube in good position. Lungs are grossly clear. The CT thorax will be performed for further evaluation. Sanjay Donis MD Cervical Spine CT 05/30/171336 Signed Impressions: Service Date/Time: Tuesday, May 30, 2017 13:55 - CONCLUSION: 1. No acute bony fracture. 2. Moderate diffuse primary bony degenerative changes, disc degeneration and disc space narrowing at multiple levels from C3-C7. Sanjay Donis MD Objective Remarks HEENT/ Neuro: Dressing over hemicraniectomy site clean dry and intact, Sedated , orally intubated, Pallor present, no icterus, tongue/ mucosa moist. Pupils 3 mm bilaterally reacting actively to light. Neck: Cervical collar in place, trachea is midline, no JVD Chest/Pulm: on mech vent, good air entry bilaterally, no wheezing or crackles, CVS: Regular rate and rhythm GI/abdomen: soft, nontender nondistended Extremities: No clubbing cyanosis or edema, distal pulses are palpable bilaterally Skin is warm dry and intact, Line: Central Venous Catheter Side: Left Location: Subclavian A/P Assessment and Plan Middle age male brought in as trauma alert following fall from a 6 foot ladder with: TBI: Left subdural hemorrhage, bilateral subarachnoid hemorrhage left greater than right, bifrontal contusions, left temporal lobe contusion Encephalopathy Elevated ICP status post left hemicraniectomy with decompression Splenic laceration Acute respiratory failure on mechanical ventilation Suspect aspiration pneumonia Plan: Neuro : Maintain sedation with propofol, off Versed and fentanyl, daily sedation medication, repeat head CT per neurosurgery, Underwent decompressive hemicraniectomy on the left by Dr. Stone on 06/01. [place] in place for ICP monitoring. Off 3% saline. Daily sedation vacation okayed with neurosurgery. Pulmonary : Continue full ventilator support. Vent bundle, bronchodilators as needed. Cardiovascular: IV hydration. Off pressors. Labetalol prn for SBP greater than 160mm Hg, Nicardipine gtt as needed. Continue IV Lopressor, by mouth Lopressor added. Amlodipine daily GI/liver: Continue tube feeds and advanced to goal as tolerated. Continue laxatives. Started Reglan 10 mg IV every 8 hourly to improve GI motility on 06/02. Renal/: Strict intake output, monitor and replete electrolites, follow BUN/creatinine. IV hydration. KVO IVF ID Ancef given in the trauma bay. Pancultures ordered on 06/03-sputum growing Enterobacter and beta strep, started zosyn (06/03) to cover for aspiration pneumonia Heme Serial hemoglobins to trend his grade 1 splenic laceration although there is no evidence of active bleeding 2 units of platelets were given due to his medication induced platelet dysfunction Endocrine: Watch for hyperglycemia, SSI for glycemic control if needed. Prophylaxis: PPI/SCDs. Discussed with [employer] [employer] Further recommendations per trauma team and neurosurgery. Recommend tracheostomy and PEG tube placement. Discussed with Dr. Adler and Dr. Stone on 06/06 Time spent on critical care excluding procedures 35 minutes Perico Collado MD Jun 07, 2017 08:52
[2017-06-07] MEDS: DOCUSATE SODIUM 100 MG/10 ML UDC PO SCH ×2 (09:00→20:16)
[2017-06-07] MEDS ORDERED: METOPROLOL TARTRATE 25 MG TAB PO SCH (09:00)
--- NOTE | 2017-06-07 09:18 | MB ---
cc: IVETT MARI DATE OF CONSULTATION: 06/06/2017 REASON FOR CONSULTATION Questionable seizure. HISTORY OF PRESENT ILLNESS Mr. Evans is a 62-year-old man who fell resulting in a left hemispheric subdural hematoma as well as a subarachnoid hemorrhage. He had elevated intracranial pressure. He underwent craniotomy. He did have an EEG obtained which indicated diffuse theta slowing, a breech rhythm was identified at the craniotomy site with focal slowing of left frontal region, there was sharp activity with phase reversing as well on the left side. The patient has not had clinical seizures. He currently is on Keppra 500 mg IV b.i.d. as well as Dilantin 100 mg IV q.8 hours. NEUROLOGIC EXAMINATION VITAL SIGNS: Blood pressure 145/67, pulse 82, respirations 18, temperature 100 degrees. Patient is sedated, nonresponsive. The pupils are 1 mm symmetric and reactive. The extraocular movements are intact to doll's eyes. On motor exam, there is no posturing. He has no withdrawal to painful stimuli. LABORATORY DATA The Dilantin level is 9.4. IMPRESSION Left subdural hematoma as well as subarachnoid hemorrhage. The EEG does identify a potential for seizure, although he has not had any clinical seizures. RECOMMENDATIONS I recommend increasing the Dilantin level to a more therapeutic level. Continue current dose of Keppra. Ivett Mari MD DEVANTE/TLL /10:10 PM /9:18 AM
[2017-06-07] MEDS: cloNIDine HCL 0.2 MG TAB PO SCH ×2 (13:32→20:16)
--- NOTE | 2017-06-07 15:16 | HHI.CCPN ---
Subjective 24 Hour Review/Hospital Course 05/31/17 Patient suffered elevation in his ICP, responsive to increase sedation and hypertonic saline boluses Repeat imaging shows slight improvement 06/01/17 ICP continue to increase when sedation is stopped, neurosurgery considering surgical intervention 06/02/17 Patient underwent right craniectomy yesterday, his ICPs have been in the single digits Weaning Versed drip to off, we will continue propofol for sedation as he does continue to become agitated Discuss likelihood of tracheostomy and PEG placement with 06/03/17 Clinically patient is stable, he continues to be on sedation CT scan suggests loss of bowen-white matter indicative of possible [place] 06/04/17 off sedation moving extremities opening eyes but not following commands ICP ies in normal range 06/05 mental status unchanged,not opening eyes today requires sedation prn 06/06 no changes remains low GCS BP slightly elevated on cardene drip Had high residuals -tube feeds 06/07 GCS 3T today BP better controlled tube feeds better controlled neuro input appreciated Objective Vital Signs Date Time Temp Pulse Resp B/P Pulse Ox O2 Delivery O2 Flow Rate FiO2 06/07/17 14:00 90 06/07/17 12:18 97 35 06/07/17 12:00 99.3 18 148/64 06/07/17 07:00 Mechanical Ventilator Intake and Output 06/06/17 06/06/17 06/07/17 08:00 16:00 00:00 Intake Total 1976 ml 1596 ml 1671 ml Output Total 1300.0 ml 1400 ml 1100 ml Balance 676.0 ml 196 ml 571 ml Result Diagram: 06/07/17 0455 06/07/17 0455 Imaging Last 24 hours Impressions Chest X-Ray 06/07/17 0600 Signed Impressions: Service Date/Time: May 02:58 - CONCLUSION: No significant interval change with persistent left greater than right basilar lung opacity. Tarik Ahn MD Exam INDIRECT SALES EXEC gcs 3t Hemodynamic/Cardiac cardene gtt Pulmonary/Respiratory clear bs Abdomen/GI Nutrition soft +BM Urinary Catheter Assessment Urinary Catheter: Yes Vascular Central Line Catheter Vascular Central Line Catheter: Yes Line: Central Venous Catheter Side: Left Location: Subclavian Assessment and Plan Plan Off hyper osmolar therapy -sedation off gcs 3t Continue full ventilator support for respiratory failure Continue nutritional support Seizure prophylaxis with Keppra/dilantin-neurology input appreciated clonidin for better BP control will need peg/trach if family would like to proceed Patient remains critically ill with traumatic brain injury following a fall Nora Adler MD Jun 07, 2017 15:16
[2017-06-07] MEDS: ACETAMINOPHEN 325 MG TAB PO PRN (17:21)
[2017-06-07] MEDS: hydrALAZINE HCL 20 MG/ML VIAL IV PUSH PRN (22:19)
--- NOTE | 2017-06-07 22:34 | HHI.PR ---
Review/Management Diagnosis post traumatic subdural hematoma and subarachonid hemorrhage Diagnosis/Plan: Subjective Subjective Comments No acute events reported Has been moving more today--withdrawing to noxious stimuli but no movement to command Active Medications Current Medications Medications (Trade) Dose Ordered Sig/Alexandru Route Start Time Stop Time Status Last Admin (NS Flush) 2 ml UNSCH PRN IV FLUSH 05/30/17 14:30 06/05/17 07:54 (Vasotec Inj) 1.25 mg Q8H PRN IV 05/30/17 14:30 06/07/17 08:13 (Zofran Inj) 4 mg Q6H PRN IV 05/30/17 14:30 06/05/17 13:23 (Colace Liq) 100 mg BID PO 05/30/17 21:00 06/07/17 20:16 (Milk Of Magnesia Liq) 30 ml Q6H PRN PO 05/30/17 14:30 06/01/17 08:14 Miscellaneous Information 1 Q361D XX 05/30/17 14:30 (Chlorhexidine 2% Cloth) Taper DAILY@04 TOP 05/31/17 04:00 05/27/18 03:59 06/04/17 04:05 (Chlorhexidine 2% Cloth) 3 pack UNSCH PRN TOP 05/30/17 14:30 Chlorhexidine Gluconate 15 ml 15 ml BID@08,20 MT 05/30/17 20:00 06/07/17 20:16 (Cardene Inj/NS 250 ml Inj) 260 ml @ 0 mls/hr TITRATE IV 05/30/17 17:15 06/07/17 21:54 Terbutaline Sulfate 1 mg 1 mg UNSCH PRN SQ 05/30/17 18:00 Propofol 100 ml @ 0 mls/hr TITRATE IV 05/30/17 20:15 06/07/17 20:16 Potassium Chloride 100 ml @ 50 mls/hr Q2H PRN IV 06/01/17 09:30 (KCl 20 Meq Premix Inj) 100 ml @ 50 mls/hr Q2H PRN IV 06/01/17 09:30 Potassium Bicarb/ Potassium Chloride 50 meq 50 meq UNSCH PRN PO 06/01/17 09:30 Potassium Chloride 100 ml @ 25 mls/hr UNSCH PRN IV 06/01/17 09:30 06/02/17 01:45 Potassium Chloride 100 ml @ 50 mls/hr Q2H PRN IV 06/01/17 09:30 (Magnesium Sulfate Inj/NS Inj) 100 ml @ 50 mls/hr UNSCH PRN IV 06/01/17 09:30 Magnesium Oxide 800 mg 800 mg UNSCH PRN PO 06/01/17 09:30 06/02/17 09:12 (Magnesium Sulfate Inj/NS Inj) 100 ml @ 50 mls/hr UNSCH PRN IV 06/01/17 09:30 Potassium Phosphate 2000 mg 2,000 mg Q4H PRN PO 06/01/17 09:30 06/06/17 19:48 (Sodium Phosphate Inj/NS 250 ml Inj) 250 ml @ 42 mls/hr UNSCH PRN IV 06/01/17 09:30 Potassium Phosphate 2000 mg 2,000 mg UNSCH PRN PO/TUBE 06/01/17 09:30 (Potassium Phosphate Inj/NS 250 ml Inj) 260 ml @ 42 mls/hr UNSCH PRN IV 06/01/17 09:30 06/01/17 10:08 (NS Flush) 2 ml UNSCH PRN IVF 06/01/17 13:45 IV Flush 2 ml 2 ml BID IVF 06/01/17 21:00 06/07/17 20:17 (Keppra Inj/NS Inj) 105 ml @ 400 mls/hr Q12H IV 06/01/17 16:00 06/07/17 14:42 (Dulcolax Supp) 10 mg DAILY PRN RECTAL 06/01/17 13:45 (Protonix Inj) 40 mg DAILY IVP 06/02/17 09:00 06/07/17 08:13 Calcium Gluconate 1 gm 1 gm UNSCH PRN IV 06/01/17 13:45 Potassium Chloride 100 ml @ 50 mls/hr UNSCH PRN IV 06/01/17 13:45 (Magnesium Sulfate Inj/NS Inj) 108 ml @ 108 mls/hr UNSCH PRN IV 06/01/17 13:45 ([place] 10-325 Mg) 1 tab Q4H PRN PO 06/01/17 13:45 ([place] 10-325 Mg) 2 tab Q4H PRN PO 06/01/17 13:45 06/06/17 04:08 (Morphine Inj) 2 mg Q2H PRN IV PUSH 06/01/17 13:45 06/04/17 12:56 (Morphine Inj) 4 mg Q2H PRN IV PUSH 06/01/17 13:45 06/07/17 20:43 (Tylenol) 650 mg Q4H PRN PO 06/01/17 13:45 06/07/17 17:21 Metoclopramide HCl 10 mg 10 mg Q8HR IV PUSH 06/02/17 12:45 06/07/17 20:17 (Zosyn 4.5 Gm Premix) 100 ml @ 200 mls/hr Q6H IV 06/03/17 12:00 06/07/17 22:19 (Lopressor Inj) 7.5 mg Q6H IV PUSH 06/06/17 15:00 06/07/17 20:16 Hydralazine HCl 10 mg 10 mg Q6H PRN IV PUSH 06/06/17 10:30 06/07/17 22:19 (Cerebyx Inj/NS Inj) 52 ml @ 200 mls/hr Q6HR IV 06/07/17 06:00 06/07/17 17:12 (Norvasc) 10 mg DAILY PO 06/07/17 09:00 06/07/17 09:25 Clonidine 0.2 mg 0.2 mg Q8HR PO 06/07/17 14:00 06/07/17 20:16 (NS 1000 ml Inj) 1,000 ml @ 0 mls/hr Q24H IV 06/07/17 17:15 06/07/17 17:15 Allergies Allergies Coded Allergies No Known Allergies (Unverified06/06/17) Exam I&O / VS 06/06/17 06/06/17 06/07/17 15:00 23:00 07:00 Intake Total 1596 ml 1671 ml 1705 ml Output Total 1700.0 ml 1100 ml 1000 ml Balance -104.0 ml 571 ml 705 ml Intake IV Total 1496 ml 1530 ml 1458 ml Tube Feeding 0 ml 21 ml 127 ml Other 100 ml 120 ml 120 ml Output Urine Total 1050 ml 1100 ml 1000 ml Gastric Drainage Total 350 ml Tube Feeding Residual Discard 300.0 ml 0 ml # Bowel Movements 2 0 0 Vital Signs Date Time Temp Pulse Resp B/P Pulse Ox O2 Delivery O2 Flow Rate FiO2 06/07/17 22:00 79 06/07/17 20:48 18 06/07/17 20:00 99 06/07/17 20:00 99.1 99 21 169/74 99 06/07/17 20:00 35 06/07/17 19:53 99 35 06/07/17 19:00 99 Mechanical Ventilator 35 06/07/17 18:00 93 06/07/17 16:00 35 06/07/17 16:00 97 35 06/07/17 16:00 99.5 95 23 160/67 98 06/07/17 16:00 95 06/07/17 14:00 90 06/07/17 12:18 97 35 06/07/17 12:18 35 06/07/17 12:16 35 06/07/17 12:16 97 35 06/07/17 12:00 90 06/07/17 12:00 35 06/07/17 12:00 99.3 90 18 148/64 98 06/07/17 10:00 85 06/07/17 08:56 99 35 06/07/17 08:00 35 06/07/17 08:00 99.3 96 19 170/72 98 06/07/17 08:00 96 06/07/17 07:00 98 Mechanical Ventilator 35 06/07/17 06:00 82 06/07/17 04:14 98 35 06/07/17 04:00 98 06/07/17 04:00 35 06/07/17 04:00 100.0 98 21 162/70 97 06/07/17 02:00 80 06/07/17 01:14 97 35 06/07/17 00:00 100.2 92 18 162/67 97 06/07/17 00:00 35 06/07/17 00:00 92 Respiratory: Lungs CTA, Non-labored respirations, BS equal, Coarse breath sounds Cardiology: Normal rate, Regular Rhythm Musculoskeletal: ROM (Grossly within normal limits), Other (SCD's in place; [place]) Exam Comments sedated and nonresponsive perrl Motor--no posturing and no spontaneous limb movement Objective Micro and Labs Laboratory Tests Test 06/07/17 06/07/17 04:55 10:50 White Blood Count 7.0 Red Blood Count 3.16 Hemoglobin 9.4 Hematocrit 27.9 Mean Corpuscular Volume 88.3 Mean Corpuscular Hemoglobin 29.7 Mean Corpuscular Hemoglobin 33.6 Concent Red Cell Distribution Width 14.8 Platelet Count 145 Mean Platelet Volume 9.1 Neutrophils (%) (Auto) 75.0 Lymphocytes (%) (Auto) 11.4 Monocytes (%) (Auto) 12.1 Eosinophils (%) (Auto) 0.9 Basophils (%) (Auto) 0.6 Neutrophils # (Auto) 5.3 Lymphocytes # (Auto) 0.8 Monocytes # (Auto) 0.8 Eosinophils # (Auto) 0.1 Basophils # (Auto) 0.0 CBC Comment DIFF FINAL Differential Comment Sodium Level 142 Potassium Level 3.5 Chloride Level 113 Carbon Dioxide Level 21.3 Anion Gap 8 Blood Urea Nitrogen 31 Creatinine 0.76 Estimat Glomerular Filtration 105 Rate Random Glucose 121 Calcium Level 8.3 Phosphorus Level 2.7 Magnesium Level 2.2 Total Bilirubin 0.5 Aspartate Amino Transf 34 (AST/SGOT) Alanine Aminotransferase 21 (ALT/SGPT) Alkaline Phosphatase 133 Total Protein 5.6 Albumin 1.8 Phenytoin (Dilantin) Level 11.9 Date/Time Procedure Status Source Growth 06/03/17 15:50 Aerobic Blood Culture - Preliminary Resulted Blood Peripheral NO GROWTH IN 4 DAYS 06/03/17 15:50 Anaerobic Blood Culture - Preliminary Resulted Blood Peripheral NO GROWTH IN 4 DAYS 06/03/17 11:30 Urine Culture - Final Complete Urine Catheterized Urine NO GROWTH IN 48 HOURS. 06/03/17 11:30 Gram Stain - Final Complete Sputum Endotracheal 06/03/17 11:30 Sputum Culture - Final Complete Enterobacter Cloacae Beta Strep Not Group A Addison Mari PhD Jun 07, 2017 22:34
[2017-06-07] MEDS ORDERED: RESP: ALBUTEROL 2.5 MG/IPRATROPIUM 0.5 MG NEB (PRN) NEB (23:00)
[2017-06-07] MEDS: RESP: ALBUTEROL 2.5 MG/IPRATROPIUM 0.5 MG NEB (SCH) NEB (23:10)
[2017-06-08] VITALS (18 sets, daily range): BP systolic 141–165; BP diastolic 62–73; PULSE 78–114; RESP 21–30; TEMP 98.4–99.7; O2SAT 91–99
[2017-06-08] MEDS: PROPOFOL 1000 MG/100 ML INJ 100 ML IV SCH ×7 (01:48→23:56)
[2017-06-08] MEDS: METOPROLOL TARTRATE 5 MG/5 ML VIAL IV PUSH SCH ×2 (01:53→07:50)
[2017-06-08] MEDS: MORPHINE SULFATE 4 MG/ML INJ IV PUSH PRN (01:53)
[2017-06-08] MEDS: niCARdipine 25 MG/NS 250 ML Vial2Bag or IV room IV SCH ×10 (02:03→23:56)
[2017-06-08] MEDS: RESP: ALBUTEROL 2.5 MG/IPRATROPIUM 0.5 MG NEB (SCH) NEB ×4 (03:52→21:34)
[2017-06-08] MEDS: CHLORHEXIDINE GLUCONATE 2 % 1 PACK (2 CLOTHS) TOP SCH (04:00)
[2017-06-08] MEDS: levETIRAcetam INJ 500 MG in SODIUM CHLORIDE 0.9% INJ 100 ML IV SCH ×2 (04:32→16:00)
[2017-06-08] MEDS: PIPERACIL-TAZO 4.5 GM PREMIX 100 ML IV SCH ×4 (05:11→23:56)
[2017-06-08] MEDS: METOCLOPRAMIDE HCL 10 MG/2 ML VIAL IV PUSH SCH ×3 (05:13→20:58)
[2017-06-08] MEDS: cloNIDine HCL 0.2 MG TAB PO SCH (05:13)
[2017-06-08] MEDS: FOSPHENYTOIN INJ 100 MGPE in SODIUM CHLORIDE 0.9% INJ 50 ML IV SCH ×4 (05:56→23:56)
[2017-06-08 06:10] LABS: HEMATOCRIT 30.1 % (39.0-51.0); MEAN CELL VOLUME 89.3 FL (80.0-100.0); MEAN CORPUSCULAR HEMOGLOBIN 28.5 PG (27.0-34.0); PLATELET COUNT 186 TH/MM3 (150-450); RED BLOOD COUNT 3.37 MIL/MM3 (4.50-5.90); RED CELL DISTRIBUTION WIDTH 14.8 % (11.6-17.2); REVIEW FLAG FINAL
[2017-06-08 06:39] LABS: BICARBONATE 20.7 MEQ/L (21.0-32.0); MAGNESIUM 2.1 MG/DL (1.5-2.5)
[2017-06-08] MEDS: POTASSIUM CHLOR 40 MEQ PREMIX 100 ML IV PRN ×2 (06:49→23:57)
[2017-06-08] MEDS: hydrALAZINE HCL 20 MG/ML VIAL IV PUSH PRN (06:49)
[2017-06-08] MEDS: PANTOPRAZOLE SODIUM 40 MG VIAL IVP SCH (07:50)
[2017-06-08] MEDS: CHLORHEXIDINE 0.12% (ORAL KIT) 15 ML CUP MT SCH ×2 (07:51→20:59)
[2017-06-08] MEDS: SODIUM CHLORIDE 0.9% FLUSH 5 ML FLUSH IVF SCH ×2 (07:51→20:59)
[2017-06-08] MEDS: DOCUSATE SODIUM 100 MG/10 ML UDC PO SCH ×2 (07:51→20:58)
--- NOTE | 2017-06-08 10:06 | HHI.CCPN ---
Subjective Remarks/Hospital Course 05/30: Patient came in as a trauma alert. 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 He was working with his colleagues and they saw him just prior to the accident when he was at his baseline mental status. He fell. The exact nature of the fall is unknown. However after that he was acting bizarre. As per EMS he was combative at the scene and not making sens, repeating the same words which do not make sense. Was hypertensive with blood pressure in 185 systolic. As per EMS GCS at the best was 11. Past medical history is unknown. Upon arrival patient was a GCS 11 and blood pressure was 205 systolic. He was combative. Patient was intubated by ER physician, evaluated by trauma team and subsequently underwent imaging studies and was transferred to ICU. Critical care was consulted by Dr. Araiza for TBI with acute respiratory failure. Per discussion with Dr. Araiza patient didn't appear to have traumatic subdural and subarachnoid hemorrhage as well as a splenic laceration. He also had some bleeding from a scalp laceration on arrival to the ICU. Patient required sedation with propofol following arrival to the ICU as he was starting to gag and cough and was attempting to move both lower extremities. I emergently placed a right subclavian central line for central vascular access which was replaced with a left subclavian central line subsequently as it was turning up into the internal jugular vein. Neurosurgery Dr. Stone had all ready been informed by trauma team and was planning to do a bolt for ICP monitoring. History was obtained by reviewing records and discussion with Dr. Araiza and ICU nursing staff. 05/31: Remains sedated, orally intubated on mechanical ventilation. Required initiation of 3% saline and received 23% saline last night for elevated ICP. On propofol/Versed/fentanyl drips as well as 3% saline this morning and was started on Nimbex for neuromuscular blockade for elevated ICPs. 06/01: Remains sedated, orally intubated on mechanical ventilation. On propofol/ Versed/fentanyl/Nimbex/3% saline drips this morning. 06/02: Underwent decompressive hemicraniectomy done on 06/[address] Stone. Remains sedated, orally intubated on mechanical ventilation. Off Nimbex currently. Remains on propofol/versed/ fentanyl gtt. 3% saline off currently. 06/03: Remains sedated, orally intubated on mech vent. Tolerating tube feeds. Sedation being titrated down. 06/04: Remains sedated, orally intubated on mechanical ventilation, tolerating tube feeds. 06/05: Sedated, orally intubated on mechanical ventilation. Tolerating tube feeds. ICPs remain around 5-10 06/06, 06/07: Sedated, orally intubated on mechanical ventilation. 06/08: Remains encephalopathic off sedation, orally intubated on mechanical ventilation. Propofol to maintain vent synchrony. Objective Vital Signs Date Time Temp Pulse Resp B/P Pulse Ox O2 Delivery O2 Flow Rate FiO2 06/08/17 08:00 92 06/08/17 08:00 35 06/08/17 08:00 98.4 27 158/73 95 06/08/17 07:00 Mechanical Ventilator Intake and Output 06/07/17 06/07/17 06/08/17 08:00 16:00 00:00 Intake Total 1705 ml 1670 ml 1714 ml Output Total 1000 ml 1050 ml 1200 ml Balance 705 ml 620 ml 514 ml Result Diagram: 06/08/17 0530 06/08/17 0530 Imaging Last [address] 06/04/17599 Signed Impressions: Service Date/Time: Sunday, June 04, 2017 04:57 - CONCLUSION: Continued evolution of the blood products throughout the brain status post left temporal craniotomy. The catheters are in excellent position. No new hemorrhage is identified. Ze Alicea MD Chest X-Ray 06/04/17599 Signed Impressions: Service Date/Time: Sunday, June 04, 2017 05:23 - CONCLUSION: Tubes and catheters are in good position. Small right pleural effusion Ze Alicea MD Last 24 hours Impressions Chest X-Ray 06/03/17599 Signed Impressions: Service Date/Time: Saturday, June 03, 2017 04:31 - CONCLUSION: Slight worsening of bibasilar consolidation. Terry Hussein MD Last 24 hours Impressions Chest X-Ray 06/02/17599 Signed Impressions: Service Date/Time: Friday, June 02, 2017 03:54 - CONCLUSION: 1. Developing linear atelectatic changes in the left lower lung field. Right lung remains clear. 2. Stable position of life support tubes. Kamaljit El MD Head CT 06/02/17 0000 Signed Impressions: Service Date/Time: Friday, June 02, 2017 04:39 - CONCLUSION: 1. Interval left-sided parietal craniectomy with left-sided subdural drains. There is improvement with almost complete resolution of the previously seen left subdural hematoma and bilateral high convexity subarachnoid blood. 2. Minimal persistent subarachnoid hemorrhage in the high left parietal convexity with possible small subdural hematoma tracking along the left tentorium. 3. No midline shift Kamaljit El MD Last 24 hours Impressions Chest X-Ray 06/01/17 0600 Signed Impressions: Service Date/Time: Thursday, June 01, 2017 05:28 - CONCLUSION: 1. Lungs remain clear. 2. Stable position of life support tubes. Kamaljit El MD Last [address] 05/30/17 1347 Signed Impressions: Service Date/Time: Tuesday, May 30, 2017 13:53 - CONCLUSION: Bibasilar nonspecific infiltrates suggestive of pulmonary contusions. Sanjay Donis MD Abdomen/Pelvis CT 05/30/17 1347 Signed Impressions: Service Date/Time: Tuesday, May 30, 2017 13:53 - CONCLUSION: 1. There appears to be a small amount of fluid along the inferior aspect of the spleen suspicious for a inferior laceration. No significant free fluid is seen in the abdomen or pelvis. 2. Benign-appearing left renal cyst. 3. Bibasilar infiltrates suggestive of pulmonary contusions. Sanjay Donis MD Pelvis X-Ray 05/30/177 Signed Impressions: Service Date/Time: Tuesday, May 30, 2017 13:24 - CONCLUSION: The bony structures are grossly intact. Sanjay Donis MD Head CT 05/30/177 Signed Impressions: Service Date/Time: Tuesday, May 30, 2017 13:53 - CONCLUSION: 1. Small left-sided subdural hematoma with approximately 6 mm of separation adjacent to the left temporal lobe. 2. Bilateral subarachnoid hemorrhage, left greater than right. 3. Tiny hemorrhagic contusions in both frontal lobes. 4. Hemorrhagic contusion the left temporal lobe. Sanjay Donis MD Chest X-Ray 05/30/171336 Signed Impressions: Service Date/Time: Tuesday, May 30, 2017 13:24 - CONCLUSION: ET tube in good position. Lungs are grossly clear. The CT thorax will be performed for further evaluation. Sanjay Donis MD Cervical Spine CT 05/30/171336 Signed Impressions: Service Date/Time: Tuesday, May 30, 2017 13:55 - CONCLUSION: 1. No acute bony fracture. 2. Moderate diffuse primary bony degenerative changes, disc degeneration and disc space narrowing at multiple levels from C3-C7. Sanjay Donis MD Objective Remarks HEENT/ Neuro: Dressing over hemicraniectomy site clean dry and intact, Sedated , orally intubated, Pallor present, no icterus, tongue/ mucosa moist. Pupils 3 mm bilaterally reacting actively to light. Neck: Cervical collar in place, trachea is midline, no JVD Chest/Pulm: on mech vent, good air entry bilaterally, no wheezing or crackles, CVS: Regular rate and rhythm GI/abdomen: soft, nontender nondistended Extremities: No clubbing cyanosis or edema, distal pulses are palpable bilaterally Skin is warm dry and intact, Line: Central Venous Catheter Side: Left Location: Subclavian A/P Assessment and Plan Middle age male brought in as trauma alert following fall from a 6 foot ladder with: TBI: Left subdural hemorrhage, bilateral subarachnoid hemorrhage left greater than right, bifrontal contusions, left temporal lobe contusion Encephalopathy Elevated ICP status post left hemicraniectomy with decompression Splenic laceration Acute respiratory failure on mechanical ventilation Suspect aspiration pneumonia Plan: Neuro : Maintain sedation with propofol, off Versed and fentanyl, daily sedation medication, repeat head CT per neurosurgery, Underwent decompressive hemicraniectomy on the left by Dr. Stone on 06/01. Off 3% saline. Daily sedation vacation okayed with neurosurgery. Pulmonary : Continue full ventilator support. Vent bundle, bronchodilators as needed. Cardiovascular: IV hydration. Off pressors. Labetalol prn for SBP greater than 160mm Hg, Nicardipine gtt as needed. Stop IV Lopressor, PO lopressor 50mg Q8hrly for suspected sympathetic storming. Amlodipine daily. Clonidine added by trauma team for better blood pressure control. GI/liver: Continue tube feeds and advanced to goal as tolerated. Continue laxatives. Started Reglan 10 mg IV every 8 hourly to improve GI motility on 06/02. Renal/: Strict intake output, monitor and replete electrolites, follow BUN/creatinine. IV hydration. KVO IVF ID Ancef given in the trauma bay. Pancultures ordered on 06/03-sputum growing Enterobacter and beta strep, started zosyn (06/03) to cover for aspiration pneumonia Heme Serial hemoglobins to trend his grade 1 splenic laceration although there is no evidence of active bleeding 2 units of platelets were given due to his medication induced platelet dysfunction Endocrine: Watch for hyperglycemia, SSI for glycemic control if needed. Prophylaxis: PPI/SCDs. Discussed with DEVELOPMENT OFFICER Further recommendations per trauma team and neurosurgery. Recommend tracheostomy and PEG tube placement. Discussed with Dr. Adler and Dr. Stone on 06/06 Critical care will be available for tracheostomy when trauma team wants to proceed. Time spent on critical care excluding procedures 35 minutes Perico Collado MD Jun 08, 2017 10:06
[2017-06-08] MEDS ORDERED: METOPROLOL TARTRATE 50 MG TAB OG-TUBE SCH (11:00)
--- NOTE | 2017-06-08 11:58 | HHI.HCPN ---
Reason for visit a. To assist with evaluation and management of symptoms including: pain, agitation, dyspnea b. To assist medical decision maker(s) with: better understanding of current medical conditions; weighing benefits/burdens of medical treatment options; making medical treatment decisions. Subjective/Interval History Mr. Evans is a 62 year old male patient who presented to [facility] ED on 05/30/2017 via EMS as a trauma alert after falling from a 6 foot ladder and hitting the back of his head on a concrete curb. Upon EMS arrival, the patient was reportedly combative with repetitive nonsensical speech. Patient presented to the ED hypertensive and confused with ongoing combativeness. He was intubated for patient safety and started on a Cardene drip. Patient's past medical history previous myocardial infarctions with cardiac stent placement, hypertension and arthritis. * 05/30/17-CT brain revealed a small left-sided subdural hematoma with approximately 6mm of separation adjacent to the left temporal lobe; bilateral subarachnoid hemorrhage (left >right); tiny hemorrhagic contusions in both frontal lobes; hemorrhagic contusions of the left temporal lobe. ICP monitor was placed and elevated ICP was managed medically. * 05/31/17- Patient remained intubated and sedated. * 06/01/17- The patient's ICPs became unstable, uncontrolled despite maximum medical management. He was taken to the OR for a decompressive craniectomy with evacuation of the subdural hematoma. Patient has remained sedated on propofol, intubated on mechanical ventilator. Patient has not been tolerating "sedation vacation" and is exhibiting S/S of "storming" when titrating down sedation per nursing. Patient tolerated SBT for approximately 6 hours yesterday while remaining sedated on propofol. Remains hypertensive and on Cardene drip. Palliative Care was consulted to assist with symptom management and to discuss with the family the benefits and burdens of her current illnesses and the options regarding future care. . Family/friend interactions Message left on 's voicemail. . Advance Directives Living Will: Never completed Health Care Surrogate: Never completed Durable Power of Custodial Manager: Never completed Advance Directive Specifics Health Care Surrogate(s): Per [place] Statutes, in the absence of written advanced directives health care proxy decision making falls to the patient's . . Documented care wishes: No known documented care wishes available at this time. . Objective Vital Signs Date Time Temp Pulse Resp B/P Pulse Ox O2 Delivery O2 Flow Rate FiO2 06/08/17 10:42 96 35 06/08/17 10:00 106 06/08/17 08:00 92 06/08/17 08:00 35 06/08/17 08:00 98.4 92 27 158/73 95 06/08/17 07:00 95 Mechanical Ventilator 35 06/08/17 06:00 98 06/08/17 04:10 97 35 06/08/17 04:00 105 06/08/17 04:00 35 06/08/17 04:00 99.0 105 21 159/69 99 06/08/17 02:00 81 06/08/17 01:58 18 06/08/17 01:10 97 35 06/08/17 00:00 99.1 108 26 156/71 97 06/08/17 00:00 35 06/08/17 00:00 108 06/07/17 22:00 79 06/07/17 20:00 99 06/07/17 20:00 99.1 99 21 169/74 99 06/07/17 20:00 35 06/07/17 19:53 99 35 06/07/17 19:00 99 Mechanical Ventilator 35 06/07/17 18:00 93 06/07/17 16:00 35 06/07/17 16:00 97 35 06/07/17 16:00 99.5 95 23 160/67 98 06/07/17 16:00 95 06/07/17 14:00 90 06/07/17 12:18 97 35 06/07/17 12:18 35 06/07/17 12:16 35 06/07/17 12:16 97 35 06/07/17 12:00 90 06/07/17 12:00 35 06/07/17 12:00 99.3 90 18 148/64 98 Intake & Output 06/08/17 06/08/17 07:00 19:00 Intake Total 3404 ml Output Total 2175 ml Balance 1229 ml Intake IV Total 2379 ml Tube Feeding 785 ml Other 240 ml Output Urine Total 1775 ml Stool Total 400 ml Tube Feeding Residual Discard 0 ml . Physical Exam CONSTITUTIONAL/GENERAL: This is a critically ill, elderly male patient who is sedated and intubated on mechanical ventilator. TUBES/LINES/DRAINS:CVL, PIV, OGT, ETT, Whitfield, soft wrist restraints, SCDs SKIN: No jaundice, rashes, or lesions. Ecchymoses on upper extremities. No wounds seen anteriorly. Skin temperature appropriate. Not diaphoretic. HEAD: Incision status post craniectomy. EYES: Pupils equal, reactive, sluggish. No scleral icterus. Fundi not examined. ENT: Unable to assess hearing secondary to patient's clinical condition. Nose without bleeding or purulent drainage. NECK: Trachea midline. Supple, nontender. CARDIOVASCULAR: Regular rate and rhythm without murmurs, gallops, or rubs. No JVD. Peripheral pulses symmetric. RESPIRATORY/CHEST: Intubated on mechanical ventilator. Breath sounds diminished bilaterally. No wheezes, rales, or rhonchi. GASTROINTESTINAL: Abdomen soft, non-tender, nondistended. Hypoactive bowel sounds present. GENITOURINARY: Without palpable bladder distension. Whitfield catheter in place. MUSCULOSKELETAL: Extremities without clubbing, cyanosis. Trace edema in bilateral lower extremities; hands with 2+ edema. NEUROLOGICAL: Sedated, withdraws to noxious stimuli, no purposeful movement, does not follow commands. PSYCHIATRIC: Unable to assess secondary to patient's clinical condition and sedation . Diagnostic Tests Laboratory Laboratory Tests Test 06/05/17 06/05/17 06/06/17 06/06/17 11:50 18:40 04:15 05:09 Sodium Level 144 MEQ/L 142 MEQ/L 142 MEQ/L (136-145) (136-145) (136-145) Serum Osmolality 304 MOSM/KG 302 MOSM/KG 305 MOSM/KG (275-295) (275-295) (275-295) White Blood Count 11.5 TH/MM3 (4.0-11.0) Red Blood Count 3.71 MIL/MM3 (4.50-5.90) Hemoglobin 11.1 GM/DL (13.0-17.0) Hematocrit 32.8 % (39.0-51.0) Mean Corpuscular Volume 88.3 FL (80.0-100.0) Mean Corpuscular Hemoglobin 29.9 PG (27.0-34.0) Mean Corpuscular Hemoglobin 33.8 % Concent (32.0-36.0) Red Cell Distribution Width 15.1 % (11.6-17.2) Platelet Count 205 TH/MM3 (150-450) Mean Platelet Volume 9.5 FL (7.0-11.0) Neutrophils (%) (Auto) 86.1 % (16.0-70.0) Lymphocytes (%) (Auto) 5.2 % (9.0-44.0) Monocytes (%) (Auto) 7.6 % (0.0-8.0) Eosinophils (%) (Auto) 0.6 % (0.0-4.0) Basophils (%) (Auto) 0.5 % (0.0-2.0) Neutrophils # (Auto) 9.9 TH/MM3 (1.8-7.7) Lymphocytes # (Auto) 0.6 TH/MM3 (1.0-4.8) Monocytes # (Auto) 0.9 TH/MM3 (0-0.9) Eosinophils # (Auto) 0.1 TH/MM3 (0-0.4) Basophils # (Auto) 0.1 TH/MM3 (0-0.2) CBC Comment DIFF FINAL Differential Comment Potassium Level 3.9 MEQ/L (3.5-5.1) Chloride Level 110 MEQ/L (98-107) Carbon Dioxide Level 21.4 MEQ/L (21.0-32.0) Anion Gap 11 MEQ/L (5-15) Blood Urea Nitrogen 26 MG/DL (7-18) Creatinine 0.93 MG/DL (0.60-1.30) Estimat Glomerular Filtration 83 ML/MIN (>89) Rate Random Glucose 120 MG/DL (74-106) Calcium Level 8.4 MG/DL (8.5-10.1) Phosphorus Level 2.3 MG/DL (2.5-4.9) Magnesium Level 2.1 MG/DL (1.5-2.5) Total Bilirubin 0.7 MG/DL (0.2-1.0) Aspartate Amino Transf 33 U/L (15-37) (AST/SGOT) Alanine Aminotransferase 21 U/L (12-78) (ALT/SGPT) Alkaline Phosphatase 123 U/L (45-117) Total Protein 6.5 GM/DL (6.4-8.2) Albumin 2.2 GM/DL (3.4-5.0) Phenytoin (Dilantin) Level 9.4 MCG/ML (10.0-20.0) Blood Gas Puncture Site ART LINE Blood Gas Patient Temperature 98.6 Blood Gas HCO3 20 mmol/L (22-26) Blood Gas Base Excess -2.8 mmol/L (-2-2) Blood Gas Oxygen Saturation 94 % (90-100) Arterial Blood pH 7.46 (7.380-7.420) Arterial Blood Partial 29 mmHg (38-42) Pressure CO2 Arterial Blood Partial 81 mmHg Pressure O2 (61-120) Arterial Blood Oxygen Content 13.7 Vol % (12.0-20.0) Arterial Blood 1.1 % (0-4) Carboxyhemoglobin Arterial Blood Methemoglobin 1.3 % (0-2) Blood Gas Hemoglobin 10.4 G/DL (12.0-16.0) Oxygen Delivery Device VENTILATOR Blood Gas Ventilator Setting PRVC/AC Blood Gas Inspired Oxygen 35 % Test 06/07/17 06/07/17 06/08/17 04:55 10:50 05:30 White Blood Count 7.0 TH/MM3 12.0 TH/MM3 (4.0-11.0) (4.0-11.0) Red Blood Count 3.16 MIL/MM3 3.37 MIL/MM3 (4.50-5.90) (4.50-5.90) Hemoglobin 9.4 GM/DL 9.6 GM/DL (13.0-17.0) (13.0-17.0) Hematocrit 27.9 % 30.1 % (39.0-51.0) (39.0-51.0) Mean Corpuscular Volume 88.3 FL 89.3 FL (80.0-100.0) (80.0-100.0) Mean Corpuscular Hemoglobin 29.7 PG 28.5 PG (27.0-34.0) (27.0-34.0) Mean Corpuscular Hemoglobin 33.6 % 32.0 % Concent (32.0-36.0) (32.0-36.0) Red Cell Distribution Width 14.8 % 14.8 % (11.6-17.2) (11.6-17.2) Platelet Count 145 TH/MM3 186 TH/MM3 (150-450) (150-450) Mean Platelet Volume 9.1 FL 9.6 FL (7.0-11.0) (7.0-11.0) Neutrophils (%) (Auto) 75.0 % (16.0-70.0) Lymphocytes (%) (Auto) 11.4 % (9.0-44.0) Monocytes (%) (Auto) 12.1 % (0.0-8.0) Eosinophils (%) (Auto) 0.9 % (0.0-4.0) Basophils (%) (Auto) 0.6 % (0.0-2.0) Neutrophils # (Auto) 5.3 TH/MM3 (1.8-7.7) Lymphocytes # (Auto) 0.8 TH/MM3 (1.0-4.8) Monocytes # (Auto) 0.8 TH/MM3 (0-0.9) Eosinophils # (Auto) 0.1 TH/MM3 (0-0.4) Basophils # (Auto) 0.0 TH/MM3 (0-0.2) CBC Comment DIFF FINAL Differential Comment Sodium Level 142 MEQ/L 146 MEQ/L (136-145) (136-145) Potassium Level 3.5 MEQ/L 3.0 MEQ/L (3.5-5.1) (3.5-5.1) Chloride Level 113 MEQ/L 115 MEQ/L (98-107) (98-107) Carbon Dioxide Level 21.3 MEQ/L 20.7 MEQ/L (21.0-32.0) (21.0-32.0) Anion Gap 8 MEQ/L (5-15) 10 MEQ/L (5-15) Blood Urea Nitrogen 31 MG/DL (7-18) 33 MG/DL (7-18) Creatinine 0.76 MG/DL 0.75 MG/DL (0.60-1.30) (0.60-1.30) Estimat Glomerular Filtration 105 ML/MIN 106 ML/MIN Rate (>89) (>89) Random Glucose 121 MG/DL 115 MG/DL (74-106) (74-106) Calcium Level 8.3 MG/DL 8.4 MG/DL (8.5-10.1) (8.5-10.1) Phosphorus Level 2.7 MG/DL (2.5-4.9) Magnesium Level 2.2 MG/DL 2.1 MG/DL (1.5-2.5) (1.5-2.5) Total Bilirubin 0.5 MG/DL (0.2-1.0) Aspartate Amino Transf 34 U/L (15-37) (AST/SGOT) Alanine Aminotransferase 21 U/L (12-78) (ALT/SGPT) Alkaline Phosphatase 133 U/L (45-117) Total Protein 5.6 GM/DL (6.4-8.2) Albumin 1.8 GM/DL (3.4-5.0) Phenytoin (Dilantin) Level 11.9 MCG/ML (10.0-20.0) . Result Diagram: 06/08/17 0530 06/08/17 0530 Imaging Last 48 hours Impressions Chest X-Ray 06/08/17 0600 Signed Impressions: Service Date/Time: Thursday, June 08, 2017 03:43 - CONCLUSION: 1. The support equipment is in good position. 2. Minimal left basilar effusion and atelectasis. Johann Silvestre MD Chest X-Ray 06/07/17 0600 Signed Impressions: Service Date/Time: May 02:58 - CONCLUSION: No significant interval change with persistent left greater than right basilar lung opacity. Tarik Ahn MD Procedures 05/30/17: Intubation 05/30/17: Nasogastric catheter placed 05/30/17: Right subclavian CVL placed . Assessment and Plan Disease Oriented Problem List: (1) Subarachnoid hemorrhage (2) Respiratory failure (3) Altered mental status (4) Head injury (5) Traumatic brain injury (6) Previous myocardial infarction older than 8 weeks (7) Hypertension Symptom Scale: (1) Pain 0-10 Scale: Unable to quantify Comment: Secondary to clinical condition, sedation and mechanical ventilation. (2) Agitation 0-10 Scale: Unable to quantify (Secondary to clinical condition, sedation and mechanical ventilation. ) (3) Dyspnea 0-10 Scale: Unable to quantify (Secondary to clinical condition, sedation and mechanical ventilation. ) Pertinent Non-Medical Issues Psychosocial: Patient is and lives with his in [place]. 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 Important Contacts Stacy Evans, Pato Ni, friend . Prognosis Patient is a 62-year-old man who sustained a traumatic brain injury after falling from a 6 foot ladder s/p decompressive craniectomy with evacuation of the subdural hematoma. Patient has had minimal neurological improvements. He remains intubated on mechanical ventilator and sedated, does not tolerate attempts to wean propofol, tolerated 6 hours of SBT yesterday while remaining sedated on propofol. On Cardene drip. Patient remains critically ill without significant improvements since admission approximately 7 days ago. Poor prognosis. . Code Status: Full Code Plan * FULL CODE * Decision making: Per [place] statutes, and absence of written advanced directives healthcare proxy decision-making falls to the patient's . * Goals remain aggressive at this time. * Palliative care attempted to contact patient's via telephone for a second time today. Another message was left on her voicemail with palliative care contact information; awaiting return phone call. * Limited medical history and/or psychosocial history is available pending conversation/meeting with patient's . * Symptom managementpain: Patient remains on propofol, does not tolerate weaning of propofol. PRN morphine and [place] are available, being sparingly used. Continue to monitor her for signs and/or symptoms of nonverbal pain such as grimacing, moaning, furrowed brow, changes in vital signs. No recommendations at this time. * Symptom managementdyspnea: Patient remains intubated on mechanical ventilator. Not tolerating sedation vacation, patient was able to tolerate SBT yesterday while remaining sedated. SBT were not initiated today due to patient' s intolerance of reduction in sedation. On empiric antibiotics for suspected pneumonia. No recommendations at this time. * Discussed patient with the bedside RN and RT. * Palliative care will continue to follow this patient throughout his hospitalization to establish trust, assist with symptom management and clarification of medical treatment goals. . Attestation To help prompt me to consider important information that might be impacting today's encounter and assessment, information from prior notes written by myself or my colleagues may have been "brought forward" into today's note. My signature on this note, however, is an attestation that I personally performed the exam, history, and/or decision-making noted today, and, unless otherwise indicated, the interactions with patient, family, and staff as well as the review of records all occurred today. I also attest that the listed assessment and stated plan reflect my best clinical judgment today based on the combination of historical information, prior notes, and today's exam/ interactions. When time spent is documented, it refers only to time spent today by the signer, or if indicated, combined time spent today by collaborating physician/nurse practitioner. Felicia Mendez Jun 08, 2017 11:57
--- NOTE | 2017-06-08 11:59 | RADRPT ---
EXAM DATE/TIME: 06/08/2017 03:43 [facility] COMPARISON: CHEST SINGLE AP, June 07, 2017, 2:58. INDICATIONS : Trauma. MEDICAL HISTORY : None. SURGICAL HISTORY : Craniotomy. ENCOUNTER: Subsequent ACUITY: 1 week PAIN SCORE: Non-responsive. LOCATION: FINDINGS: The endotracheal tube is in good position. There is a subclavian central venous catheter in good posi tion. The heart is a the upper limits in size. There is minimal effusion at the lung bases. There are atelectatic changes/consolidation at the left lung base. Changes appear similar to previous study [place] 06/07/17. CONCLUSION: 1. The support equipment is in good position. 2. Minimal left basilar effusion and atelectasis. Johann Silvestre MD on June 08, 2017 at 4:48 Board Certified Radiologist. This report was verified electronically.
--- NOTE | 2017-06-08 12:28 | HHI.CCPN ---
Subjective 24 Hour Review/Hospital Course 05/31/17 Patient suffered elevation in his ICP, responsive to increase sedation and hypertonic saline boluses Repeat imaging shows slight improvement 06/01/17 ICP continue to increase when sedation is stopped, neurosurgery considering surgical intervention 06/02/17 Patient underwent right craniectomy yesterday, his ICPs have been in the single digits Weaning Versed drip to off, we will continue propofol for sedation as he does continue to become agitated Discuss likelihood of tracheostomy and PEG placement with 06/03/17 Clinically patient is stable, he continues to be on sedation CT scan suggests loss of bowen-white matter indicative of possible [place] 06/04/17 off sedation moving extremities opening eyes but not following commands ICP ies in normal range 06/05 mental status unchanged,not opening eyes today requires sedation prn 06/06 no changes remains low GCS BP slightly elevated on cardene drip Had high residuals -tube feeds 06/07 GCS 3T today BP better controlled tube feeds better controlled neuro input appreciated 06/08 moving lower extremities today -however not purposeful episode of storming BP -low dose cardene Objective Vital Signs Date Time Temp Pulse Resp B/P Pulse Ox O2 Delivery O2 Flow Rate FiO2 06/08/17 10:42 96 35 06/08/17 10:00 106 06/08/17 08:00 98.4 27 158/73 06/08/17 07:00 Mechanical Ventilator Intake and Output 06/07/17 06/07/17 06/08/17 08:00 16:00 00:00 Intake Total 1705 ml 1670 ml 1714 ml Output Total 1000 ml 1050 ml 1200 ml Balance 705 ml 620 ml 514 ml Result Diagram: 06/08/17 0530 06/08/17 0530 Imaging Last 24 hours Impressions Chest X-Ray 06/08/17 0600 Signed Impressions: Service Date/Time: Thursday, June 08, 2017 03:43 - CONCLUSION: 1. The support equipment is in good position. 2. Minimal left basilar effusion and atelectasis. 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 Hemodynamic/Cardiac hypertensive-cardened,b hi Pulmonary/Respiratory mechanical ventilation Abdomen/GI Nutrition soft,mild distended-tolerating TF Renal/I&O Uo adequat,Na 146 Urinary Catheter Assessment Urinary Catheter: Yes Whitfield insert reason: Measure Accurate Output Vascular Central Line Catheter Line: Central Venous Catheter Side: Left Location: Subclavian Assessment and Plan Plan Off hyper osmolar therapy -sedation off gcs 5T max Continue full ventilator support for respiratory failure Continue nutritional support Seizure prophylaxis with Keppra/dilantin-neurology input appreciated clonidin for better BP control add propranolol add free water will need peg/trach if family would like to proceed Patient remains critically ill with traumatic brain injury following a fall Nora Adler MD Jun 08, 2017 12:28
[2017-06-08] MEDS: cloNIDine HCL 0.3 MG TAB PO SCH ×2 (13:27→20:58)
[2017-06-08] MEDS: PROPRANOLOL HCL 10 MG TAB PO SCH ×2 (13:27→20:58)
[2017-06-08] MEDS: FREE WATER G-TUBE SCH ×2 (13:27→20:58)
[2017-06-08] MEDS: ACETAMINOPHEN/HYDROcodone 325 MG/10 MG TAB PO PRN ×2 (16:13→23:57)
--- NOTE | 2017-06-08 17:02 | HHI.PR ---
Review/Management Diagnosis post traumatic subdural hematoma and subarachonid hemorrhage Diagnosis/Plan: Subjective Subjective Comments No acute events reported Active Medications Current Medications Medications (Trade) Dose Ordered Sig/Alexandru Route Start Time Stop Time Status Last Admin (NS Flush) 2 ml UNSCH PRN IV FLUSH 05/30/17 14:30 06/05/17 07:54 (Vasotec Inj) 1.25 mg Q8H PRN IV 05/30/17 14:30 06/07/17 08:13 (Zofran Inj) 4 mg Q6H PRN IV 05/30/17 14:30 06/05/17 13:23 (Colace Liq) 100 mg BID PO 05/30/17 21:00 06/07/17 20:16 (Milk Of Magnesia Liq) 30 ml Q6H PRN PO 05/30/17 14:30 06/01/17 08:14 Miscellaneous Information 1 Q361D XX 05/30/17 14:30 (Chlorhexidine 2% Cloth) Taper DAILY@04 TOP 05/31/17 04:00 05/27/18 03:59 06/04/17 04:05 (Chlorhexidine 2% Cloth) 3 pack UNSCH PRN TOP 05/30/17 14:30 Chlorhexidine Gluconate 15 ml 15 ml BID@08,20 MT 05/30/17 20:00 06/08/17 07:51 (Cardene Inj/NS 250 ml Inj) 260 ml @ 0 mls/hr TITRATE IV 05/30/17 17:15 06/08/17 13:26 Terbutaline Sulfate 1 mg 1 mg UNSCH PRN SQ 05/30/17 18:00 Propofol 100 ml @ 0 mls/hr TITRATE IV 05/30/17 20:15 06/08/17 13:26 Potassium Chloride 100 ml @ 50 mls/hr Q2H PRN IV 06/01/17 09:30 06/08/17 06:49 (KCl 20 Meq Premix Inj) 100 ml @ 50 mls/hr Q2H PRN IV 06/01/17 09:30 Potassium Bicarb/ Potassium Chloride 50 meq 50 meq UNSCH PRN PO 06/01/17 09:30 Potassium Chloride 100 ml @ 25 mls/hr UNSCH PRN IV 06/01/17 09:30 06/02/17 01:45 Potassium Chloride 100 ml @ 50 mls/hr Q2H PRN IV 06/01/17 09:30 (Magnesium Sulfate Inj/NS Inj) 100 ml @ 50 mls/hr UNSCH PRN IV 06/01/17 09:30 Magnesium Oxide 800 mg 800 mg UNSCH PRN PO 06/01/17 09:30 06/02/17 09:12 (Magnesium Sulfate Inj/NS Inj) 100 ml @ 50 mls/hr UNSCH PRN IV 06/01/17 09:30 Potassium Phosphate 2000 mg 2,000 mg Q4H PRN PO 06/01/17 09:30 06/06/17 19:48 (Sodium Phosphate Inj/NS 250 ml Inj) 250 ml @ 42 mls/hr UNSCH PRN IV 06/01/17 09:30 Potassium Phosphate 2000 mg 2,000 mg UNSCH PRN PO/TUBE 06/01/17 09:30 (Potassium Phosphate Inj/NS 250 ml Inj) 260 ml @ 42 mls/hr UNSCH PRN IV 06/01/17 09:30 06/01/17 10:08 (NS Flush) 2 ml UNSCH PRN IVF 06/01/17 13:45 IV Flush 2 ml 2 ml BID IVF 06/01/17 21:00 06/08/17 07:51 (Keppra Inj/NS Inj) 105 ml @ 400 mls/hr Q12H IV 06/01/17 16:00 06/08/17 16:00 (Dulcolax Supp) 10 mg DAILY PRN RECTAL 06/01/17 13:45 (Protonix Inj) 40 mg DAILY IVP 06/02/17 09:00 06/08/17 07:50 Calcium Gluconate 1 gm 1 gm UNSCH PRN IV 06/01/17 13:45 Potassium Chloride 100 ml @ 50 mls/hr UNSCH PRN IV 06/01/17 13:45 (Magnesium Sulfate Inj/NS Inj) 108 ml @ 108 mls/hr UNSCH PRN IV 06/01/17 13:45 ([place] 10-325 Mg) 1 tab Q4H PRN PO 06/01/17 13:45 ([place] 10-325 Mg) 2 tab Q4H PRN PO 06/01/17 13:45 06/08/17 16:13 (Morphine Inj) 2 mg Q2H PRN IV PUSH 06/01/17 13:45 06/04/17 12:56 (Morphine Inj) 4 mg Q2H PRN IV PUSH 06/01/17 13:45 06/08/17 01:53 (Tylenol) 650 mg Q4H PRN PO 06/01/17 13:45 06/07/17 17:21 Metoclopramide HCl 10 mg 10 mg Q8HR IV PUSH 06/02/17 12:45 06/08/17 05:13 (Zosyn 4.5 Gm Premix) 100 ml @ 200 mls/hr Q6H IV 06/03/17 12:00 06/08/17 11:54 Hydralazine HCl 10 mg 10 mg Q6H PRN IV PUSH 06/06/17 10:30 06/08/17 06:49 (Cerebyx Inj/NS Inj) 52 ml @ 200 mls/hr Q6HR IV 06/07/17 06:00 06/08/17 11:55 Amlodipine Besylate 10 mg 10 mg DAILY PO 06/07/17 09:00 06/08/17 07:50 (NS 1000 ml Inj) 1,000 ml @ 0 mls/hr Q24H IV 06/07/17 17:15 06/07/17 17:15 (Catapres) 0.3 mg Q8HR PO 06/08/17 14:00 06/08/17 13:27 (Inderal) 10 mg Q8HR PO 06/08/17 14:00 06/08/17 13:27 (Free Water) VOLUME: 200 ML Q8HR G-TUBE 06/08/17 14:00 06/08/17 13:27 Allergies Allergies Coded Allergies No Known Allergies (Unverified06/06/17) Exam I&O / VS 06/07/17 06/07/17 06/08/17 15:00 23:00 07:00 Intake Total 1670 ml 1714 ml 1690 ml Output Total 1050 ml 1200 ml 975 ml Balance 620 ml 514 ml 715 ml Intake IV Total 1309 ml 1176 ml 1203 ml Tube Feeding 241 ml 418 ml 367 ml Other 120 ml 120 ml 120 ml Output Urine Total 1050 ml 1000 ml 775 ml Stool Total 200 ml 200 ml Tube Feeding Residual Discard 0 ml # Bowel Movements 0 Vital Signs Date Time Temp Pulse Resp B/P Pulse Ox O2 Delivery O2 Flow Rate FiO2 06/08/17 16:00 95 06/08/17 16:00 99.7 95 24 159/70 94 06/08/17 16:00 35 06/08/17 14:00 89 06/08/17 12:28 94 35 06/08/17 12:00 106 06/08/17 12:00 99.0 114 28 141/62 94 06/08/17 12:00 35 06/08/17 10:42 96 35 06/08/17 10:00 106 06/08/17 08:00 92 06/08/17 08:00 35 06/08/17 08:00 98.4 92 27 158/73 95 06/08/17 07:00 95 Mechanical Ventilator 35 06/08/17 06:00 98 06/08/17 04:10 97 35 06/08/17 04:00 105 06/08/17 04:00 35 06/08/17 04:00 99.0 105 21 159/69 99 06/08/17 02:00 81 06/08/17 01:58 18 06/08/17 01:10 97 35 06/08/17 00:00 99.1 108 26 156/71 97 06/08/17 00:00 35 06/08/17 00:00 108 06/07/17 22:00 79 06/07/17 20:00 99 06/07/17 20:00 99.1 99 21 169/74 99 06/07/17 20:00 35 06/07/17 19:53 99 35 06/07/17 19:00 99 Mechanical Ventilator 35 06/07/17 18:00 93 Respiratory: Lungs CTA, Non-labored respirations, BS equal, Coarse breath sounds Cardiology: Normal rate, Regular Rhythm Musculoskeletal: ROM (Grossly within normal limits), Other (SCD's in place; Whitfield) Exam Comments sedated and nonresponsive perrl Motor--no posturing and no spontaneous limb movement Objective Micro and Labs Laboratory Tests Test 06/08/17 05:30 White Blood Count 12.0 Red Blood Count 3.37 Hemoglobin 9.6 Hematocrit 30.1 Mean Corpuscular Volume 89.3 Mean Corpuscular Hemoglobin 28.5 Mean Corpuscular Hemoglobin 32.0 Concent Red Cell Distribution Width 14.8 Platelet Count 186 Mean Platelet Volume 9.6 Sodium Level 146 Potassium Level 3.0 Chloride Level 115 Carbon Dioxide Level 20.7 Anion Gap 10 Blood Urea Nitrogen 33 Creatinine 0.75 Estimat Glomerular Filtration 106 Rate Random Glucose 115 Calcium Level 8.4 Magnesium Level 2.1 Addison Mari PhD Jun 08, 2017 17:02
[2017-06-08] MEDS: SODIUM CHLOR 0.9% 1000 ML INJ 1,000 ML IV SCH (17:15)
[2017-06-08] MEDS: SODIUM CHLORIDE 0.9% FLUSH 10 ML FLUSH IV FLUSH PRN (20:59)
[2017-06-09] VITALS (19 sets, daily range): BP systolic 140–175; BP diastolic 62–74; PULSE 68–106; RESP 18–28; TEMP 97.5–100.4; O2SAT 93–100
[2017-06-09] MEDS: MORPHINE SULFATE 4 MG/ML INJ IV PUSH PRN ×3 (00:20→08:52)
[2017-06-09] MEDS: levETIRAcetam INJ 500 MG in SODIUM CHLORIDE 0.9% INJ 100 ML IV SCH ×2 (02:15→15:08)
[2017-06-09] MEDS: PROPOFOL 1000 MG/100 ML INJ 100 ML IV SCH ×6 (02:15→21:06)
[2017-06-09] MEDS: RESP: ALBUTEROL 2.5 MG/IPRATROPIUM 0.5 MG NEB (SCH) NEB ×4 (03:25→20:30)
[2017-06-09 03:56] LABS: BLOOD GAS BASE EXCESS -3.1 mmol/L (-2-2); BLOOD GAS CARBOXYHEMOGLOBIN 1.1 % (0-4); BLOOD GAS HCO3 21 mmol/L (22-26); BLOOD GAS O2 HGB SATURATION 94 % (90-100); BLOOD GAS OXYGEN CONTENT 12.7 Vol % (12.0-20.0); BLOOD GAS PCO2 32 mmHg (38-42); BLOOD GAS PO2 81 mmHg (61-120); BLOOD GAS TOTAL HGB 9.6 G/DL (12.0-16.0); CRITICAL VALUE NO; OXYGEN DEVICE VENTILATOR; TEMP CORR TO 98.6
[2017-06-09 03:57] LABS: DRAW SITE ALINE; FIO2 45 %; STAT NO; ULNAR PULSE PRESENT; VENT SETTINGS PRVC18/500/1.0/+10
[2017-06-09] MEDS: CHLORHEXIDINE GLUCONATE 2 % 1 PACK (2 CLOTHS) TOP SCH (04:00)
[2017-06-09 04:12] LABS: BASOPHIL # 0.1 TH/MM3 (0-0.2); BASOPHIL % 0.5 % (0.0-2.0); EOSINOPHIL # 0.2 TH/MM3 (0-0.4); HEMATOCRIT 28.8 % (39.0-51.0); HEMO FLAGS DIFF FINAL; LYMPH % 13.4 % (9.0-44.0); LYMPHOCYTE # 1.4 TH/MM3 (1.0-4.8); MEAN CORPUSCULAR HEMOGLOBIN 29.9 PG (27.0-34.0); MEAN CORPUSCULAR HGB CONC 32.8 % (32.0-36.0); MONO % 6.4 % (0.0-8.0); NEUT % 77.7 % (16.0-70.0); PLATELET COUNT 218 TH/MM3 (150-450); RED BLOOD COUNT 3.17 MIL/MM3 (4.50-5.90); RED CELL DISTRIBUTION WIDTH 15.6 % (11.6-17.2); WHITE BLOOD COUNT 10.3 TH/MM3 (4.0-11.0)
[2017-06-09] MEDS: PIPERACIL-TAZO 4.5 GM PREMIX 100 ML IV SCH ×3 (04:45→17:11)
[2017-06-09] MEDS: FOSPHENYTOIN INJ 100 MGPE in SODIUM CHLORIDE 0.9% INJ 50 ML IV SCH ×3 (04:45→17:11)
[2017-06-09] MEDS: FREE WATER G-TUBE SCH ×3 (04:46→21:09)
[2017-06-09] MEDS: PROPRANOLOL HCL 10 MG TAB PO SCH ×3 (04:46→21:07)
[2017-06-09] MEDS: cloNIDine HCL 0.3 MG TAB PO SCH ×3 (04:46→21:07)
[2017-06-09] MEDS: METOCLOPRAMIDE HCL 10 MG/2 ML VIAL IV PUSH SCH ×3 (04:46→21:07)
[2017-06-09] MEDS: niCARdipine 25 MG/NS 250 ML Vial2Bag or IV room IV SCH ×6 (04:48→18:44)
[2017-06-09] MEDS: ACETAMINOPHEN/HYDROcodone 325 MG/10 MG TAB PO PRN (05:05)
[2017-06-09 05:08] LABS: ALKALINE PHOSPHATASE 306 U/L (45-117); ALT (GPT) 101 U/L (12-78); ANION GAP 10 MEQ/L (5-15); AST (GOT) 122 U/L (15-37); BICARBONATE 21.2 MEQ/L (21.0-32.0); BLOOD UREA NITROGEN 31 MG/DL (7-18); CHLORIDE 114 MEQ/L (98-107); GLOMERULAR FILTRATION RATE 97 ML/MIN (>89); MAGNESIUM 1.8 MG/DL (1.5-2.5); POTASSIUM 3.8 MEQ/L (3.5-5.1); SODIUM (NA) 145 MEQ/L (136-145); TOTAL BILIRUBIN ADULT 0.6 MG/DL (0.2-1.0)
--- NOTE | 2017-06-09 05:57 | RADRPT ---
EXAM DATE/TIME: 06/09/2017 04:55 [facility] COMPARISON: CHEST SINGLE AP, June 08, 2017, 3:43. INDICATIONS : Respiratory status. Follow up trauma. MEDICAL HISTORY : None. SURGICAL HISTORY : Craniotomy. ENCOUNTER: Subsequent ACUITY: 4 - 6 days PAIN SCORE: Non-responsive. LOCATION: Bilateral chest FINDINGS: Endotracheal tube and left subclavian line, enteric tube again seen. There is bilateral basilar airsp aliza disease which is stable. Heart size upper limits. CONCLUSION: No significant change has occurred. Johann Silvestre MD on June 09, 2017 at 5:55 Board Certified Radiologist. This report was verified electronically.
[2017-06-09] MEDS: CHLORHEXIDINE 0.12% (ORAL KIT) 15 ML CUP MT SCH ×2 (07:58→21:06)
[2017-06-09] MEDS: SODIUM CHLORIDE 0.9% FLUSH 5 ML FLUSH IVF SCH ×2 (08:25→21:00)
[2017-06-09] MEDS: PANTOPRAZOLE SODIUM 40 MG VIAL IVP SCH (08:25)
[2017-06-09] MEDS: DOCUSATE SODIUM 100 MG/10 ML UDC PO SCH ×2 (08:25→21:00)
[2017-06-09] MEDS: hydrALAZINE HCL 20 MG/ML VIAL IV PUSH PRN (09:54)
[2017-06-09] MEDS ORDERED: LABETALOL HCL 100 MG/20 ML VIAL IV PUSH PRN (11:45)
--- NOTE | 2017-06-09 11:46 | HHI.CCPN ---
Subjective 24 Hour Review/Hospital Course 05/31/17 Patient suffered elevation in his ICP, responsive to increase sedation and hypertonic saline boluses Repeat imaging shows slight improvement 06/01/17 ICP continue to increase when sedation is stopped, neurosurgery considering surgical intervention 06/02/17 Patient underwent right craniectomy yesterday, his ICPs have been in the single digits Weaning Versed drip to off, we will continue propofol for sedation as he does continue to become agitated Discuss likelihood of tracheostomy and PEG placement with 06/03/17 Clinically patient is stable, he continues to be on sedation CT scan suggests loss of bowen-white matter indicative of possible RICO 06/04/17 off sedation moving extremities opening eyes but not following commands ICP ies in normal range 06/05 mental status unchanged,not opening eyes today requires sedation prn 06/06 no changes remains low GCS BP slightly elevated on cardene drip Had high residuals -tube feeds 06/07 GCS 3T today BP better controlled tube feeds better controlled neuro input appreciated 06/08 moving lower extremities today -however not purposeful episode of storming BP -low dose cardene 06/[address] good response ro pain meds storming episode 06/08-when off sedation GCS 5T unchanged Objective Vital Signs Date Time Temp Pulse Resp B/P Pulse Ox O2 Delivery O2 Flow Rate FiO2 06/09/17 11:35 97 45 06/09/17 10:00 75 06/09/17 08:00 97.5 18 154/68 06/09/17 07:00 Mechanical Ventilator Intake and Output 06/08/17 06/08/17 06/09/17 08:00 16:00 00:00 Intake Total 1690 ml 2204 ml 2076 ml Output Total 975 ml 850 ml 1000 ml Balance 715 ml 1354 ml 1076 ml Result Diagram: 06/09/17 0400 06/09/17 0400 Other Results Laboratory Tests Test 06/09/17 03:42 Blood Gas Puncture Site ANIYAH Blood Gas Patient Temperature 98.6 Blood Gas HCO3 21 mmol/L (22-26) Blood Gas Base Excess -3.1 mmol/L (-2-2) Blood Gas Oxygen Saturation 94 % (90-100) Arterial Blood pH 7.43 (7.380-7.420) Arterial Blood Partial 32 mmHg (38-42) Pressure CO2 Arterial Blood Partial 81 mmHg Pressure O2 (61-120) Arterial Blood Oxygen Content 12.7 Vol % (12.0-20.0) Arterial Blood 1.1 % (0-4) Carboxyhemoglobin Arterial Blood Methemoglobin 1.0 % (0-2) Blood Gas Hemoglobin 9.6 G/DL (12.0-16.0) Oxygen Delivery Device VENTILATOR Blood Gas Ventilator Setting PRVC18/500/1.0/+10 Blood Gas Inspired Oxygen 45 % Imaging Last 24 hours Impressions Chest X-Ray 06/09/17 0600 Signed Impressions: Service Date/Time: Friday, June 09, 2017 04:55 - CONCLUSION: No significant change has occurred. Johann Silvestre MD Exam [employer] Gcs 5T Hemodynamic/Cardiac ST-BP stable Pulmonary/Respiratory clear BS Abdomen/GI Nutrition soft,+bm Renal/I&O uo adequat Urinary Catheter Assessment Urinary Catheter: Yes Vascular Central Line Catheter Vascular Central Line Catheter: Yes Line: Central Venous Catheter Side: Left Location: Subclavian Assessment and Plan Plan -sedation off gcs 5T max Continue full ventilator support for respiratory failure Continue nutritional support Seizure prophylaxis with Keppra/dilantin-neurology input appreciated clonidin for better BP control add propranolol add free water will need peg/trach if family would like to proceed Patient remains critically ill with traumatic brain injury following a fall Nora Adler MD Jun 09, 2017 11:46
--- NOTE | 2017-06-09 11:47 | HHI.CCPN ---
Subjective Remarks/Hospital Course 05/30: Patient came in as a trauma alert. 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 He was working with his colleagues and they saw him just prior to the accident when he was at his baseline mental status. He fell. The exact nature of the fall is unknown. However after that he was acting bizarre. As per EMS he was combative at the scene and not making sens, repeating the same words which do not make sense. Was hypertensive with blood pressure in 185 systolic. As per EMS GCS at the best was 11. Past medical history is unknown. Upon arrival patient was a GCS 11 and blood pressure was 205 systolic. He was combative. Patient was intubated by ER physician, evaluated by trauma team and subsequently underwent imaging studies and was transferred to ICU. Critical care was consulted by Dr. Araiza for TBI with acute respiratory failure. Per discussion with Dr. Araiza patient didn't appear to have traumatic subdural and subarachnoid hemorrhage as well as a splenic laceration. He also had some bleeding from a scalp laceration on arrival to the ICU. Patient required sedation with propofol following arrival to the ICU as he was starting to gag and cough and was attempting to move both lower extremities. I emergently placed a right subclavian central line for central vascular access which was replaced with a left subclavian central line subsequently as it was turning up into the internal jugular vein. Neurosurgery Dr. Stone had all ready been informed by trauma team and was planning to do a bolt for ICP monitoring. History was obtained by reviewing records and discussion with Dr. Araiza and ICU nursing staff. 05/31: Remains sedated, orally intubated on mechanical ventilation. Required initiation of 3% saline and received 23% saline last night for elevated ICP. On propofol/Versed/fentanyl drips as well as 3% saline this morning and was started on Nimbex for neuromuscular blockade for elevated ICPs. 06/01: Remains sedated, orally intubated on mechanical ventilation. On propofol/ Versed/fentanyl/Nimbex/3% saline drips this morning. 06/02: Underwent decompressive hemicraniectomy done on 06/[address] Stone. Remains sedated, orally intubated on mechanical ventilation. Off Nimbex currently. Remains on propofol/versed/ fentanyl gtt. 3% saline off currently. 06/03: Remains sedated, orally intubated on mech vent. Tolerating tube feeds. Sedation being titrated down. 06/04: Remains sedated, orally intubated on mechanical ventilation, tolerating tube feeds. 06/05: Sedated, orally intubated on mechanical ventilation. Tolerating tube feeds. ICPs remain around 5-10 06/06, 06/07: Sedated, orally intubated on mechanical ventilation. 06/08: Remains encephalopathic off sedation, orally intubated on mechanical ventilation. Propofol to maintain vent synchrony. Subjective 06/09: Hypertensive overnight requiring reinitiation via the Cardene drip. Sympathetic storm yesterday so no sedation vacation today. Tolerating tube feeding at goal. Objective Vital Signs Date Time Temp Pulse Resp B/P Pulse Ox O2 Delivery O2 Flow Rate FiO2 06/09/17 11:35 97 45 06/09/17 10:00 75 06/09/17 08:00 97.5 18 154/68 06/09/17 07:00 Mechanical Ventilator Intake and Output 06/08/17 06/08/17 06/08/17 07:59 15:59 23:59 Intake Total 1690 ml 2204 ml 2076 ml Output Total 975 ml 850 ml 1000 ml Balance 715 ml 1354 ml 1076 ml Result Diagram: 06/09/17 0400 06/09/17 0400 Imaging Last 72 hours Impressions Chest X-Ray 06/09/17599 Signed Impressions: Service Date/Time: Friday, June 09, 2017 04:55 - CONCLUSION: No significant change has occurred. Johann Silvestre MD Chest X-Ray 06/08/17599 Signed Impressions: Service Date/Time: Thursday, June 08, 2017 03:43 - CONCLUSION: 1. The support equipment is in good position. 2. Minimal left basilar effusion and atelectasis. Johann Silvestre MD Chest X-Ray 06/07/17599 Signed Impressions: Service Date/Time: May 02:58 - CONCLUSION: No significant interval change with persistent left greater than right basilar lung opacity. Tarik Ahn MD Objective Remarks GEN: 62 yo male, critically ill currently orotracheally intubated HEENT/ Neuro: Status post left hemicraniectomy site clean dry and intact, right srinivas hole ICP monitor removed without erythema or drainage. Sedated, positive cough and gag. Positive corneal reflex. Withdraws to pain in bilateral lower extremity's. Orally intubated, Pallor present, no icterus, tongue/ mucosa moist. Pupils 3 mm bilaterally reacting actively to light and accommodation. Neck: No JVD or thyromegaly. No lymphadenopathy. Chest/Pulm: on mech vent, good air entry bilaterally, no wheezing or crackles, CVS: Regular rate and rhythm S1, S2 no S4 without murmur GI/abdomen: soft, nontender nondistended Extremities: No clubbing cyanosis or trace bilateral lower extremity edema, distal pulses are palpable bilaterally Skin is warm dry and intact, well perfused Line: Central Venous Catheter Side: Left Location: Subclavian A/P Assessment and Plan Middle age male brought in as trauma alert following fall from a 6 foot ladder with: TBI: Left subdural hemorrhage, bilateral subarachnoid hemorrhage left greater than right, bifrontal contusions, left temporal lobe contusion Encephalopathy Elevated ICP status post Left frontotemporal parietal decompressive craniectomy , evacuation of acute subdural hematoma with placement of right I's CP monitor Splenic laceration Acute respiratory failure on mechanical ventilation Suspect aspiration pneumonia Plan: Neuro/Psych : Maintain sedation with propofol, off Versed and fentanyl, daily sedation medication, repeat head CT per neurosurgery, Underwent decompressive hemicraniectomy on the left by Dr. Stone on 06/01. Off 3% saline. Right ICP monitor removed. Daily sedation vacation okayed with neurosurgery. Currently on Keppra 500 mg IV twice a day Pulmonary : Continue full ventilator support. PRVC 18/500/12/05/44 Vent bundle, bronchodilators as needed. Cardiovascular: IV hydration. Off pressors. Labetalol and hydralazine prn for SBP greater than 160mm Hg, Nicardipine gtt as needed. Propranolol 20 mg by mouth every 8 hours sympathetic storming. Amlodipine 10 mg daily. Clonidine 0.3 mg every 8 hours added by trauma team for better blood pressure control. GI/liver: Continue tube feeds with vital 1.5 goal 60 cc an hour and advanced to goal as tolerated. Continue laxatives. Started Reglan 10 mg IV every 8 hourly to improve GI motility on 06/02. Renal/: Strict intake output, monitor and replete electrolites, follow BUN/creatinine. IV hydration. KVO IVF ID Ancef given in the trauma bay. Pancultures ordered on 06/03-sputum growing Enterobacter and beta strep, started zosyn (06/03) to cover for aspiration pneumonia Heme Serial hemoglobins to trend his grade 1 splenic laceration although there is no evidence of active bleeding 2 units of platelets were given due to his medication induced platelet dysfunction Endocrine: Watch for hyperglycemia, SSI for glycemic control if needed. Prophylaxis: PPI/SCDs. Discussed with PHYSICAL INSTRUCTOR Further recommendations per trauma team and neurosurgery. Recommend tracheostomy and PEG tube placement. Discussed with Dr. Adler and Dr. Stone on 06/06 Critical care will be available for tracheostomy when trauma team wants to proceed. Time spent on critical care excluding procedures 35 minutes Jordan Pena MD Jun 09, 2017 11:46
[2017-06-09] MEDS ORDERED: MORPHINE SULFATE 8 MG/ML INJ IV PUSH PRN (11:50)
[2017-06-09] MEDS ORDERED: hydrALAZINE HCL 20 MG/ML VIAL IV PUSH PRN (12:00)
[2017-06-09] MEDS: MORPHINE SULFATE 8 MG/ML INJ IV PUSH PRN ×2 (12:50→19:29)
[2017-06-09] MEDS: SODIUM CHLOR 0.9% 1000 ML INJ 1,000 ML IV SCH (17:11)
[2017-06-09] MEDS ORDERED: LORazepam 2 MG/ML VIAL IV PUSH ONE (17:15)
[2017-06-09] MEDS: SODIUM CHLORIDE 0.9% FLUSH 10 ML FLUSH IV FLUSH PRN (21:08)
[2017-06-10] VITALS (18 sets, daily range): BP systolic 134–169; BP diastolic 65–76; PULSE 72–112; RESP 17–28; TEMP 98.6–99.9; O2SAT 93–99
[2017-06-10] MEDS: FOSPHENYTOIN INJ 100 MGPE in SODIUM CHLORIDE 0.9% INJ 50 ML IV SCH ×5 (00:06→23:31)
[2017-06-10] MEDS: PIPERACIL-TAZO 4.5 GM PREMIX 100 ML IV SCH ×5 (00:06→23:30)
[2017-06-10] MEDS: niCARdipine 25 MG/NS 250 ML Vial2Bag or IV room IV SCH ×6 (00:22→09:49)
[2017-06-10] MEDS: MORPHINE SULFATE 8 MG/ML INJ IV PUSH PRN (00:23)
[2017-06-10] MEDS: PROPOFOL 1000 MG/100 ML INJ 100 ML IV SCH ×3 (00:55→10:34)
[2017-06-10] MEDS: levETIRAcetam INJ 500 MG in SODIUM CHLORIDE 0.9% INJ 100 ML IV SCH ×2 (03:18→15:33)
[2017-06-10] MEDS: CHLORHEXIDINE GLUCONATE 2 % 1 PACK (2 CLOTHS) TOP SCH (03:18)
[2017-06-10] MEDS: RESP: ALBUTEROL 2.5 MG/IPRATROPIUM 0.5 MG NEB (SCH) NEB ×4 (04:18→21:09)
--- NOTE | 2017-06-10 04:22 | RADRPT ---
EXAM DATE/TIME: 06/10/2017 03:49 [facility] COMPARISON: CHEST SINGLE AP, June 09, 2017, 4:55. INDICATIONS : Evaluate respiratory failure and ETT post trauma. MEDICAL HISTORY : None. SURGICAL HISTORY : Craniotomy. ENCOUNTER: Subsequent ACUITY: 1 week PAIN SCORE: Non-responsive. LOCATION: Bilateral chest FINDINGS: Endotracheal tube tip at the inferior margin of the clavicles. Left subclavian line tip overlies the SVC. Cardiomegaly and bilateral consolidation in the lower lobes, small left effusion. Overall no sig nificant interval change. CONCLUSION: No significant change has occurred. Johann Silvestre MD on June 10, 2017 at 4:20 Board Certified Radiologist. This report was verified electronically.
[2017-06-10 04:31] LABS: AUTOMATED NEUTROPHIL # 8.7 TH/MM3 (1.8-7.7); BASOPHIL # 0.1 TH/MM3 (0-0.2); BASOPHIL % 1.1 % (0.0-2.0); EOSINOPHIL # 0.4 TH/MM3 (0-0.4); EOSINOPHIL % 3.6 % (0.0-4.0); HEMATOCRIT 28.6 % (39.0-51.0); HEMO FLAGS DIFF FINAL; LYMPH % 13.3 % (9.0-44.0); LYMPHOCYTE # 1.5 TH/MM3 (1.0-4.8); MEAN CELL VOLUME 90.6 FL (80.0-100.0); MEAN CORPUSCULAR HGB CONC 33.1 % (32.0-36.0); MONO % 6.1 % (0.0-8.0); NEUT % 75.9 % (16.0-70.0); PLATELET COUNT 269 TH/MM3 (150-450); RED BLOOD COUNT 3.16 MIL/MM3 (4.50-5.90); WHITE BLOOD COUNT 11.5 TH/MM3 (4.0-11.0)
[2017-06-10] MEDS: PROPRANOLOL HCL 10 MG TAB PO SCH ×2 (04:48→14:49)
[2017-06-10] MEDS: METOCLOPRAMIDE HCL 10 MG/2 ML VIAL IV PUSH SCH (04:48)
[2017-06-10] MEDS: cloNIDine HCL 0.3 MG TAB PO SCH (04:48)
[2017-06-10 04:49] LABS: ANION GAP 9 MEQ/L (5-15); AST (GOT) 111 U/L (15-37); BLOOD UREA NITROGEN 29 MG/DL (7-18); CHLORIDE 113 MEQ/L (98-107); GLOMERULAR FILTRATION RATE 97 ML/MIN (>89); MAGNESIUM 1.8 MG/DL (1.5-2.5); POTASSIUM 3.7 MEQ/L (3.5-5.1); SODIUM (NA) 143 MEQ/L (136-145)
[2017-06-10] MEDS: FREE WATER G-TUBE SCH ×3 (04:49→20:14)
[2017-06-10 04:50] LABS: ALT (GPT) 112 U/L (12-78)
[2017-06-10 04:53] LABS: ALKALINE PHOSPHATASE 334 U/L (45-117); TOTAL BILIRUBIN ADULT 0.6 MG/DL (0.2-1.0)
[2017-06-10 05:13] LABS: BLOOD GAS BASE EXCESS -4.3 mmol/L (-2-2); BLOOD GAS HCO3 20 mmol/L (22-26); BLOOD GAS O2 HGB SATURATION 96 % (90-100); BLOOD GAS PCO2 32 mmHg (38-42); BLOOD GAS PO2 106 mmHg (61-120); BLOOD GAS TOTAL HGB 11.8 G/DL (12.0-16.0); CRITICAL VALUE NO; DRAW SITE ART LINE; FIO2 45 %; OXYGEN DEVICE VENT; STAT NO; TEMP CORR TO 98.6; ULNAR PULSE PRESENT
[2017-06-10 05:14] LABS: VENT SETTINGS SEE COMMENTS
[2017-06-10] MEDS: DOCUSATE SODIUM 100 MG/10 ML UDC PO SCH ×2 (07:31→19:41)
[2017-06-10] MEDS: CHLORHEXIDINE 0.12% (ORAL KIT) 15 ML CUP MT SCH ×2 (07:58→19:42)
[2017-06-10] MEDS: PANTOPRAZOLE SODIUM 40 MG VIAL IVP SCH (08:38)
[2017-06-10] MEDS: SODIUM CHLORIDE 0.9% FLUSH 5 ML FLUSH IVF SCH ×2 (09:00→19:41)
[2017-06-10] MEDS ORDERED: ENOXAPARIN SODIUM 40 MG/0.4 ML SYRINGE SQ SCH (12:00)
[2017-06-10] MEDS ORDERED: niCARdipine 25 MG/250 ML IVPB IV SCH ×2 (12:00)
[2017-06-10] MEDS ORDERED: NICARDIPINE IV SCH ×3 (12:15→20:00)
[2017-06-10] MEDS ORDERED: SODIUM CHLOR 0.9% IV SCH ×3 (12:15→20:00)
--- NOTE | 2017-06-10 14:20 | HHI.CCPN ---
Subjective Brief History Patient who fell from six-foot ladder while working hit his head sustained severe brain injury with decreasing Rubio Coma Scale from 11 down to 3. Intubated and ventilated on the scene brought in as priority 1 trauma alert. Patient underwent right decompressive craniotomy and remains in the ICU since Final injuries TBI: Left subdural hemorrhage, bilateral subarachnoid hemorrhage left greater than right, bifrontal contusions, left temporal lobe contusion Encephalopathy Elevated ICP status post Left frontotemporal parietal decompressive craniectomy , evacuation of acute subdural hematoma with placement of right I's CP monitor Splenic laceration Acute respiratory failure on mechanical ventilation Suspect aspiration pneumonia at the time of the event 24 Hour Review/Hospital Course 05/31/17 Patient suffered elevation in his ICP, responsive to increase sedation and hypertonic saline boluses Repeat imaging shows slight improvement 06/01/17 ICP continue to increase when sedation is stopped, neurosurgery considering surgical intervention 06/02/17 Patient underwent right craniectomy yesterday, his ICPs have been in the single digits Weaning Versed drip to off, we will continue propofol for sedation as he does continue to become agitated Discuss likelihood of tracheostomy and PEG placement with 06/03/17 Clinically patient is stable, he continues to be on sedation CT scan suggests loss of bowen-white matter indicative of possible RICO 06/04/17 off sedation moving extremities opening eyes but not following commands ICP ies in normal range 06/05 mental status unchanged,not opening eyes today requires sedation prn 06/06 no changes remains low GCS BP slightly elevated on cardene drip Had high residuals -tube feeds 06/07 GCS 3T today BP better controlled tube feeds better controlled neuro input appreciated 06/08 moving lower extremities today -however not purposeful episode of storming BP -low dose cardene 06/[address] good response ro pain meds storming episode 06/08-when off sedation GCS 5T unchanged 06/10/17 Patient has been stable overnight yet the yesterday developed some jerking motion and repeat EEG G reveals complex focal seizure activity Patient currently on Keppra Dilantin and valproic acid Remains intubated and ventilated Initial plan to wean and extubate the patient at this point has to be abandoned till we control the seizures syndrome and will go from there Objective Vital Signs Date Time Temp Pulse Resp B/P Pulse Ox O2 Delivery O2 Flow Rate FiO2 06/10/17 13:04 40 06/10/17 13:04 95 06/10/17 12:00 99.1 110 28 163/69 06/09/17 19:30 Mechanical Ventilator Intake and Output 06/09/17 06/09/17 06/10/17 08:00 16:00 00:00 Intake Total 1233 ml 1400 ml 1604 ml Output Total 750 ml 600 ml 900 ml Balance 483 ml 800 ml 704 ml Result Diagram: 06/10/17 0410 06/10/17 0410 Other Results Laboratory Tests Test 06/10/17 04:55 Blood Gas Puncture Site ART LINE Blood Gas Patient Temperature 98.6 Blood Gas HCO3 20 mmol/L (22-26) Blood Gas Base Excess -4.3 mmol/L (-2-2) Blood Gas Oxygen Saturation 96 % (90-100) Arterial Blood pH 7.40 (7.380-7.420) Arterial Blood Partial 32 mmHg (38-42) Pressure CO2 Arterial Blood Partial 106 mmHg Pressure O2 (61-120) Arterial Blood Oxygen Content 16.0 Vol % (12.0-20.0) Arterial Blood 1.0 % (0-4) Carboxyhemoglobin Arterial Blood Methemoglobin 1.0 % (0-2) Blood Gas Hemoglobin 11.8 G/DL (12.0-16.0) Oxygen Delivery Device VENT Blood Gas Ventilator Setting SEE COMMENTS Blood Gas Inspired Oxygen 45 % Imaging Last 24 hours Impressions Chest X-Ray 06/10/17 0600 Signed Impressions: Service Date/Time: Saturday, June 10, 2017 03:49 - CONCLUSION: No significant change has occurred. 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 EEG has been performed and allegedly confirmed the same Patient now remains intubated and ventilated to well-controlled this whole situation and is currently on Keppra valproic acid and Dilantin Hemodynamic/Cardiac Hemodynamically stable Patient is extremely hypertensive requiring multiple medications and is currently in detail and off sympathetic storm Will place patient on Cardene drip Hydralazine Catapres patch In addition patient is on propranolol to control sympathetic storm and probably will be able to wean of the Cardene drip in the near future as the sympathetic* storm resolves Pulmonary/Respiratory Gradually improving pulmonary function with improving PO2 FiO2 gradient Currently we cannot wean the patient due to neurologic function and patient will require tracheostomy/peg Abdomen/GI Nutrition Abdomen soft enteral feedings as tolerated Renal/I&O Renal function is normal and preserved with adequate urine output Vascular Central Line Catheter Line: Central Venous Catheter Side: Left Location: Subclavian Assessment and Plan Plan -sedation off gcs 5T max Continue full ventilator support for respiratory failure Continue nutritional support Seizure prophylaxis with Keppra/dilantin-neurology input appreciated clonidin for better BP control add propranolol add free water will need peg/trach if family would like to proceed Patient remains critically ill with traumatic brain injury following a fall Attestation Critical care time 42 minutes Hattie Kang MD Jun 10, 2017 14:20
[2017-06-10] MEDS: cloNIDine HCL 0.3 MG/24 HR PATCH T-DERMAL SCH (14:49)
[2017-06-10] MEDS: VALPROATE INJ 500 MG in SODIUM CHLORIDE 0.9% INJ 100 ML IV SCH ×2 (15:00→23:31)
[2017-06-10] MEDS ORDERED: VALPROATE INJ 500 MG in SODIUM CHLORIDE 0.9% INJ 100 ML IV SCH (15:00)
[2017-06-10] MEDS: fentaNYL 2,500 MCG/NS 250 ML IV SCH ×2 (15:36→19:40)
--- NOTE | 2017-06-10 16:13 | PD.CONS ---
HPI History of Present Illness This is a 62 year old male brought as a trauma alert after he fell from a ladder and sustained severe brain injury. He is s/p decompressive craniotomy and on a ventilator. Hx obtained from EMR, pt is intubated. (Ashley Diane) PFSH Past Medical History Myocardial infarction Cardiac stents Hypertension Arthritis . Past Surgical History Bilateral knee replacement Rotator cuff surgery . (Ashley Diane) Coded Allergies: No Known Allergies (Unverified , 06/06/17) Per patient's , the patient has no allergies. Family History unable to obtain . Social History unable to obtain (Ashley Diane) Review of Systems ROS unable to obtain (Ashley Diane) GI Exam Vitals I&O Vital Signs Date Time Temp Pulse Resp B/P Pulse Ox O2 Delivery O2 Flow Rate FiO2 06/10/17 14:00 107 06/10/17 13:04 40 06/10/17 13:04 95 40 06/10/17 12:00 99.1 110 28 163/69 93 06/10/17 12:00 40 06/10/17 12:00 112 06/10/17 10:00 111 06/10/17 08:18 98 40 06/10/17 08:00 83 06/10/17 08:00 99.1 83 21 159/69 98 06/10/17 08:00 45 06/10/17 06:00 72 06/10/17 04:15 96 45 06/10/17 04:00 99.7 90 21 146/65 96 06/10/17 04:00 84 06/10/17 04:00 45 06/10/17 02:00 84 06/10/17 01:21 98 45 06/10/17 00:00 45 06/10/17 00:00 99.9 87 20 169/70 99 06/10/17 00:00 87 06/09/17 23:37 99 45 06/09/17 22:00 83 06/09/17 20:30 98 45 06/09/17 20:00 105 06/09/17 20:00 100.2 105 20 175/74 95 06/09/17 20:00 45 06/09/17 19:30 95 Mechanical Ventilator 45 06/09/17 18:00 87 06/09/17 16:37 97 45 06/09/17 16:00 45 06/09/17 16:00 99.0 82 22 158/68 100 06/09/17 16:00 82 I/O 06/09/17 06/09/17 06/09/17 06/10/17 06/10/17 06/10/17 07:00 15:00 23:00 07:00 15:00 23:00 Intake Total 1233 ml 1400 ml 1604 ml 1758 ml 1108 ml Output Total 750 ml 600 ml 900 ml 900 ml 1000 ml Balance 483 ml 800 ml 704 ml 858 ml 108 ml Intake IV Total 710 ml 761 ml 868 ml 1125 ml 770 ml Tube Feeding 323 ml 439 ml 536 ml 433 ml 338 ml Other 200 ml 200 ml 200 ml 200 ml Output Urine Total 650 ml 600 ml 900 ml 900 ml 1000 ml Stool Total 100 ml # Bowel Movements 1 1 1 2 Imaging Last Impressions Chest X-Ray 06/10/17599 Signed Impressions: Service Date/Time: Saturday, June 10, 2017 03:49 - CONCLUSION: No significant change has occurred. Johann Silvestre MD Head CT 06/04/17 06 Signed Impressions: Service Date/Time: Sunday, June 04, 2017 04:57 - CONCLUSION: Continued evolution of the blood products throughout the brain status post left temporal craniotomy. The catheters are in excellent position. No new hemorrhage is identified. Ze Alicea MD Chest CT 05/30/171346 Signed Impressions: Service Date/Time: Tuesday, May 30, 2017 13:53 - CONCLUSION: Bibasilar nonspecific infiltrates suggestive of pulmonary contusions. Sanjay Donis MD Abdomen/Pelvis CT 05/30/171346 Signed Impressions: Service Date/Time: Tuesday, May 30, 2017 13:53 - CONCLUSION: 1. There appears to be a small amount of fluid along the inferior aspect of the spleen suspicious for a inferior laceration. No significant free fluid is seen in the abdomen or pelvis. 2. Benign-appearing left renal cyst. 3. Bibasilar infiltrates suggestive of pulmonary contusions. Sanjay Donis MD Pelvis X-Ray 05/30/17 090 Signed Impressions: Service Date/Time: Tuesday, May 30, 2017 13:24 - CONCLUSION: The bony structures are grossly intact. Sanjay Donis MD Cervical Spine CT 05/30/17 1337 Signed Impressions: Service Date/Time: Tuesday, May 30, 2017 13:55 - CONCLUSION: 1. No acute bony fracture. 2. Moderate diffuse primary bony degenerative changes, disc degeneration and disc space narrowing at multiple levels from C3-C7. Sanjay Donis MD Laboratory Test 06/10/17 06/10/17 04:10 04:55 White Blood Count 11.5 TH/MM3 Red Blood Count 3.16 MIL/MM3 Hemoglobin 9.5 GM/DL Hematocrit 28.6 % Mean Corpuscular Volume 90.6 FL Mean Corpuscular Hemoglobin 30.0 PG Mean Corpuscular Hemoglobin 33.1 % Concent Red Cell Distribution Width 15.0 % Platelet Count 269 TH/MM3 Mean Platelet Volume 10.0 FL Neutrophils (%) (Auto) 75.9 % Lymphocytes (%) (Auto) 13.3 % Monocytes (%) (Auto) 6.1 % Eosinophils (%) (Auto) 3.6 % Basophils (%) (Auto) 1.1 % Neutrophils # (Auto) 8.7 TH/MM3 Lymphocytes # (Auto) 1.5 TH/MM3 Monocytes # (Auto) 0.7 TH/MM3 Eosinophils # (Auto) 0.4 TH/MM3 Basophils # (Auto) 0.1 TH/MM3 CBC Comment DIFF FINAL Differential Comment Sodium Level 143 MEQ/L Potassium Level 3.7 MEQ/L Chloride Level 113 MEQ/L Carbon Dioxide Level 21.0 MEQ/L Anion Gap 9 MEQ/L Blood Urea Nitrogen 29 MG/DL Creatinine 0.81 MG/DL Estimat Glomerular Filtration 97 ML/MIN Rate Random Glucose 123 MG/DL Calcium Level 8.6 MG/DL Phosphorus Level 3.1 MG/DL Magnesium Level 1.8 MG/DL Total Bilirubin 0.6 MG/DL Aspartate Amino Transf 111 U/L (AST/SGOT) Alanine Aminotransferase 112 U/L (ALT/SGPT) Alkaline Phosphatase 334 U/L Total Protein 6.1 GM/DL Albumin 1.9 GM/DL Blood Gas Puncture Site ART LINE Blood Gas Patient Temperature 98.6 Blood Gas HCO3 20 mmol/L Blood Gas Base Excess -4.3 mmol/L Blood Gas Oxygen Saturation 96 % Arterial Blood pH 7.40 Arterial Blood Partial 32 mmHg Pressure CO2 Arterial Blood Partial 106 mmHg Pressure O2 Arterial Blood Oxygen Content 16.0 Vol % Arterial Blood 1.0 % Carboxyhemoglobin Arterial Blood Methemoglobin 1.0 % Blood Gas Hemoglobin 11.8 G/DL Oxygen Delivery Device VENT Blood Gas Ventilator Setting SEE COMMENTS Blood Gas Inspired Oxygen 45 % Physical Examination HEENT: normocephalic; atraumatic; no jaundice. CHEST: coarse CARDIAC: RRR ABDOMEN: Soft, mildly distended; no hepatosplenomegaly; bowel sounds are present in all four quadrants. EXTREMITIES: No clubbing, cyanosis, or edema. SKIN: Normal; no rash; no jaundice. DOCTOR OF CHIROPRACTIC: intubated (Ashley Diane) Assessment and Plan Plan ASSESSMENT - dysphagia - pt brought as trauma after fall from ladder, suffered brain injury , need for prolonged ventilatory support. will do EGD w/ PEG placement attempted to d/w with Marisabel [phone] at 1600 but no answer and voicemailbox full, unable to leave message as voicemail box was full. - left subdural hematoma, bilat subarachnoid hemorrhage, bifrontal contusions, left temporal lobe contusion - per [facility] - EGD with PEG placement - obtain consents - NPO after midnight - hold lovenox - on abx - supportive care This pt was seen by myself and Dr Tony and this note is written on his behalf (Ashley Diane) Physician Comments patient was seen and examined, agree with above note and plan, for EGD, PEG in am, hold anti coagulation tonight. (Renetta Tony MD) Ashley Diane Jun 10, 2017 16:13 Renetta Tony MD Jun 10, 2017 19:24
--- NOTE | 2017-06-10 17:12 | HHI.CCPN ---
Subjective Remarks/Hospital Course 05/30: Patient came in as a trauma alert. 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 He was working with his colleagues and they saw him just prior to the accident when he was at his baseline mental status. He fell. The exact nature of the fall is unknown. However after that he was acting bizarre. As per EMS he was combative at the scene and not making sens, repeating the same words which do not make sense. Was hypertensive with blood pressure in 185 systolic. As per EMS GCS at the best was 11. Past medical history is unknown. Upon arrival patient was a GCS 11 and blood pressure was 205 systolic. He was combative. Patient was intubated by ER physician, evaluated by trauma team and subsequently underwent imaging studies and was transferred to ICU. Critical care was consulted by Dr. Araiza for TBI with acute respiratory failure. Per discussion with Dr. Araiza patient didn't appear to have traumatic subdural and subarachnoid hemorrhage as well as a splenic laceration. He also had some bleeding from a scalp laceration on arrival to the ICU. Patient required sedation with propofol following arrival to the ICU as he was starting to gag and cough and was attempting to move both lower extremities. I emergently placed a right subclavian central line for central vascular access which was replaced with a left subclavian central line subsequently as it was turning up into the internal jugular vein. Neurosurgery Dr. Stone had all ready been informed by trauma team and was planning to do a bolt for ICP monitoring. History was obtained by reviewing records and discussion with Dr. Araiza and ICU nursing staff. 05/31: Remains sedated, orally intubated on mechanical ventilation. Required initiation of 3% saline and received 23% saline last night for elevated ICP. On propofol/Versed/fentanyl drips as well as 3% saline this morning and was started on Nimbex for neuromuscular blockade for elevated ICPs. 06/01: Remains sedated, orally intubated on mechanical ventilation. On propofol/ Versed/fentanyl/Nimbex/3% saline drips this morning. 06/02: Underwent decompressive hemicraniectomy done on 06/[address] Stone. Remains sedated, orally intubated on mechanical ventilation. Off Nimbex currently. Remains on propofol/versed/ fentanyl gtt. 3% saline off currently. 06/03: Remains sedated, orally intubated on mech vent. Tolerating tube feeds. Sedation being titrated down. 06/04: Remains sedated, orally intubated on mechanical ventilation, tolerating tube feeds. 06/05: Sedated, orally intubated on mechanical ventilation. Tolerating tube feeds. ICPs remain around 5-10 06/06, 06/07: Sedated, orally intubated on mechanical ventilation. 06/08: Remains encephalopathic off sedation, orally intubated on mechanical ventilation. Propofol to maintain vent synchrony. Subjective 06/09: Hypertensive overnight requiring reinitiation via the Cardene drip. Sympathetic storm yesterday so no sedation vacation today. Tolerating tube feeding at goal. 06/10: Apparently had seizure yesterday, currently on Dilantin, Keppra and valproate. No other acute events overnight. EEG done today report pending, but perEEG tech showed focal seizures. Remains on Cardene at 12.5 mg per hour Objective Vital Signs Date Time Temp Pulse Resp B/P Pulse Ox O2 Delivery O2 Flow Rate FiO2 06/10/17 16:00 98.8 93 19 134/69 98 06/10/17 16:00 40 06/09/17 19:30 Mechanical Ventilator Intake and Output 06/09/17 06/09/17 06/09/17 07:59 15:59 23:59 Intake Total 1233 ml 1400 ml 1604 ml Output Total 750 ml 600 ml 900 ml Balance 483 ml 800 ml 704 ml Result Diagram: 06/10/17 0410 06/10/17 0410 Other Results Laboratory Tests Test 06/10/17 04:55 Blood Gas Puncture Site ART LINE Blood Gas Patient Temperature 98.6 Blood Gas HCO3 20 mmol/L (22-26) Blood Gas Base Excess -4.3 mmol/L (-2-2) Blood Gas Oxygen Saturation 96 % (90-100) Arterial Blood pH 7.40 (7.380-7.420) Arterial Blood Partial 32 mmHg (38-42) Pressure CO2 Arterial Blood Partial 106 mmHg Pressure O2 (61-120) Arterial Blood Oxygen Content 16.0 Vol % (12.0-20.0) Arterial Blood 1.0 % (0-4) Carboxyhemoglobin Arterial Blood Methemoglobin 1.0 % (0-2) Blood Gas Hemoglobin 11.8 G/DL (12.0-16.0) Oxygen Delivery Device VENT Blood Gas Ventilator Setting SEE COMMENTS Blood Gas Inspired Oxygen 45 % Imaging Last 72 hours Impressions Chest X-Ray 06/09/17599 Signed Impressions: Service Date/Time: Friday, June 09, 2017 04:55 - CONCLUSION: No significant change has occurred. Johann Silvestre MD Chest X-Ray 06/08/17599 Signed Impressions: Service Date/Time: Thursday, June 08, 2017 03:43 - CONCLUSION: 1. The support equipment is in good position. 2. Minimal left basilar effusion and atelectasis. Johann Silvestre MD Chest X-Ray 06/07/17599 Signed Impressions: Service Date/Time: May 02:58 - CONCLUSION: No significant interval change with persistent left greater than right basilar lung opacity. Tarik Ahn MD Objective Remarks GEN: 62 yo male, critically ill currently orotracheally intubated Neuro: Left hemicraniectomy site clean dry and intact, right srinivas hole ICP monitor removed without erythema or drainage. Sedated with Fentanyl, positive cough and gag. Positive corneal reflex. Withdraws to pain in bilateral lower extremity's. Today spontaneous movements of the upper and lower extremities noted HEENT: Orally intubated, Pallor present, no icterus, tongue/ mucosa moist. Pupils 3 mm bilaterally reacting actively to light and accommodation. Neck: No JVD or thyromegaly. No lymphadenopathy. Chest/Pulm: on mech vent, good air entry bilaterally, no wheezing or crackles, CVS: Regular rate and rhythm S1, S2 no S4 without murmur GI/abdomen: soft, nontender nondistended Extremities: No clubbing cyanosis or trace bilateral lower extremity edema, distal pulses are palpable bilaterally Skin is warm dry and intact, well perfused Line: Central Venous Catheter Side: Left Location: Subclavian A/P Assessment and Plan Middle age male brought in as trauma alert following fall from a 6 foot ladder with: TBI: Left subdural hemorrhage, bilateral subarachnoid hemorrhage left greater than right, bifrontal contusions, left temporal lobe contusion Encephalopathy Elevated ICP status post Left frontotemporal parietal decompressive craniectomy , evacuation of acute subdural hematoma with placement of right I's CP monitor Splenic laceration Acute respiratory failure on mechanical ventilation Suspect aspiration pneumonia Uncontrolled hypertension Plan: Neuro/Psych : Maintain sedation with fentanyl, off Versed and propofol, daily sedation medication, repeat head CT per neurosurgery. Underwent decompressive hemicraniectomy on the left by Dr. Stone on 06/01. Off 3% saline. Right ICP monitor removed. Daily sedation vacation okayed with neurosurgery. Currently on Keppra, Dilantin and valproic acid for focal sz on EEG today Pulmonary : Continue full ventilator support. PRVC 18/500/45 Vent bundle, bronchodilators as needed. Cardiovascular: IV hydration. Off pressors. Labetalol and hydralazine prn for SBP greater than 160mm Hg, Nicardipine gtt for uncontrolled hypertension Propranolol 20 mg by mouth every 8 hours sympathetic storming-increased to 60 every 8 hours. Amlodipine 10 mg daily. Clonidine 0.3 mg every 8 hours added by trauma team for better blood pressure control. GI/liver: Continue tube feeds with vital 1.5 goal 60 cc an hour and advanced to goal as tolerated. Continue laxatives. Off Reglan, having bowel movements Renal/: Strict intake output, monitor and replete electrolytes, follow BUN/creatinine. IV hydration. KVO IVF ID Ancef given in the trauma bay. Pancultures ordered on 06/03-sputum growing Enterobacter and beta strep, started zosyn (06/03) to cover for aspiration pneumonia Heme Serial hemoglobins to trend his grade 1 splenic laceration although there is no evidence of active bleeding 2 units of platelets were given due to his medication induced platelet dysfunction Endocrine: Watch for hyperglycemia, SSI for glycemic control if needed. Prophylaxis: PPI/SCDs. Discussed with CHEF Further recommendations per trauma team and neurosurgery. Probably need tracheostomy and PEG tube placement.CCM Discussed with Dr. Adler and Dr. Stone on 06/06 Critical care will be available for tracheostomy when trauma team wants to proceed. Level 3 Daniel Stevens MD Jun 10, 2017 17:12
[2017-06-10] MEDS: SODIUM CHLOR 0.9% 1000 ML INJ 1,000 ML IV SCH (17:15)
[2017-06-10] MEDS: SODIUM CHLORIDE 0.9% FLUSH 10 ML FLUSH IV FLUSH PRN (19:41)
[2017-06-10] MEDS: NICARDIPINE IV SCH (20:04)
[2017-06-10] MEDS: SODIUM CHLOR 0.9% IV SCH (20:04)
[2017-06-10] MEDS: FAMOTIDINE 20 MG TAB NG SCH (20:14)
--- NOTE | 2017-06-10 21:45 | MG ---
cc: RICK PARK M.D. Lab No: Date: 06/10/2017 Age: Sex: M Race: ELECTROENCEPHALOGRAM NUMBER [id number] INTRODUCTION Sedated on Diprivan. He fell, left side compression craniotomy. MEDICATIONS 1. Morphine. 2. Keppra. DESCRIPTION OF RECORDING There is definite left breach rhythm but diffuse 6 Hz rhythm is noted but focal delta slowing is seen of high amplitude over the left central and temporal head region. No real epileptiform or seizure activity is seen, however. Photic stimulation was performed without significant posterior driving. IMPRESSION Focal slowing and a breach rhythm over the left hemisphere but no epileptiform or seizure activity is seen. Rick Park MD DJM/KK /9:42 PM /9:46 PM
[2017-06-10] MEDS: PROPRANOLOL HCL 20 MG TAB PO SCH (22:23)
[2017-06-11] VITALS (22 sets, daily range): BP systolic 136–161; BP diastolic 63–75; PULSE 78–110; RESP 14–33; TEMP 97.9–99; O2SAT 88–100
[2017-06-11] MEDS ORDERED: MIDAZOLAM HCL 5 MG/ML VIAL (1 ML) ONE (02:01)
[2017-06-11] MEDS: MIDAZOLAM HCL 2 MG/2 ML VIAL IV PRN ×5 (02:16→10:21)
[2017-06-11] MEDS: levETIRAcetam INJ 500 MG in SODIUM CHLORIDE 0.9% INJ 100 ML IV SCH ×2 (03:35→16:42)
[2017-06-11] MEDS: CHLORHEXIDINE GLUCONATE 2 % 1 PACK (2 CLOTHS) TOP SCH (03:36)
[2017-06-11] MEDS: RESP: ALBUTEROL 2.5 MG/IPRATROPIUM 0.5 MG NEB (SCH) NEB ×4 (04:04→20:33)
[2017-06-11] MEDS: fentaNYL 2,500 MCG/NS 250 ML IV SCH ×2 (04:38→18:03)
[2017-06-11 05:04] LABS: AUTOMATED NEUTROPHIL # 13.9 TH/MM3 (1.8-7.7); BASOPHIL # 0.1 TH/MM3 (0-0.2); BASOPHIL % 0.7 % (0.0-2.0); EOSINOPHIL # 0.4 TH/MM3 (0-0.4); EOSINOPHIL % 2.2 % (0.0-4.0); HEMATOCRIT 27.2 % (39.0-51.0); HEMO FLAGS DIFF FINAL; LYMPHOCYTE # 1.2 TH/MM3 (1.0-4.8); MEAN CORPUSCULAR HEMOGLOBIN 29.4 PG (27.0-34.0); MONO % 6.4 % (0.0-8.0); NEUT % 83.7 % (16.0-70.0); PLATELET COUNT 363 TH/MM3 (150-450); RED BLOOD COUNT 3.06 MIL/MM3 (4.50-5.90); RED CELL DISTRIBUTION WIDTH 14.6 % (11.6-17.2); WHITE BLOOD COUNT 16.6 TH/MM3 (4.0-11.0)
[2017-06-11] MEDS: PIPERACIL-TAZO 4.5 GM PREMIX 100 ML IV SCH ×4 (05:20→23:01)
[2017-06-11] MEDS: PROPRANOLOL HCL 20 MG TAB PO SCH ×3 (05:20→21:21)
[2017-06-11] MEDS: FOSPHENYTOIN INJ 100 MGPE in SODIUM CHLORIDE 0.9% INJ 50 ML IV SCH ×4 (05:21→23:01)
[2017-06-11] MEDS: FREE WATER G-TUBE SCH ×3 (05:21→19:19)
[2017-06-11 05:28] LABS: ALT (GPT) 104 U/L (12-78); ANION GAP 10 MEQ/L (5-15); AST (GOT) 88 U/L (15-37); BLOOD UREA NITROGEN 29 MG/DL (7-18); CHLORIDE 111 MEQ/L (98-107); GLOMERULAR FILTRATION RATE 105 ML/MIN (>89); POTASSIUM 3.3 MEQ/L (3.5-5.1); SODIUM (NA) 143 MEQ/L (136-145)
[2017-06-11 05:31] LABS: ALKALINE PHOSPHATASE 320 U/L (45-117); TOTAL BILIRUBIN ADULT 0.7 MG/DL (0.2-1.0)
[2017-06-11 06:03] LABS: BLOOD GAS BASE EXCESS -2.6 mmol/L (-2-2); BLOOD GAS CARBOXYHEMOGLOBIN 1.1 % (0-4); BLOOD GAS HCO3 21 mmol/L (22-26); BLOOD GAS METHEMOGLOBIN 1.1 % (0-2); BLOOD GAS O2 HGB SATURATION 91 % (90-100); BLOOD GAS OXYGEN CONTENT 11.5 Vol % (12.0-20.0); BLOOD GAS PCO2 33 mmHg (38-42); BLOOD GAS PO2 68 mmHg (61-120); BLOOD GAS TOTAL HGB 8.9 G/DL (12.0-16.0); CRITICAL VALUE NO; OXYGEN DEVICE VENTILATOR; TEMP CORR TO 98.6
[2017-06-11 06:04] LABS: DRAW SITE ART LINE; FIO2 70 %; STAT NO; ULNAR PULSE PRESENT; VENT SETTINGS PRVC12/500/1.0/+8
[2017-06-11] MEDS: VALPROATE INJ 500 MG in SODIUM CHLORIDE 0.9% INJ 100 ML IV SCH ×3 (06:38→23:01)
[2017-06-11] MEDS: POTASSIUM CHLOR 40 MEQ PREMIX 100 ML IV PRN (06:40)
[2017-06-11] MEDS: DOCUSATE SODIUM 100 MG/10 ML UDC PO SCH ×2 (09:00→19:18)
[2017-06-11] MEDS: SODIUM CHLORIDE 0.9% FLUSH 5 ML FLUSH IVF SCH ×2 (09:00→21:00)
[2017-06-11] MEDS: FAMOTIDINE 20 MG TAB NG SCH ×2 (09:46→21:21)
[2017-06-11] MEDS: CHLORHEXIDINE 0.12% (ORAL KIT) 15 ML CUP MT SCH ×2 (09:47→20:00)
--- NOTE | 2017-06-11 10:50 | HHI.HCPN ---
Reason for visit a. To assist with evaluation and management of symptoms including: pain, agitation, dyspnea b. To assist medical decision maker(s) with: better understanding of current medical conditions; weighing benefits/burdens of medical treatment options; making medical treatment decisions. Subjective/Interval History Mr. Evans is a 62 year old male patient who presented to [facility] ED on 05/30/2017 via EMS as a trauma alert after falling from a 6 foot ladder and hitting the back of his head on a concrete curb. Upon EMS arrival, the patient was reportedly combative with repetitive nonsensical speech. Patient presented to the ED hypertensive and confused with ongoing combativeness. He was intubated for patient safety and started on a Cardene drip. Patient's past medical history previous myocardial infarctions with cardiac stent placement, hypertension and arthritis. * 05/30/17-CT brain revealed a small left-sided subdural hematoma with approximately 6mm of separation adjacent to the left temporal lobe; bilateral subarachnoid hemorrhage (left >right); tiny hemorrhagic contusions in both frontal lobes; hemorrhagic contusions of the left temporal lobe. ICP monitor was placed and elevated ICP was managed medically. * 05/31/17- Patient remained intubated and sedated. * 06/01/17- The patient's ICPs became unstable, uncontrolled despite maximum medical management. He was taken to the OR for a decompressive craniectomy with evacuation of the subdural hematoma. Patient remains intubated on mechanical ventilator, currently on maximum dosage of Fentanyl drip, despite this he appears uncomfortable. The patient continues to exhibit S/S of "storming" per nursing however he tolerated SBT for approximately 12 hours yesterday. . Palliative Care was consulted to assist with symptom management and to discuss with the family the benefits and burdens of his current illnesses and the options regarding future care. . Family/friend interactions Awaiting return phone call from patient's , will attempt to initiate contact again today . Advance Directives Living Will: Never completed Health Care Surrogate: Never completed Durable Power of Web Developer Programmer: Never completed Advance Directive Specifics Health Care Surrogate(s): Per [place] Statutes, in the absence of written advanced directives health care proxy decision making falls to the patient's . . Documented care wishes: No known documented care wishes available at this time. . Objective Vital Signs Date Time Temp Pulse Resp B/P Pulse Ox O2 Delivery O2 Flow Rate FiO2 06/11/17 09:05 90 70 06/11/17 06:50 70 06/11/17 06:00 87 06/11/17 04:08 95 70 06/11/17 04:00 94 06/11/17 04:00 70 06/11/17 04:00 98.2 94 17 161/70 96 06/11/17 02:30 50 06/11/17 02:07 91 50 06/11/17 02:00 110 06/11/17 02:00 50 06/11/17 00:10 95 50 06/11/17 00:00 100 06/11/17 00:00 99.0 100 17 151/72 92 06/11/17 00:00 50 06/10/17 22:00 95 06/10/17 21:09 95 40 06/10/17 20:00 108 06/10/17 20:00 98.6 110 17 162/76 94 06/10/17 20:00 40 06/10/17 19:00 95 Mechanical Ventilator 40 06/10/17 18:00 106 06/10/17 17:12 96 40 06/10/17 16:00 98.8 93 19 134/69 98 06/10/17 16:00 85 06/10/17 16:00 40 06/10/17 14:00 107 06/10/17 13:04 40 06/10/17 13:04 95 40 06/10/17 12:00 99.1 110 28 163/69 93 06/10/17 12:00 40 06/10/17 12:00 112 Intake & Output 06/11/17 06/11/17 07:00 19:00 Intake Total 2957 ml Output Total 2350 ml Balance 607 ml Intake IV Total 1639 ml Tube Feeding 918 ml Other 400 ml Output Urine Total 2350 ml # Bowel Movements 0 . Physical Exam CONSTITUTIONAL/GENERAL: This is a critically ill, elderly male patient who is intubated on mechanical ventilator. TUBES/LINES/DRAINS:CVL, PIV, OGT, ETT, Whitfield, soft wrist restraints, SCDs SKIN: No jaundice, rashes, or lesions. Ecchymoses on upper extremities. Skin temperature appropriate. Not diaphoretic. HEAD: Incision status post craniectomy. EYES: Pupils equal, reactive, sluggish. No scleral icterus. Fundi not examined. ENT: Unable to assess hearing secondary to patient's clinical condition. Nose without bleeding or purulent drainage. NECK: Trachea midline. Supple, nontender. CARDIOVASCULAR: Regular rate and rhythm without murmurs, gallops, or rubs. No JVD. Peripheral pulses symmetric. RESPIRATORY/CHEST: Intubated on mechanical ventilator. Breath sounds diminished bilaterally. No wheezes, rales, or rhonchi. GASTROINTESTINAL: Abdomen firm, non-tender, nondistended. Hypoactive bowel sounds present. GENITOURINARY: Without palpable bladder distension. Whitfield catheter in place. MUSCULOSKELETAL: Extremities without clubbing, cyanosis. Trace edema in bilateral lower extremities. Bilateral upper extremities with 2+ edema. NEUROLOGICAL: Sedated, withdraws to noxious stimuli, no purposeful movement, does not follow commands. PSYCHIATRIC: Unable to assess secondary to patient's clinical condition and sedation . Diagnostic Tests Laboratory Laboratory Tests Test 06/08/17 06/09/17 06/09/17 06/10/17 22:00 03:42 04:00 04:10 Potassium Level 3.4 MEQ/L 3.8 MEQ/L 3.7 MEQ/L (3.5-5.1) (3.5-5.1) (3.5-5.1) Blood Gas Puncture Site ANIYAH Blood Gas Patient Temperature 98.6 Blood Gas HCO3 21 mmol/L (22-26) Blood Gas Base Excess -3.1 mmol/L (-2-2) Blood Gas Oxygen Saturation 94 % (90-100) Arterial Blood pH 7.43 (7.380-7.420) Arterial Blood Partial 32 mmHg (38-42) Pressure CO2 Arterial Blood Partial 81 mmHg Pressure O2 (61-120) Arterial Blood Oxygen Content 12.7 Vol % (12.0-20.0) Arterial Blood 1.1 % (0-4) Carboxyhemoglobin Arterial Blood Methemoglobin 1.0 % (0-2) Blood Gas Hemoglobin 9.6 G/DL (12.0-16.0) Oxygen Delivery Device VENTILATOR Blood Gas Ventilator Setting PRVC18/500/1.0/+10 Blood Gas Inspired Oxygen 45 % White Blood Count 10.3 TH/MM3 11.5 TH/MM3 (4.0-11.0) (4.0-11.0) Red Blood Count 3.17 MIL/MM3 3.16 MIL/MM3 (4.50-5.90) (4.50-5.90) Hemoglobin 9.5 GM/DL 9.5 GM/DL (13.0-17.0) (13.0-17.0) Hematocrit 28.8 % 28.6 % (39.0-51.0) (39.0-51.0) Mean Corpuscular Volume 91.0 FL 90.6 FL (80.0-100.0) (80.0-100.0) Mean Corpuscular Hemoglobin 29.9 PG 30.0 PG (27.0-34.0) (27.0-34.0) Mean Corpuscular Hemoglobin 32.8 % 33.1 % Concent (32.0-36.0) (32.0-36.0) Red Cell Distribution Width 15.6 % 15.0 % (11.6-17.2) (11.6-17.2) Platelet Count 218 TH/MM3 269 TH/MM3 (150-450) (150-450) Mean Platelet Volume 9.1 FL 10.0 FL (7.0-11.0) (7.0-11.0) Neutrophils (%) (Auto) 77.7 % 75.9 % (16.0-70.0) (16.0-70.0) Lymphocytes (%) (Auto) 13.4 % 13.3 % (9.0-44.0) (9.0-44.0) Monocytes (%) (Auto) 6.4 % (0.0-8.0) 6.1 % (0.0-8.0) Eosinophils (%) (Auto) 2.0 % (0.0-4.0) 3.6 % (0.0-4.0) Basophils (%) (Auto) 0.5 % (0.0-2.0) 1.1 % (0.0-2.0) Neutrophils # (Auto) 8.0 TH/MM3 8.7 TH/MM3 (1.8-7.7) (1.8-7.7) Lymphocytes # (Auto) 1.4 TH/MM3 1.5 TH/MM3 (1.0-4.8) (1.0-4.8) Monocytes # (Auto) 0.7 TH/MM3 0.7 TH/MM3 (0-0.9) (0-0.9) Eosinophils # (Auto) 0.2 TH/MM3 0.4 TH/MM3 (0-0.4) (0-0.4) Basophils # (Auto) 0.1 TH/MM3 0.1 TH/MM3 (0-0.2) (0-0.2) CBC Comment DIFF FINAL DIFF FINAL Differential Comment Sodium Level 145 MEQ/L 143 MEQ/L (136-145) (136-145) Chloride Level 114 MEQ/L 113 MEQ/L (98-107) (98-107) Carbon Dioxide Level 21.2 MEQ/L 21.0 MEQ/L (21.0-32.0) (21.0-32.0) Anion Gap 10 MEQ/L (5-15) 9 MEQ/L (5-15) Blood Urea Nitrogen 31 MG/DL (7-18) 29 MG/DL (7-18) Creatinine 0.81 MG/DL 0.81 MG/DL (0.60-1.30) (0.60-1.30) Estimat Glomerular Filtration 97 ML/MIN (>89) 97 ML/MIN (>89) Rate Random Glucose 116 MG/DL 123 MG/DL (74-106) (74-106) Calcium Level 8.3 MG/DL 8.6 MG/DL (8.5-10.1) (8.5-10.1) Phosphorus Level 2.6 MG/DL 3.1 MG/DL (2.5-4.9) (2.5-4.9) Magnesium Level 1.8 MG/DL 1.8 MG/DL (1.5-2.5) (1.5-2.5) Total Bilirubin 0.6 MG/DL 0.6 MG/DL (0.2-1.0) (0.2-1.0) Aspartate Amino Transf 122 U/L (15-37) 111 U/L (15-37) (AST/SGOT) Alanine Aminotransferase 101 U/L (12-78) 112 U/L (12-78) (ALT/SGPT) Alkaline Phosphatase 306 U/L 334 U/L (45-117) (45-117) Total Protein 6.3 GM/DL 6.1 GM/DL (6.4-8.2) (6.4-8.2) Albumin 1.9 GM/DL 1.9 GM/DL (3.4-5.0) (3.4-5.0) Test 06/10/17 06/11/17 06/11/17 04:55 04:40 05:51 Blood Gas Puncture Site ART LINE ART LINE Blood Gas Patient Temperature 98.6 98.6 Blood Gas HCO3 20 mmol/L 21 mmol/L (22-26) (22-26) Blood Gas Base Excess -4.3 mmol/L -2.6 mmol/L (-2-2) (-2-2) Blood Gas Oxygen Saturation 96 % (90-100) 91 % (90-100) Arterial Blood pH 7.40 7.43 (7.380-7.420) (7.380-7.420) Arterial Blood Partial 32 mmHg (38-42) 33 mmHg (38-42) Pressure CO2 Arterial Blood Partial 106 mmHg 68 mmHg Pressure O2 (61-120) (61-120) Arterial Blood Oxygen Content 16.0 Vol % 11.5 Vol % (12.0-20.0) (12.0-20.0) Arterial Blood 1.0 % (0-4) 1.1 % (0-4) Carboxyhemoglobin Arterial Blood Methemoglobin 1.0 % (0-2) 1.1 % (0-2) Blood Gas Hemoglobin 11.8 G/DL 8.9 G/DL (12.0-16.0) (12.0-16.0) Oxygen Delivery Device VENT VENTILATOR Blood Gas Ventilator Setting SEE COMMENTS PRVC12/500/1.0/+8 Blood Gas Inspired Oxygen 45 % 70 % White Blood Count 16.6 TH/MM3 (4.0-11.0) Red Blood Count 3.06 MIL/MM3 (4.50-5.90) Hemoglobin 9.0 GM/DL (13.0-17.0) Hematocrit 27.2 % (39.0-51.0) Mean Corpuscular Volume 89.0 FL (80.0-100.0) Mean Corpuscular Hemoglobin 29.4 PG (27.0-34.0) Mean Corpuscular Hemoglobin 33.0 % Concent (32.0-36.0) Red Cell Distribution Width 14.6 % (11.6-17.2) Platelet Count 363 TH/MM3 (150-450) Mean Platelet Volume 10.3 FL (7.0-11.0) Neutrophils (%) (Auto) 83.7 % (16.0-70.0) Lymphocytes (%) (Auto) 7.0 % (9.0-44.0) Monocytes (%) (Auto) 6.4 % (0.0-8.0) Eosinophils (%) (Auto) 2.2 % (0.0-4.0) Basophils (%) (Auto) 0.7 % (0.0-2.0) Neutrophils # (Auto) 13.9 TH/MM3 (1.8-7.7) Lymphocytes # (Auto) 1.2 TH/MM3 (1.0-4.8) Monocytes # (Auto) 1.1 TH/MM3 (0-0.9) Eosinophils # (Auto) 0.4 TH/MM3 (0-0.4) Basophils # (Auto) 0.1 TH/MM3 (0-0.2) CBC Comment DIFF FINAL Differential Comment Sodium Level 143 MEQ/L (136-145) Potassium Level 3.3 MEQ/L (3.5-5.1) Chloride Level 111 MEQ/L (98-107) Carbon Dioxide Level 22.0 MEQ/L (21.0-32.0) Anion Gap 10 MEQ/L (5-15) Blood Urea Nitrogen 29 MG/DL (7-18) Creatinine 0.76 MG/DL (0.60-1.30) Estimat Glomerular Filtration 105 ML/MIN Rate (>89) Random Glucose 130 MG/DL (74-106) Calcium Level 8.8 MG/DL (8.5-10.1) Total Bilirubin 0.7 MG/DL (0.2-1.0) Aspartate Amino Transf 88 U/L (15-37) (AST/SGOT) Alanine Aminotransferase 104 U/L (12-78) (ALT/SGPT) Alkaline Phosphatase 320 U/L (45-117) Total Protein 6.3 GM/DL (6.4-8.2) Albumin 2.0 GM/DL (3.4-5.0) . Result Diagram: 06/11/170 06/11/17 044 Imaging Last 48 hours Impressions Chest X-Ray 06/10/17 0600 Signed Impressions: Service Date/Time: Saturday, June 10, 2017 03:49 - CONCLUSION: No significant change has occurred. Johann Silvestre MD Procedures 05/30/17: Intubation 05/30/17: Nasogastric catheter placed 05/30/17: Right subclavian CVL placed . Assessment and Plan Disease Oriented Problem List: (1) Subarachnoid hemorrhage (2) Respiratory failure (3) Altered mental status (4) Head injury (5) Traumatic brain injury (6) Previous myocardial infarction older than 8 weeks (7) Hypertension Symptom Scale: (1) Pain 0-10 Scale: Unable to quantify Comment: Secondary to clinical condition, sedation and mechanical ventilation. (2) Agitation 0-10 Scale: Unable to quantify (Secondary to clinical condition, sedation and mechanical ventilation. ) Comment: Secondary to clinical condition, sedation and mechanical ventilation. (3) Dyspnea 0-10 Scale: Unable to quantify (Secondary to clinical condition, sedation and mechanical ventilation. ) Comment: Secondary to clinical condition, sedation and mechanical ventilation. Pertinent Non-Medical Issues Psychosocial: Patient is and lives with his in [place]. 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 Important Contacts Stacy Evans, Pato Ni, friend . Prognosis Patient is a 62-year-old man who sustained a traumatic brain injury after falling from a 6 foot ladder s/p decompressive craniectomy with evacuation of the subdural hematoma. Patient has had minimal neurological improvements, there is no purposeful movement and he is still unable to follow any commands. He remains intubated on mechanical ventilator and sedated on Fentanyl. The patient remains hypertensive and is still on a cardene drip. Patient remains critically ill without significant improvements since his admission. Poor prognosis. . Code Status: Full Code Plan * FULL CODE * Decision making: Per [place] statutes, and absence of written advanced directives healthcare proxy decision-making falls to the patient's . * Goals remain aggressive at this time. * Palliative care attempted to contact patient's via telephone twice last week and has not received a return phone call. An additional attempt to make contact with the patient's will be completed today. * Limited medical history and/or psychosocial history is available pending conversation/meeting with patient's . * Symptom managementpain: Patient has been sedated on Fentanyl at the maximum allowable dosage, despite this the patient appears to be uncomfortable. Per trauma surgeon's orders the patient will be started on Versed to assist with agitation and nursing is to titrate down the Fentanyl drip. Continue to monitor for signs and/or symptoms of nonverbal pain such as grimacing, moaning, furrowed brow, changes in vital signs. * Symptom managementdyspnea: Patient remains intubated on mechanical ventilator. No recommendations at this time. * Symptom management-agitation: Modifications to sedative medication was completed this morning per the trauma surgeon's recommendations. Will continue to monitor. * Discussed patient with the bedside RN, RT, and trauma surgeon. * Palliative care will continue to follow this patient throughout his hospitalization to establish trust, assist with symptom management and clarification of medical treatment goals. . Attestation To help prompt me to consider important information that might be impacting today's encounter and assessment, information from prior notes written by myself or my colleagues may have been "brought forward" into today's note. My signature on this note, however, is an attestation that I personally performed the exam, history, and/or decision-making noted today, and, unless otherwise indicated, the interactions with patient, family, and staff as well as the review of records all occurred today. I also attest that the listed assessment and stated plan reflect my best clinical judgment today based on the combination of historical information, prior notes, and today's exam/ interactions. When time spent is documented, it refers only to time spent today by the signer, or if indicated, combined time spent today by collaborating physician/nurse practitioner. Felicia Mendez Jun 11, 2017 10:50
--- NOTE | 2017-06-11 10:52 | RADRPT ---
EXAM DATE/TIME: 06/11/2017 10:33 [facility] COMPARISON: CHEST SINGLE AP, June 10, 2017, 3:49. INDICATIONS : Evaluate respiratory status; Infiltrate. MEDICAL HISTORY : Cardiovascular disease. Hypertension. Myocardial infarction SURGICAL HISTORY : Craniotomy. ENCOUNTER: Subsequent ACUITY: 2 weeks PAIN SCORE: Non-responsive. LOCATION: Bilateral chest FINDINGS: A single view of the chest demonstrates the endotracheal tube, left subclavian central line, nasogast trina tube and bilateral pulmonary vascular congestion are stable. There small bilateral pleural effusi ons. Osseous structures are intact. CONCLUSION: Stable appearance of the chest. Tubes and catheters are in good position. Ze Alicea MD on June 11, 2017 at 10:50 Board Certified Radiologist. This report was verified electronically.
[2017-06-11] MEDS: MIDAZOLAM 100 MG/NS 100 ML DRIP Premix IV SCH (12:22)
--- NOTE | 2017-06-11 13:24 | HHI.HCPN ---
Reason for visit a. To assist with evaluation and management of symptoms including: pain, agitation, dyspnea b. To assist medical decision maker(s) with: better understanding of current medical conditions; weighing benefits/burdens of medical treatment options; making medical treatment decisions. Subjective/Interval History Mr. Evans is a 62 year old male patient who presented to [facility] ED on 05/30/2017 via EMS as a trauma alert after falling from a 6 foot ladder and hitting the back of his head on a concrete curb. CT brain revealed a small left- sided subdural hematoma with approximately 6mm of separation adjacent to the left temporal lobe; bilateral subarachnoid hemorrhage (left >right); tiny hemorrhagic contusions in both frontal lobes; hemorrhagic contusions of the left temporal lobe. ICP monitor was placed and elevated ICP was managed medically. Status post decompressive craniectomy with evacuation of the subdural hematoma on 06/01/2017. Patient reportedly had seizure activity over the weekend, currently on Dilantin , Keppra and Valproate. Having focal seizures per EEG on 06/10/2017. Stable follow-up chest x-ray this morning. Patient remains intubated on mechanical vent; patient having sympathetic storm last week, therefore no sedation vacations were attempted. On every 6 hour propofol. Remains on Cardene drip for uncontrolled HTN. Tolerated CPAP trial for 12 hours overnight that was put back on the ventilator has been progressively increased agitation. Patient agitated on exam, spontaneously moving all 4 extremities. No purposeful movement observed. Patient does not track with eyes. Currently on maximum Fentanyl drip. Plan to wean off Fentanyl today and place patient on Versed drip. Plan to proceed with tracheostomy and PEG tube placement in the next 1-2 days. Palliative care has been unable to reach patient's via telephone x 3 attempts; unable to leave message today because mailbox was full. Discussed with patient's nurse who was give Palliative care contact information and requested to be notified if family/friends visit. Spoke with patient's friend ( Pato) to introduce Palliative Care and provide contact information; He will attempt to reach patient's . . Advance Directives Living Will: Never completed Health Care Surrogate: Never completed Durable Power of Shingles Roofer Helper: Never completed Advance Directive Specifics Health Care Surrogate(s): Per [place] Statutes, in the absence of written advanced directives health care proxy decision making falls to the patient's . . Documented care wishes: No known documented care wishes available at this time. . Objective Vital Signs Date Time Temp Pulse Resp B/P Pulse Ox O2 Delivery O2 Flow Rate FiO2 06/11/17 12:23 88 70 06/11/17 09:05 90 70 06/11/17 08:00 70 06/11/17 08:00 98.2 96 33 136/75 88 06/11/17 07:00 88 Mechanical Ventilator 70 06/11/17 06:50 70 06/11/17 06:00 87 06/11/17 04:08 95 70 06/11/17 04:00 94 06/11/17 04:00 70 06/11/17 04:00 98.2 94 17 161/70 96 06/11/17 02:30 50 06/11/17 02:07 91 50 06/11/17 02:00 110 06/11/17 02:00 50 06/11/17 00:10 95 50 06/11/17 00:00 100 06/11/17 00:00 99.0 100 17 151/72 92 06/11/17 00:00 50 06/10/17 22:00 95 06/10/17 21:09 95 40 06/10/17 20:00 108 06/10/17 20:00 98.6 110 17 162/76 94 06/10/17 20:00 40 06/10/17 19:00 95 Mechanical Ventilator 40 06/10/17 18:00 106 06/10/17 17:12 96 40 06/10/17 16:00 98.8 93 19 134/69 98 06/10/17 16:00 85 06/10/17 16:00 40 06/10/17 14:00 107 06/10/17 13:04 40 06/10/17 13:04 95 40 Intake & Output 06/11/17 06/11/17 06:59 18:59 Intake Total 2957 ml Output Total 2350 ml 0 ml Balance 607 ml 0 ml Intake IV Total 1639 ml Tube Feeding 918 ml Other 400 ml Output Urine Total 2350 ml Tube Feeding Residual Discard 0 ml # Bowel Movements 0 . Physical Exam CONSTITUTIONAL/GENERAL: This is a critically ill, elderly male patient who is intubated on mechanical ventilator. TUBES/LINES/DRAINS:CVL, PIV, OGT, ETT, Whitfield, soft wrist restraints, SCDs SKIN: No jaundice, rashes, or lesions. Ecchymoses on upper extremities. Skin temperature appropriate. Not diaphoretic. HEAD: Incision status post craniectomy. EYES: Pupils equal, reactive, sluggish. No scleral icterus. Fundi not examined. ENT: Unable to assess hearing secondary to patient's clinical condition. Nose without bleeding or purulent drainage. NECK: Trachea midline. Supple, nontender. CARDIOVASCULAR: Regular rate and rhythm without murmurs, gallops, or rubs. No JVD. Peripheral pulses symmetric. RESPIRATORY/CHEST: Intubated on mechanical ventilator. Breath sounds diminished bilaterally. No wheezes, rales, or rhonchi. GASTROINTESTINAL: Abdomen firm, non-tender, nondistended. Hypoactive bowel sounds present. GENITOURINARY: Without palpable bladder distension. Whitfield catheter in place. MUSCULOSKELETAL: Extremities without clubbing, cyanosis. Trace edema in bilateral lower extremities. Bilateral upper extremities with 2+ edema. NEUROLOGICAL: Spontaneously moves all extremities but no purposeful movement, does not follow commands. PSYCHIATRIC: Unable to assess secondary to patient's clinical condition and sedation . Diagnostic Tests Laboratory Laboratory Tests Test 06/08/17 06/09/17 06/09/17 06/10/17 22:00 03:42 04:00 04:10 Potassium Level 3.4 MEQ/L 3.8 MEQ/L 3.7 MEQ/L (3.5-5.1) (3.5-5.1) (3.5-5.1) Blood Gas Puncture Site ANIYAH Blood Gas Patient Temperature 98.6 Blood Gas HCO3 21 mmol/L (22-26) Blood Gas Base Excess -3.1 mmol/L (-2-2) Blood Gas Oxygen Saturation 94 % (90-100) Arterial Blood pH 7.43 (7.380-7.420) Arterial Blood Partial 32 mmHg (38-42) Pressure CO2 Arterial Blood Partial 81 mmHg Pressure O2 (61-120) Arterial Blood Oxygen Content 12.7 Vol % (12.0-20.0) Arterial Blood 1.1 % (0-4) Carboxyhemoglobin Arterial Blood Methemoglobin 1.0 % (0-2) Blood Gas Hemoglobin 9.6 G/DL (12.0-16.0) Oxygen Delivery Device VENTILATOR Blood Gas Ventilator Setting PRVC18/500/1.0/+10 Blood Gas Inspired Oxygen 45 % White Blood Count 10.3 TH/MM3 11.5 TH/MM3 (4.0-11.0) (4.0-11.0) Red Blood Count 3.17 MIL/MM3 3.16 MIL/MM3 (4.50-5.90) (4.50-5.90) Hemoglobin 9.5 GM/DL 9.5 GM/DL (13.0-17.0) (13.0-17.0) Hematocrit 28.8 % 28.6 % (39.0-51.0) (39.0-51.0) Mean Corpuscular Volume 91.0 FL 90.6 FL (80.0-100.0) (80.0-100.0) Mean Corpuscular Hemoglobin 29.9 PG 30.0 PG (27.0-34.0) (27.0-34.0) Mean Corpuscular Hemoglobin 32.8 % 33.1 % Concent (32.0-36.0) (32.0-36.0) Red Cell Distribution Width 15.6 % 15.0 % (11.6-17.2) (11.6-17.2) Platelet Count 218 TH/MM3 269 TH/MM3 (150-450) (150-450) Mean Platelet Volume 9.1 FL 10.0 FL (7.0-11.0) (7.0-11.0) Neutrophils (%) (Auto) 77.7 % 75.9 % (16.0-70.0) (16.0-70.0) Lymphocytes (%) (Auto) 13.4 % 13.3 % (9.0-44.0) (9.0-44.0) Monocytes (%) (Auto) 6.4 % (0.0-8.0) 6.1 % (0.0-8.0) Eosinophils (%) (Auto) 2.0 % (0.0-4.0) 3.6 % (0.0-4.0) Basophils (%) (Auto) 0.5 % (0.0-2.0) 1.1 % (0.0-2.0) Neutrophils # (Auto) 8.0 TH/MM3 8.7 TH/MM3 (1.8-7.7) (1.8-7.7) Lymphocytes # (Auto) 1.4 TH/MM3 1.5 TH/MM3 (1.0-4.8) (1.0-4.8) Monocytes # (Auto) 0.7 TH/MM3 0.7 TH/MM3 (0-0.9) (0-0.9) Eosinophils # (Auto) 0.2 TH/MM3 0.4 TH/MM3 (0-0.4) (0-0.4) Basophils # (Auto) 0.1 TH/MM3 0.1 TH/MM3 (0-0.2) (0-0.2) CBC Comment DIFF FINAL DIFF FINAL Differential Comment Sodium Level 145 MEQ/L 143 MEQ/L (136-145) (136-145) Chloride Level 114 MEQ/L 113 MEQ/L (98-107) (98-107) Carbon Dioxide Level 21.2 MEQ/L 21.0 MEQ/L (21.0-32.0) (21.0-32.0) Anion Gap 10 MEQ/L (5-15) 9 MEQ/L (5-15) Blood Urea Nitrogen 31 MG/DL (7-18) 29 MG/DL (7-18) Creatinine 0.81 MG/DL 0.81 MG/DL (0.60-1.30) (0.60-1.30) Estimat Glomerular Filtration 97 ML/MIN (>89) 97 ML/MIN (>89) Rate Random Glucose 116 MG/DL 123 MG/DL (74-106) (74-106) Calcium Level 8.3 MG/DL 8.6 MG/DL (8.5-10.1) (8.5-10.1) Phosphorus Level 2.6 MG/DL 3.1 MG/DL (2.5-4.9) (2.5-4.9) Magnesium Level 1.8 MG/DL 1.8 MG/DL (1.5-2.5) (1.5-2.5) Total Bilirubin 0.6 MG/DL 0.6 MG/DL (0.2-1.0) (0.2-1.0) Aspartate Amino Transf 122 U/L (15-37) 111 U/L (15-37) (AST/SGOT) Alanine Aminotransferase 101 U/L (12-78) 112 U/L (12-78) (ALT/SGPT) Alkaline Phosphatase 306 U/L 334 U/L (45-117) (45-117) Total Protein 6.3 GM/DL 6.1 GM/DL (6.4-8.2) (6.4-8.2) Albumin 1.9 GM/DL 1.9 GM/DL (3.4-5.0) (3.4-5.0) Test 06/10/17 06/11/17 06/11/17 04:55 04:40 05:51 Blood Gas Puncture Site ART LINE ART LINE Blood Gas Patient Temperature 98.6 98.6 Blood Gas HCO3 20 mmol/L 21 mmol/L (22-26) (22-26) Blood Gas Base Excess -4.3 mmol/L -2.6 mmol/L (-2-2) (-2-2) Blood Gas Oxygen Saturation 96 % (90-100) 91 % (90-100) Arterial Blood pH 7.40 7.43 (7.380-7.420) (7.380-7.420) Arterial Blood Partial 32 mmHg (38-42) 33 mmHg (38-42) Pressure CO2 Arterial Blood Partial 106 mmHg 68 mmHg Pressure O2 (61-120) (61-120) Arterial Blood Oxygen Content 16.0 Vol % 11.5 Vol % (12.0-20.0) (12.0-20.0) Arterial Blood 1.0 % (0-4) 1.1 % (0-4) Carboxyhemoglobin Arterial Blood Methemoglobin 1.0 % (0-2) 1.1 % (0-2) Blood Gas Hemoglobin 11.8 G/DL 8.9 G/DL (12.0-16.0) (12.0-16.0) Oxygen Delivery Device VENT VENTILATOR Blood Gas Ventilator Setting SEE COMMENTS PRVC12/500/1.0/+8 Blood Gas Inspired Oxygen 45 % 70 % White Blood Count 16.6 TH/MM3 (4.0-11.0) Red Blood Count 3.06 MIL/MM3 (4.50-5.90) Hemoglobin 9.0 GM/DL (13.0-17.0) Hematocrit 27.2 % (39.0-51.0) Mean Corpuscular Volume 89.0 FL (80.0-100.0) Mean Corpuscular Hemoglobin 29.4 PG (27.0-34.0) Mean Corpuscular Hemoglobin 33.0 % Concent (32.0-36.0) Red Cell Distribution Width 14.6 % (11.6-17.2) Platelet Count 363 TH/MM3 (150-450) Mean Platelet Volume 10.3 FL (7.0-11.0) Neutrophils (%) (Auto) 83.7 % (16.0-70.0) Lymphocytes (%) (Auto) 7.0 % (9.0-44.0) Monocytes (%) (Auto) 6.4 % (0.0-8.0) Eosinophils (%) (Auto) 2.2 % (0.0-4.0) Basophils (%) (Auto) 0.7 % (0.0-2.0) Neutrophils # (Auto) 13.9 TH/MM3 (1.8-7.7) Lymphocytes # (Auto) 1.2 TH/MM3 (1.0-4.8) Monocytes # (Auto) 1.1 TH/MM3 (0-0.9) Eosinophils # (Auto) 0.4 TH/MM3 (0-0.4) Basophils # (Auto) 0.1 TH/MM3 (0-0.2) CBC Comment DIFF FINAL Differential Comment Sodium Level 143 MEQ/L (136-145) Potassium Level 3.3 MEQ/L (3.5-5.1) Chloride Level 111 MEQ/L (98-107) Carbon Dioxide Level 22.0 MEQ/L (21.0-32.0) Anion Gap 10 MEQ/L (5-15) Blood Urea Nitrogen 29 MG/DL (7-18) Creatinine 0.76 MG/DL (0.60-1.30) Estimat Glomerular Filtration 105 ML/MIN Rate (>89) Random Glucose 130 MG/DL (74-106) Calcium Level 8.8 MG/DL (8.5-10.1) Total Bilirubin 0.7 MG/DL (0.2-1.0) Aspartate Amino Transf 88 U/L (15-37) (AST/SGOT) Alanine Aminotransferase 104 U/L (12-78) (ALT/SGPT) Alkaline Phosphatase 320 U/L (45-117) Total Protein 6.3 GM/DL (6.4-8.2) Albumin 2.0 GM/DL (3.4-5.0) . Result Diagram: 06/11/17 0440 06/11/17 0440 Imaging Last 72 hours Impressions Chest X-Ray 06/11/17 0000 Signed Impressions: Service Date/Time: Sunday, June 11, 2017 10:33 - CONCLUSION: Stable appearance of the chest. Tubes and catheters are in good position. Ze Alicea MD Chest X-Ray 06/10/17 0600 Signed Impressions: Service Date/Time: Saturday, June 10, 2017 03:49 - CONCLUSION: No significant change has occurred. Johann Silvestre MD Chest X-Ray 06/09/17 0600 Signed Impressions: Service Date/Time: Friday, June 09, 2017 04:55 - CONCLUSION: No significant change has occurred. Johann Silvestre MD . Procedures 05/30/17: Intubation 05/30/17: Nasogastric catheter placed 05/30/17: Right subclavian CVL placed . Assessment and Plan Disease Oriented Problem List: (1) Subarachnoid hemorrhage (2) Respiratory failure (3) Altered mental status (4) Head injury (5) Traumatic brain injury (6) Previous myocardial infarction older than 8 weeks (7) Hypertension Symptom Scale: (1) Pain 0-10 Scale: Unable to quantify Comment: Secondary to clinical condition, sedation and mechanical ventilation. (2) Agitation 0-10 Scale: Unable to quantify (Secondary to clinical condition, sedation and mechanical ventilation. ) Comment: Secondary to clinical condition, sedation and mechanical ventilation. (3) Dyspnea 0-10 Scale: Unable to quantify (Secondary to clinical condition, sedation and mechanical ventilation. ) Comment: Secondary to clinical condition, sedation and mechanical ventilation. Pertinent Non-Medical Issues Psychosocial: Patient is and lives with his in [place]. 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 Important Contacts Stacy Evans, Pato Ni, friend . Prognosis Patient is a 62-year-old man who sustained a traumatic brain injury after falling from a 6 foot ladder s/p decompressive craniectomy with evacuation of the subdural hematoma. Patient has had minimal neurological improvements, there is no purposeful movement and he is still unable to follow any commands. He remains intubated on mechanical ventilator and sedated on Fentanyl. The patient remains hypertensive and is still on a cardene drip. Patient remains critically ill without significant improvements since his admission. Poor prognosis. . Code Status: Full Code Plan * FULL CODE * Decision making: Per [place] statutes, and absence of written advanced directives healthcare proxy decision-making falls to the patient's . * Goals remain aggressive at this time. * Palliative care has been unable to reach patient's via telephone x 3 attempts; unable to leave message today because mailbox was full. Discussed with patient's nurse who was give Palliative care contact information and requested to be notified if family/friends visit. Spoke with patient's friend ( Pato) to introduce Palliative Care and provide contact information; He will attempt to reach patient's . * Palliative care attempted to contact patient's via telephone twice last week and has not received a return phone call. An additional attempt to make contact with the patient's will be completed today. * Limited medical history and/or psychosocial history is available pending conversation/meeting with patient's . * Symptom managementpain: Patient has been sedated on Fentanyl at the maximum allowable dosage, despite this the patient appears to be uncomfortable. Per trauma surgeon's orders the patient will be started on Versed to assist with agitation and nursing is to titrate down the Fentanyl drip. Continue to monitor for signs and/or symptoms of nonverbal pain such as grimacing, moaning, furrowed brow, changes in vital signs. * Symptom managementdyspnea: Patient remains intubated on mechanical ventilator. Tolerated CPAP trials for nearly 12 hours overnight before becoming increasingly agitated. Follow-up chest x-ray today with no significant changes. We'll likely proceed with tracheostomy in the next 1-2 days. No recommendations at this time. * Symptom management-agitation: Modifications to sedative medication was completed this morning per the trauma surgeon's recommendations. Will continue to monitor. * Discussed during trauma rounds * Palliative care will continue to follow this patient throughout his hospitalization to establish trust, assist with symptom management and clarification of medical treatment goals. . Attestation To help prompt me to consider important information that might be impacting today's encounter and assessment, information from prior notes written by myself or my colleagues may have been "brought forward" into today's note. My signature on this note, however, is an attestation that I personally performed the exam, history, and/or decision-making noted today, and, unless otherwise indicated, the interactions with patient, family, and staff as well as the review of records all occurred today. I also attest that the listed assessment and stated plan reflect my best clinical judgment today based on the combination of historical information, prior notes, and today's exam/ interactions. When time spent is documented, it refers only to time spent today by the signer, or if indicated, combined time spent today by collaborating physician/nurse practitioner. . Felicia Mendez Jun 11, 2017 13:24
[2017-06-11] MEDS: NICARDIPINE IV SCH ×2 (13:33→22:06)
[2017-06-11] MEDS: SODIUM CHLOR 0.9% IV SCH ×2 (13:33→22:06)
--- NOTE | 2017-06-11 14:00 | PD.HHIRCNE ---
Patient History Record/History Review Reason for Referral: The patient is a 62 year old unknown handed male status post traumatic brain injury secondary to a fall from a ladder on 05/30/2017. Head CT showed bilateral SAH, small left SDH, frontal contusions, hemorrhagic contusions in the left temporal lobe. Recent EEG showed seizure activity, and he was started on seizure medications, including Keppra, Dilantin and Valproic Acid. Also complicating his recovery was development of cerebral storming, for which he is treated with propranolol 60 q8H. He is now referred for baseline neurobehavioral status examination per trauma protocol to assess cognitive, behavioral and emotional aspects of the injury and to provide treatment recommendations. Neuropsych Precautions: To be determined. Past Surgical/Medical History Past Surgery: Yes Major surgery in last 100 days: Unknown Hx Anesthesia Reactions: No Hx Orthopedic Surgery: Yes (bilater knees and right rotator cuff surgery ) Hx Cardiac Surgery: Yes (stents with TX's ) Hx Chest Surgery: No Hx Abdominal Surgery: No Hx Genitourinary Surgery: No Hx Endocrine Surgery: No Hx Eye Surgery: No Hx Ear Surgery: No Hx Oral Surgery: No History of Transplant: No Hx of Neuro Prob: No Hx of Musculoskeletal Pro: Yes Hx Arthritis: Yes Hx Neck Problems: Yes Hx Back Problem: Yes Hx of Cardiovascular Prob: Yes Hypertension (High Blood Press: Yes Hx Clotting Problems: No Venous Thromboembolism Present: No Hx Chest Pain: Yes (in past ) Hx Lightheadedness: No Hx Congestive Heart Failure: No Syncope (Fainting): No Hx of Respiratory Problem: No Hx of GI Problems: No Hx of Problems: No Hx of Immuno Disor: No Hx of Endocrine Problems: No Hx of Eye Probl: No Hx of Hearing or Ear Problems: No Hx Dental Problems: No Hx Psychiatric Problems: No Hx Blood Dyscrasias: No Hx of MDRO: No Hx of MRSA: No Hx of VRE: No Hx of CDIFF: No Hx of Tuberculosis: No Hx Chicken Pox: No (unknown ) If No, Have You Been Exposed W: No Hx Measles: No (unknown ) Hx of Body/Medical Devices: No Hx Pacemaker: No Hx Internal Defibrillator: No Central Line/Ports (Type): No Hx Joint Replacement: No Insulin Pump: No Hx Arteriovenous Shunt: No Hx Dental Implants: No Hx Eye Prosthesis: No Genitourinary Device: No Genitourinary Ostomy: No Gastrointestinal Ostomy: No Blood Transfusion History Will receive Blood /Blood prod: Yes Hx Blood Transfusions: No Medication Active Medications Famotidine 20 mg 20 mg BID NG Last administered on 06/11/17 09:46; Admin Dose 20 MG; Start 06/10/17 at 21:00 Midazolam HCl (Versed 100 Mg/ ml Inj) 100 ml @ 0 mls/hr TITRATE IV Last administered on 06/11/17 12:22; Admin Dose 0 MLS/HR; Start 06/11/17 at 12:15 Midazolam HCl (Versed Inj) 2 mg Q1H PRN IV Last administered on 06/11/17 10:21 ; Admin Dose 2 MG; Start 06/11/17 at 02:15 Midazolam HCl (Versed Inj) 5 mg STK-MED ONCE .ROUTE; Start 06/11/17 at 02:01; Stop 06/11/17 at 02:02; Status DC Nicardipine HCl 100 mg/Sodium Chloride 250 ml @ 0 mls/hr TITRATE IV; Start 06/10 at 19:45; Status Cancel Nicardipine HCl 100 mg/Sodium Chloride 250 ml @ 0 mls/hr TITRATE IV; Start 06/10 at 20:00; Status Cancel Nicardipine HCl/ Sodium Chloride (Cardene Inj/NS 250 ml Inj) 250 ml @ 0 mls/hr TITRATE IV Last administered on 06/11/17 13:33; Admin Dose 0 MLS/HR; Start at 20:00 Propranolol HCl 60 mg 60 mg Q8HR PO Last administered on 06/11/17 05:20; Admin Dose 60 MG; Start 06/10/17 at 22:00 Quetiapine Fumarate 25 mg 25 mg Q8HR PO; Start 06/11/17 at 14:00 Valproate Sodium 500 mg/Sodium Chloride 105 ml @ 105 mls/hr Q8H IV; Start 06/10 at 15:00; Stop 06/10/17 at 15:00; Status DC Valproate Sodium/ Sodium Chloride (Depacon Inj/NS Inj) 105 ml @ 105 mls/hr Q8H IV Last administered on 06/11/17 06:38; Admin Dose 105 MLS/HR; Start 06/10/17 at 15:00 Mental Status Assessment Orientation: unable to asses Self, unable to asses Place, unable to asses Time , unable to asses Situation Observation The patient is presently unresponsive. Adjustment/Coping Assessment Adjustment/Coping: Not Assessed: Depression, Anxiety, Pain, Apathy, Awareness, Insight Observation The patient is unresponsive. LTG Status: Deferred STG Status: Deferred Team Members: Neuropsychologist Behavior Assessment Agitation: Moderate Treatment Engagement: Minimal Observation Behaviorally, the patient demonstrated signs of restlessness, but no overt agitation, impulsivity or disinhibition. There was no remarkable evidence of a formal thought disorder or psychosis. LTG - Status: Deferred STG Status: Deferred Team Members: Neuropsychologist Diagnosis/Discharge Plan Impression This patient suffered a severe traumatic brain injury from his ladder fall on 05/30/2017. He is expected to have significant residual neurocognitive deficit from this injury. Diagnosis: [place] Level: IV:Confused/Agitated-maximal assist Maximizing acute care outcome It is recommended that the patient be monitored for emergent behavioral impulsivity as the medical condition evolves. This patients neuropathological challenges may limit their rehabilitation potential going forward, and these challenges will require specialized therapeutic skills to maximize outcome. Additionally, the patients family is experiencing ongoing issues of adjustment given the traumatic nature of the injury, and they may benefit from ongoing psychological assistance. Discharge Planning Anticipated Problems Ongoing areas of concern will include behavioral impulsivity, lack of insight and judgment, which is expected to improve with time and treatment. Presently , the patient is not consistently following commands. Treatment Plan This clinician will continue to follow with you throughout the course of this patients acute care treatment, and I will be available to meet with the patient s family/support system to facilitate their understanding and the ongoing care of their family member. The goals of neuropsychological intervention shall be both educational and supportive to the family/support system as is deemed clinically appropriate. Discharge Needs To be determined. Thank you Thank you for the opportunity to assist in this patients care. Mike Burns, Ph.D., ABPP Board Certified in Clinical Neuropsychology [place] Board of Professional Psychology [place] Licensed Psychologist #[id number] Mike Burns PhD Jun 11, 2017 14:00
[2017-06-11 14:14] LABS: BLOOD GAS CARBOXYHEMOGLOBIN 0.9 % (0-4); BLOOD GAS HCO3 21 mmol/L (22-26); BLOOD GAS METHEMOGLOBIN 0.9 % (0-2); BLOOD GAS O2 HGB SATURATION 97 % (90-100); BLOOD GAS OXYGEN CONTENT 14.9 Vol % (12.0-20.0); BLOOD GAS PCO2 32 mmHg (38-42); BLOOD GAS PO2 122 mmHg (61-120); BLOOD GAS TOTAL HGB 10.8 G/DL (12.0-16.0); TEMP CORR TO 98.6
[2017-06-11 14:15] LABS: CRITICAL VALUE NO; DRAW SITE ART LINE; FIO2 100 %; NUMBER OF ARTERIAL PUNCTURES 0; OXYGEN DEVICE VENTILATOR; STAT NO; ULNAR PULSE PRESENT; VENT SETTINGS PRVC12/550/1.0/+10
--- NOTE | 2017-06-11 14:48 | HHI.CCPN ---
Subjective Remarks/Hospital Course 05/30: Patient came in as a trauma alert. 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 He was working with his colleagues and they saw him just prior to the accident when he was at his baseline mental status. He fell. The exact nature of the fall is unknown. However after that he was acting bizarre. As per EMS he was combative at the scene and not making sens, repeating the same words which do not make sense. Was hypertensive with blood pressure in 185 systolic. As per EMS GCS at the best was 11. Past medical history is unknown. Upon arrival patient was a GCS 11 and blood pressure was 205 systolic. He was combative. Patient was intubated by ER physician, evaluated by trauma team and subsequently underwent imaging studies and was transferred to ICU. Critical care was consulted by Dr. Araiza for TBI with acute respiratory failure. Per discussion with Dr. Araiza patient didn't appear to have traumatic subdural and subarachnoid hemorrhage as well as a splenic laceration. He also had some bleeding from a scalp laceration on arrival to the ICU. Patient required sedation with propofol following arrival to the ICU as he was starting to gag and cough and was attempting to move both lower extremities. I emergently placed a right subclavian central line for central vascular access which was replaced with a left subclavian central line subsequently as it was turning up into the internal jugular vein. Neurosurgery Dr. Stone had all ready been informed by trauma team and was planning to do a bolt for ICP monitoring. History was obtained by reviewing records and discussion with Dr. Araiza and ICU nursing staff. 05/31: Remains sedated, orally intubated on mechanical ventilation. Required initiation of 3% saline and received 23% saline last night for elevated ICP. On propofol/Versed/fentanyl drips as well as 3% saline this morning and was started on Nimbex for neuromuscular blockade for elevated ICPs. 06/01: Remains sedated, orally intubated on mechanical ventilation. On propofol/ Versed/fentanyl/Nimbex/3% saline drips this morning. 06/02: Underwent decompressive hemicraniectomy done on 06/[address] Stone. Remains sedated, orally intubated on mechanical ventilation. Off Nimbex currently. Remains on propofol/versed/ fentanyl gtt. 3% saline off currently. 06/03: Remains sedated, orally intubated on mech vent. Tolerating tube feeds. Sedation being titrated down. 06/04: Remains sedated, orally intubated on mechanical ventilation, tolerating tube feeds. 06/05: Sedated, orally intubated on mechanical ventilation. Tolerating tube feeds. ICPs remain around 5-10 06/06, 06/07: Sedated, orally intubated on mechanical ventilation. 06/08: Remains encephalopathic off sedation, orally intubated on mechanical ventilation. Propofol to maintain vent synchrony. Subjective 06/09: Hypertensive overnight requiring reinitiation via the Cardene drip. Sympathetic storm yesterday so no sedation vacation today. Tolerating tube feeding at goal. 06/10: Apparently had seizure yesterday, currently on Dilantin, Keppra and valproate. No other acute events overnight. EEG done today report pending, but perEEG tech showed focal seizures. Remains on Cardene at 12.5 mg per hour. 06/11: Deteriorating oxygen diffusion today requiring increased PEEP and diuretic. CXR with venous congestion. Minimal secretions. Objective Vital Signs Date Time Temp Pulse Resp B/P Pulse Ox O2 Delivery O2 Flow Rate FiO2 06/11/17 12:23 88 70 06/11/17 08:00 98.2 96 33 136/75 06/11/17 07:00 Mechanical Ventilator Intake and Output 06/10/17 06/10/17 06/11/17 08:00 16:00 00:00 Intake Total 1758 ml 1108 ml 1672 ml Output Total 900 ml 1000 ml 1600 ml Balance 858 ml 108 ml 72 ml Result Diagram: 06/11/17 0440 06/11/17 0440 Other Results Laboratory Tests Test 06/11/17 06/11/17 05:51 14:00 Blood Gas Puncture Site ART LINE ART LINE Blood Gas Patient Temperature 98.6 98.6 Blood Gas HCO3 21 mmol/L 21 mmol/L (22-26) (22-26) Blood Gas Base Excess -2.6 mmol/L -3.0 mmol/L (-2-2) (-2-2) Blood Gas Oxygen Saturation 91 % (90-100) 97 % (90-100) Arterial Blood pH 7.43 7.43 (7.380-7.420) (7.380-7.420) Arterial Blood Partial 33 mmHg (38-42) 32 mmHg (38-42) Pressure CO2 Arterial Blood Partial 68 mmHg 122 mmHg Pressure O2 (61-120) (61-120) Arterial Blood Oxygen Content 11.5 Vol % 14.9 Vol % (12.0-20.0) (12.0-20.0) Arterial Blood 1.1 % (0-4) 0.9 % (0-4) Carboxyhemoglobin Arterial Blood Methemoglobin 1.1 % (0-2) 0.9 % (0-2) Blood Gas Hemoglobin 8.9 G/DL 10.8 G/DL (12.0-16.0) (12.0-16.0) Oxygen Delivery Device VENTILATOR VENTILATOR Blood Gas Ventilator Setting PRVC12/500/1.0/+8 PRVC12/550/1.0/+10 Blood Gas Inspired Oxygen 70 % 100 % Imaging Last 72 hours Impressions Chest X-Ray 06/09/17 06 Signed Impressions: Service Date/Time: Friday, June 09, 2017 04:55 - CONCLUSION: No significant change has occurred. Johann Silvestre MD Chest X-Ray 06/08/17 06 Signed Impressions: Service Date/Time: Thursday, June 08, 2017 03:43 - CONCLUSION: 1. The support equipment is in good position. 2. Minimal left basilar effusion and atelectasis. Johann Silvestre MD Chest X-Ray 06/07/17 06 Signed Impressions: Service Date/Time: May 02:58 - CONCLUSION: No significant interval change with persistent left greater than right basilar lung opacity. Tarik Ahn MD Objective Remarks GEN: 62 yo male, critically ill currently orotracheally intubated Neuro: Left hemicraniectomy site clean dry and intact. Sedated with Fentanyl, positive cough and gag. Positive corneal reflex. Withdraws to pain in bilateral lower extremity's. Today spontaneous movements of the upper and lower extremities noted, withdraws lowers. HEENT: Orally intubated, Pallor present, no icterus, tongue/ mucosa moist. Pupils 2-3 mm bilaterally reacting actively to light and accommodation. Neck: Orally intubated. No lymphadenopathy. Chest/Pulm: on mech vent, good air entry bilaterally, no wheezing or crackles, but gabe scattered rhonchi. CVS: Regular rate and rhythm S1, S2 no S4 without murmur GI/abdomen: soft, nontender nondistended. BS active. Extremities: No clubbing cyanosis or trace bilateral lower extremity edema, distal pulses are palpable bilaterally Skin is warm dry and intact, well perfused Line: Central Venous Catheter Side: Left Location: Subclavian A/P Assessment and Plan Middle age male brought in as trauma alert following fall from a 6 foot ladder with: TBI: Left subdural hemorrhage, bilateral subarachnoid hemorrhage left greater than right, bifrontal contusions, left temporal lobe contusion Encephalopathy Elevated ICP status post Left frontotemporal parietal decompressive craniectomy , evacuation of acute subdural hematoma with placement of right I's CP monitor Splenic laceration Acute respiratory failure on mechanical ventilation Suspect aspiration pneumonia Uncontrolled hypertension Plan: Neuro/Psych : Maintain sedation with fentanyl, off Versed and propofol, daily sedation medication, repeat head CT per neurosurgery. Underwent decompressive hemicraniectomy on the left by Dr. Stone on 06/01. Off 3% saline. Right ICP monitor removed. Daily sedation vacation okayed with neurosurgery. Currently on Keppra, Dilantin and valproic acid for focal sz on EEG today Pulmonary : Continue full ventilator support. PRVC 18/500/1/10/45 Vent bundle, bronchodilators as needed. PEEP 10 again. Cardiovascular: d/c IV hydration. Off pressors. Labetalol and hydralazine prn for SBP greater than 160mm Hg, Nicardipine gtt for uncontrolled hypertension Propranolol 20 mg by mouth every 8 hours sympathetic storming-increased to 60 every 8 hours. Amlodipine 10 mg daily. Clonidine 0.3 mg every 8 hours added by trauma team for better blood pressure control. GI/liver: Continue tube feeds with vital 1.5 goal 60 cc an hour and advanced to goal as tolerated. Continue laxatives. Off Reglan, having bowel movements Renal/: Strict intake output, monitor and replete electrolytes, follow BUN/creatinine. d /c IV hydration. KVO IVF. Start diuretic. ID Ancef given in the trauma bay. Pancultures ordered on 06/03-sputum growing Enterobacter and beta strep, started zosyn (06/03) to cover for aspiration pneumonia Heme Serial hemoglobins to trend his grade 1 splenic laceration although there is no evidence of active bleeding 2 units of platelets were given due to his medication induced platelet dysfunction Endocrine: Watch for hyperglycemia, SSI for glycemic control if needed. Prophylaxis: PPI/SCDs. 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 Probably need tracheostomy and PEG tube placement.CCM Discussed with Dr. Adler and Dr. Stone on 06/06 Critical care will be available for tracheostomy when trauma team wants to proceed. Overall impression: Worsening radiographic picture and deteriorating oxygenation over past 24 hours. Max Flower MD Jun 11, 2017 14:48
[2017-06-11] MEDS: QUEtiapine FUMARATE 25 MG TAB PO SCH ×2 (15:01→21:21)
[2017-06-11] MEDS ORDERED: FUROSEMIDE 40 MG/4 ML VIAL IV PUSH ONE (15:30)
[2017-06-11] MEDS: SODIUM CHLOR 0.9% 1000 ML INJ 1,000 ML IV SCH (17:27)
--- NOTE | 2017-06-11 18:57 | HHI.CCPN ---
Subjective Brief History Patient who fell from six-foot ladder while working hit his head sustained severe brain injury with decreasing Rubio Coma Scale from 11 down to 3. Intubated and ventilated on the scene brought in as priority 1 trauma alert. Patient underwent right decompressive craniotomy and remains in the ICU since Final injuries TBI: Left subdural hemorrhage, bilateral subarachnoid hemorrhage left greater than right, bifrontal contusions, left temporal lobe contusion Encephalopathy Elevated ICP status post Left frontotemporal parietal decompressive craniectomy , evacuation of acute subdural hematoma with placement of right I's CP monitor Splenic laceration Acute respiratory failure on mechanical ventilation Suspect aspiration pneumonia at the time of the event 24 Hour Review/Hospital Course 05/31/17 Patient suffered elevation in his ICP, responsive to increase sedation and hypertonic saline boluses Repeat imaging shows slight improvement 06/01/17 ICP continue to increase when sedation is stopped, neurosurgery considering surgical intervention 06/02/17 Patient underwent right craniectomy yesterday, his ICPs have been in the single digits Weaning Versed drip to off, we will continue propofol for sedation as he does continue to become agitated Discuss likelihood of tracheostomy and PEG placement with 06/03/17 Clinically patient is stable, he continues to be on sedation CT scan suggests loss of bowen-white matter indicative of possible R[place] 06/04/17 off sedation moving extremities opening eyes but not following commands ICP ies in normal range 06/05 mental status unchanged,not opening eyes today requires sedation prn 06/06 no changes remains low GCS BP slightly elevated on cardene drip Had high residuals -tube feeds 06/07 GCS 3T today BP better controlled tube feeds better controlled neuro input appreciated 06/08 moving lower extremities today -however not purposeful episode of storming BP -low dose cardene 06/[address] good response ro pain meds storming episode 06/08-when off sedation GCS 5T unchanged 06/10/17 Patient has been stable overnight yet the yesterday developed some jerking motion and repeat EEG G reveals complex focal seizure activity Patient currently on Keppra Dilantin and valproic acid Remains intubated and ventilated Initial plan to wean and extubate the patient at this point has to be abandoned till we control the seizures syndrome and will go from there 06/11/17 Patient is unchanged since yesterday as far neurologic status is concerned Repeat EEG doesn't show any epileptic activity Patient remains on valproic acid Dilantin and Keppra Neurology help greatly appreciated Objective Vital Signs Date Time Temp Pulse Resp B/P Pulse Ox O2 Delivery O2 Flow Rate FiO2 06/11/17 18:35 100 Ventilator 70 06/11/17 18:00 80 06/11/17 16:00 98.2 33 136/75 Intake and Output 06/10/17 06/10/17 06/11/17 08:00 16:00 00:00 Intake Total 1758 ml 1108 ml 1672 ml Output Total 900 ml 1000 ml 1600 ml Balance 858 ml 108 ml 72 ml Result Diagram: 06/11/17 0440 06/11/17 0440 Other Results Laboratory Tests Test 06/11/17 06/11/17 05:51 14:00 Blood Gas Puncture Site ART LINE ART LINE Blood Gas Patient Temperature 98.6 98.6 Blood Gas HCO3 21 mmol/L 21 mmol/L (22-26) (22-26) Blood Gas Base Excess -2.6 mmol/L -3.0 mmol/L (-2-2) (-2-2) Blood Gas Oxygen Saturation 91 % (90-100) 97 % (90-100) Arterial Blood pH 7.43 7.43 (7.380-7.420) (7.380-7.420) Arterial Blood Partial 33 mmHg (38-42) 32 mmHg (38-42) Pressure CO2 Arterial Blood Partial 68 mmHg 122 mmHg Pressure O2 (61-120) (61-120) Arterial Blood Oxygen Content 11.5 Vol % 14.9 Vol % (12.0-20.0) (12.0-20.0) Arterial Blood 1.1 % (0-4) 0.9 % (0-4) Carboxyhemoglobin Arterial Blood Methemoglobin 1.1 % (0-2) 0.9 % (0-2) Blood Gas Hemoglobin 8.9 G/DL 10.8 G/DL (12.0-16.0) (12.0-16.0) Oxygen Delivery Device VENTILATOR VENTILATOR Blood Gas Ventilator Setting PRVC12/500/1.0/+8 PRVC12/550/1.0/+10 Blood Gas Inspired Oxygen 70 % 100 % Imaging Last 24 hours Impressions Chest X-Ray 06/11/17 0000 Signed Impressions: Service Date/Time: Sunday, June 11, 2017 10:33 - CONCLUSION: Stable appearance of the chest. Tubes and catheters are in good position. 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 Patient is on minimal sedation on Versed and small dose of fentanyl in order to assist with ventilatory synchronization Hemodynamic/Cardiac Hemodynamically patient remains stable Pulmonary/Respiratory Bilateral worsening pulmonary function with infiltrates and congestion and worsening PO2 FiO2 gradient Patient will need tracheostomy and PEG but this would be unsafe on very high ventilatory settings As always patient is slightly down on PEEP and FiO2 we'll go ahead with a trach Abdomen/GI Nutrition Abdomen soft enteral feeds tolerated Renal/I&O Renal function preserved Vascular Central Line Catheter Line: Central Venous Catheter Side: Left Location: Subclavian Assessment and Plan Plan -sedation off gcs 5T max Continue full ventilator support for respiratory failure Continue nutritional support Seizure prophylaxis with Keppra/dilantin-neurology input appreciated clonidin for better BP control add propranolol add free water will need peg/trach if family would like to proceed Patient remains critically ill with traumatic brain injury following a fall Attestation Critical care 38 minutes Hattie Kang MD Jun 11, 2017 18:57
[2017-06-11 23:51] LABS: INTERNATIONAL NORMALIZED RATIO 0.9 RATIO; PROTHROMBIN TIME - PATIENT 10.3 SEC (9.8-11.6)
[2017-06-12] VITALS (19 sets, daily range): BP systolic 142–156; BP diastolic 29–68; PULSE 79–115; RESP 15–22; TEMP 97.7–99.7; O2SAT 93–100
[2017-06-12] MEDS: levETIRAcetam INJ 500 MG in SODIUM CHLORIDE 0.9% INJ 100 ML IV SCH ×2 (03:52→16:40)
[2017-06-12] MEDS: CHLORHEXIDINE GLUCONATE 2 % 1 PACK (2 CLOTHS) TOP SCH (03:52)
[2017-06-12 04:17] LABS: AUTOMATED NEUTROPHIL # 11.3 TH/MM3 (1.8-7.7); BASOPHIL # 0.1 TH/MM3 (0-0.2); BASOPHIL % 0.6 % (0.0-2.0); EOSINOPHIL # 0.3 TH/MM3 (0-0.4); EOSINOPHIL % 2.2 % (0.0-4.0); HEMATOCRIT 26.6 % (39.0-51.0); HEMO FLAGS DIFF FINAL; LYMPH % 7.7 % (9.0-44.0); MEAN CELL VOLUME 90.1 FL (80.0-100.0); MEAN CORPUSCULAR HEMOGLOBIN 29.3 PG (27.0-34.0); MEAN CORPUSCULAR HGB CONC 32.5 % (32.0-36.0); MONO % 5.5 % (0.0-8.0); PLATELET COUNT 370 TH/MM3 (150-450); RED BLOOD COUNT 2.95 MIL/MM3 (4.50-5.90); RED CELL DISTRIBUTION WIDTH 14.7 % (11.6-17.2); WHITE BLOOD COUNT 13.4 TH/MM3 (4.0-11.0)
[2017-06-12 04:55] LABS: BICARBONATE 24.2 MEQ/L (21.0-32.0); CALCIUM-PROTEIN CORRECTED 7.7 MG/DL (8.5-10.1); POTASSIUM 3.5 MEQ/L (3.5-5.1); TOTAL BILIRUBIN ADULT 0.7 MG/DL (0.2-1.0)
[2017-06-12] MEDS: PROPRANOLOL HCL 20 MG TAB PO SCH (05:50)
[2017-06-12] MEDS: PIPERACIL-TAZO 4.5 GM PREMIX 100 ML IV SCH ×3 (05:50→17:43)
[2017-06-12] MEDS: FOSPHENYTOIN INJ 100 MGPE in SODIUM CHLORIDE 0.9% INJ 50 ML IV SCH ×3 (05:50→17:12)
[2017-06-12] MEDS: POTASSIUM CHLOR 40 MEQ PREMIX 100 ML IV PRN (05:50)
[2017-06-12] MEDS: QUEtiapine FUMARATE 25 MG TAB PO SCH ×3 (05:50→20:53)
[2017-06-12] MEDS: SODIUM CHLOR 0.9% IV SCH ×2 (05:51→10:00)
[2017-06-12] MEDS: NICARDIPINE IV SCH ×2 (05:51→10:00)
[2017-06-12] MEDS: VALPROATE INJ 500 MG in SODIUM CHLORIDE 0.9% INJ 100 ML IV SCH ×3 (06:26→23:06)
[2017-06-12] MEDS: DOCUSATE SODIUM 100 MG/10 ML UDC PO SCH ×2 (08:53→20:53)
[2017-06-12] MEDS: SODIUM CHLORIDE 0.9% FLUSH 5 ML FLUSH IVF SCH ×2 (08:53→20:53)
[2017-06-12] MEDS: CHLORHEXIDINE 0.12% (ORAL KIT) 15 ML CUP MT SCH ×2 (08:53→20:52)
[2017-06-12] MEDS: FAMOTIDINE 20 MG TAB NG SCH ×2 (09:50→20:53)
[2017-06-12] MEDS ORDERED: ROCURONIUM INJ 50 MG/5 ML VIAL IV ONE (10:15)
--- NOTE | 2017-06-12 11:27 | HHI.CCPN ---
Subjective Remarks/Hospital Course 05/30: Patient came in as a trauma alert. 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 He was working with his colleagues and they saw him just prior to the accident when he was at his baseline mental status. He fell. The exact nature of the fall is unknown. However after that he was acting bizarre. As per EMS he was combative at the scene and not making sens, repeating the same words which do not make sense. Was hypertensive with blood pressure in 185 systolic. As per EMS GCS at the best was 11. Past medical history is unknown. Upon arrival patient was a GCS 11 and blood pressure was 205 systolic. He was combative. Patient was intubated by ER physician, evaluated by trauma team and subsequently underwent imaging studies and was transferred to ICU. Critical care was consulted by Dr. Araiza for TBI with acute respiratory failure. Per discussion with Dr. Araiza patient didn't appear to have traumatic subdural and subarachnoid hemorrhage as well as a splenic laceration. He also had some bleeding from a scalp laceration on arrival to the ICU. Patient required sedation with propofol following arrival to the ICU as he was starting to gag and cough and was attempting to move both lower extremities. I emergently placed a right subclavian central line for central vascular access which was replaced with a left subclavian central line subsequently as it was turning up into the internal jugular vein. Neurosurgery Dr. Stone had all ready been informed by trauma team and was planning to do a bolt for ICP monitoring. History was obtained by reviewing records and discussion with Dr. Araiza and ICU nursing staff. 05/31: Remains sedated, orally intubated on mechanical ventilation. Required initiation of 3% saline and received 23% saline last night for elevated ICP. On propofol/Versed/fentanyl drips as well as 3% saline this morning and was started on Nimbex for neuromuscular blockade for elevated ICPs. 06/01: Remains sedated, orally intubated on mechanical ventilation. On propofol/ Versed/fentanyl/Nimbex/3% saline drips this morning. 06/02: Underwent decompressive hemicraniectomy done on 06/[address] Stone. Remains sedated, orally intubated on mechanical ventilation. Off Nimbex currently. Remains on propofol/versed/ fentanyl gtt. 3% saline off currently. 06/03: Remains sedated, orally intubated on mech vent. Tolerating tube feeds. Sedation being titrated down. 06/04: Remains sedated, orally intubated on mechanical ventilation, tolerating tube feeds. 06/05: Sedated, orally intubated on mechanical ventilation. Tolerating tube feeds. ICPs remain around 5-10 06/06, 06/07: Sedated, orally intubated on mechanical ventilation. 06/08: Remains encephalopathic off sedation, orally intubated on mechanical ventilation. Propofol to maintain vent synchrony. Subjective 06/09: Hypertensive overnight requiring reinitiation via the Cardene drip. Sympathetic storm yesterday so no sedation vacation today. Tolerating tube feeding at goal. 06/10: Apparently had seizure yesterday, currently on Dilantin, Keppra and valproate. No other acute events overnight. EEG done today report pending, but per overhead crane technician showed focal seizures. Remains on Cardene at 12.5 mg per hour. 06/11: Deteriorating oxygen diffusion today requiring increased PEEP and diuretic. CXR with venous congestion. Minimal secretions. 06/12: No improvement. Plan tracheostomy for long-term ventilator weaning. Objective Vital Signs Date Time Temp Pulse Resp B/P Pulse Ox O2 Delivery O2 Flow Rate FiO2 06/12/17 07:31 99 Ventilator 35 06/12/17 06:00 84 06/12/17 04:00 99.7 15 148/68 Intake and Output 06/11/17 06/11/17 06/12/17 08:00 16:00 00:00 Intake Total 1285 ml 1252 ml 988 ml Output Total 750.0 ml 650 ml 2323 ml Balance 535.0 ml 602 ml -1335 ml Result Diagram: 06/12/17 0400 06/12/17 0400 Other Results Laboratory Tests Test 06/11/17 14:00 Blood Gas Puncture Site ART LINE Blood Gas Patient Temperature 98.6 Blood Gas HCO3 21 mmol/L (22-26) Blood Gas Base Excess -3.0 mmol/L (-2-2) Blood Gas Oxygen Saturation 97 % (90-100) Arterial Blood pH 7.43 (7.380-7.420) Arterial Blood Partial 32 mmHg (38-42) Pressure CO2 Arterial Blood Partial 122 mmHg Pressure O2 (61-120) Arterial Blood Oxygen Content 14.9 Vol % (12.0-20.0) Arterial Blood 0.9 % (0-4) Carboxyhemoglobin Arterial Blood Methemoglobin 0.9 % (0-2) Blood Gas Hemoglobin 10.8 G/DL (12.0-16.0) Oxygen Delivery Device VENTILATOR Blood Gas Ventilator Setting PRVC12/550/1.0/+10 Blood Gas Inspired Oxygen 100 % Imaging Last 72 hours Impressions Chest X-Ray 06/09/17599 Signed Impressions: Service Date/Time: Friday, June 09, 2017 04:55 - CONCLUSION: No significant change has occurred. Johann Silvestre MD Chest X-Ray 06/08/17599 Signed Impressions: Service Date/Time: Thursday, June 08, 2017 03:43 - CONCLUSION: 1. The support equipment is in good position. 2. Minimal left basilar effusion and atelectasis. Johann Silvestre MD Chest X-Ray 06/07/17599 Signed Impressions: Service Date/Time: May 02:58 - CONCLUSION: No significant interval change with persistent left greater than right basilar lung opacity. Tarik Ahn MD Objective Remarks GEN: 62 yo male, critically ill Neuro: Left hemicraniectomy site clean dry and intact. Sedated with Fentanyl, positive cough and gag. Positive corneal reflex. Withdraws to pain in bilateral lower extremity's. Spontaneous movements of the upper and lower extremities noted, withdraws lowers. HEENT: Orally intubated, Pallor present, no icterus, tongue/ mucosa moist. Pupils 2-3 mm bilaterally reacting actively to light and accommodation. Neck: Orally intubated. Chest/Pulm: Good air entry bilaterally, no wheezing or crackles, gabe scattered rhonchi and mobile secretions. CVS: Regular rate and rhythm S1, S2 no S4 without murmur. No JVD. GI/abdomen: soft, nontender nondistended. BS present. Extremities: No clubbing cyanosis or trace bilateral lower extremity edema, well perfused. Skin is warm dry and intact, well perfused Line: Central Venous Catheter Side: Left Location: Subclavian A/P Assessment and Plan Middle age male brought in as trauma alert following fall from a 6 foot ladder with: TBI: Left subdural hemorrhage, bilateral subarachnoid hemorrhage left greater than right, bifrontal contusions, left temporal lobe contusion Encephalopathy Elevated ICP status post Left frontotemporal parietal decompressive craniectomy , evacuation of acute subdural hematoma with placement of right I's CP monitor Splenic laceration Acute respiratory failure on mechanical ventilation Suspect aspiration pneumonia Uncontrolled hypertension Plan: Neuro/Psych : Maintain sedation with fentanyl, off Versed and propofol, daily sedation medication, repeat head CT per neurosurgery. Underwent decompressive hemicraniectomy on the left by Dr. Stone on 06/01. Off 3% saline. Right ICP monitor removed. Daily sedation vacation okayed with neurosurgery. Currently on Keppra, Dilantin and valproic acid for focal sz on EEG today Pulmonary : Continue full ventilator support. PRVC 18/500/12/05/44 Vent bundle, bronchodilators as needed. PEEP 10 again. Cardiovascular: d/c IV hydration. Off pressors. Labetalol and hydralazine prn for SBP greater than 160mm Hg, Nicardipine gtt for uncontrolled hypertension Propranolol 20 mg by mouth every 8 hours sympathetic storming-increased to 60 every 8 hours. Amlodipine 10 mg daily. Clonidine 0.3 mg every 8 hours added by trauma team for better blood pressure control. GI/liver: Continue tube feeds with vital 1.5 goal 60 cc an hour and advanced to goal as tolerated. Continue laxatives. Off Reglan, having bowel movements Renal/: Strict intake output, monitor and replete electrolytes, follow BUN/creatinine. d /c IV hydration. KVO IVF. Start diuretic. ID Ancef given in the trauma bay. Pancultures ordered on 06/03-sputum growing Enterobacter and beta strep, started zosyn (06/03) to cover for aspiration pneumonia Heme Serial hemoglobins to trend his grade 1 splenic laceration although there is no evidence of active bleeding 2 units of platelets were given due to his medication induced platelet dysfunction Endocrine: Watch for hyperglycemia, SSI for glycemic control if needed. Prophylaxis: PPI/SCDs. 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 Probably need tracheostomy and PEG tube placement.CCM Discussed with Dr. Adler and Dr. Stone on 06/06 Critical care will be available for tracheostomy when trauma team wants to proceed. Overall impression: Worsening radiographic picture and deteriorating oxygenation over past 24 hours. Tracheostomy placement today. Max Flower MD Jun 12, 2017 11:27
[2017-06-12] MEDS: hydrALAZINE HCL 20 MG/ML VIAL IV PUSH SCH ×2 (11:54→17:44)
[2017-06-12] MEDS: METOPROLOL TARTRATE 5 MG/5 ML VIAL IV PUSH SCH ×3 (11:54→23:06)
[2017-06-12] MEDS ORDERED: PROPOFOL 200 MG/20 ML AMP IV ONE (12:00)
--- NOTE | 2017-06-12 13:11 | HHI.PR ---
Neuropsych Emotional Emotional: UnabletoAssess: Emotional, Anxious/Fearful, Depressed/Sad, Hostile/ Resentful, Irritable/Angry/Frustrate, Labile, Constricted/Blunted Behavior Behavior: Unable to Asses: Behavior, Coping/Acceptance, Cooperative w/ Treatment, Motivation, Frustration Tolerance/Temple, Impulsive/Agitated, Suicidal/ Homicidal Risk Cognitive Cognitive: Unable to Asses: Cognitive, Attention/Concentration, Confused/ Orientation, Insight/Awareness, Judgement/Problem-Solving, Memory Psychosocial Psychosocial: Intact: Psychosocial, Family/Other Adjustment, Realistic Expectation Progress Notes/Response to Tx Contents of Sessions: Adjustment Time with Patient: 15 minutes Premorbid psychological status Premorbid Cognitive, Emotional and Behavioral Status: Deferred. The patient was unable to provide information, nor was the family able to do so at this time. Behavioral Reactions of Patient and Family/Support System: Deferred. The patients family is experiencing ongoing issues of adjustment given the nature of the injury, and this aspect of recovery will require ongoing monitoring. Emotional/Behavioral Status of Patient and Family/Support System: Deferred. Pertinent issues, if appropriate to this patients clinical care, are described in detail above. Maximizing acute care outcome It is recommended that the patient be monitored for emergent behavioral impulsivity as the medical condition evolves. This patients neuropathological challenges may limit their rehabilitation potential going forward, and these challenges will require specialized therapeutic skills to maximize outcome. Additionally, the patients family is experiencing ongoing issues of adjustment given the traumatic nature of the injury, and they may benefit from ongoing psychological assistance. Anticipated Problems Ongoing areas of concern will include behavioral impulsivity, lack of insight and judgment, which is expected to improve with time and treatment. Presently , the patient is intubated and sedated. Treatment Plan This clinician will continue to follow with you throughout the course of this patients acute care treatment, and I will be available to meet with the patient s family/support system to facilitate their understanding and the ongoing care of their family member. The goals of neuropsychological intervention shall be both educational and supportive to the family/support system as is deemed clinically appropriate. [facility] Level: IV:Confused/Agitated-maximal assist Impression This patient suffered a severe traumatic brain injury from his ladder fall on 05/30/2017. He is expected to have significant residual neurocognitive deficit from this injury. Diagnosis: Progress Note Narrative Ongoing follow-up of patient seen during daily trauma rounds. This is day 13 post injury. His seizure disorder is under control with Valproic Acid, Dilantin and Keppra, and f/u EEG was normal. He is still considered to be in cerebral storming and as such the propranolol was changed to an alternative beta hi. His agitation issues are now effectively managed with Seroquel 25 mg q8H. He is a Rancho IV presently. I will continue to follow. Mike Burns PhD Jun 12, 2017 13:11
[2017-06-12] MEDS: FREE WATER G-TUBE SCH ×2 (14:00→20:53)
[2017-06-12] MEDS: MIDAZOLAM 100 MG/NS 100 ML DRIP Premix IV SCH (15:00)
--- NOTE | 2017-06-12 15:07 | HHI.GIFU ---
Subjective Remarks Pt intubated on vent. Objective Vitals I&O Vital Signs Date Time Temp Pulse Resp B/P Pulse Ox O2 Delivery O2 Flow Rate FiO2 06/12/17 12:56 99 35 06/12/17 07:31 99 Ventilator 35 06/12/17 07:31 98 35 06/12/17 07:30 98 Mechanical Ventilator 35 06/12/17 07:00 98 Mechanical Ventilator 40 06/12/17 06:00 84 06/12/17 04:40 93 40 06/12/17 04:00 99.7 91 15 148/68 95 06/12/17 04:00 40 06/12/17 04:00 91 06/12/17 02:00 83 06/12/17 01:45 99 40 06/12/17 00:00 83 06/12/17 00:00 99.1 83 15 156/67 98 06/12/17 00:00 70 06/11/17 22:00 100 50 06/11/17 22:00 50 06/11/17 22:00 78 06/11/17 21:00 60 06/11/17 20:00 70 06/11/17 20:00 79 06/11/17 20:00 98.8 79 14 136/63 100 06/11/17 19:38 100 60 06/11/17 19:35 79 06/11/17 19:14 100 Mechanical Ventilator 70 06/11/17 18:35 100 Ventilator 70 17 18:30 70 17 18:00 80 17 17:20 80 17 16:55 100 Ventilator 90 06/11/17 16:00 78 06/11/17 16:00 98.2 96 33 136/75 88 17 16:00 100 06/11/17 15:51 100 100 I/O 06/11/11 06//17 06/11/17 /18/17 /18/06/12/17 07:00 15:00 23:00 07:00 15:00 23:00 Intake Total 1285 ml 1252 ml 988 ml 803 ml Output Total 750 ml 650 ml 2323 ml 950 ml Balance 535 ml 602 ml -1335 ml -147 ml Intake IV Total 754 ml 940 ml 698 ml 803 ml Tube Feeding 331 ml 232 ml 90 ml 0 ml Tube Irrigant 60 ml 200 ml 0 ml Other 200 ml 20 ml Output Urine Total 750 ml 650 ml 2323 ml 950 ml Tube Feeding Residual Discard 0 ml # Bowel Movements 0 0 1 0 Laboratory Laboratory Tests Test 06/11/17 06/12/17 23:00 04:00 Prothrombin Time 10.3 Prothromb Time International 0.9 Ratio White Blood Count 13.4 Red Blood Count 2.95 Hemoglobin 8.6 Hematocrit 26.6 Mean Corpuscular Volume 90.1 Mean Corpuscular Hemoglobin 29.3 Mean Corpuscular Hemoglobin 32.5 Concent Red Cell Distribution Width 14.7 Platelet Count 370 Mean Platelet Volume 9.4 Neutrophils (%) (Auto) 84.0 Lymphocytes (%) (Auto) 7.7 Monocytes (%) (Auto) 5.5 Eosinophils (%) (Auto) 2.2 Basophils (%) (Auto) 0.6 Neutrophils # (Auto) 11.3 Lymphocytes # (Auto) 1.0 Monocytes # (Auto) 0.7 Eosinophils # (Auto) 0.3 Basophils # (Auto) 0.1 CBC Comment DIFF FINAL Differential Comment Sodium Level 145 Potassium Level 3.5 Chloride Level 112 Carbon Dioxide Level 24.2 Anion Gap 9 Blood Urea Nitrogen 24 Creatinine 0.71 Estimat Glomerular Filtration 113 Rate Random Glucose 89 Calcium Level 7.1 Protein Corrected Calcium 7.7 Total Bilirubin 0.7 Aspartate Amino Transf 57 (AST/SGOT) Alanine Aminotransferase 89 (ALT/SGPT) Alkaline Phosphatase 360 Total Protein 6.0 Albumin 1.9 Imaging Last Impressions Chest X-Ray 06/11/17 0000 Signed Impressions: Service Date/Time: Sunday, June 11, 2017 10:33 - CONCLUSION: Stable appearance of the chest. Tubes and catheters are in good position. Ze Alicea MD Head CT 06/04/17 0600 Signed Impressions: Service Date/Time: Sunday, June 04, 2017 04:57 - CONCLUSION: Continued evolution of the blood products throughout the brain status post left temporal craniotomy. The catheters are in excellent position. No new hemorrhage is identified. Ze Alicea MD Chest CT 05/30/17 1347 Signed Impressions: Service Date/Time: Tuesday, May 30, 2017 13:53 - CONCLUSION: Bibasilar nonspecific infiltrates suggestive of pulmonary contusions. Sanjay Donis MD Abdomen/Pelvis CT 05/30/[id number] Signed Impressions: Service Date/Time: Tuesday, May 30, 2017 13:53 - CONCLUSION: 1. There appears to be a small amount of fluid along the inferior aspect of the spleen suspicious for a inferior laceration. No significant free fluid is seen in the abdomen or pelvis. 2. Benign-appearing left renal cyst. 3. Bibasilar infiltrates suggestive of pulmonary contusions. Sanjay Donis MD Pelvis X-Ray 05/30/[id number] Signed Impressions: Service Date/Time: Tuesday, May 30, 2017 13:24 - CONCLUSION: The bony structures are grossly intact. Sanjay Donis MD Cervical Spine CT 05/30/171336 Signed Impressions: Service Date/Time: Tuesday, May 30, 2017 13:55 - CONCLUSION: 1. No acute bony fracture. 2. Moderate diffuse primary bony degenerative changes, disc degeneration and disc space narrowing at multiple levels from C3-C7. Sanjay Donis MD Physical Exam HEENT: normocephalic; atraumatic; no jaundice. intubated CHEST: coarse CARDIAC: RRR ABDOMEN: Soft, protuberant,tympanitic, no hepatosplenomegaly; bowel sounds are present in all four quadrants. EXTREMITIES: No clubbing, cyanosis, or edema. SKIN: Normal; no rash; no jaundice. 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 attempted to d/w with Marisabel [phone] at 1600 but no answer and voicemailbox full, unable to leave message as voicemail box was full. plan was for EGD/PEG but pt not NPO, will do tomorrow - left subdural hematoma, bilat subarachnoid hemorrhage, bifrontal contusions, left temporal lobe contusion - per [facility] - EGD with PEG placement - obtain consents - NPO after midnight - hold lovenox - on abx - supportive care This pt was seen by myself and Dr Dhaliwal and myself and this note is written on her behalf Ashley Diane Jun 12, 2017 15:07
--- NOTE | 2017-06-12 16:52 | GIPROC ---
[facility] [address]. [facility] [place], [address] EGD WITH PEG PROCEDURE REPORT EXAM DATE: 06/12/2017 PATIENT NAME: Sherif Evans MR#: [id number] BIRTHDATE: 1955 ATTENDING: Ara Dhaliwal MD ORDER #: [id number] SAP PI DEVELOPER: Karen Echevarria and Satish Spence STATUS: inpatient INDICATIONS: The patient is a 62 yr old male here for an EGD with PEG due to dysphagia PROCEDURE PERFORMED: EGD with biopsy EGD with PEG placement MEDICATIONS: None and Per Anesthesia. TOPICAL ANESTHETIC: none CONSENT: The patient understands the risks and benefits of the procedure and understands that these risks include, but are not limited to: sedation, allergic reaction, infection, perforation and/or bleeding. Alternative means of evaluation and treatment include, among others: physical exam, x-rays, and/or surgical intervention. The patient elects to proceed with this endoscopic procedure. medical equipment was checked for proper function. Hand hygiene and appropriate measures for infection prevention was taken. After the risks, benefits and alternatives of the procedure were thoroughly explained, Informed consent was verified, confirmed and timeout was successfully executed by the treatment team. The patient was anesthetized with topical anesthesia and the Pentax [id number] endoscope was introduced through the mouth and advanced to the . The instrument was slowly withdrawn as the mucosa was fully examined. Mild gastritis was found in the antrum. The stomach was then inflated with air, and by a combination of transillumination and manual palpation, the site for the gastrostomy tube placement was selected and marked on the anterior abdominal wall. The skin of the anterior abdomen was surgically prepped and draped with sterile towels. Utilizing strict sterile technique, the selected site was then anesthetized with 1% xylocaine by injection into the skin and subcutaneous tissue. A 1 cm incision was made through the skin and subcutaneous tissue, and the needle/cannula assembly was then passed through the abdominal wall and through the anterior wall of the stomach, maintaining visualization with the endoscope. A snare device previously placed through the instrument channel was then opened and placed around the cannula, the needle was removed, and the insertion wire was passed through the cannula and into the stomach lumen. The snare was then loosened from the cannula, and repositioned to snare the insertion wire. The snare was then pulled up to the endoscope distal tip, and the scope was then withdrawn bringing with it the snare and insertion wire. The insertion wire was then released from the snare, and then loop-attached to the gastrostomy tube. Using the "pull technique", the G-tube was then pulled into place by traction on the insertion wire at the abdominal wall end. The G-tube insertion site was then cleansed once again, and the external bolster was placed over the tube to secure it to the abdominal wall. A sterile dressing was then applied, and the procedure terminated. a hiatal hernia The gastroscope was then slowly withdrawn and removed. ADVERSE EVENT: There were no complications. IMPRESSIONS: 1. Mild gastritis was found in the antrum 2. A hiatal hernia 3. s/p peg RECOMMENDATIONS: Anti-reflux regimen REPEAT EXAM: EGD pending biopsy results peg instructions Ara Dhaliwal MD eSigned: Ara Dhaliwal MD 06/12/2017 4:52 PM cc: PATIENT NAME: Sherif Evans MR#: [id number]
[2017-06-12] MEDS: SODIUM CHLOR 0.9% 1000 ML INJ 1,000 ML IV SCH (17:11)
[2017-06-12] MEDS: fentaNYL 2,500 MCG/NS 250 ML IV SCH (18:06)
--- NOTE | 2017-06-12 19:47 | HHI.CCPN ---
Subjective Brief History Patient who fell from six-foot ladder while working hit his head sustained severe brain injury with decreasing Rubio Coma Scale from 11 down to 3. Intubated and ventilated on the scene brought in as priority 1 trauma alert. Patient underwent right decompressive craniotomy and remains in the ICU since Final injuries TBI: Left subdural hemorrhage, bilateral subarachnoid hemorrhage left greater than right, bifrontal contusions, left temporal lobe contusion Encephalopathy Elevated ICP status post Left frontotemporal parietal decompressive craniectomy , evacuation of acute subdural hematoma with placement of right I's CP monitor Splenic laceration Acute respiratory failure on mechanical ventilation Suspect aspiration pneumonia at the time of the event 24 Hour Review/Hospital Course 05/31/17 Patient suffered elevation in his ICP, responsive to increase sedation and hypertonic saline boluses Repeat imaging shows slight improvement 06/01/17 ICP continue to increase when sedation is stopped, neurosurgery considering surgical intervention 06/02/17 Patient underwent right craniectomy yesterday, his ICPs have been in the single digits Weaning Versed drip to off, we will continue propofol for sedation as he does continue to become agitated Discuss likelihood of tracheostomy and PEG placement with 06/03/17 Clinically patient is stable, he continues to be on sedation CT scan suggests loss of bowen-white matter indicative of possible RICO 06/04/17 off sedation moving extremities opening eyes but not following commands ICP ies in normal range 06/05 mental status unchanged,not opening eyes today requires sedation prn 06/06 no changes remains low GCS BP slightly elevated on cardene drip Had high residuals -tube feeds 06/07 GCS 3T today BP better controlled tube feeds better controlled neuro input appreciated 06/08 moving lower extremities today -however not purposeful episode of storming BP -low dose cardene 06/[address] good response ro pain meds storming episode 06/08-when off sedation GCS 5T unchanged 06/10/17 Patient has been stable overnight yet the yesterday developed some jerking motion and repeat EEG G reveals complex focal seizure activity Patient currently on Keppra Dilantin and valproic acid Remains intubated and ventilated Initial plan to wean and extubate the patient at this point has to be abandoned till we control the seizures syndrome and will go from there 06/11/17 Patient is unchanged since yesterday as far neurologic status is concerned Repeat EEG doesn't show any epileptic activity Patient remains on valproic acid Dilantin and Keppra Neurology help greatly appreciated 06/13/17 No change in current status patient remains obtunded no neurologically depressed with low Rubio Coma Scale of about 5 Slight movement in upper extremities Patient at this point will need tracheostomy in order to wean off the ventilator because he can keep his upper airway Tracheostomy will be placed tomorrow for there was no bronchoscope available today Objective Vital Signs Date Time Temp Pulse Resp B/P Pulse Ox O2 Delivery O2 Flow Rate FiO2 06/12/17 18:00 85 06/12/17 17:21 99 50 06/12/17 16:00 97.7 15 151/62 06/12/17 07:31 Ventilator Intake and Output 06/11/17 06/11/17 06/11/17 07:59 15:59 23:59 Intake Total 1285 ml 1252 ml 988 ml Output Total 750 ml 650 ml 2323 ml Balance 535 ml 602 ml -1335 ml Result Diagram: 06/12/17 0400 06/12/17 0400 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 No change in neurologic status patient remains obtunded Remains on Dilantin Present valproic acid without seizure activity Hemodynamic/Cardiac Hemodynamically stable Pulmonary/Respiratory Bilateral breath sounds with the improving PO2 FiO2 gradient From respiratory point patient could be weaned to extubate any remains on CPAP however due to neurologic status he couldn't keep up his upper airway and therefore tracheostomy will be placed Abdomen/GI Nutrition Abdomen is soft enteral feeds tolerated Renal/I&O Good renal function good urine output patient needs some gentle prompting and the diuresis Vascular Central Line Catheter Line: Central Venous Catheter Side: Left Location: Subclavian Assessment and Plan Plan -sedation off gcs 5T max Continue full ventilator support for respiratory failure Continue nutritional support Seizure prophylaxis with Keppra/dilantin-neurology input appreciated clonidin for better BP control add propranolol add free water will need peg/trach if family would like to proceed Patient remains critically ill with traumatic brain injury following a fall Hattie Kang MD Jun 12, 2017 19:47
[2017-06-12] MEDS: MIDAZOLAM HCL 2 MG/2 ML VIAL IV PRN (20:53)
[2017-06-13] VITALS (19 sets, daily range): BP systolic 127–161; BP diastolic 53–76; PULSE 92–135; RESP 12–20; TEMP 98.8–99.5; O2SAT 95–99
[2017-06-13] MEDS: hydrALAZINE HCL 20 MG/ML VIAL IV PUSH SCH ×4 (01:06→17:45)
[2017-06-13] MEDS: PIPERACIL-TAZO 4.5 GM PREMIX 100 ML IV SCH ×2 (01:06→05:21)
[2017-06-13] MEDS: FOSPHENYTOIN INJ 100 MGPE in SODIUM CHLORIDE 0.9% INJ 50 ML IV SCH ×4 (02:10→17:45)
[2017-06-13] MEDS: CHLORHEXIDINE GLUCONATE 2 % 1 PACK (2 CLOTHS) TOP SCH (04:00)
[2017-06-13 04:13] LABS: AUTOMATED NEUTROPHIL # 11.4 TH/MM3 (1.8-7.7); BASOPHIL % 0.3 % (0.0-2.0); EOSINOPHIL # 0.3 TH/MM3 (0-0.4); HEMATOCRIT 26.4 % (39.0-51.0); HEMO FLAGS DIFF FINAL; LYMPH % 7.9 % (9.0-44.0); MEAN CELL VOLUME 89.3 FL (80.0-100.0); MEAN CORPUSCULAR HEMOGLOBIN 30.2 PG (27.0-34.0); MEAN CORPUSCULAR HGB CONC 33.8 % (32.0-36.0); MONO % 3.6 % (0.0-8.0); NEUT % 86.2 % (16.0-70.0); PLATELET COUNT 478 TH/MM3 (150-450); RED BLOOD COUNT 2.95 MIL/MM3 (4.50-5.90); RED CELL DISTRIBUTION WIDTH 14.7 % (11.6-17.2); WHITE BLOOD COUNT 13.3 TH/MM3 (4.0-11.0)
[2017-06-13 04:33] LABS: BLOOD GAS BASE EXCESS -1.7 mmol/L (-2-2); BLOOD GAS CARBOXYHEMOGLOBIN 1.3 % (0-4); BLOOD GAS HCO3 21 mmol/L (22-26); BLOOD GAS O2 HGB SATURATION 96 % (90-100); BLOOD GAS OXYGEN CONTENT 11.9 Vol % (12.0-20.0); BLOOD GAS PCO2 30 mmHg (38-42); BLOOD GAS PO2 101 mmHg (61-120); BLOOD GAS TOTAL HGB 8.8 G/DL (12.0-16.0); CRITICAL VALUE NO; OXYGEN DEVICE VENTILATOR; TEMP CORR TO 99.5
[2017-06-13] MEDS: METOPROLOL TARTRATE 5 MG/5 ML VIAL IV PUSH SCH ×4 (04:33→22:52)
[2017-06-13] MEDS: levETIRAcetam INJ 500 MG in SODIUM CHLORIDE 0.9% INJ 100 ML IV SCH ×2 (04:33→17:44)
--- NOTE | 2017-06-13 04:33 | RADRPT ---
EXAM DATE/TIME: 06/13/2017 03:56 [facility] COMPARISON: CHEST SINGLE AP, June 11, 2017, 10:33. INDICATIONS : Shortness of breath. MEDICAL HISTORY : Cardiovascular disease. Myocardial infarction. Hypertension. SURGICAL HISTORY : None. ENCOUNTER: Subsequent ACUITY: 2 weeks PAIN SCORE: Non-responsive. LOCATION: Bilateral chest FINDINGS: The support devices remain in place. There continue be patchy bilateral pulmonary infiltrates. No ry dence of pneumothorax. The heart size is stable. The findings are mildly improved compared to the alysia or study. CONCLUSION: Bilateral pulmonary infiltrates slightly improved compared to the prior study. Sanjay Donis MD on June 13, 2017 at 4:31 Board Certified Radiologist. This report was verified electronically.
[2017-06-13 04:34] LABS: DRAW SITE ART LINE; FIO2 35 %; STAT NO; VENT SETTINGS PRVC/AC
[2017-06-13 04:57] LABS: ALKALINE PHOSPHATASE 299 U/L (45-117); ALT (GPT) 66 U/L (12-78); ANION GAP 8 MEQ/L (5-15); AST (GOT) 52 U/L (15-37); BICARBONATE 23.2 MEQ/L (21.0-32.0); BLOOD UREA NITROGEN 24 MG/DL (7-18); CHLORIDE 113 MEQ/L (98-107); GLOMERULAR FILTRATION RATE 106 ML/MIN (>89); POTASSIUM 3.7 MEQ/L (3.5-5.1); SODIUM (NA) 144 MEQ/L (136-145); TOTAL BILIRUBIN ADULT 0.7 MG/DL (0.2-1.0)
[2017-06-13] MEDS: fentaNYL 2,500 MCG/NS 250 ML IV SCH (05:19)
[2017-06-13] MEDS: MIDAZOLAM 100 MG/NS 100 ML DRIP Premix IV SCH (05:19)
[2017-06-13] MEDS: FREE WATER G-TUBE SCH ×3 (05:19→20:27)
[2017-06-13] MEDS: QUEtiapine FUMARATE 25 MG TAB PO SCH ×3 (05:21→20:27)
[2017-06-13] MEDS: VALPROATE INJ 500 MG in SODIUM CHLORIDE 0.9% INJ 100 ML IV SCH ×3 (06:59→22:52)
[2017-06-13] MEDS: DOCUSATE SODIUM 100 MG/10 ML UDC PO SCH ×2 (09:00→19:56)
[2017-06-13] MEDS: SODIUM CHLORIDE 0.9% FLUSH 5 ML FLUSH IVF SCH ×2 (10:00→20:27)
[2017-06-13] MEDS: FAMOTIDINE 20 MG TAB NG SCH ×2 (10:00→20:27)
[2017-06-13] MEDS: CHLORHEXIDINE 0.12% (ORAL KIT) 15 ML CUP MT SCH ×2 (10:00→20:27)
--- NOTE | 2017-06-13 12:31 | HHI.CCPN ---
Subjective Brief History Patient who fell from six-foot ladder while working hit his head sustained severe brain injury with decreasing Rubio Coma Scale from 11 down to 3. Intubated and ventilated on the scene brought in as priority 1 trauma alert. Patient underwent right decompressive craniotomy and remains in the ICU since Final injuries TBI: Left subdural hemorrhage, bilateral subarachnoid hemorrhage left greater than right, bifrontal contusions, left temporal lobe contusion Encephalopathy Elevated ICP status post Left frontotemporal parietal decompressive craniectomy , evacuation of acute subdural hematoma with placement of right I's CP monitor Splenic laceration Acute respiratory failure on mechanical ventilation Suspect aspiration pneumonia at the time of the event 24 Hour Review/Hospital Course 05/31/17 Patient suffered elevation in his ICP, responsive to increase sedation and hypertonic saline boluses Repeat imaging shows slight improvement 06/01/17 ICP continue to increase when sedation is stopped, neurosurgery considering surgical intervention 06/02/17 Patient underwent right craniectomy yesterday, his ICPs have been in the single digits Weaning Versed drip to off, we will continue propofol for sedation as he does continue to become agitated Discuss likelihood of tracheostomy and PEG placement with 06/03/17 Clinically patient is stable, he continues to be on sedation CT scan suggests loss of bowen-white matter indicative of possible RICO 06/04/17 off sedation moving extremities opening eyes but not following commands ICP ies in normal range 06/05 mental status unchanged,not opening eyes today requires sedation prn 06/06 no changes remains low GCS BP slightly elevated on cardene drip Had high residuals -tube feeds 06/07 GCS 3T today BP better controlled tube feeds better controlled neuro input appreciated 06/08 moving lower extremities today -however not purposeful episode of storming BP -low dose cardene 06/[address] good response ro pain meds storming episode 06/08-when off sedation GCS 5T unchanged 06/10/17 Patient has been stable overnight yet the yesterday developed some jerking motion and repeat EEG G reveals complex focal seizure activity Patient currently on Keppra Dilantin and valproic acid Remains intubated and ventilated Initial plan to wean and extubate the patient at this point has to be abandoned till we control the seizures syndrome and will go from there 06/11/17 Patient is unchanged since yesterday as far neurologic status is concerned Repeat EEG doesn't show any epileptic activity Patient remains on valproic acid Dilantin and Keppra Neurology help greatly appreciated 06/13/17 No change in current status patient remains obtunded no neurologically depressed with low Rubio Coma Scale of about 5 Slight movement in upper extremities Patient at this point will need tracheostomy in order to wean off the ventilator because he can keep his upper airway Tracheostomy will be placed tomorrow for there was no bronchoscope available today 06/12/17 Patient has been stable overnight This morning patient opens eyes to command but doesn't track yet Is moving all 4 extremities, arms more than legs At this point I'll hold off with a tracheostomy because patient appears to be slightly more awake significant save him a tracheostomy, I will Objective Vital Signs Date Time Temp Pulse Resp B/P Pulse Ox O2 Delivery O2 Flow Rate FiO2 06/13/17 11:02 96 35 06/13/17 08:00 94 06/13/17 07:00 Mechanical Ventilator 4.00 06/13/17 04:00 99.5 15 145/75 Intake and Output 06/12/17 06/12/17 06/13/17 08:00 16:00 00:00 Intake Total 803 ml 880 ml 1154 ml Output Total 950 ml 1500 ml 775 ml Balance -147 ml -620 ml 379 ml Result Diagram: 06/13/17 0400 06/13/17 0400 Other Results Laboratory Tests Test 06/13/17 04:28 Blood Gas Puncture Site ART LINE Blood Gas Patient Temperature 99.5 Blood Gas HCO3 21 mmol/L (22-26) Blood Gas Base Excess -1.7 mmol/L (-2-2) Blood Gas Oxygen Saturation 96 % (90-100) Arterial Blood pH 7.46 (7.380-7.420) Arterial Blood Partial 30 mmHg (38-42) Pressure CO2 Arterial Blood Partial 101 mmHg Pressure O2 (61-120) Arterial Blood Oxygen Content 11.9 Vol % (12.0-20.0) Arterial Blood 1.3 % (0-4) Carboxyhemoglobin Arterial Blood Methemoglobin 1.0 % (0-2) Blood Gas Hemoglobin 8.8 G/DL (12.0-16.0) Oxygen Delivery Device VENTILATOR Blood Gas Ventilator Setting PRVC/AC Blood Gas Inspired Oxygen 35 % Imaging Last 24 hours Impressions Chest X-Ray 06/13/17 0600 Signed Impressions: Service Date/Time: Tuesday, June 13, 2017 03:56 - CONCLUSION: Bilateral pulmonary infiltrates slightly improved compared to the prior study. 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 awake opens eyes on command but doesn't track all 4 extremities Hemodynamic/Cardiac Hemodynamically intact Pulmonary/Respiratory Bilateral good breath sounds patient tolerating CPAP trials and will let the patient be on a CPAP trial about 4-6 hours every day Patient still wouldn't be able to extubate even if his neurologic status was improved, but with slight improvement neurologic status will hold off on tracheostomy Abdomen/GI Nutrition Abdomen soft active bowel sounds tolerates enteral feeds Renal/I&O Good renal function needs will help with diuresis and mobilizing of the third space with a resolving systemic inflammatory response Vascular Central Line Catheter Line: Central Venous Catheter Side: Left Location: Subclavian Assessment and Plan Plan -sedation off gcs 5T max Continue full ventilator support for respiratory failure Continue nutritional support Seizure prophylaxis with Keppra/dilantin-neurology input appreciated clonidin for better BP control add propranolol add free water will need peg/trach if family would like to proceed Patient remains critically ill with traumatic brain injury following a fall Attestation Will hold off on tracheostomy Stimulate patient and Dr. Heaton help greatly appreciated Critical care time 38 minutes Hattie Kang MD Jun 13, 2017 12:31
--- NOTE | 2017-06-13 15:11 | HHI.PR ---
Neuropsych Progress Notes/Response to Tx Contents of Sessions: Adjustment Time with Patient: 15 minutes Premorbid psychological status Premorbid Cognitive, Emotional and Behavioral Status: Deferred. The patient was unable to provide information, nor was the family able to do so at this time. Behavioral Reactions of Patient and Family/Support System: Deferred. The patients family is experiencing ongoing issues of adjustment given the nature of the injury, and this aspect of recovery will require ongoing monitoring. Emotional/Behavioral Status of Patient and Family/Support System: Deferred. Pertinent issues, if appropriate to this patients clinical care, are described in detail above. Maximizing acute care outcome It is recommended that the patient be monitored for emergent behavioral impulsivity as the medical condition evolves. This patients neuropathological challenges may limit their rehabilitation potential going forward, and these challenges will require specialized therapeutic skills to maximize outcome. Additionally, the patients family is experiencing ongoing issues of adjustment given the traumatic nature of the injury, and they may benefit from ongoing psychological assistance. Anticipated Problems Ongoing areas of concern will include behavioral impulsivity, lack of insight and judgment, which is expected to improve with time and treatment. Presently , the patient is intubated and sedated. Treatment Plan This clinician will continue to follow with you throughout the course of this patients acute care treatment, and I will be available to meet with the patient s family/support system to facilitate their understanding and the ongoing care of their family member. The goals of neuropsychological intervention shall be both educational and supportive to the family/support system as is deemed clinically appropriate. [facility] Level: II:General response-total assist Impression This patient suffered a severe traumatic brain injury from his ladder fall on 05/30/2017. He is expected to have significant residual neurocognitive deficit from this injury. Diagnosis: Progress Note Narrative Ongoing follow-up of patient seen during daily trauma rounds. This is day 14 post injury. The patient is off sedation with a generalized response, some restlessness and as such trauma team consensus is valproic acid and Seroquel 25 q8H. He is Rancho II presently. I will continue to follow. Mike Burns PhD Jun 13, 2017 3:11 pm
--- NOTE | 2017-06-13 16:38 | HHI.CCPN ---
Subjective Remarks/Hospital Course 05/30: Patient came in as a trauma alert. 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 He was working with his colleagues and they saw him just prior to the accident when he was at his baseline mental status. He fell. The exact nature of the fall is unknown. However after that he was acting bizarre. As per EMS he was combative at the scene and not making sens, repeating the same words which do not make sense. Was hypertensive with blood pressure in 185 systolic. As per EMS GCS at the best was 11. Past medical history is unknown. Upon arrival patient was a GCS 11 and blood pressure was 205 systolic. He was combative. Patient was intubated by ER physician, evaluated by trauma team and subsequently underwent imaging studies and was transferred to ICU. Critical care was consulted by Dr. Araiza for TBI with acute respiratory failure. Per discussion with Dr. Araiza patient didn't appear to have traumatic subdural and subarachnoid hemorrhage as well as a splenic laceration. He also had some bleeding from a scalp laceration on arrival to the ICU. Patient required sedation with propofol following arrival to the ICU as he was starting to gag and cough and was attempting to move both lower extremities. I emergently placed a right subclavian central line for central vascular access which was replaced with a left subclavian central line subsequently as it was turning up into the internal jugular vein. Neurosurgery Dr. Stone had all ready been informed by trauma team and was planning to do a bolt for ICP monitoring. History was obtained by reviewing records and discussion with Dr. Araiza and ICU nursing staff. 05/31: Remains sedated, orally intubated on mechanical ventilation. Required initiation of 3% saline and received 23% saline last night for elevated ICP. On propofol/Versed/fentanyl drips as well as 3% saline this morning and was started on Nimbex for neuromuscular blockade for elevated ICPs. 06/01: Remains sedated, orally intubated on mechanical ventilation. On propofol/ Versed/fentanyl/Nimbex/3% saline drips this morning. 06/02: Underwent decompressive hemicraniectomy done on 06/[address] Stone. Remains sedated, orally intubated on mechanical ventilation. Off Nimbex currently. Remains on propofol/versed/ fentanyl gtt. 3% saline off currently. 06/03: Remains sedated, orally intubated on mech vent. Tolerating tube feeds. Sedation being titrated down. 06/04: Remains sedated, orally intubated on mechanical ventilation, tolerating tube feeds. 06/05: Sedated, orally intubated on mechanical ventilation. Tolerating tube feeds. ICPs remain around 5-10 06/06, 06/07: Sedated, orally intubated on mechanical ventilation. 06/08: Remains encephalopathic off sedation, orally intubated on mechanical ventilation. Propofol to maintain vent synchrony. Subjective 06/09: Hypertensive overnight requiring reinitiation via the Cardene drip. Sympathetic storm yesterday so no sedation vacation today. Tolerating tube feeding at goal. 06/10: Apparently had seizure yesterday, currently on Dilantin, Keppra and valproate. No other acute events overnight. EEG done today report pending, but per audio technician showed focal seizures. Remains on Cardene at 12.5 mg per hour. 06/11: Deteriorating oxygen diffusion today requiring increased PEEP and diuretic. CXR with venous congestion. Minimal secretions. 06/12: No improvement. Plan tracheostomy for long-term ventilator weaning. 06/13: Patient with some spontaneous movement today. Plan is to hold off on trach for now. Agree. Objective Vital Signs Date Time Temp Pulse Resp B/P Pulse Ox O2 Delivery O2 Flow Rate FiO2 06/13/17 15:12 96 35 06/13/17 14:00 120 06/13/17 12:00 98.8 20 127/76 06/13/17 07:00 Mechanical Ventilator 4.00 Intake and Output 06/12/17 06/12/17 06/12/17 07:59 15:59 23:59 Intake Total 803 ml 880 ml 1154 ml Output Total 950 ml 1500 ml 775 ml Balance -147 ml -620 ml 379 ml Result Diagram: 06/13/17 0400 06/13/17 0400 Other Results Laboratory Tests Test 06/13/17 04:28 Blood Gas Puncture Site ART LINE Blood Gas Patient Temperature 99.5 Blood Gas HCO3 21 mmol/L (22-26) Blood Gas Base Excess -1.7 mmol/L (-2-2) Blood Gas Oxygen Saturation 96 % (90-100) Arterial Blood pH 7.46 (7.380-7.420) Arterial Blood Partial 30 mmHg (38-42) Pressure CO2 Arterial Blood Partial 101 mmHg Pressure O2 (61-120) Arterial Blood Oxygen Content 11.9 Vol % (12.0-20.0) Arterial Blood 1.3 % (0-4) Carboxyhemoglobin Arterial Blood Methemoglobin 1.0 % (0-2) Blood Gas Hemoglobin 8.8 G/DL (12.0-16.0) Oxygen Delivery Device VENTILATOR Blood Gas Ventilator Setting PRVC/AC Blood Gas Inspired Oxygen 35 % Imaging Last 72 hours Impressions Chest X-Ray 06/09/17599 Signed Impressions: Service Date/Time: Friday, June 09, 2017 04:55 - CONCLUSION: No significant change has occurred. Johann Silvestre MD Chest X-Ray 06/08/17599 Signed Impressions: Service Date/Time: Thursday, June 08, 2017 03:43 - CONCLUSION: 1. The support equipment is in good position. 2. Minimal left basilar effusion and atelectasis. Johann Silvestre MD Chest X-Ray 06/07/17599 Signed Impressions: Service Date/Time: May 02:58 - CONCLUSION: No significant interval change with persistent left greater than right basilar lung opacity. Tarik Ahn MD Objective Remarks GEN: 62 yo male, critically ill Neuro: Left hemicraniectomy site clean dry and intact. Positive cough and gag. Withdraws to pain in bilateral lower extremity's. Spontaneous movements of the upper and lower extremities. HEENT: Orally intubated, Pupils 2 mm bilaterally reacting actively to light and accommodation. Neck: Orally intubated. Chest/Pulm: Good air entry bilaterally, no wheezing or crackles, few mobile secretions. CVS: Regular rate and rhythm S1, S2 no S4 without murmur. No JVD. GI/abdomen: soft, nontender nondistended. BS present. Extremities: No clubbing cyanosis or 1+ bilateral lower extremity edema, well perfused. Skin is warm dry and intact, well perfused Line: Central Venous Catheter Side: Left Location: Subclavian A/P Assessment and Plan Middle age male brought in as trauma alert following fall from a 6 foot ladder with: TBI: Left subdural hemorrhage, bilateral subarachnoid hemorrhage left greater than right, bifrontal contusions, left temporal lobe contusion Encephalopathy Elevated ICP status post Left frontotemporal parietal decompressive craniectomy , evacuation of acute subdural hematoma with placement of right I's CP monitor Splenic laceration Acute respiratory failure on mechanical ventilation Suspect aspiration pneumonia Uncontrolled hypertension Plan: Neuro/Psych : Maintain sedation with fentanyl, off Versed and propofol, daily sedation medication, repeat head CT per neurosurgery. Underwent decompressive hemicraniectomy on the left by Dr. Stone on 06/01. Off 3% saline. Right ICP monitor removed. Daily sedation vacation okayed with neurosurgery. Currently on Keppra, Dilantin and valproic acid for focal sz on EEG today Pulmonary : Continue full ventilator support. PRVC 18/500/1/10/45 Vent bundle, bronchodilators as needed. PEEP 10 again. Cardiovascular: d/c IV hydration. Off pressors. Labetalol and hydralazine prn for SBP greater than 160mm Hg, Nicardipine gtt for uncontrolled hypertension Propranolol 20 mg by mouth every 8 hours sympathetic storming-increased to 60 every 8 hours. Amlodipine 10 mg daily. Clonidine 0.3 mg every 8 hours added by trauma team for better blood pressure control. GI/liver: Continue tube feeds with vital 1.5 goal 60 cc an hour and advanced to goal as tolerated. Continue laxatives. Off Reglan, having bowel movements Renal/: Strict intake output, monitor and replete electrolytes, follow BUN/creatinine. d /c IV hydration. KVO IVF. Start diuretic. ID Ancef given in the trauma bay. Pancultures ordered on 06/03-sputum growing Enterobacter and beta strep, started zosyn (06/03) to cover for aspiration pneumonia Heme Serial hemoglobins to trend his grade 1 splenic laceration although there is no evidence of active bleeding 2 units of platelets were given due to his medication induced platelet dysfunction Endocrine: Watch for hyperglycemia, SSI for glycemic control if needed. Prophylaxis: PPI/SCDs. Discussed with ONCOLOGY PHYSICIAN ASSISTANT Further recommendations per trauma team and neurosurgery. Probably need tracheostomy and PEG tube placement.CCM Discussed with Dr. Adler and Dr. Stone on 06/06 Critical care will be available for tracheostomy when trauma team wants to proceed. Overall impression: Postpone tracheostomy, continue ventilator support with aim toward extubation. Max Flower MD Jun 13, 2017 16:38
[2017-06-13] MEDS: SODIUM CHLOR 0.9% 1000 ML INJ 1,000 ML IV SCH (17:15)
[2017-06-14] VITALS (18 sets, daily range): BP systolic 126–177; BP diastolic 54–70; PULSE 76–112; RESP 12–25; TEMP 97.9–99; O2SAT 95–100
[2017-06-14] MEDS: FOSPHENYTOIN INJ 100 MGPE in SODIUM CHLORIDE 0.9% INJ 50 ML IV SCH ×5 (00:30→23:38)
[2017-06-14] MEDS: hydrALAZINE HCL 20 MG/ML VIAL IV PUSH SCH ×4 (00:30→17:41)
[2017-06-14] MEDS: CHLORHEXIDINE GLUCONATE 2 % 1 PACK (2 CLOTHS) TOP SCH (04:00)
[2017-06-14] MEDS: FREE WATER G-TUBE SCH ×3 (04:38→21:09)
[2017-06-14] MEDS: METOPROLOL TARTRATE 5 MG/5 ML VIAL IV PUSH SCH ×4 (05:03→23:38)
[2017-06-14] MEDS: levETIRAcetam INJ 500 MG in SODIUM CHLORIDE 0.9% INJ 100 ML IV SCH ×2 (05:03→16:51)
[2017-06-14] MEDS: fentaNYL 2,500 MCG/NS 250 ML IV SCH (05:04)
[2017-06-14] MEDS: QUEtiapine FUMARATE 25 MG TAB PO SCH ×3 (05:23→21:09)
[2017-06-14 05:29] LABS: AUTOMATED NEUTROPHIL # 7.5 TH/MM3 (1.8-7.7); BASOPHIL % 0.4 % (0.0-2.0); EOSINOPHIL # 0.2 TH/MM3 (0-0.4); EOSINOPHIL % 2.1 % (0.0-4.0); HEMATOCRIT 24.7 % (39.0-51.0); HEMO FLAGS DIFF FINAL; LYMPH % 11.2 % (9.0-44.0); LYMPHOCYTE # 1.1 TH/MM3 (1.0-4.8); MEAN CELL VOLUME 90.8 FL (80.0-100.0); MEAN CORPUSCULAR HEMOGLOBIN 29.5 PG (27.0-34.0); MEAN CORPUSCULAR HGB CONC 32.5 % (32.0-36.0); MONO % 8.8 % (0.0-8.0); NEUT % 77.5 % (16.0-70.0); PLATELET COUNT 486 TH/MM3 (150-450); RED BLOOD COUNT 2.72 MIL/MM3 (4.50-5.90); RED CELL DISTRIBUTION WIDTH 15.1 % (11.6-17.2); WHITE BLOOD COUNT 9.6 TH/MM3 (4.0-11.0)
[2017-06-14 05:54] LABS: ANION GAP 12 MEQ/L (5-15); AST (GOT) 43 U/L (15-37); BICARBONATE 22.1 MEQ/L (21.0-32.0); BLOOD UREA NITROGEN 20 MG/DL (7-18); CHLORIDE 112 MEQ/L (98-107); GLOMERULAR FILTRATION RATE 128 ML/MIN (>89); POTASSIUM 3.5 MEQ/L (3.5-5.1); SODIUM (NA) 146 MEQ/L (136-145)
[2017-06-14 05:57] LABS: ALKALINE PHOSPHATASE 204 U/L (45-117); ALT (GPT) 49 U/L (12-78); TOTAL BILIRUBIN ADULT 0.5 MG/DL (0.2-1.0)
[2017-06-14] MEDS: VALPROATE INJ 500 MG in SODIUM CHLORIDE 0.9% INJ 100 ML IV SCH ×3 (06:45→23:38)
[2017-06-14] MEDS: CHLORHEXIDINE 0.12% (ORAL KIT) 15 ML CUP MT SCH ×2 (07:39→21:07)
[2017-06-14] MEDS: DOCUSATE SODIUM 100 MG/10 ML UDC PO SCH ×2 (09:00→21:00)
[2017-06-14] MEDS: SODIUM CHLORIDE 0.9% FLUSH 5 ML FLUSH IVF SCH ×2 (09:00→21:00)
[2017-06-14] MEDS: FAMOTIDINE 20 MG TAB NG SCH ×2 (09:48→21:08)
[2017-06-14] MEDS: SODIUM CHLORIDE 0.9% FLUSH 10 ML FLUSH IV FLUSH PRN ×3 (09:48→21:07)
[2017-06-14] MEDS: HALOPERIDOL LACTATE 5 MG/ML AMP IV PRN (11:10)
--- NOTE | 2017-06-14 11:23 | HHI.PR ---
Neuropsych Emotional Emotional: UnabletoAssess: Emotional, Anxious/Fearful, Depressed/Sad, Hostile/ Resentful, Irritable/Angry/Frustrate, Labile, Constricted/Blunted Behavior Behavior: Unable to Asses: Behavior, Coping/Acceptance, Cooperative w/ Treatment, Motivation, Frustration Tolerance/[place], Impulsive/Agitated, Suicidal/ Homicidal Risk Cognitive Cognitive: Unable to Asses: Cognitive, Attention/Concentration, Confused/ Orientation, Insight/Awareness, Judgement/Problem-Solving, Memory Psychosocial Psychosocial: Unable to Asses: Psychosocial, Family/Other Adjustment, Realistic Expectation, Self-Esteem/Confidence Progress Notes/Response to Tx Contents of Sessions: Adjustment, Level of Consciousness Time with Patient: 15 minutes Premorbid psychological status Premorbid Cognitive, Emotional and Behavioral Status: Deferred. The patient was unable to provide information, nor was the family able to do so at this time. Behavioral Reactions of Patient and Family/Support System: Deferred. The patients family is experiencing ongoing issues of adjustment given the nature of the injury, and this aspect of recovery will require ongoing monitoring. Emotional/Behavioral Status of Patient and Family/Support System: Deferred. Pertinent issues, if appropriate to this patients clinical care, are described in detail above. Maximizing acute care outcome It is recommended that the patient be monitored for emergent behavioral impulsivity as the medical condition evolves. This patients neuropathological challenges may limit their rehabilitation potential going forward, and these challenges will require specialized therapeutic skills to maximize outcome. Additionally, the patients family is experiencing ongoing issues of adjustment given the traumatic nature of the injury, and they may benefit from ongoing psychological assistance. Anticipated Problems Ongoing areas of concern will include behavioral impulsivity, lack of insight and judgment, which is expected to improve with time and treatment. Presently , the patient is intubated and sedated. Treatment Plan This clinician will continue to follow with you throughout the course of this patients acute care treatment, and I will be available to meet with the patient s family/support system to facilitate their understanding and the ongoing care of their family member. The goals of neuropsychological intervention shall be both educational and supportive to the family/support system as is deemed clinically appropriate. [facility] Level: III:Localized response-total assist Impression This patient suffered a severe traumatic brain injury from his ladder fall on 05/30/2017. He is expected to have significant residual neurocognitive deficit from this injury. Diagnosis: Progress Note Narrative Ongoing follow-up of patient seen during daily trauma rounds. This is day 15 post injury. The patient is stable, with eyes open but does not track nor does he move to command. His restlessness is increasing and likely will continue to do so with the d/cing of all sedation. He has Valproic Acid 500 BID and Seroquel 25 q8H presently and trauma team consensus is to also have a PRN Haldol order on standby for breakthrough agitation as he transitions through the Rancho levels of neurocognitive recovery. Presently, with sedation he is considered a Rancho III, emerging IV. I will continue to follow. Mike Burns PhD Jun 14, 2017 11:23 am
--- NOTE | 2017-06-14 16:03 | HHI.GIFU ---
Subjective Remarks Pt intubated on vent. s/p PEG placement, still NPO in anticipation of trach. + BM Objective Vitals I&O Vital Signs Date Time Temp Pulse Resp B/P Pulse Ox O2 Delivery O2 Flow Rate FiO2 06/14/17 12:00 110 06/14/17 12:00 99.0 110 25 146/58 95 06/14/17 12:00 35 06/14/17 10:00 94 06/14/17 09:45 97 35 06/14/17 09:45 35 06/14/17 08:50 100 35 06/14/17 08:00 35 06/14/17 08:00 97.9 92 12 144/54 97 06/14/17 08:00 93 06/14/17 07:00 98 Mechanical Ventilator 35 06/14/17 06:00 92 06/14/17 04:00 76 06/14/17 04:00 98.8 76 18 126/70 98 06/14/17 04:00 35 06/14/17 03:39 97 35 06/14/17 02:00 96 06/14/17 00:00 88 06/14/17 00:00 35 06/14/17 00:00 98.2 88 15 156/63 99 06/13/17 23:39 99 35 06/13/17 22:00 93 06/13/17 21:40 99 35 06/13/17 20:12 95 35 06/13/17 20:00 99.0 119 20 161/69 95 06/13/17 20:00 35 06/13/17 20:00 117 06/13/17 19:00 99 Mechanical Ventilator 35 06/13/17 18:00 115 I/O 06/13/17 06/13/17 06/13/17 06/14/17 06/14/17 06/14/17 06:59 14:59 22:59 06:59 14:59 22:59 Intake Total 996 ml 328 ml 599 ml 581 ml 576 ml Output Total 550 ml 1050 ml 1100 ml 625 ml 800 ml Balance 446 ml -722 ml -501 ml -44 ml -224 ml Intake Oral 0 ml IV Total 936 ml 328 ml 399 ml 521 ml 316 ml Tube Feeding 0 ml Other 60 ml 200 ml 60 ml 260 ml Output Urine Total 550 ml 1000 ml 1100 ml 625 ml 800 ml Stool Total 50 ml # Bowel Movements 0 1 1 1 Laboratory Laboratory Tests Test 06/14/17 05:10 White Blood Count 9.6 Red Blood Count 2.72 Hemoglobin 8.0 Hematocrit 24.7 Mean Corpuscular Volume 90.8 Mean Corpuscular Hemoglobin 29.5 Mean Corpuscular Hemoglobin 32.5 Concent Red Cell Distribution Width 15.1 Platelet Count 486 Mean Platelet Volume 8.6 Neutrophils (%) (Auto) 77.5 Lymphocytes (%) (Auto) 11.2 Monocytes (%) (Auto) 8.8 Eosinophils (%) (Auto) 2.1 Basophils (%) (Auto) 0.4 Neutrophils # (Auto) 7.5 Lymphocytes # (Auto) 1.1 Monocytes # (Auto) 0.8 Eosinophils # (Auto) 0.2 Basophils # (Auto) 0.0 CBC Comment DIFF FINAL Differential Comment Sodium Level 146 Potassium Level 3.5 Chloride Level 112 Carbon Dioxide Level 22.1 Anion Gap 12 Blood Urea Nitrogen 20 Creatinine 0.64 Estimat Glomerular Filtration 128 Rate Random Glucose 83 Calcium Level 8.4 Total Bilirubin 0.5 Aspartate Amino Transf 43 (AST/SGOT) Alanine Aminotransferase 49 (ALT/SGPT) Alkaline Phosphatase 204 Total Protein 5.6 Albumin 1.8 Imaging Last Impressions Chest X-Ray 06/13/17 06 Signed Impressions: Service Date/Time: Tuesday, June 13, 2017 03:56 - CONCLUSION: Bilateral pulmonary infiltrates slightly improved compared to the prior study. Sanjay Donis MD Head CT 06/04/17 0600 Signed Impressions: Service Date/Time: Sunday, June 04, 2017 04:57 - CONCLUSION: Continued evolution of the blood products throughout the brain status post left temporal craniotomy. The catheters are in excellent position. No new hemorrhage is identified. Ze Alicea MD Chest CT 05/30/17 1347 Signed Impressions: Service Date/Time: Tuesday, May 30, 2017 13:53 - CONCLUSION: Bibasilar nonspecific infiltrates suggestive of pulmonary contusions. Sanjay Donis MD Abdomen/Pelvis CT 05/30/17 1347 Signed Impressions: Service Date/Time: Tuesday, May 30, 2017 13:53 - CONCLUSION: 1. There appears to be a small amount of fluid along the inferior aspect of the spleen suspicious for a inferior laceration. No significant free fluid is seen in the abdomen or pelvis. 2. Benign-appearing left renal cyst. 3. Bibasilar infiltrates suggestive of pulmonary contusions. Sanjay Donis MD Pelvis X-Ray 05/30/171336 Signed Impressions: Service Date/Time: Tuesday, May 30, 2017 13:24 - CONCLUSION: The bony structures are grossly intact. Sanjay Donis MD Cervical Spine CT 05/30/171336 Signed Impressions: Service Date/Time: Tuesday, May 30, 2017 13:55 - CONCLUSION: 1. No acute bony fracture. 2. Moderate diffuse primary bony degenerative changes, disc degeneration and disc space narrowing at multiple levels from C3-C7. Sanjay Donis MD Physical Exam HEENT: normocephalic; atraumatic; no jaundice. intubated CHEST: coarse CARDIAC: RRR ABDOMEN: Soft, protuberant,tympanitic, no hepatosplenomegaly; bowel sounds are present in all four quadrants. PEG site clean EXTREMITIES: No clubbing, cyanosis, or edema. SKIN: Normal; no rash; no jaundice. [employer]: intubated on vent Assessment and Plan Plan ASSESSMENT - dysphagia - pt brought as trauma after fall from ladder, suffered brain injury , need for prolonged ventilatory support. s/p PEG placement, still NPO in anticipation of trach. - left subdural hematoma, bilat subarachnoid hemorrhage, bifrontal contusions, left temporal lobe contusion - per [facility] PLAN - start TF after trach - on abx - supportive care This pt was seen by myself and Dr Dhaliwal and myself and this note is written on her behalf Ashley Diane Jun 14, 2017 16:03
[2017-06-14] MEDS: SODIUM CHLOR 0.9% 1000 ML INJ 1,000 ML IV SCH (17:15)
--- NOTE | 2017-06-14 17:32 | HHI.CCPN ---
Subjective Brief History Patient who fell from six-foot ladder while working hit his head sustained severe brain injury with decreasing Rubio Coma Scale from 11 down to 3. Intubated and ventilated on the scene brought in as priority 1 trauma alert. Patient underwent right decompressive craniotomy and remains in the ICU since Final injuries TBI: Left subdural hemorrhage, bilateral subarachnoid hemorrhage left greater than right, bifrontal contusions, left temporal lobe contusion Encephalopathy Elevated ICP status post Left frontotemporal parietal decompressive craniectomy , evacuation of acute subdural hematoma with placement of right I's CP monitor Splenic laceration Acute respiratory failure on mechanical ventilation Suspect aspiration pneumonia at the time of the event 24 Hour Review/Hospital Course 05/31/17 Patient suffered elevation in his ICP, responsive to increase sedation and hypertonic saline boluses Repeat imaging shows slight improvement 06/01/17 ICP continue to increase when sedation is stopped, neurosurgery considering surgical intervention 06/02/17 Patient underwent right craniectomy yesterday, his ICPs have been in the single digits Weaning Versed drip to off, we will continue propofol for sedation as he does continue to become agitated Discuss likelihood of tracheostomy and PEG placement with 06/03/17 Clinically patient is stable, he continues to be on sedation CT scan suggests loss of bowen-white matter indicative of possible RICO 06/04/17 off sedation moving extremities opening eyes but not following commands ICP ies in normal range 06/05 mental status unchanged,not opening eyes today requires sedation prn 06/06 no changes remains low GCS BP slightly elevated on cardene drip Had high residuals -tube feeds 06/07 GCS 3T today BP better controlled tube feeds better controlled neuro input appreciated 06/08 moving lower extremities today -however not purposeful episode of storming BP -low dose cardene 06/[address] good response ro pain meds storming episode 06/08-when off sedation GCS 5T unchanged 06/10/17 Patient has been stable overnight yet the yesterday developed some jerking motion and repeat EEG G reveals complex focal seizure activity Patient currently on Keppra Dilantin and valproic acid Remains intubated and ventilated Initial plan to wean and extubate the patient at this point has to be abandoned till we control the seizures syndrome and will go from there 06/11/17 Patient is unchanged since yesterday as far neurologic status is concerned Repeat EEG doesn't show any epileptic activity Patient remains on valproic acid Dilantin and Keppra Neurology help greatly appreciated 06/13/17 No change in current status patient remains obtunded no neurologically depressed with low Rubio Coma Scale of about 5 Slight movement in upper extremities Patient at this point will need tracheostomy in order to wean off the ventilator because he can keep his upper airway Tracheostomy will be placed tomorrow for there was no bronchoscope available today 06/12/17 Patient has been stable overnight This morning patient opens eyes to command but doesn't track yet Is moving all 4 extremities, arms more than legs At this point I'll hold off with a tracheostomy because patient appears to be slightly more awake significant save him a tracheostomy, I will 06/14/17 Patient was doing respiratory very well throughout last few days is starting to open his eyes yet is not improving beyond that neurologically In face of that patient will require tracheostomy Will proceed will tracheostomy tomorrow Objective Vital Signs Date Time Temp Pulse Resp B/P Pulse Ox O2 Delivery O2 Flow Rate FiO2 06/14/17 16:08 98 35 06/14/17 12:00 110 06/14/17 12:00 99.0 25 146/58 06/14/17 07:00 Mechanical Ventilator 06/13/17 07:00 4.00 Intake and Output 06/13/17 06/13/17 06/13/17 07:59 15:59 23:59 Intake Total 996 ml 328 ml 599 ml Output Total 550 ml 1050 ml 1100 ml Balance 446 ml -722 ml -501 ml Result Diagram: 06/14/17 0510 06/14/17 0510 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 moves all 4 extremities however does not participate in care in any way Tolerate CPAP well In face of inability to protect upper airway patient at this point will need tracheostomy Hemodynamic/Cardiac Hemodynamically remains stable Pulmonary/Respiratory Bilateral breath sounds tracheostomy tomorrow Abdomen/GI Nutrition Abdomen soft tolerates enteral feeds Vascular Central Line Catheter Line: Central Venous Catheter Side: Left Location: Subclavian Assessment and Plan Plan -sedation off gcs 5T max Continue full ventilator support for respiratory failure Continue nutritional support Seizure prophylaxis with Keppra/dilantin-neurology input appreciated clonidin for better BP control add propranolol add free water will need peg/trach if family would like to proceed Patient remains critically ill with traumatic brain injury following a fall Attestation Critical care 40 minutes Hattie Kang MD Jun 14, 2017 17:32
[2017-06-14] MEDS: MIDAZOLAM 100 MG/NS 100 ML DRIP Premix IV SCH (21:06)
[2017-06-15] VITALS (17 sets, daily range): BP systolic 118–174; BP diastolic 56–66; PULSE 85–110; RESP 12–21; TEMP 97.9–99.1; O2SAT 97–100
[2017-06-15] MEDS: hydrALAZINE HCL 20 MG/ML VIAL IV PUSH SCH ×5 (00:47→23:08)
[2017-06-15] MEDS: CHLORHEXIDINE GLUCONATE 2 % 1 PACK (2 CLOTHS) TOP SCH (04:00)
[2017-06-15] MEDS: MIDAZOLAM 100 MG/NS 100 ML DRIP Premix IV SCH ×2 (04:48→16:53)
[2017-06-15] MEDS: levETIRAcetam INJ 500 MG in SODIUM CHLORIDE 0.9% INJ 100 ML IV SCH ×2 (04:48→16:52)
[2017-06-15] MEDS: METOPROLOL TARTRATE 5 MG/5 ML VIAL IV PUSH SCH ×4 (04:50→21:55)
[2017-06-15] MEDS: FOSPHENYTOIN INJ 100 MGPE in SODIUM CHLORIDE 0.9% INJ 50 ML IV SCH ×4 (05:41→23:08)
[2017-06-15] MEDS: FREE WATER G-TUBE SCH ×3 (05:41→21:55)
[2017-06-15] MEDS: QUEtiapine FUMARATE 25 MG TAB PO SCH ×3 (05:42→21:55)
[2017-06-15 06:02] LABS: AUTOMATED NEUTROPHIL # 7.4 TH/MM3 (1.8-7.7); BASOPHIL # 0.1 TH/MM3 (0-0.2); BASOPHIL % 0.6 % (0.0-2.0); EOSINOPHIL # 0.2 TH/MM3 (0-0.4); EOSINOPHIL % 2.3 % (0.0-4.0); HEMATOCRIT 27.8 % (39.0-51.0); HEMO FLAGS DIFF FINAL; LYMPH % 12.7 % (9.0-44.0); LYMPHOCYTE # 1.3 TH/MM3 (1.0-4.8); MEAN CELL VOLUME 91.6 FL (80.0-100.0); MEAN CORPUSCULAR HGB CONC 32.8 % (32.0-36.0); MONO % 9.9 % (0.0-8.0); NEUT % 74.5 % (16.0-70.0); PLATELET COUNT 623 TH/MM3 (150-450); RED BLOOD COUNT 3.04 MIL/MM3 (4.50-5.90); RED CELL DISTRIBUTION WIDTH 15.4 % (11.6-17.2); WHITE BLOOD COUNT 9.9 TH/MM3 (4.0-11.0)
[2017-06-15] MEDS: VALPROATE INJ 500 MG in SODIUM CHLORIDE 0.9% INJ 100 ML IV SCH (06:03)
[2017-06-15 06:28] LABS: ANION GAP 10 MEQ/L (5-15); AST (GOT) 45 U/L (15-37); BICARBONATE 21.9 MEQ/L (21.0-32.0); BLOOD UREA NITROGEN 17 MG/DL (7-18); CHLORIDE 110 MEQ/L (98-107); GLOMERULAR FILTRATION RATE 117 ML/MIN (>89); SODIUM (NA) 142 MEQ/L (136-145)
[2017-06-15 06:29] LABS: ALT (GPT) 54 U/L (12-78)
[2017-06-15 06:30] LABS: ALKALINE PHOSPHATASE 225 U/L (45-117); TOTAL BILIRUBIN ADULT 0.5 MG/DL (0.2-1.0)
--- NOTE | 2017-06-15 07:41 | RADRPT ---
EXAM DATE/TIME: 06/15/2017 06:53 [facility] COMPARISON: CHEST SINGLE AP, June 13, 2017, 3:56. INDICATIONS : Infiltrate MEDICAL HISTORY : Venous insufficiency. Cardiovascular disease. Myocardial infarction. Hypertension SURGICAL HISTORY : None. ENCOUNTER: Subsequent ACUITY: 2 weeks PAIN SCORE: Non-responsive. LOCATION: Bilateral chest FINDINGS: A single view of the chest demonstrates hazy bilateral densities greater in the left lung. This has i mproved. Endotracheal tube and subclavian line on the left are unchanged. Osseous structures are int act. CONCLUSION: Bilateral hazy densities greater on the left but slightly improved. Terry Hussein MD on June 15, 2017 at 7:39 Board Certified Radiologist. This report was verified electronically.
[2017-06-15] MEDS: DOCUSATE SODIUM 100 MG/10 ML UDC PO SCH ×2 (08:27→20:52)
[2017-06-15] MEDS: CHLORHEXIDINE 0.12% (ORAL KIT) 15 ML CUP MT SCH ×2 (08:27→20:51)
[2017-06-15] MEDS: SODIUM CHLORIDE 0.9% FLUSH 5 ML FLUSH IVF SCH ×2 (09:00→21:00)
[2017-06-15] MEDS: FAMOTIDINE 20 MG TAB NG SCH ×2 (09:14→20:52)
[2017-06-15] MEDS ORDERED: ROCURONIUM INJ 50 MG/5 ML VIAL IV ONE (10:15)
--- NOTE | 2017-06-15 12:43 | HHI.CCPN ---
Subjective Brief History Patient who fell from six-foot ladder while working hit his head sustained severe brain injury with decreasing Rubio Coma Scale from 11 down to 3. Intubated and ventilated on the scene brought in as priority 1 trauma alert. Patient underwent right decompressive craniotomy and remains in the ICU since Final injuries TBI: Left subdural hemorrhage, bilateral subarachnoid hemorrhage left greater than right, bifrontal contusions, left temporal lobe contusion Encephalopathy Elevated ICP status post Left frontotemporal parietal decompressive craniectomy , evacuation of acute subdural hematoma with placement of right I's CP monitor Splenic laceration Acute respiratory failure on mechanical ventilation Suspect aspiration pneumonia at the time of the event 24 Hour Review/Hospital Course 05/31/17 Patient suffered elevation in his ICP, responsive to increase sedation and hypertonic saline boluses Repeat imaging shows slight improvement 06/01/17 ICP continue to increase when sedation is stopped, neurosurgery considering surgical intervention 06/02/17 Patient underwent right craniectomy yesterday, his ICPs have been in the single digits Weaning Versed drip to off, we will continue propofol for sedation as he does continue to become agitated Discuss likelihood of tracheostomy and PEG placement with 06/03/17 Clinically patient is stable, he continues to be on sedation CT scan suggests loss of bowen-white matter indicative of possible RICO 06/04/17 off sedation moving extremities opening eyes but not following commands ICP ies in normal range 06/05 mental status unchanged,not opening eyes today requires sedation prn 06/06 no changes remains low GCS BP slightly elevated on cardene drip Had high residuals -tube feeds 06/07 GCS 3T today BP better controlled tube feeds better controlled neuro input appreciated 06/08 moving lower extremities today -however not purposeful episode of storming BP -low dose cardene 06/[address] good response ro pain meds storming episode 06/08-when off sedation GCS 5T unchanged 06/10/17 Patient has been stable overnight yet the yesterday developed some jerking motion and repeat EEG G reveals complex focal seizure activity Patient currently on Keppra Dilantin and valproic acid Remains intubated and ventilated Initial plan to wean and extubate the patient at this point has to be abandoned till we control the seizures syndrome and will go from there 06/11/17 Patient is unchanged since yesterday as far neurologic status is concerned Repeat EEG doesn't show any epileptic activity Patient remains on valproic acid Dilantin and Keppra Neurology help greatly appreciated 06/13/17 No change in current status patient remains obtunded no neurologically depressed with low Rubio Coma Scale of about 5 Slight movement in upper extremities Patient at this point will need tracheostomy in order to wean off the ventilator because he can keep his upper airway Tracheostomy will be placed tomorrow for there was no bronchoscope available today 06/12/17 Patient has been stable overnight This morning patient opens eyes to command but doesn't track yet Is moving all 4 extremities, arms more than legs At this point I'll hold off with a tracheostomy because patient appears to be slightly more awake significant save him a tracheostomy, I will 06/14/17 Patient was doing respiratory very well throughout last few days is starting to open his eyes yet is not improving beyond that neurologically In face of that patient will require tracheostomy Will proceed will tracheostomy tomorrow 06/15/17 Patient opening eyes but not tracking Moving all 4 extremities Patient is not waking up sufficiently to separate off the ventilator or to allow for nonprotected airway Blue Rhino tracheostomy today Objective Vital Signs Date Time Temp Pulse Resp B/P Pulse Ox O2 Delivery O2 Flow Rate FiO2 06/15/17 10:00 107 06/15/17 08:00 35 06/15/17 08:00 97.9 21 174/66 98 06/15/17 07:00 Mechanical Ventilator 06/13/17 07:00 4.00 Intake and Output 06/14/17 06/14/17 06/15/17 08:00 16:00 00:00 Intake Total 581 ml 576 ml 278 ml Output Total 625 ml 800 ml 1100 ml Balance -44 ml -224 ml -822 ml Result Diagram: 06/15/17 0544 06/15/17 0544 Imaging Last 24 hours Impressions Chest X-Ray 06/15/17 0600 Signed Impressions: Service Date/Time: Thursday, June 15, 2017 06:53 - CONCLUSION: Bilateral hazy densities greater on the left but slightly improved. Terry Hussein MD Exam SUPERVISOR RICE MILLING No change in neurologic status patient is opening eyes moving all over the bed but not tracking following commands Withdraws to pain Hemodynamic/Cardiac Hemodynamically stable and hypertensive Pulmonary/Respiratory Bilateral breath sounds Pulmonary patient is doing much better yet due to the decreased level of consciousness cannot be extubated Underwent successful Blue Rhino tracheostomy today Abdomen/GI Nutrition Abdomen soft enteral feeds tolerated Vascular Central Line Catheter Line: Central Venous Catheter Side: Left Location: Subclavian Assessment and Plan Plan -sedation off gcs 5T max Continue full ventilator support for respiratory failure Continue nutritional support Seizure prophylaxis with Keppra/dilantin-neurology input appreciated clonidin for better BP control add propranolol add free water will need peg/trach if family would like to proceed Patient remains critically ill with traumatic brain injury following a fall Attestation Critical care 38 minutes Hattie Kang MD Jun 15, 2017 12:43
--- NOTE | 2017-06-15 13:55 | HHI.PR ---
Neuropsych Emotional Emotional: UnabletoAssess: Emotional, Anxious/Fearful, Depressed/Sad, Hostile/ Resentful, Irritable/Angry/Frustrate, Labile, Constricted/Blunted Behavior Behavior: Moderate: Impulsive/Agitated Cognitive Cognitive: Unable to Asses: Cognitive, Attention/Concentration, Confused/ Orientation, Insight/Awareness, Judgement/Problem-Solving, Memory Progress Notes/Response to Tx Contents of Sessions: Adjustment, Level of Consciousness Time with Patient: 15 minutes Premorbid psychological status Premorbid Cognitive, Emotional and Behavioral Status: Deferred. The patient was unable to provide information, nor was the family able to do so at this time. Behavioral Reactions of Patient and Family/Support System: Deferred. The patients family is experiencing ongoing issues of adjustment given the nature of the injury, and this aspect of recovery will require ongoing monitoring. Emotional/Behavioral Status of Patient and Family/Support System: Deferred. Pertinent issues, if appropriate to this patients clinical care, are described in detail above. Maximizing acute care outcome It is recommended that the patient be monitored for emergent behavioral impulsivity as the medical condition evolves. This patients neuropathological challenges may limit their rehabilitation potential going forward, and these challenges will require specialized therapeutic skills to maximize outcome. Additionally, the patients family is experiencing ongoing issues of adjustment given the traumatic nature of the injury, and they may benefit from ongoing psychological assistance. Anticipated Problems Ongoing areas of concern will include behavioral impulsivity, lack of insight and judgment, which is expected to improve with time and treatment. Presently , the patient is intubated and sedated. Treatment Plan This clinician will continue to follow with you throughout the course of this patients acute care treatment, and I will be available to meet with the patient s family/support system to facilitate their understanding and the ongoing care of their family member. The goals of neuropsychological intervention shall be both educational and supportive to the family/support system as is deemed clinically appropriate. [place] Level: IV:Confused/Agitated-maximal assist Impression This patient suffered a severe traumatic brain injury from his ladder fall on 05/30/2017. He is expected to have significant residual neurocognitive deficit from this injury. Diagnosis: Progress Note Narrative Ongoing follow-up of patient seen during daily trauma rounds. This is day 16 post injury. The patient is improving neurobehaviorally, with eye opening and increased agitation. Last night he required Haldol at 1110. He remains an improving Rancho IV presently. Trauma team consensus is to increase Valproic Acid to 500 BID and a PRN Haldol order. I will continue to follow. Mike Burns PhD Jun 15, 2017 1:55 pm
--- NOTE | 2017-06-15 14:13 | PD.PROCEDR ---
Procedure Note Procedure Procedure: Bronchoscopy for percutaneous tracheostomy DX: Respiratory Failure OP: Bronchoscopy Procedure: Time out performed. ICU monitoring in place. Versed 5 mg, fentanyl 100 mics, vecuronium 10 mg iv. Vent rate 20/min. Through indwelling orotracheal tube the tracheobronchial tree was inspected. All segemnts normal. View was used to guide percutaneous tracheostomy (tracheostomy procedure dictated) in separate note. Sats remained at > 95% throughout procedure. Position of the tracheostomy tube confirmed by introducing bronchoscope through the new tracheotomy. Daniel Stevens MD Jun 15, 2017 14:13
[2017-06-15] MEDS: SODIUM CHLOR 0.9% 1000 ML INJ 1,000 ML IV SCH (16:53)
--- NOTE | 2017-06-15 17:33 | HHI.HCPN ---
Palliative care team was introduced to the patient's 2 sisters who were at bedside. Previously, palliative care has attempted to contact agents / family daily for the past week without any response. An update was provided on the patient's clinical condition status post tracheostomy and PEG tube placement. Palliative care contact information was provided to both sisters who stated they will update the patient's (Marisabel) after our conversation and encourage her to contact palliative care with any questions or concerns. Family verbalizing ongoing aggressive goals at this time. . Felicia Mendez Jun 15, 2017 17:33
[2017-06-15] MEDS: SODIUM CHLORIDE 0.9% FLUSH 10 ML FLUSH IV FLUSH PRN (20:52)
[2017-06-15] MEDS: VALPROIC ACID SYRUP 250 MG/5 ML UDC PO SCH (20:53)
[2017-06-15] MEDS: ENALAPRILAT 1.25 MG/ML VIAL IV PUSH PRN (20:58)
[2017-06-15] MEDS: HALOPERIDOL LACTATE 5 MG/ML AMP IV PRN (22:46)
[2017-06-15] MEDS: niCARdipine 25 MG/250 ML IVPB IV SCH ×2 (23:13)
[2017-06-16] VITALS (17 sets, daily range): BP systolic 144–162; BP diastolic 67–78; PULSE 110–123; RESP 15–24; TEMP 99.1–99.9; O2SAT 97–100
[2017-06-16] MEDS: niCARdipine 25 MG/250 ML IVPB IV SCH ×8 (01:58→18:18)
[2017-06-16] MEDS: CHLORHEXIDINE GLUCONATE 2 % 1 PACK (2 CLOTHS) TOP SCH (03:01)
[2017-06-16] MEDS: levETIRAcetam INJ 500 MG in SODIUM CHLORIDE 0.9% INJ 100 ML IV SCH ×2 (03:01→15:58)
[2017-06-16] MEDS: METOPROLOL TARTRATE 5 MG/5 ML VIAL IV PUSH SCH ×4 (04:10→23:00)
[2017-06-16] MEDS: MIDAZOLAM 100 MG/NS 100 ML DRIP Premix IV SCH (04:10)
[2017-06-16 04:22] LABS: AUTOMATED NEUTROPHIL # 10.1 TH/MM3 (1.8-7.7); BASOPHIL # 0.1 TH/MM3 (0-0.2); BASOPHIL % 0.6 % (0.0-2.0); EOSINOPHIL # 0.1 TH/MM3 (0-0.4); EOSINOPHIL % 1.1 % (0.0-4.0); HEMATOCRIT 28.7 % (39.0-51.0); HEMO FLAGS DIFF FINAL; LYMPH % 8.2 % (9.0-44.0); MEAN CELL VOLUME 89.8 FL (80.0-100.0); MEAN CORPUSCULAR HEMOGLOBIN 29.9 PG (27.0-34.0); MEAN CORPUSCULAR HGB CONC 33.3 % (32.0-36.0); MONO % 9.1 % (0.0-8.0); PLATELET COUNT 659 TH/MM3 (150-450); RED BLOOD COUNT 3.19 MIL/MM3 (4.50-5.90); RED CELL DISTRIBUTION WIDTH 15.3 % (11.6-17.2); WHITE BLOOD COUNT 12.5 TH/MM3 (4.0-11.0)
[2017-06-16 04:31] LABS: ANION GAP 11 MEQ/L (5-15); AST (GOT) 55 U/L (15-37); BICARBONATE 23.4 MEQ/L (21.0-32.0); BLOOD UREA NITROGEN 16 MG/DL (7-18); CHLORIDE 109 MEQ/L (98-107); GLOMERULAR FILTRATION RATE 149 ML/MIN (>89); POTASSIUM 3.9 MEQ/L (3.5-5.1); SODIUM (NA) 143 MEQ/L (136-145)
[2017-06-16 04:32] LABS: ALT (GPT) 58 U/L (12-78)
[2017-06-16 04:35] LABS: ALKALINE PHOSPHATASE 218 U/L (45-117); TOTAL BILIRUBIN ADULT 0.5 MG/DL (0.2-1.0)
[2017-06-16] MEDS: FREE WATER G-TUBE SCH ×3 (05:04→21:30)
[2017-06-16] MEDS: FOSPHENYTOIN INJ 100 MGPE in SODIUM CHLORIDE 0.9% INJ 50 ML IV SCH ×3 (05:04→17:50)
[2017-06-16] MEDS: hydrALAZINE HCL 20 MG/ML VIAL IV PUSH SCH ×3 (05:04→17:50)
[2017-06-16] MEDS: QUEtiapine FUMARATE 25 MG TAB PO SCH ×3 (05:04→21:29)
[2017-06-16] MEDS: FAMOTIDINE 20 MG TAB NG SCH ×2 (09:10→21:29)
[2017-06-16] MEDS: VALPROIC ACID SYRUP 250 MG/5 ML UDC PO SCH ×2 (09:10→21:29)
[2017-06-16] MEDS: DOCUSATE SODIUM 100 MG/10 ML UDC PO SCH ×2 (09:10→21:29)
[2017-06-16] MEDS: SODIUM CHLORIDE 0.9% FLUSH 5 ML FLUSH IVF SCH ×2 (09:11→21:00)
[2017-06-16] MEDS: SODIUM CHLORIDE 0.9% FLUSH 10 ML FLUSH IV FLUSH PRN ×2 (09:11→21:28)
[2017-06-16] MEDS: CHLORHEXIDINE 0.12% (ORAL KIT) 15 ML CUP MT SCH ×2 (09:11→21:28)
--- NOTE | 2017-06-16 15:50 | HHI.CCPN ---
Subjective Brief History Patient who fell from six-foot ladder while working hit his head sustained severe brain injury with decreasing Rubio Coma Scale from 11 down to 3. Intubated and ventilated on the scene brought in as priority 1 trauma alert. Patient underwent right decompressive craniotomy and remains in the ICU since Final injuries TBI: Left subdural hemorrhage, bilateral subarachnoid hemorrhage left greater than right, bifrontal contusions, left temporal lobe contusion Encephalopathy Elevated ICP status post Left frontotemporal parietal decompressive craniectomy , evacuation of acute subdural hematoma with placement of right I's CP monitor Splenic laceration Acute respiratory failure on mechanical ventilation Suspect aspiration pneumonia at the time of the event 24 Hour Review/Hospital Course 05/31/17 Patient suffered elevation in his ICP, responsive to increase sedation and hypertonic saline boluses Repeat imaging shows slight improvement 06/01/17 ICP continue to increase when sedation is stopped, neurosurgery considering surgical intervention 06/02/17 Patient underwent right craniectomy yesterday, his ICPs have been in the single digits Weaning Versed drip to off, we will continue propofol for sedation as he does continue to become agitated Discuss likelihood of tracheostomy and PEG placement with 06/03/17 Clinically patient is stable, he continues to be on sedation CT scan suggests loss of bowen-white matter indicative of possible RICO 06/04/17 off sedation moving extremities opening eyes but not following commands ICP ies in normal range 06/05 mental status unchanged,not opening eyes today requires sedation prn 06/06 no changes remains low GCS BP slightly elevated on cardene drip Had high residuals -tube feeds 06/07 GCS 3T today BP better controlled tube feeds better controlled neuro input appreciated 06/08 moving lower extremities today -however not purposeful episode of storming BP -low dose cardene 06/[address] good response ro pain meds storming episode 06/08-when off sedation GCS 5T unchanged 06/10/17 Patient has been stable overnight yet the yesterday developed some jerking motion and repeat EEG G reveals complex focal seizure activity Patient currently on Keppra Dilantin and valproic acid Remains intubated and ventilated Initial plan to wean and extubate the patient at this point has to be abandoned till we control the seizures syndrome and will go from there 06/11/17 Patient is unchanged since yesterday as far neurologic status is concerned Repeat EEG doesn't show any epileptic activity Patient remains on valproic acid Dilantin and Keppra Neurology help greatly appreciated 06/13/17 No change in current status patient remains obtunded no neurologically depressed with low Rubio Coma Scale of about 5 Slight movement in upper extremities Patient at this point will need tracheostomy in order to wean off the ventilator because he can keep his upper airway Tracheostomy will be placed tomorrow for there was no bronchoscope available today 06/12/17 Patient has been stable overnight This morning patient opens eyes to command but doesn't track yet Is moving all 4 extremities, arms more than legs At this point I'll hold off with a tracheostomy because patient appears to be slightly more awake significant save him a tracheostomy, I will 06/14/17 Patient was doing respiratory very well throughout last few days is starting to open his eyes yet is not improving beyond that neurologically In face of that patient will require tracheostomy Will proceed will tracheostomy tomorrow 06/15/17 Patient opening eyes but not tracking Moving all 4 extremities Patient is not waking up sufficiently to separate off the ventilator or to allow for nonprotected airway Blue Rhino tracheostomy today 06/16/17 No change in last 24 hours Patient underwent placement of the Blue Rhino tracheostomy cannula and will be now weaned off the ventilator We'll try CPAP trial and prolonged every day eventually to switch to the tpiece or trach collar Objective Vital Signs Date Time Temp Pulse Resp B/P Pulse Ox O2 Delivery O2 Flow Rate FiO2 06/16/17 14:00 123 06/16/17 12:00 99.9 24 144/78 97 06/16/17 12:00 35 06/16/17 08:00 Mechanical Ventilator 06/13/17 07:00 4.00 Intake and Output 06/15/17 06/15/17 06/15/17 07:59 15:59 23:59 Intake Total 296 ml 622 ml 461 ml Output Total 900 ml 120 ml 1400 ml Balance -604 ml 502 ml -939 ml Result Diagram: 06/16/17 0405 06/16/17404 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 Patient opening eyes moves all 4 extremities are does not follow any commands doesn't track No changes status since yesterday Hemodynamic/Cardiac Hemodynamically remains stable Pulmonary/Respiratory Bilateral good breath sounds decreasing levels of ventilatory support with good PO2 FiO2 gradient We will wean patient off the ventilator next few days Abdomen/GI Nutrition Abdomen soft active bowel sounds Vascular Central Line Catheter Line: Central Venous Catheter Side: Left Location: Subclavian Assessment and Plan Plan -sedation off gcs 5T max Continue full ventilator support for respiratory failure Continue nutritional support Seizure prophylaxis with Keppra/dilantin-neurology input appreciated clonidin for better BP control add propranolol add free water will need peg/trach if family would like to proceed Patient remains critically ill with traumatic brain injury following a fall Attestation Critical care time 40 minutes Hattie Kang MD Jun 16, 2017 15:50
[2017-06-16] MEDS: SODIUM CHLOR 0.9% 1000 ML INJ 1,000 ML IV SCH (17:15)
[2017-06-16] MEDS ORDERED: SODIUM CHLOR 0.9% 250 ML INJ 250 ML ONE (18:11)
[2017-06-17] VITALS (18 sets, daily range): BP systolic 133–169; BP diastolic 62–81; PULSE 94–134; RESP 15–24; TEMP 98.8–100.8; O2SAT 98–100
[2017-06-17] MEDS: hydrALAZINE HCL 20 MG/ML VIAL IV PUSH SCH ×4 (00:51→17:59)
[2017-06-17] MEDS: FOSPHENYTOIN INJ 100 MGPE in SODIUM CHLORIDE 0.9% INJ 50 ML IV SCH ×4 (00:51→17:59)
[2017-06-17] MEDS: niCARdipine 25 MG/250 ML IVPB IV SCH ×8 (01:26→21:04)
[2017-06-17] MEDS: CHLORHEXIDINE GLUCONATE 2 % 1 PACK (2 CLOTHS) TOP SCH (04:00)
[2017-06-17] MEDS: levETIRAcetam INJ 500 MG in SODIUM CHLORIDE 0.9% INJ 100 ML IV SCH ×2 (04:54→15:21)
[2017-06-17] MEDS: METOPROLOL TARTRATE 5 MG/5 ML VIAL IV PUSH SCH ×4 (04:55→22:55)
[2017-06-17 05:25] LABS: AUTOMATED NEUTROPHIL # 13.8 TH/MM3 (1.8-7.7); BASOPHIL # 0.1 TH/MM3 (0-0.2); BASOPHIL % 0.4 % (0.0-2.0); EOSINOPHIL # 0.1 TH/MM3 (0-0.4); EOSINOPHIL % 0.9 % (0.0-4.0); HEMATOCRIT 26.9 % (39.0-51.0); HEMO FLAGS DIFF FINAL; LYMPH % 4.9 % (9.0-44.0); LYMPHOCYTE # 0.8 TH/MM3 (1.0-4.8); MEAN CELL VOLUME 90.5 FL (80.0-100.0); MEAN CORPUSCULAR HEMOGLOBIN 29.8 PG (27.0-34.0); MEAN CORPUSCULAR HGB CONC 32.9 % (32.0-36.0); MONO % 6.9 % (0.0-8.0); NEUT % 86.9 % (16.0-70.0); PLATELET COUNT 544 TH/MM3 (150-450); RED BLOOD COUNT 2.97 MIL/MM3 (4.50-5.90); RED CELL DISTRIBUTION WIDTH 15.6 % (11.6-17.2); WHITE BLOOD COUNT 15.9 TH/MM3 (4.0-11.0)
[2017-06-17] MEDS: FREE WATER G-TUBE SCH ×3 (06:00→21:05)
[2017-06-17 06:02] LABS: ALKALINE PHOSPHATASE 293 U/L (45-117); ALT (GPT) 118 U/L (12-78); ANION GAP 10 MEQ/L (5-15); AST (GOT) 162 U/L (15-37); BLOOD UREA NITROGEN 14 MG/DL (7-18); CHLORIDE 110 MEQ/L (98-107); GLOMERULAR FILTRATION RATE 125 ML/MIN (>89); POTASSIUM 3.5 MEQ/L (3.5-5.1); SODIUM (NA) 144 MEQ/L (136-145); TOTAL BILIRUBIN ADULT 0.5 MG/DL (0.2-1.0)
[2017-06-17] MEDS: QUEtiapine FUMARATE 25 MG TAB PO SCH ×3 (06:02→21:04)
[2017-06-17] MEDS: CHLORHEXIDINE 0.12% (ORAL KIT) 15 ML CUP MT SCH ×2 (08:56→20:00)
[2017-06-17] MEDS: SODIUM CHLORIDE 0.9% FLUSH 10 ML FLUSH IV FLUSH PRN (08:56)
[2017-06-17] MEDS: FAMOTIDINE 20 MG TAB NG SCH ×2 (08:56→21:04)
[2017-06-17] MEDS: VALPROIC ACID SYRUP 250 MG/5 ML UDC PO SCH ×2 (08:56→21:04)
[2017-06-17] MEDS: SODIUM CHLORIDE 0.9% FLUSH 5 ML FLUSH IVF SCH ×2 (09:00→21:00)
[2017-06-17] MEDS: DOCUSATE SODIUM 100 MG/10 ML UDC PO SCH ×2 (09:00→19:54)
[2017-06-17] MEDS ORDERED: SODIUM CHLOR 0.9% 250 ML INJ 250 ML ONE ×2 (11:04→16:09)
[2017-06-17] MEDS: ACETAMINOPHEN 325 MG TAB PO PRN (11:09)
[2017-06-17] MEDS: cloNIDine HCL 0.3 MG/24 HR PATCH T-DERMAL SCH (11:11)
[2017-06-17] MEDS: LISINOPRIL 20 MG TAB PO SCH (11:12)
--- NOTE | 2017-06-17 17:02 | MP ---
cc: MD POWER,CITLALY DATE OF SURGERY: 06/15/2017. PREOPERATIVE DIAGNOSIS: 1. Traumatic brain injury. 2. Respiratory failure. POSTOPERATIVE DIAGNOSIS: 1. Traumatic brain injury. 2. Respiratory failure. OPERATIVE PROCEDURE: Blue rhino tracheostomy. SURGEON: Citlaly Kang M.D. Power Washer, Daniel Stevens MD. ANESTHESIA: General, propofol and vecuronium with fentanyl and local 1% Xylocaine. ESTIMATED BLOOD LOSS: 10 mL. DESCRIPTION OF THE PROCEDURE IN DETAIL: The patient was prepped and draped in the usual fashion. The area infiltrated anterior neck and then a vertical incision made between the second and fourth tracheal rings, definitely just above the sternum and deepened down with a hemostat to the level of the trachea. With the bronchoscope, the trachea was now visualized and endotracheal tube withdrawn. Needle and angiocatheter were placed through between the second and third rings and then a Glidewire was advanced distally under direct vision with bronchoscopy. Over the wire, the punch dilator was placed followed by the Blue Rhino dilator. After that, a Shiley tracheal cannula was placed and sutured to the skin with 2-0 Prolene. The cannula was connected to the ventilator and end tidal carbon dioxide was checked. The patient tolerated the procedure well. Citlaly JAMES/ELVIN /12:50 PM /5:02 PM
[2017-06-17] MEDS: SODIUM CHLOR 0.9% 1000 ML INJ 1,000 ML IV SCH (17:15)
[2017-06-17] MEDS: ONDANSETRON HCL 4 MG/2 ML VIAL IV PRN (22:00)
--- NOTE | 2017-06-17 22:57 | HHI.CCPN ---
Subjective Brief History Patient who fell from six-foot ladder while working hit his head sustained severe brain injury with decreasing Rubio Coma Scale from 11 down to 3. Intubated and ventilated on the scene brought in as priority 1 trauma alert. Patient underwent right decompressive craniotomy and remains in the ICU since Final injuries TBI: Left subdural hemorrhage, bilateral subarachnoid hemorrhage left greater than right, bifrontal contusions, left temporal lobe contusion Encephalopathy Elevated ICP status post Left frontotemporal parietal decompressive craniectomy , evacuation of acute subdural hematoma with placement of right I's CP monitor Splenic laceration Acute respiratory failure on mechanical ventilation Suspect aspiration pneumonia at the time of the event 24 Hour Review/Hospital Course 05/31/17 Patient suffered elevation in his ICP, responsive to increase sedation and hypertonic saline boluses Repeat imaging shows slight improvement 06/01/17 ICP continue to increase when sedation is stopped, neurosurgery considering surgical intervention 06/02/17 Patient underwent right craniectomy yesterday, his ICPs have been in the single digits Weaning Versed drip to off, we will continue propofol for sedation as he does continue to become agitated Discuss likelihood of tracheostomy and PEG placement with 06/03/17 Clinically patient is stable, he continues to be on sedation CT scan suggests loss of bowen-white matter indicative of possible RICO 06/04/17 off sedation moving extremities opening eyes but not following commands ICP ies in normal range 06/05 mental status unchanged,not opening eyes today requires sedation prn 06/06 no changes remains low GCS BP slightly elevated on cardene drip Had high residuals -tube feeds 06/07 GCS 3T today BP better controlled tube feeds better controlled neuro input appreciated 06/08 moving lower extremities today -however not purposeful episode of storming BP -low dose cardene 06/[address] good response ro pain meds storming episode 06/08-when off sedation GCS 5T unchanged 06/10/17 Patient has been stable overnight yet the yesterday developed some jerking motion and repeat EEG G reveals complex focal seizure activity Patient currently on Keppra Dilantin and valproic acid Remains intubated and ventilated Initial plan to wean and extubate the patient at this point has to be abandoned till we control the seizures syndrome and will go from there 06/11/17 Patient is unchanged since yesterday as far neurologic status is concerned Repeat EEG doesn't show any epileptic activity Patient remains on valproic acid Dilantin and Keppra Neurology help greatly appreciated 06/13/17 No change in current status patient remains obtunded no neurologically depressed with low Rubio Coma Scale of about 5 Slight movement in upper extremities Patient at this point will need tracheostomy in order to wean off the ventilator because he can keep his upper airway Tracheostomy will be placed tomorrow for there was no bronchoscope available today 06/12/17 Patient has been stable overnight This morning patient opens eyes to command but doesn't track yet Is moving all 4 extremities, arms more than legs At this point I'll hold off with a tracheostomy because patient appears to be slightly more awake significant save him a tracheostomy, I will 06/14/17 Patient was doing respiratory very well throughout last few days is starting to open his eyes yet is not improving beyond that neurologically In face of that patient will require tracheostomy Will proceed will tracheostomy tomorrow 06/15/17 Patient opening eyes but not tracking Moving all 4 extremities Patient is not waking up sufficiently to separate off the ventilator or to allow for nonprotected airway Blue Rhino tracheostomy today 06/16/17 No change in last 24 hours Patient underwent placement of the Blue Rhino tracheostomy cannula and will be now weaned off the ventilator We'll try CPAP trial and prolonged every day eventually to switch to the tpiece or trach collar 06/17/17 No change in current status patient is opening eyes but not following any commands Since tracheostomy patient has been placed on CPAP which he tolerates for a few hours and then tires out Will gradually prolong CPAP time and eventually get patient off the respirator A gradient is improving and so his PO2 FiO2 ratio sent believe this will be eventually successful Objective Vital Signs Date Time Temp Pulse Resp B/P Pulse Ox O2 Delivery O2 Flow Rate FiO2 06/17/17 19:00 99 Mechanical Ventilator 35 06/17/17 18:00 101 06/17/17 16:00 98.8 15 169/81 06/13/17 07:00 4.00 Intake and Output 06/16/17 06/16/17 06/17/17 08:00 16:00 00:00 Intake Total 888 ml 1223 ml 1432 ml Output Total 1300 ml 1000 ml 1300 ml Balance -412 ml 223 ml 132 ml Result Diagram: 06/17/17 0516 06/17/17 0516 Exam [employer] Not much change in neurologic status Hemodynamic/Cardiac Pulmonary stable Pulmonary/Respiratory Bilateral breath sounds Since tracheostomy patient has been placed on CPAP which he tolerates for a few hours and then tires out Will gradually prolong CPAP time and eventually get patient off the respirator A gradient is improving and so his PO2 FiO2 ratio sent believe this will be eventually successful Abdomen/GI Nutrition Abdomen soft enteral feeds tolerated Vascular Central Line Catheter Line: Central Venous Catheter Side: Left Location: Subclavian Assessment and Plan Plan -sedation off gcs 5T max Continue full ventilator support for respiratory failure Continue nutritional support Seizure prophylaxis with Dora/alexandr-neurology input appreciated clonidin for better BP control add propranolol add free water will need peg/trach if family would like to proceed Patient remains critically ill with traumatic brain injury following a fall Attestation Critical-care 38 minutes Hattie Kang MD Jun 17, 2017 22:57
[2017-06-18] VITALS (19 sets, daily range): BP systolic 108–173; BP diastolic 58–91; PULSE 90–119; RESP 12–28; TEMP 98–99.3; O2SAT 94–100
[2017-06-18] MEDS: FOSPHENYTOIN INJ 100 MGPE in SODIUM CHLORIDE 0.9% INJ 50 ML IV SCH ×2 (00:40→05:48)
[2017-06-18] MEDS: hydrALAZINE HCL 20 MG/ML VIAL IV PUSH SCH ×4 (00:41→17:16)
[2017-06-18] MEDS: POTASSIUM CHLOR 20 MEQ PREMIX 100 ML IV PRN ×4 (00:41→17:17)
[2017-06-18] MEDS: niCARdipine 25 MG/250 ML IVPB IV SCH ×2 (02:26)
[2017-06-18] MEDS: CHLORHEXIDINE GLUCONATE 2 % 1 PACK (2 CLOTHS) TOP SCH (04:00)
[2017-06-18 05:00] LABS: AUTOMATED NEUTROPHIL # 10.6 TH/MM3 (1.8-7.7); BASOPHIL % 0.3 % (0.0-2.0); EOSINOPHIL # 0.1 TH/MM3 (0-0.4); EOSINOPHIL % 0.5 % (0.0-4.0); HEMATOCRIT 27.5 % (39.0-51.0); HEMO FLAGS DIFF FINAL; LYMPH % 3.4 % (9.0-44.0); LYMPHOCYTE # 0.4 TH/MM3 (1.0-4.8); MEAN CELL VOLUME 92.3 FL (80.0-100.0); MEAN CORPUSCULAR HEMOGLOBIN 30.2 PG (27.0-34.0); MEAN CORPUSCULAR HGB CONC 32.7 % (32.0-36.0); MONO % 7.4 % (0.0-8.0); NEUT % 88.4 % (16.0-70.0); PLATELET COUNT 481 TH/MM3 (150-450); RED BLOOD COUNT 2.98 MIL/MM3 (4.50-5.90); RED CELL DISTRIBUTION WIDTH 15.6 % (11.6-17.2)
--- NOTE | 2017-06-18 05:00 | RADRPT ---
EXAM DATE/TIME: 06/18/2017 03:48 [facility] COMPARISON: CHEST SINGLE AP, June 15, 2017, 6:53. INDICATIONS : Respiratory failure post trauma/subarachnoid hemmorhage MEDICAL HISTORY : Cardiovascular disease. Hypertension Myocardial infarction. Venous insufficiency SURGICAL HISTORY : None. ENCOUNTER: Subsequent ACUITY: 2 weeks PAIN SCORE: Non-responsive. LOCATION: Bilateral chest FINDINGS: Portable AP view of the chest demonstrates a normal-sized cardiac silhouette. Tracheostomy is now pre sent. Left subclavian central line has been removed. There is blunting of the left costophrenic sulcu s with bibasilar air space opacity. No pneumothorax is visualized. CONCLUSION: Stable bilateral lower lung zone airspace consolidation with small left pleural effusion. Findings co uld represent pulmonary edema in the appropriate clinical setting. Rodney Stanford MD on June 18, 2017 at 4:57 Board Certified Radiologist. This report was verified electronically.
[2017-06-18 05:15] LABS: ANION GAP 8 MEQ/L (5-15); AST (GOT) 56 U/L (15-37); BICARBONATE 23.7 MEQ/L (21.0-32.0); BLOOD UREA NITROGEN 17 MG/DL (7-18); CHLORIDE 115 MEQ/L (98-107); GLOMERULAR FILTRATION RATE 135 ML/MIN (>89); MAGNESIUM 1.8 MG/DL (1.5-2.5); POTASSIUM 3.5 MEQ/L (3.5-5.1); SODIUM (NA) 147 MEQ/L (136-145)
[2017-06-18 05:23] LABS: ALKALINE PHOSPHATASE 193 U/L (45-117); ALT (GPT) 81 U/L (12-78); TOTAL BILIRUBIN ADULT 0.4 MG/DL (0.2-1.0)
[2017-06-18] MEDS: levETIRAcetam INJ 500 MG in SODIUM CHLORIDE 0.9% INJ 100 ML IV SCH ×2 (05:24→15:18)
[2017-06-18] MEDS: METOPROLOL TARTRATE 5 MG/5 ML VIAL IV PUSH SCH ×4 (05:24→23:21)
[2017-06-18 05:28] LABS: BLOOD GAS BASE EXCESS -0.3 mmol/L (-2-2); BLOOD GAS CARBOXYHEMOGLOBIN 1.3 % (0-4); BLOOD GAS HCO3 23 mmol/L (22-26); BLOOD GAS METHEMOGLOBIN 1.3 % (0-2); BLOOD GAS O2 HGB SATURATION 96 % (90-100); BLOOD GAS OXYGEN CONTENT 13.3 Vol % (12.0-20.0); BLOOD GAS PCO2 33 mmHg (38-42); BLOOD GAS PO2 133 mmHg (61-120); BLOOD GAS TOTAL HGB 9.6 G/DL (12.0-16.0); CRITICAL VALUE NO; DRAW SITE LT RADIAL; FIO2 35 %; NUMBER OF ARTERIAL PUNCTURES 1; OXYGEN DEVICE VENTILATOR; STAT NO; TEMP CORR TO 98.6; ULNAR PULSE PRESENT; VENT SETTINGS PRVC/AC
[2017-06-18] MEDS: FREE WATER G-TUBE SCH ×3 (05:43→21:24)
[2017-06-18] MEDS: QUEtiapine FUMARATE 25 MG TAB PO SCH ×3 (05:46→21:24)
[2017-06-18] MEDS: LISINOPRIL 20 MG TAB PO SCH (08:39)
[2017-06-18] MEDS: DOCUSATE SODIUM 100 MG/10 ML UDC PO SCH ×2 (08:39→21:24)
[2017-06-18] MEDS: VALPROIC ACID SYRUP 250 MG/5 ML UDC PO SCH ×2 (08:39→21:24)
[2017-06-18] MEDS: SODIUM CHLORIDE 0.9% FLUSH 10 ML FLUSH IV FLUSH PRN (08:39)
[2017-06-18] MEDS: FAMOTIDINE 20 MG TAB NG SCH ×2 (08:39→21:25)
[2017-06-18] MEDS: SODIUM CHLORIDE 0.9% FLUSH 5 ML FLUSH IVF SCH ×2 (08:40→20:33)
[2017-06-18] MEDS: CHLORHEXIDINE 0.12% (ORAL KIT) 15 ML CUP MT SCH ×2 (08:40→20:36)
--- NOTE | 2017-06-18 11:24 | HHI.PR ---
Neuropsych Progress Notes/Response to Tx Contents of Sessions: Adjustment, Level of Consciousness Time with Patient: 15 minutes Premorbid psychological status Premorbid Cognitive, Emotional and Behavioral Status: Deferred. The patient was unable to provide information, nor was the family able to do so at this time. Behavioral Reactions of Patient and Family/Support System: Deferred. The patients family is experiencing ongoing issues of adjustment given the nature of the injury, and this aspect of recovery will require ongoing monitoring. Emotional/Behavioral Status of Patient and Family/Support System: Deferred. Pertinent issues, if appropriate to this patients clinical care, are described in detail above. Maximizing acute care outcome It is recommended that the patient be monitored for emergent behavioral impulsivity as the medical condition evolves. This patients neuropathological challenges may limit their rehabilitation potential going forward, and these challenges will require specialized therapeutic skills to maximize outcome. Additionally, the patients family is experiencing ongoing issues of adjustment given the traumatic nature of the injury, and they may benefit from ongoing psychological assistance. Anticipated Problems Ongoing areas of concern will include behavioral impulsivity, lack of insight and judgment, which is expected to improve with time and treatment. Presently , the patient is intubated and sedated. Treatment Plan This clinician will continue to follow with you throughout the course of this patients acute care treatment, and I will be available to meet with the patient s family/support system to facilitate their understanding and the ongoing care of their family member. The goals of neuropsychological intervention shall be both educational and supportive to the family/support system as is deemed clinically appropriate. [facility] Level: IV:Confused/Agitated-maximal assist Impression This patient suffered a severe traumatic brain injury from his ladder fall on 05/30/2017. He is expected to have significant residual neurocognitive deficit from this injury. Diagnosis: Progress Note Narrative Ongoing follow-up of patient seen during daily trauma rounds. This is day 19 post injury. The patient opens his eyes and moves x 4 but does not follow commands. His agitation is managed by seroquel 50 q8H and Valproic Acid 500 BID. He has not received Haldol PRN since 06/15, reflecting that his agitation is effectively managed. Thus he is considered a medicated Rancho IV. I discussed with family members concerning course of recovery. I will continue to follow. Mike Burns PhD Jun 18, 2017 11:24 am
--- NOTE | 2017-06-18 16:14 | HHI.PR ---
Subjective Subjective Comments Trach on vent. Allergies: Coded Allergies: No Known Allergies (Unverified , 06/06/17) Per patient's , the patient has no allergies. Review of Systems All other ROS: Unable to obtain Exam I&O / VS 06/17/17 06/17/17 06/18/17 15:00 23:00 07:00 Intake Total 1449 ml 1361 ml 870 ml Output Total 1000 ml 1600 ml 950 ml Balance 449 ml -239 ml -80 ml IV Total 700 ml 646 ml 670 ml Tube Feeding 489 ml 465 ml 0 ml Tube Irrigant 60 ml 50 ml Other 200 ml 200 ml 200 ml Output Urine Total 700 ml 700 ml 450 ml Stool Total 300 ml 900 ml 500 ml # Bowel Movements 2 Vital Signs Date Time Temp Pulse Resp B/P Pulse Ox O2 Delivery O2 Flow Rate FiO2 06/18/17 13:05 100 35 06/18/17 10:00 103 06/18/17 09:50 35 06/18/17 09:15 100 35 06/18/17 08:00 98.7 102 20 129/72 100 06/18/17 08:00 35 06/18/17 08:00 102 06/18/17 07:00 100 Mechanical Ventilator 35 06/18/17 06:00 96 06/18/17 04:02 100 35 06/18/17 04:00 106 06/18/17 04:00 35 06/18/17 04:00 98.4 106 16 108/62 100 06/18/17 02:00 119 06/18/17 01:03 100 35 06/18/17 00:00 99.3 118 28 173/88 100 06/18/17 00:00 118 06/18/17 00:00 35 06/17/17 22:00 112 06/17/17 21:10 100 35 06/17/17 20:00 99.1 110 17 151/70 100 06/17/17 20:00 110 06/17/17 20:00 35 06/17/17 19:00 99 Mechanical Ventilator 35 06/17/17 18:00 101 06/17/17 18:00 35 General: Intubated, No acute distress Musculoskeletal: ROM (Grossly within normal limits) Psychiatric: Cooperative (no agitation noted) Orientation: unable to asses Self Neurologic: Pupils (Reactive Bilaterally), EOM (Focuses to voice), Other ( Moves left toes to command) Clonus: Negative Exam Comments SCD's in place [place] Objective Micro and Labs Laboratory Tests Test 06/18/17 06/18/17 06/18/17 04:00 05:10 12:57 White Blood Count 12.0 Red Blood Count 2.98 Hemoglobin 9.0 Hematocrit 27.5 Mean Corpuscular Volume 92.3 Mean Corpuscular Hemoglobin 30.2 Mean Corpuscular Hemoglobin 32.7 Concent Red Cell Distribution Width 15.6 Platelet Count 481 Mean Platelet Volume 8.8 Neutrophils (%) (Auto) 88.4 Lymphocytes (%) (Auto) 3.4 Monocytes (%) (Auto) 7.4 Eosinophils (%) (Auto) 0.5 Basophils (%) (Auto) 0.3 Neutrophils # (Auto) 10.6 Lymphocytes # (Auto) 0.4 Monocytes # (Auto) 0.9 Eosinophils # (Auto) 0.1 Basophils # (Auto) 0.0 CBC Comment DIFF FINAL Differential Comment Sodium Level 147 Potassium Level 3.5 3.5 Chloride Level 115 Carbon Dioxide Level 23.7 Anion Gap 8 Blood Urea Nitrogen 17 Creatinine 0.61 Estimat Glomerular Filtration 135 Rate Random Glucose 98 Calcium Level 8.3 Phosphorus Level 2.5 Magnesium Level 1.8 Total Bilirubin 0.4 Aspartate Amino Transf 56 (AST/SGOT) Alanine Aminotransferase 81 (ALT/SGPT) Alkaline Phosphatase 193 Total Protein 5.7 Albumin 1.8 Blood Gas Puncture Site LT RADIAL Blood Gas Patient Temperature 98.6 Blood Gas HCO3 23 Blood Gas Base Excess -0.3 Blood Gas Oxygen Saturation 96 Arterial Blood pH 7.46 Arterial Blood Partial 33 Pressure CO2 Arterial Blood Partial 133 Pressure O2 Arterial Blood Oxygen Content 13.3 Arterial Blood 1.3 Carboxyhemoglobin Arterial Blood Methemoglobin 1.3 Blood Gas Hemoglobin 9.6 Oxygen Delivery Device VENTILATOR Blood Gas Ventilator Setting PRVC/AC Blood Gas Inspired Oxygen 35 Date/Time Procedure Status Source Growth 06/17/17 11:58 Aerobic Blood Culture - Preliminary Resulted Blood Peripheral NO GROWTH IN 1 DAY 06/17/17 11:58 Anaerobic Blood Culture - Preliminary Resulted Blood Peripheral NO GROWTH IN 1 DAY 06/17/17 11:30 Gram Stain - Final Resulted Sputum Expectorated Sputum 06/17/17 11:30 Sputum Culture - Preliminary Resulted Gram Negative Sree Assessment and Plan Diagnosis: (1) Traumatic brain injury Encounter type: subsequent encounter Assessment 1. Fall 05/30/17 with traumatic brain injury including small left-sided subdural hematoma with approximately 6 mm of separation adjacent to the left temporal lobe, bilateral subarachnoid hemorrhage, left greater than right, tiny hemorrhagic contusions in both frontal lobes and hemorrhagic contusion the left temporal lobe. Now Rancho level 4 but medicated and no agitation noted. 2. Status post intracranial monitor placement 3. Splenic laceration 4. Tracheostomy 06/15/17 currently with C-PAP trials Plan 1. PT/OT following for range of motion. Advanced mobility and ADLs as medical/ neurological status allows 2. Neuropsychology follow-up appreciated 3. Continue to reposition and monitor skin carefully for breakdown while relatively immobilized 4. SCDs in place for VTE prophylaxis 5. Referral to [place] [facility] 6. Will follow regarding rehabilitation needs while hospitalized in conjunction with case management. LTAC referral has been made Ruby Rowe MD Jun 18, 2017 16:14
[2017-06-18] MEDS: SODIUM CHLOR 0.9% 1000 ML INJ 1,000 ML IV SCH (17:15)
--- NOTE | 2017-06-18 19:02 | HHI.PR ---
Review/Management Diagnosis post traumatic subdural hematoma and subarachonid hemorrhage--exam improving Diagnosis/Plan: Subjective Subjective Comments No acute events reported Active Medications Current Medications Medications (Trade) Dose Ordered Sig/Alexandru Route Start Time Stop Time Status Last Admin (NS Flush) 2 ml UNSCH PRN IV FLUSH 05/30/17 14:30 06/18/17 08:39 (Zofran Inj) 4 mg Q6H PRN IV 05/30/17 14:30 06/17/17 22:00 (Colace Liq) 100 mg BID PO 05/30/17 21:00 06/16/17 21:29 (Milk Of Magnesia Liq) 30 ml Q6H PRN PO 05/30/17 14:30 06/01/17 08:14 Miscellaneous Information 1 Q361D XX 05/30/17 14:30 (Chlorhexidine 2% Cloth) Taper DAILY@04 TOP 05/31/17 04:00 05/27/18 03:59 06/12/17 03:52 (Chlorhexidine 2% Cloth) 3 pack UNSCH PRN TOP 05/30/17 14:30 (Peridex 0.12% Liq) 15 ml BID@08,20 MT 05/30/17 20:00 06/18/17 08:40 Terbutaline Sulfate 1 mg 1 mg UNSCH PRN SQ 05/30/17 18:00 Potassium Chloride 100 ml @ 50 mls/hr Q2H PRN IV 06/01/17 09:30 06/08/17 23:57 (KCl 20 Meq Premix Inj) 100 ml @ 50 mls/hr Q2H PRN IV 06/01/17 09:30 Potassium Bicarb/ Potassium Chloride 50 meq 50 meq UNSCH PRN PO 06/01/17 09:30 06/14/17 09:48 Potassium Chloride 100 ml @ 25 mls/hr UNSCH PRN IV 06/01/17 09:30 06/12/17 05:50 Potassium Chloride 100 ml @ 50 mls/hr Q2H PRN IV 06/01/17 09:30 06/18/17 17:17 (Magnesium Sulfate Inj/NS Inj) 100 ml @ 50 mls/hr UNSCH PRN IV 06/01/17 09:30 Magnesium Oxide 800 mg 800 mg UNSCH PRN PO 06/01/17 09:30 06/02/17 09:12 (Magnesium Sulfate Inj/NS Inj) 100 ml @ 50 mls/hr UNSCH PRN IV 06/01/17 09:30 Potassium Phosphate 2000 mg 2,000 mg Q4H PRN PO 06/01/17 09:30 06/06/17 19:48 (Sodium Phosphate Inj/NS 250 ml Inj) 250 ml @ 42 mls/hr UNSCH PRN IV 06/01/17 09:30 Potassium Phosphate 2000 mg 2,000 mg UNSCH PRN PO/TUBE 06/01/17 09:30 (Potassium Phosphate Inj/NS 250 ml Inj) 260 ml @ 42 mls/hr UNSCH PRN IV 06/01/17 09:30 06/01/17 10:08 (NS Flush) 2 ml UNSCH PRN IVF 06/01/17 13:45 IV Flush 2 ml 2 ml BID IVF 06/01/17 21:00 06/17/17 21:00 (Keppra Inj/NS Inj) 105 ml @ 400 mls/hr Q12H IV 06/01/17 16:00 06/18/17 15:18 (Dulcolax Supp) 10 mg DAILY PRN RECTAL 06/01/17 13:45 Calcium Gluconate 1 gm 1 gm UNSCH PRN IV 06/01/17 13:45 Potassium Chloride 100 ml @ 50 mls/hr UNSCH PRN IV 06/01/17 13:45 (Magnesium Sulfate Inj/NS Inj) 108 ml @ 108 mls/hr UNSCH PRN IV 06/01/17 13:45 (Tylenol) 650 mg Q4H PRN PO 06/01/17 13:45 06/17/17 11:09 Amlodipine Besylate 10 mg 10 mg DAILY PO 06/07/17 09:00 06/18/17 08:39 (NS 1000 ml Inj) 1,000 ml @ 0 mls/hr Q24H IV 06/07/17 17:15 06/15/17 16:53 (Free Water) VOLUME: 200 ML Q8HR G-TUBE 06/08/17 14:00 06/18/17 13:05 (Lovenox Inj) 40 mg Q24H SQ 06/10/17 12:00 Hold 06/10/17 11:46 (Catapres-Tts 0.3 Mg Patch.7d) 1 patch Q7D T-DERMAL 06/10/17 11:15 06/17/17 11:11 (Pepcid) 20 mg BID NG 06/10/17 21:00 06/18/17 08:39 (Lopressor Inj) 5 mg Q6H IV PUSH 06/12/17 11:00 06/18/17 17:16 (Apresoline Inj) 10 mg Q6HR IV PUSH 06/12/17 12:00 06/18/17 17:16 Haloperidol Lactate 2 mg 2 mg Q6H PRN IV 06/14/17 10:15 06/15/17 22:46 (Versed 100 Mg/ ml Inj) 100 ml @ 0 mls/hr TITRATE IV 06/14/17 15:30 06/16/17 04:10 (Vasotec Inj) 1.25 mg Q8H PRN IV PUSH 06/15/17 09:30 06/15/17 20:58 Valproic Acid 500 mg 500 mg BID PO 06/15/17 21:00 06/18/17 08:39 (Cardene Inj/NS 250 ml Inj) 250 ml @ 0 mls/hr TITRATE IV 06/15/17 23:15 06/18/17 02:26 (SEROquel) 50 mg Q8HR PO 06/16/17 14:00 06/18/17 13:05 (Prinivil) 20 mg DAILY PO 06/17/17 11:00 06/18/17 08:39 Allergies Allergies Coded Allergies No Known Allergies (Unverified06/06/17) Review of Systems All other ROS: Unable to obtain Exam I&O / VS 06/17/17 06/17/17 06/18/17 15:00 23:00 07:00 Intake Total 1449 ml 1361 ml 870 ml Output Total 1000 ml 1600 ml 950 ml Balance 449 ml -239 ml -80 ml IV Total 700 ml 646 ml 670 ml Tube Feeding 489 ml 465 ml 0 ml Tube Irrigant 60 ml 50 ml Other 200 ml 200 ml 200 ml Output Urine Total 700 ml 700 ml 450 ml Stool Total 300 ml 900 ml 500 ml # Bowel Movements 2 Vital Signs Date Time Temp Pulse Resp B/P Pulse Ox O2 Delivery O2 Flow Rate FiO2 06/18/17 18:00 92 06/18/17 16:02 100 35 06/18/17 16:00 98.7 92 18 124/58 94 06/18/17 16:00 92 06/18/17 14:00 92 06/18/17 13:05 100 35 06/18/17 12:00 98.7 100 12 161/91 100 06/18/17 12:00 100 06/18/17 10:00 103 06/18/17 09:50 35 06/18/17 09:15 100 35 06/18/17 08:00 98.7 102 20 129/72 100 06/18/17 08:00 35 06/18/17 08:00 102 06/18/17 07:00 100 Mechanical Ventilator 35 06/18/17 06:00 96 06/18/17 04:02 100 35 06/18/17 04:00 106 06/18/17 04:00 35 06/18/17 04:00 98.4 106 16 108/62 100 06/18/17 02:00 119 06/18/17 01:03 100 35 06/18/17 00:00 99.3 118 28 173/88 100 06/18/17 00:00 118 06/18/17 00:00 35 06/17/17 22:00 112 06/17/17 21:10 100 35 06/17/17 20:00 99.1 110 17 151/70 100 06/17/17 20:00 110 06/17/17 20:00 35 Musculoskeletal: ROM (Grossly within normal limits) Exam Comments more alert and follows simple commands PERRL EOM--intact 2/5 RUE, 4/5 LUE Objective Micro and Labs Laboratory Tests Test 06/18/17 06/18/17 06/18/17 04:00 05:10 12:57 White Blood Count 12.0 Red Blood Count 2.98 Hemoglobin 9.0 Hematocrit 27.5 Mean Corpuscular Volume 92.3 Mean Corpuscular Hemoglobin 30.2 Mean Corpuscular Hemoglobin 32.7 Concent Red Cell Distribution Width 15.6 Platelet Count 481 Mean Platelet Volume 8.8 Neutrophils (%) (Auto) 88.4 Lymphocytes (%) (Auto) 3.4 Monocytes (%) (Auto) 7.4 Eosinophils (%) (Auto) 0.5 Basophils (%) (Auto) 0.3 Neutrophils # (Auto) 10.6 Lymphocytes # (Auto) 0.4 Monocytes # (Auto) 0.9 Eosinophils # (Auto) 0.1 Basophils # (Auto) 0.0 CBC Comment DIFF FINAL Differential Comment Sodium Level 147 Potassium Level 3.5 3.5 Chloride Level 115 Carbon Dioxide Level 23.7 Anion Gap 8 Blood Urea Nitrogen 17 Creatinine 0.61 Estimat Glomerular Filtration 135 Rate Random Glucose 98 Calcium Level 8.3 Phosphorus Level 2.5 Magnesium Level 1.8 Total Bilirubin 0.4 Aspartate Amino Transf 56 (AST/SGOT) Alanine Aminotransferase 81 (ALT/SGPT) Alkaline Phosphatase 193 Total Protein 5.7 Albumin 1.8 Blood Gas Puncture Site LT RADIAL Blood Gas Patient Temperature 98.6 Blood Gas HCO3 23 Blood Gas Base Excess -0.3 Blood Gas Oxygen Saturation 96 Arterial Blood pH 7.46 Arterial Blood Partial 33 Pressure CO2 Arterial Blood Partial 133 Pressure O2 Arterial Blood Oxygen Content 13.3 Arterial Blood 1.3 Carboxyhemoglobin Arterial Blood Methemoglobin 1.3 Blood Gas Hemoglobin 9.6 Oxygen Delivery Device VENTILATOR Blood Gas Ventilator Setting PRVC/AC Blood Gas Inspired Oxygen 35 Date/Time Procedure Status Source Growth 06/17/17 11:58 Aerobic Blood Culture - Preliminary Resulted Blood Peripheral NO GROWTH IN 1 DAY 06/17/17 11:58 Anaerobic Blood Culture - Preliminary Resulted Blood Peripheral NO GROWTH IN 1 DAY 06/17/17 11:30 Gram Stain - Final Resulted Sputum Expectorated Sputum 06/17/17 11:30 Sputum Culture - Preliminary Resulted Gram Negative Addison Bojorquez PhD Jun 18, 2017 19:02
--- NOTE | 2017-06-18 19:34 | HHI.CCPN ---
Subjective Brief History Patient who fell from six-foot ladder while working hit his head sustained severe brain injury with decreasing Rubio Coma Scale from 11 down to 3. Intubated and ventilated on the scene brought in as priority 1 trauma alert. Patient underwent right decompressive craniotomy and remains in the ICU since Final injuries TBI: Left subdural hemorrhage, bilateral subarachnoid hemorrhage left greater than right, bifrontal contusions, left temporal lobe contusion Encephalopathy Elevated ICP status post Left frontotemporal parietal decompressive craniectomy , evacuation of acute subdural hematoma with placement of right I's CP monitor Splenic laceration Acute respiratory failure on mechanical ventilation Suspect aspiration pneumonia at the time of the event 24 Hour Review/Hospital Course 05/31/17 Patient suffered elevation in his ICP, responsive to increase sedation and hypertonic saline boluses Repeat imaging shows slight improvement 06/01/17 ICP continue to increase when sedation is stopped, neurosurgery considering surgical intervention 06/02/17 Patient underwent right craniectomy yesterday, his ICPs have been in the single digits Weaning Versed drip to off, we will continue propofol for sedation as he does continue to become agitated Discuss likelihood of tracheostomy and PEG placement with 06/03/17 Clinically patient is stable, he continues to be on sedation CT scan suggests loss of bowen-white matter indicative of possible RICO 06/04/17 off sedation moving extremities opening eyes but not following commands ICP ies in normal range 06/05 mental status unchanged,not opening eyes today requires sedation prn 06/06 no changes remains low GCS BP slightly elevated on cardene drip Had high residuals -tube feeds 06/07 GCS 3T today BP better controlled tube feeds better controlled neuro input appreciated 06/08 moving lower extremities today -however not purposeful episode of storming BP -low dose cardene 06/[address] good response ro pain meds storming episode 06/08-when off sedation GCS 5T unchanged 06/10/17 Patient has been stable overnight yet the yesterday developed some jerking motion and repeat EEG G reveals complex focal seizure activity Patient currently on Keppra Dilantin and valproic acid Remains intubated and ventilated Initial plan to wean and extubate the patient at this point has to be abandoned till we control the seizures syndrome and will go from there 06/11/17 Patient is unchanged since yesterday as far neurologic status is concerned Repeat EEG doesn't show any epileptic activity Patient remains on valproic acid Dilantin and Keppra Neurology help greatly appreciated 06/13/17 No change in current status patient remains obtunded no neurologically depressed with low Rubio Coma Scale of about 5 Slight movement in upper extremities Patient at this point will need tracheostomy in order to wean off the ventilator because he can keep his upper airway Tracheostomy will be placed tomorrow for there was no bronchoscope available today 06/12/17 Patient has been stable overnight This morning patient opens eyes to command but doesn't track yet Is moving all 4 extremities, arms more than legs At this point I'll hold off with a tracheostomy because patient appears to be slightly more awake significant save him a tracheostomy, I will 06/14/17 Patient was doing respiratory very well throughout last few days is starting to open his eyes yet is not improving beyond that neurologically In face of that patient will require tracheostomy Will proceed will tracheostomy tomorrow 06/15/17 Patient opening eyes but not tracking Moving all 4 extremities Patient is not waking up sufficiently to separate off the ventilator or to allow for nonprotected airway Blue Rhino tracheostomy today 06/16/17 No change in last 24 hours Patient underwent placement of the Blue Rhino tracheostomy cannula and will be now weaned off the ventilator We'll try CPAP trial and prolonged every day eventually to switch to the tpiece or trach collar 06/17/17 No change in current status patient is opening eyes but not following any commands Since tracheostomy patient has been placed on CPAP which he tolerates for a few hours and then tires out Will gradually prolong CPAP time and eventually get patient off the respirator A gradient is improving and so his PO2 FiO2 ratio sent believe this will be eventually successful 06/18/17 Patient improving every day He is awake at the alert but disoriented Follows simple commands while intubated on a ventilator Patient has tolerated CPAP today very well and if he does well tomorrow we'll extubate him Secretions still significant and hence the maintenance of the airway with endotracheal tube Objective Vital Signs Date Time Temp Pulse Resp B/P Pulse Ox O2 Delivery O2 Flow Rate FiO2 06/18/17 18:00 92 06/18/17 16:02 100 35 06/18/17 16:00 98.7 18 124/58 06/18/17 07:00 Mechanical Ventilator Intake and Output 06/17/17 06/17/17 06/18/17 08:00 16:00 00:00 Intake Total 1579 ml 1449 ml 1361 ml Output Total 700 ml 1000 ml 1600 ml Balance 879 ml 449 ml -239 ml Result Diagram: 06/18/17 0400 06/18/17 1257 Other Results Laboratory Tests Test 06/18/17 05:10 Blood Gas Puncture Site LT RADIAL Blood Gas Patient Temperature 98.6 Blood Gas HCO3 23 mmol/L (22-26) Blood Gas Base Excess -0.3 mmol/L (-2-2) Blood Gas Oxygen Saturation 96 % (90-100) Arterial Blood pH 7.46 (7.380-7.420) Arterial Blood Partial 33 mmHg (38-42) Pressure CO2 Arterial Blood Partial 133 mmHg Pressure O2 (61-120) Arterial Blood Oxygen Content 13.3 Vol % (12.0-20.0) Arterial Blood 1.3 % (0-4) Carboxyhemoglobin Arterial Blood Methemoglobin 1.3 % (0-2) Blood Gas Hemoglobin 9.6 G/DL (12.0-16.0) Oxygen Delivery Device VENTILATOR Blood Gas Ventilator Setting PRVC/AC Blood Gas Inspired Oxygen 35 % Imaging Last 24 hours Impressions Chest X-Ray 06/18/17 0600 Signed Impressions: Service Date/Time: Sunday, June 18, 2017 03:48 - CONCLUSION: Stable bilateral lower lung zone airspace consolidation with small left pleural effusion. Findings could represent pulmonary edema in the appropriate clinical setting. Rodeny Stanford MD Exam PHOTO STYLIST Gradually improving Patient's communicating on the ventilator Hemodynamic/Cardiac Hemodynamically stable Pulmonary/Respiratory Bilateral breath sounds and CPAP trials tolerated better PO2 FiO2 gradient improving All things equal we'll extubate patient tomorrow Vascular Central Line Catheter Line: Central Venous Catheter Side: Left Location: Subclavian Assessment and Plan Plan -sedation off gcs 5T max Continue full ventilator support for respiratory failure Continue nutritional support Seizure prophylaxis with Keppra/dilantin-neurology input appreciated clonidin for better BP control add propranolol add free water will need peg/trach if family would like to proceed Patient remains critically ill with traumatic brain injury following a fall Attestation Critical care time 40 minutes Hattie Kang MD Jun 18, 2017 19:34
[2017-06-18 23:00] LABS: POTASSIUM 3.8 MEQ/L (3.5-5.1)
[2017-06-19] VITALS (18 sets, daily range): BP systolic 143–176; BP diastolic 77–88; PULSE 87–110; RESP 13–20; TEMP 98.1–99.8; O2SAT 100
[2017-06-19] MEDS: hydrALAZINE HCL 20 MG/ML VIAL IV PUSH SCH ×4 (00:28→18:51)
[2017-06-19] MEDS: CHLORHEXIDINE GLUCONATE 2 % 1 PACK (2 CLOTHS) TOP SCH (03:45)
[2017-06-19] MEDS: levETIRAcetam INJ 500 MG in SODIUM CHLORIDE 0.9% INJ 100 ML IV SCH ×2 (03:45→15:13)
[2017-06-19 05:13] LABS: BASOPHIL # 0.1 TH/MM3 (0-0.2); BASOPHIL % 0.6 % (0.0-2.0); EOSINOPHIL # 0.3 TH/MM3 (0-0.4); EOSINOPHIL % 2.6 % (0.0-4.0); HEMATOCRIT 28.1 % (39.0-51.0); HEMO FLAGS DIFF FINAL; LYMPHOCYTE # 1.2 TH/MM3 (1.0-4.8); MEAN CELL VOLUME 91.6 FL (80.0-100.0); MEAN CORPUSCULAR HEMOGLOBIN 29.8 PG (27.0-34.0); MEAN CORPUSCULAR HGB CONC 32.5 % (32.0-36.0); MONO % 8.5 % (0.0-8.0); NEUT % 78.3 % (16.0-70.0); PLATELET COUNT 503 TH/MM3 (150-450); RED BLOOD COUNT 3.07 MIL/MM3 (4.50-5.90); RED CELL DISTRIBUTION WIDTH 15.3 % (11.6-17.2); WHITE BLOOD COUNT 11.5 TH/MM3 (4.0-11.0)
[2017-06-19 05:36] LABS: ANION GAP 7 MEQ/L (5-15); AST (GOT) 49 U/L (15-37); BICARBONATE 24.7 MEQ/L (21.0-32.0); BLOOD UREA NITROGEN 16 MG/DL (7-18); CHLORIDE 114 MEQ/L (98-107); MAGNESIUM 1.9 MG/DL (1.5-2.5); POTASSIUM 3.7 MEQ/L (3.5-5.1); SODIUM (NA) 146 MEQ/L (136-145)
[2017-06-19 05:41] LABS: ALKALINE PHOSPHATASE 191 U/L (45-117); ALT (GPT) 79 U/L (12-78); GLOMERULAR FILTRATION RATE 149 ML/MIN (>89); TOTAL BILIRUBIN ADULT 0.4 MG/DL (0.2-1.0)
[2017-06-19] MEDS: FREE WATER G-TUBE SCH ×3 (05:45→22:00)
[2017-06-19] MEDS: METOPROLOL TARTRATE 5 MG/5 ML VIAL IV PUSH SCH ×4 (05:45→22:13)
[2017-06-19] MEDS: QUEtiapine FUMARATE 25 MG TAB PO SCH ×3 (06:08→22:13)
[2017-06-19] MEDS: CHLORHEXIDINE 0.12% (ORAL KIT) 15 ML CUP MT SCH ×2 (08:00→20:05)
[2017-06-19] MEDS: DOCUSATE SODIUM 100 MG/10 ML UDC PO SCH ×2 (09:00→20:12)
[2017-06-19] MEDS: SODIUM CHLORIDE 0.9% FLUSH 5 ML FLUSH IVF SCH ×2 (09:00→20:06)
[2017-06-19] MEDS: FAMOTIDINE 20 MG TAB NG SCH ×2 (09:22→20:04)
[2017-06-19] MEDS: VALPROIC ACID SYRUP 250 MG/5 ML UDC PO SCH ×2 (09:22→20:04)
[2017-06-19] MEDS: LISINOPRIL 20 MG TAB PO SCH (09:23)
[2017-06-19] MEDS ORDERED: QUET1TAB7 PO (10:10)
[2017-06-19] MEDS ORDERED: LISI-515 PO (10:10)
[2017-06-19] MEDS ORDERED: CLON.3T T-DERMAL (10:10)
[2017-06-19] MEDS ORDERED: ENOX40P SQ (10:10)
[2017-06-19] MEDS ORDERED: BISA10R RECTAL (10:10)
[2017-06-19] MEDS ORDERED: ACET1TAB86 PO (10:10)
[2017-06-19] MEDS ORDERED: LEVA500T20 PO (10:10)
[2017-06-19] MEDS ORDERED: DOCU100S PO (10:10)
[2017-06-19] MEDS ORDERED: AMLO10 PO (10:10)
[2017-06-19] MEDS ORDERED: MAGN400S PO (10:10)
[2017-06-19] MEDS ORDERED: VALP250UDC PO (10:10)
[2017-06-19] MEDS ORDERED: FAMO20TA2 NG (10:10)
--- NOTE | 2017-06-19 10:24 | HHI.PR ---
Neuropsych Progress Notes/Response to Tx Contents of Sessions: Adjustment Time with Patient: 15 minutes Premorbid psychological status Premorbid Cognitive, Emotional and Behavioral Status: Deferred. The patient was unable to provide information, nor was the family able to do so at this time. Behavioral Reactions of Patient and Family/Support System: Deferred. The patients family is experiencing ongoing issues of adjustment given the nature of the injury, and this aspect of recovery will require ongoing monitoring. Emotional/Behavioral Status of Patient and Family/Support System: Deferred. Pertinent issues, if appropriate to this patients clinical care, are described in detail above. Maximizing acute care outcome It is recommended that the patient be monitored for emergent behavioral impulsivity as the medical condition evolves. This patients neuropathological challenges may limit their rehabilitation potential going forward, and these challenges will require specialized therapeutic skills to maximize outcome. Additionally, the patients family is experiencing ongoing issues of adjustment given the traumatic nature of the injury, and they may benefit from ongoing psychological assistance. Anticipated Problems Ongoing areas of concern will include behavioral impulsivity, lack of insight and judgment, which is expected to improve with time and treatment. Presently , the patient is intubated and sedated. Treatment Plan This clinician will continue to follow with you throughout the course of this patients acute care treatment, and I will be available to meet with the patient s family/support system to facilitate their understanding and the ongoing care of their family member. The goals of neuropsychological intervention shall be both educational and supportive to the family/support system as is deemed clinically appropriate. [place] Level: IV:Confused/Agitated-maximal assist Impression This patient suffered a severe traumatic brain injury from his ladder fall on 05/30/2017. He is expected to have significant residual neurocognitive deficit from this injury. Diagnosis: Progress Note Narrative Ongoing follow-up of patient seen during daily trauma rounds. This is day 20 post injury. The patient is awake, alert and follows basic commands, but is disoriented. His restlessness/agitation is well maintained with Seroquel 50 q8H and Valproic Acid 500 BID. He is a medicated Rancho IV, emerging Rancho V. CM discussed that [facility]. I will continue to follow. Mike Burns PhD Jun 19, 2017 10:24 am
[2017-06-19] MEDS: LEVOFLOXACIN 500 MG TAB PO SCH (10:41)
--- NOTE | 2017-06-19 13:08 | HHI.DS ---
Discharge Summary Admission Date May 30, 2017 at 14:12 Discharge Date: Jun 19, 2017 Admitting Diagnosis subarachnoid hemorrhage, respiratory failure, fall (1) Subarachnoid hemorrhage ICD Code: I60.9 Diagnosis: Principal (2) Dyspnea ICD Code: R06.00 Diagnosis: Principal (3) Respiratory failure ICD Code: J96.90 Diagnosis: Principal (4) Agitation ICD Code: R45.1 Diagnosis: Principal (5) Altered mental status ICD Code: R41.82 Diagnosis: Principal (6) Head injury ICD Code: S09.90XA Diagnosis: Principal (7) Hypertension ICD Code: I10 Diagnosis: Principal (8) Pain ICD Code: R52 (9) Traumatic brain injury ICD Code: S06.9X9A Diagnosis: Principal (10) Previous myocardial infarction older than 8 weeks ICD Code: I25.2 Diagnosis: Principal Brief History This is a gentleman in his 60s who is reportedly on a 6 foot ladder at work when he fell striking the back of his head onto a curb. He was trauma alerted for altered mental status. Patient arrived hypertensive and confused. He was intubated for patient safety and staff in order to facilitate a timely CT scan for suspected head injury. CBC/BMP: 06/19/17 0411 06/19/17 0411 Significant Findings Laboratory Tests Test 06/17/17 06/18/17 06/18/17 06/18/17 05:16 04:00 05:10 19:47 White Blood Count 15.9 TH/MM3 12.0 TH/MM3 (4.0-11.0) (4.0-11.0) Red Blood Count 2.97 MIL/MM3 2.98 MIL/MM3 (4.50-5.90) (4.50-5.90) Hemoglobin 8.9 GM/DL 9.0 GM/DL (13.0-17.0) (13.0-17.0) Hematocrit 26.9 % 27.5 % (39.0-51.0) (39.0-51.0) Platelet Count 544 TH/MM3 481 TH/MM3 (150-450) (150-450) Neutrophils (%) (Auto) 86.9 % 88.4 % (16.0-70.0) (16.0-70.0) Lymphocytes (%) (Auto) 4.9 % 3.4 % (9.0-44.0) (9.0-44.0) Neutrophils # (Auto) 13.8 TH/MM3 10.6 TH/MM3 (1.8-7.7) (1.8-7.7) Lymphocytes # (Auto) 0.8 TH/MM3 0.4 TH/MM3 (1.0-4.8) (1.0-4.8) Monocytes # (Auto) 1.1 TH/MM3 (0-0.9) Chloride Level 110 MEQ/L 115 MEQ/L (98-107) (98-107) Random Glucose 120 MG/DL (74-106) Calcium Level 8.4 MG/DL 8.3 MG/DL (8.5-10.1) (8.5-10.1) Aspartate Amino Transf 162 U/L (15-37) 56 U/L (15-37) (AST/SGOT) Alanine Aminotransferase 118 U/L (12-78) 81 U/L (12-78) (ALT/SGPT) Alkaline Phosphatase 293 U/L 193 U/L (45-117) (45-117) Total Protein 6.3 GM/DL 5.7 GM/DL (6.4-8.2) (6.4-8.2) Albumin 2.1 GM/DL 1.8 GM/DL (3.4-5.0) (3.4-5.0) Sodium Level 147 MEQ/L (136-145) Arterial Blood pH 7.46 (7.380-7.420) Arterial Blood Partial 33 mmHg (38-42) Pressure CO2 Arterial Blood Partial 133 mmHg Pressure O2 (61-120) Blood Gas Hemoglobin 9.6 G/DL (12.0-16.0) Valproic Acid (Depakene) Level 23 MCG/ML (50-100) Test 06/19/17 04:11 White Blood Count 11.5 TH/MM3 (4.0-11.0) Red Blood Count 3.07 MIL/MM3 (4.50-5.90) Hemoglobin 9.2 GM/DL (13.0-17.0) Hematocrit 28.1 % (39.0-51.0) Platelet Count 503 TH/MM3 (150-450) Neutrophils (%) (Auto) 78.3 % (16.0-70.0) Monocytes (%) (Auto) 8.5 % (0.0-8.0) Neutrophils # (Auto) 9.0 TH/MM3 (1.8-7.7) Monocytes # (Auto) 1.0 TH/MM3 (0-0.9) Sodium Level 146 MEQ/L (136-145) Chloride Level 114 MEQ/L (98-107) Creatinine 0.56 MG/DL (0.60-1.30) Aspartate Amino Transf 49 U/L (15-37) (AST/SGOT) Alanine Aminotransferase 79 U/L (12-78) (ALT/SGPT) Alkaline Phosphatase 191 U/L (45-117) Total Protein 6.2 GM/DL (6.4-8.2) Albumin 2.0 GM/DL (3.4-5.0) Imaging Last Impressions Chest X-Ray 06/18/17 06 Signed Impressions: Service Date/Time: Sunday, June 18, 2017 03:48 - CONCLUSION: Stable bilateral lower lung zone airspace consolidation with small left pleural effusion. Findings could represent pulmonary edema in the appropriate clinical setting. Rodney Stanford MD Head CT 06/04/17 06 Signed Impressions: Service Date/Time: Sunday, June 04, 2017 04:57 - CONCLUSION: Continued evolution of the blood products throughout the brain status post left temporal craniotomy. The catheters are in excellent position. No new hemorrhage is identified. Ze Alicea MD Chest CT [id number]/30/[id number] Signed Impressions: Service Date/Time: Tuesday, May 30, 2017 13:53 - CONCLUSION: Bibasilar nonspecific infiltrates suggestive of pulmonary contusions. Sanjay Donis MD Abdomen/Pelvis CT [id number] Signed Impressions: Service Date/Time: Tuesday, May 30, 2017 13:53 - CONCLUSION: 1. There appears to be a small amount of fluid along the inferior aspect of the spleen suspicious for a inferior laceration. No significant free fluid is seen in the abdomen or pelvis. 2. Benign-appearing left renal cyst. 3. Bibasilar infiltrates suggestive of pulmonary contusions. Sanjay Donis MD Pelvis X-Ray 05/30/17 4767 Signed Impressions: Service Date/Time: Tuesday, May 30, 2017 13:24 - CONCLUSION: The bony structures are grossly intact. Sanjay Donis MD Cervical Spine CT 05/30/17 1333 Signed Impressions: Service Date/Time: Tuesday, May 30, 2017 13:55 - CONCLUSION: 1. No acute bony fracture. 2. Moderate diffuse primary bony degenerative changes, disc degeneration and disc space narrowing at multiple levels from C3-C7. Sanjay Donis MD PE at Discharge GENERAL: This is a 62-year-old male lying in bed and mechanically ventilated. SKIN: Warm and dry. HEAD: Atraumatic. Normocephalic. EYES: PERRLA ENT: No nasal bleeding or discharge. Mucous membranes pink and moist. NECK: Trachea midline. No JVD. CARDIOVASCULAR: Regular rate and rhythm. RESPIRATORY: No accessory muscle use. Lungs are clear to auscultation. Breath sounds equal bilaterally. No distress or dyspnea. GASTROINTESTINAL: BS + x 4 quads. Abdomen soft, non-tender, nondistended. MUSCULOSKELETAL: Extremities without cyanosis, or edema. + peripheral pulses x 4 extremities. Warm with good capillary refill NEUROLOGICAL: Mechanically ventilated Hospital Course TRIBAL: 05/30/2017. This is a patient who fell from six-foot ladder while working. He hit his head and sustained a severe brain injury with decreasing Bristol Coma Scale from 11 down to 3. Intubated and ventilated on the scene brought in as priority 1 trauma alert. Patient underwent right decompressive craniotomy and remains in the ICU since Final injuries: TBI: Left subdural hemorrhage, bilateral subarachnoid hemorrhage left greater than right, bifrontal contusions, left temporal lobe contusion Encephalopathy Elevated ICP status post Left frontotemporal parietal decompressive craniectomy , evacuation of acute subdural hematoma with placement of right I's CP monitor Splenic laceration Acute respiratory failure on mechanical ventilation Suspect aspiration pneumonia at the time of the event Procedures: 05/30: Intubated in ED 05/30: RIGHT ICP bolt 06/01: LEFT decompressive craniotomy w evacuation of SDH. 06/05: [place] DC[place] 06/12: PEG placement 06/15: MIXER WET POUR placement Consults: CCM. Neurosurgery. Rehabilitation medicine. Neuropsychology. Palliative care. GI. Hospital Course: 05/31/17 Patient suffered elevation in his ICP, responsive to increase sedation and hypertonic saline boluses Repeat imaging shows slight improvement 06/01/17 ICP continue to increase when sedation is stopped, neurosurgery considering surgical intervention 06/02/17 Patient underwent right craniectomy yesterday, his ICPs have been in the single digits Weaning Versed drip to off, we will continue propofol for sedation as he does continue to become agitated Discuss likelihood of tracheostomy and PEG placement with 06/03/17 Clinically patient is stable, he continues to be on sedation CT scan suggests loss of bowen-white matter indicative of possible RICO 06/04/17 off sedation moving extremities opening eyes but not following commands ICP ies in normal range 06/05/2017 mental status unchanged,not opening eyes today requires sedation prn 06/06/2017 no changes remains low GCS BP slightly elevated on cardene drip Had high residuals -tube feeds 06/07/2017 GCS 3T today BP better controlled tube feeds better controlled neuro input appreciated 06/08/2017 moving lower extremities today -however not purposeful episode of storming BP -low dose cardene 06/09/[address] good response ro pain meds storming episode 06/08-when off sedation GCS 5T unchanged 06/10/17 Patient has been stable overnight yet the yesterday developed some jerking motion and repeat EEG reveals complex focal seizure activity Patient currently on Keppra Dilantin and valproic acid Remains intubated and ventilated Initial plan to wean and extubate the patient at this point has to be abandoned till we control the seizures syndrome and will go from there 06/11/17 Patient is unchanged since yesterday as far neurologic status is concerned Repeat EEG doesn't show any epileptic activity Patient remains on valproic acid Dilantin and Keppra Neurology help greatly appreciated 06/13/17 No change in current status patient remains obtunded no neurologically depressed with low Bristol Coma Scale of about 5 Slight movement in upper extremities Patient at this point will need tracheostomy in order to wean off the ventilator because he can keep his upper airway Tracheostomy will be placed tomorrow for there was no bronchoscope available today 06/12/17 Patient has been stable overnight This morning patient opens eyes to command but doesn't track yet Is moving all 4 extremities, arms more than legs At this point I'll hold off with a tracheostomy because patient appears to be slightly more awake significant save him a tracheostomy, I will 06/14/17 Patient was doing respiratory very well throughout last few days is starting to open his eyes yet is not improving beyond that neurologically In face of that patient will require tracheostomy Will proceed will tracheostomy tomorrow 06/15/17 Patient opening eyes but not tracking Moving all 4 extremities Patient is not waking up sufficiently to separate off the ventilator or to allow for nonprotected airway Blue Rhino tracheostomy today 06/16/17 No change in last 24 hours Patient underwent placement of the Blue Rhino tracheostomy cannula and will be now weaned off the ventilator We'll try CPAP trial and prolonged every day eventually to switch to the tpiece or trach collar 06/17/17 No change in current status patient is opening eyes but not following any commands Since tracheostomy patient has been placed on CPAP which he tolerates for a few hours and then tires out Will gradually prolong CPAP time and eventually get patient off the respirator A gradient is improving and so his PO2 FiO2 ratio sent believe this will be eventually successful 06/18/17 Patient improving every day He is awake at the alert but disoriented Follows simple commands while intubated on a ventilator Patient has tolerated CPAP today very well and if he does well tomorrow we'll extubate him Secretions still significant and hence the maintenance of the airway with endotracheal tube 06/19/2017 Sputum positive for Enterobacter. Begin Levaquin 500 via PEG daily. [facility] Therefore [facility] is [facility] to [facility] for continued care from a trauma surgery standpoint. Thank you for allowing us to participate in Sherif's care. We wish him the best in his continued recovery. TBI Bilateral SAH Left SDH Bilateral frontal lobe contusions Hemorrhagic contusion left temporal lobe Neurosurgeon consulted and assisting in management and care 05/30: RIGHT ICP bolt 06/01: LEFT decompressive craniotomy w evacuation of SDH. 06/05: [place] DC[place] Mechanical ventilation Follow-up CT brain as needed to gear care Seizure precautions/prophylaxis Serial neuro checks Behavior management - valproic acid. Seroquel. Respiratory failure Critical care physician consulted and assisting in management and care Mechanically ventilated - CPAP trials Ventilator bundle Twice a day oral care 06/12: PEG placement 06/15: MIXER WET POUR placement Monitor for hypoxemia ABG's as needed Chest x-ray as needed Pt Condition on Discharge: Stable Discharge Disposition: Rehab Inpatient Discharge Instructions DIET: Follow Instructions for: On Tube Feeding Additional Diet Instructions: Vital at 60 cc /hr Free water flushes 200 ml q 8 Activities you can perform: Regular-No Restrictions Activities to Avoid: Driving for 24 hrs, Concussion Sports, Contact Sports, Lifting/Bending, Prolonged Standing, Strenuous Activity, Driving Keysha Arriaga Jun 19, 2017 13:08
[2017-06-19] MEDS: SODIUM CHLOR 0.9% 1000 ML INJ 1,000 ML IV SCH (18:07)
--- NOTE | 2017-06-19 18:24 | HHI.CCPN ---
Subjective Brief History Patient who fell from six-foot ladder while working hit his head sustained severe brain injury with decreasing Rubio Coma Scale from 11 down to 3. Intubated and ventilated on the scene brought in as priority 1 trauma alert. Patient underwent right decompressive craniotomy and remains in the ICU since Final injuries TBI: Left subdural hemorrhage, bilateral subarachnoid hemorrhage left greater than right, bifrontal contusions, left temporal lobe contusion Encephalopathy Elevated ICP status post Left frontotemporal parietal decompressive craniectomy , evacuation of acute subdural hematoma with placement of right I's CP monitor Splenic laceration Acute respiratory failure on mechanical ventilation Suspect aspiration pneumonia at the time of the event 24 Hour Review/Hospital Course 05/31/17 Patient suffered elevation in his ICP, responsive to increase sedation and hypertonic saline boluses Repeat imaging shows slight improvement 06/01/17 ICP continue to increase when sedation is stopped, neurosurgery considering surgical intervention 06/02/17 Patient underwent right craniectomy yesterday, his ICPs have been in the single digits Weaning Versed drip to off, we will continue propofol for sedation as he does continue to become agitated Discuss likelihood of tracheostomy and PEG placement with 06/03/17 Clinically patient is stable, he continues to be on sedation CT scan suggests loss of bowen-white matter indicative of possible R[place] 06/04/17 off sedation moving extremities opening eyes but not following commands ICP ies in normal range 06/05 mental status unchanged,not opening eyes today requires sedation prn 06/06 no changes remains low GCS BP slightly elevated on cardene drip Had high residuals -tube feeds 06/07 GCS 3T today BP better controlled tube feeds better controlled neuro input appreciated 06/08 moving lower extremities today -however not purposeful episode of storming BP -low dose cardene 06/[address] good response ro pain meds storming episode 06/08-when off sedation GCS 5T unchanged 06/10/17 Patient has been stable overnight yet the yesterday developed some jerking motion and repeat EEG G reveals complex focal seizure activity Patient currently on Keppra Dilantin and valproic acid Remains intubated and ventilated Initial plan to wean and extubate the patient at this point has to be abandoned till we control the seizures syndrome and will go from there 06/11/17 Patient is unchanged since yesterday as far neurologic status is concerned Repeat EEG doesn't show any epileptic activity Patient remains on valproic acid Dilantin and Keppra Neurology help greatly appreciated 06/13/17 No change in current status patient remains obtunded no neurologically depressed with low Rubio Coma Scale of about 5 Slight movement in upper extremities Patient at this point will need tracheostomy in order to wean off the ventilator because he can keep his upper airway Tracheostomy will be placed tomorrow for there was no bronchoscope available today 06/12/17 Patient has been stable overnight This morning patient opens eyes to command but doesn't track yet Is moving all 4 extremities, arms more than legs At this point I'll hold off with a tracheostomy because patient appears to be slightly more awake significant save him a tracheostomy, I will 06/14/17 Patient was doing respiratory very well throughout last few days is starting to open his eyes yet is not improving beyond that neurologically In face of that patient will require tracheostomy Will proceed will tracheostomy tomorrow 06/15/17 Patient opening eyes but not tracking Moving all 4 extremities Patient is not waking up sufficiently to separate off the ventilator or to allow for nonprotected airway Blue Rhino tracheostomy today 06/16/17 No change in last 24 hours Patient underwent placement of the Blue Rhino tracheostomy cannula and will be now weaned off the ventilator We'll try CPAP trial and prolonged every day eventually to switch to the tpiece or trach collar 06/17/17 No change in current status patient is opening eyes but not following any commands Since tracheostomy patient has been placed on CPAP which he tolerates for a few hours and then tires out Will gradually prolong CPAP time and eventually get patient off the respirator A gradient is improving and so his PO2 FiO2 ratio sent believe this will be eventually successful 06/18/17 Patient improving every day He is awake at the alert but disoriented Follows simple commands while intubated on a ventilator Patient has tolerated CPAP today very well and if he does well tomorrow we'll extubate him Secretions still significant and hence the maintenance of the airway with endotracheal tube 06/19/17 Patient little more awake today opening eyes and seems to be tracking Moving left side more than right Tolerating CPAP well Objective Vital Signs Date Time Temp Pulse Resp B/P Pulse Ox O2 Delivery O2 Flow Rate FiO2 06/19/17 16:29 100 35 06/19/17 12:00 95 06/19/17 12:00 98.1 13 168/85 06/19/17 07:00 Mechanical Ventilator Intake and Output 06/18/17 06/18/17 06/19/17 08:00 16:00 00:00 Intake Total 870 ml 583 ml 756 ml Output Total 950 ml 500 ml 500 ml Balance -80 ml 83 ml 256 ml Result Diagram: 06/19/17 0411 06/19/17 041 Exam [employer] Slightly more awake today and appears to be tracking with eyes occasionally Hemodynamic/Cardiac Hemodynamically stable Pulmonary/Respiratory Bilateral breath sounds tolerating CPAP and tracheostomy placement Abdomen/GI Nutrition Abdomen soft enteral feeds tolerated patient will have a PEG placed Renal/I&O Preserved renal function probably somewhat fluid overloaded Vascular Central Line Catheter Line: Central Venous Catheter Side: Left Location: Subclavian Assessment and Plan Plan -sedation off gcs 5T max Continue full ventilator support for respiratory failure Continue nutritional support Seizure prophylaxis with Keppra/dilantin-neurology input appreciated clonidin for better BP control add propranolol add free water will need peg/trach if family would like to proceed Patient remains critically ill with traumatic brain injury following a fall Attestation Critical care 35 minutes Hattie Kang MD Jun 19, 2017 18:24
--- NOTE | 2017-06-19 20:00 | HHI.PR ---
Review/Management Diagnosis post traumatic subdural hematoma and subarachonid hemorrhage--exam improving Diagnosis/Plan: Subjective Subjective Comments No acute events reported Active Medications Current Medications Medications (Trade) Dose Ordered Sig/Alexandru Route Start Time Stop Time Status Last Admin (NS Flush) 2 ml UNSCH PRN IV FLUSH 05/30/17 14:30 06/18/17 08:39 (Zofran Inj) 4 mg Q6H PRN IV 05/30/17 14:30 06/17/17 22:00 (Colace Liq) 100 mg BID PO 05/30/17 21:00 06/18/17 21:24 (Milk Of Magnesia Liq) 30 ml Q6H PRN PO 05/30/17 14:30 06/01/17 08:14 Miscellaneous Information 1 Q361D XX 05/30/17 14:30 (Chlorhexidine 2% Cloth) 3 pack Taper DAILY@04 TOP 05/31/17 04:00 05/27/18 03:59 06/19/17 03:45 (Chlorhexidine 2% Cloth) 3 pack UNSCH PRN TOP 05/30/17 14:30 (Peridex 0.12% Liq) 15 ml BID@08,20 MT 05/30/17 20:00 06/19/17 08:00 Terbutaline Sulfate 1 mg 1 mg UNSCH PRN SQ 05/30/17 18:00 Potassium Chloride 100 ml @ 50 mls/hr Q2H PRN IV 06/01/17 09:30 06/08/17 23:57 (KCl 20 Meq Premix Inj) 100 ml @ 50 mls/hr Q2H PRN IV 06/01/17 09:30 Potassium Bicarb/ Potassium Chloride 50 meq 50 meq UNSCH PRN PO 06/01/17 09:30 06/14/17 09:48 Potassium Chloride 100 ml @ 25 mls/hr UNSCH PRN IV 06/01/17 09:30 06/12/17 05:50 Potassium Chloride 100 ml @ 50 mls/hr Q2H PRN IV 06/01/17 09:30 06/18/17 17:17 (Magnesium Sulfate Inj/NS Inj) 100 ml @ 50 mls/hr UNSCH PRN IV 06/01/17 09:30 Magnesium Oxide 800 mg 800 mg UNSCH PRN PO 06/01/17 09:30 06/02/17 09:12 (Magnesium Sulfate Inj/NS Inj) 100 ml @ 50 mls/hr UNSCH PRN IV 06/01/17 09:30 Potassium Phosphate 2000 mg 2,000 mg Q4H PRN PO 06/01/17 09:30 06/06/17 19:48 (Sodium Phosphate Inj/NS 250 ml Inj) 250 ml @ 42 mls/hr UNSCH PRN IV 06/01/17 09:30 Potassium Phosphate 2000 mg 2,000 mg UNSCH PRN PO/TUBE 06/01/17 09:30 (Potassium Phosphate Inj/NS 250 ml Inj) 260 ml @ 42 mls/hr UNSCH PRN IV 06/01/17 09:30 06/01/17 10:08 (NS Flush) 2 ml UNSCH PRN IVF 06/01/17 13:45 IV Flush 2 ml 2 ml BID IVF 06/01/17 21:00 06/19/17 09:00 (Keppra Inj/NS Inj) 105 ml @ 400 mls/hr Q12H IV 06/01/17 16:00 06/19/17 15:13 (Dulcolax Supp) 10 mg DAILY PRN RECTAL 06/01/17 13:45 Calcium Gluconate 1 gm 1 gm UNSCH PRN IV 06/01/17 13:45 Potassium Chloride 100 ml @ 50 mls/hr UNSCH PRN IV 06/01/17 13:45 (Magnesium Sulfate Inj/NS Inj) 108 ml @ 108 mls/hr UNSCH PRN IV 06/01/17 13:45 (Tylenol) 650 mg Q4H PRN PO 06/01/17 13:45 06/17/17 11:09 Amlodipine Besylate 10 mg 10 mg DAILY PO 06/07/17 09:00 06/19/17 09:23 (NS 1000 ml Inj) 1,000 ml @ 0 mls/hr Q24H IV 06/07/17 17:15 06/19/17 18:07 (Free Water) VOLUME: 200 ML Q8HR G-TUBE 06/08/17 14:00 06/19/17 14:46 (Lovenox Inj) 40 mg Q24H SQ 06/10/17 12:00 Hold 06/10/17 11:46 (Catapres-Tts 0.3 Mg Patch.7d) 1 patch Q7D T-DERMAL 06/10/17 11:15 06/17/17 11:11 (Pepcid) 20 mg BID NG 06/10/17 21:00 06/19/17 09:22 (Lopressor Inj) 5 mg Q6H IV PUSH 06/12/17 11:00 06/19/17 18:06 (Apresoline Inj) 10 mg Q6HR IV PUSH 06/12/17 12:00 06/19/17 18:51 Haloperidol Lactate 2 mg 2 mg Q6H PRN IV 06/14/17 10:15 06/15/17 22:46 (Versed 100 Mg/ ml Inj) 100 ml @ 0 mls/hr TITRATE IV 06/14/17 15:30 06/16/17 04:10 (Vasotec Inj) 1.25 mg Q8H PRN IV PUSH 06/15/17 09:30 06/15/17 20:58 Valproic Acid 500 mg 500 mg BID PO 06/15/17 21:00 06/19/17 09:22 (Cardene Inj/NS 250 ml Inj) 250 ml @ 0 mls/hr TITRATE IV 06/15/17 23:15 06/18/17 02:26 (SEROquel) 50 mg Q8HR PO 06/16/17 14:00 06/19/17 14:46 (Prinivil) 20 mg DAILY PO 06/17/17 11:00 06/19/17 09:23 (Levaquin) 500 mg DAILY PO 06/19/17 10:00 06/19/17 10:41 Allergies Allergies Coded Allergies No Known Allergies (Unverified06/06/17) Review of Systems All other ROS: Unable to obtain Exam I&O / VS 06/18/17 06/18/17 06/19/17 15:00 23:00 07:00 Intake Total 583 ml 756 ml 757 ml Output Total 500 ml 500 ml 750 ml Balance 83 ml 256 ml 7 ml IV Total 383 ml 314 ml 187 ml Tube Feeding 342 ml 370 ml Other 200 ml 100 ml 200 ml Output Urine Total 500 ml 500 ml 750 ml # Bowel Movements 0 0 Vital Signs Date Time Temp Pulse Resp B/P Pulse Ox O2 Delivery O2 Flow Rate FiO2 06/19/17 18:00 106 06/19/17 16:29 100 35 06/19/17 16:00 103 7/25/17 16:00 35 06/19/17 16:00 98.2 103 20 143/81 100 06/19/17 14:00 110 06/19/17 12:03 100 35 06/19/17 12:00 35 06/19/17 12:00 95 06/19/17 12:00 98.1 95 13 168/85 100 06/19/17 10:00 97 06/19/17 08:37 100 35 06/19/17 08:00 98 06/19/17 08:00 35 06/19/17 08:00 98.2 98 16 176/78 100 06/19/17 07:00 100 Mechanical Ventilator 35 06/19/17 06:00 87 06/19/17 04:14 100 35 06/19/17 04:00 35 06/19/17 04:00 99 06/19/17 04:00 98.1 99 17 167/88 100 06/19/17 02:00 99 06/19/17 01:15 100 35 06/19/17 00:00 35 06/19/17 00:00 94 06/19/17 00:00 98.2 94 17 155/77 100 06/18/17 22:06 100 35 06/18/17 22:00 90 06/18/17 20:00 98.0 94 17 155/82 100 06/18/17 20:00 94 06/18/17 20:00 35 Musculoskeletal: ROM (Grossly within normal limits) Exam Comments alert and follows simple commands PERRL EOM--intact 2/5 RUE, 3/5 LUE Objective Micro and Labs Laboratory Tests Test 06/19/17 04:11 White Blood Count 11.5 Red Blood Count 3.07 Hemoglobin 9.2 Hematocrit 28.1 Mean Corpuscular Volume 91.6 Mean Corpuscular Hemoglobin 29.8 Mean Corpuscular Hemoglobin 32.5 Concent Red Cell Distribution Width 15.3 Platelet Count 503 Mean Platelet Volume 8.8 Neutrophils (%) (Auto) 78.3 Lymphocytes (%) (Auto) 10.0 Monocytes (%) (Auto) 8.5 Eosinophils (%) (Auto) 2.6 Basophils (%) (Auto) 0.6 Neutrophils # (Auto) 9.0 Lymphocytes # (Auto) 1.2 Monocytes # (Auto) 1.0 Eosinophils # (Auto) 0.3 Basophils # (Auto) 0.1 CBC Comment DIFF FINAL Differential Comment Sodium Level 146 Potassium Level 3.7 Chloride Level 114 Carbon Dioxide Level 24.7 Anion Gap 7 Blood Urea Nitrogen 16 Creatinine 0.56 Estimat Glomerular Filtration 149 Rate Random Glucose 97 Calcium Level 8.8 Magnesium Level 1.9 Total Bilirubin 0.4 Aspartate Amino Transf 49 (AST/SGOT) Alanine Aminotransferase 79 (ALT/SGPT) Alkaline Phosphatase 191 Total Protein 6.2 Albumin 2.0 Date/Time Procedure Status Source Growth 06/17/17 11:58 Aerobic Blood Culture - Preliminary Resulted Blood Peripheral NO GROWTH IN 2 DAYS 06/17/17 11:58 Anaerobic Blood Culture - Preliminary Resulted Blood Peripheral NO GROWTH IN 2 DAYS 06/17/17 11:30 Gram Stain - Final Resulted Sputum Expectorated Sputum 06/17/17 11:30 Sputum Culture - Preliminary Resulted Enterobacter Cloacae Gram Negative Sree Addison Mari PhD Jun 19, 2017 20:00
[2017-06-19] MEDS: SODIUM CHLORIDE 0.9% FLUSH 10 ML FLUSH IV FLUSH PRN (20:04)
[2017-06-19] MEDS: ACETAMINOPHEN 325 MG TAB PO PRN (22:14)
[2017-06-20] VITALS (15 sets, daily range): BP systolic 135–176; BP diastolic 76–97; PULSE 90–128; RESP 15–32; TEMP 98–99.6; O2SAT 97–100
[2017-06-20] MEDS: ENALAPRILAT 1.25 MG/ML VIAL IV PUSH PRN ×4 (00:16→03:40)
[2017-06-20] MEDS: levETIRAcetam INJ 500 MG in SODIUM CHLORIDE 0.9% INJ 100 ML IV SCH ×2 (03:43→16:00)
[2017-06-20] MEDS: CHLORHEXIDINE GLUCONATE 2 % 1 PACK (2 CLOTHS) TOP SCH (03:45)
[2017-06-20] MEDS: FREE WATER G-TUBE SCH ×2 (05:20→14:00)
[2017-06-20] MEDS: hydrALAZINE HCL 20 MG/ML VIAL IV PUSH SCH ×4 (05:20→17:21)
[2017-06-20] MEDS: METOPROLOL TARTRATE 5 MG/5 ML VIAL IV PUSH SCH ×3 (05:20→17:00)
[2017-06-20] MEDS: QUEtiapine FUMARATE 25 MG TAB PO SCH (05:21)
[2017-06-20 05:38] LABS: AUTOMATED NEUTROPHIL # 6.2 TH/MM3 (1.8-7.7); BASOPHIL # 0.1 TH/MM3 (0-0.2); BASOPHIL % 0.8 % (0.0-2.0); EOSINOPHIL # 0.2 TH/MM3 (0-0.4); EOSINOPHIL % 2.4 % (0.0-4.0); HEMATOCRIT 26.7 % (39.0-51.0); HEMO FLAGS DIFF FINAL; LYMPH % 8.1 % (9.0-44.0); LYMPHOCYTE # 0.6 TH/MM3 (1.0-4.8); MEAN CELL VOLUME 91.2 FL (80.0-100.0); MEAN CORPUSCULAR HEMOGLOBIN 30.7 PG (27.0-34.0); MEAN CORPUSCULAR HGB CONC 33.7 % (32.0-36.0); NEUT % 79.7 % (16.0-70.0); PLATELET COUNT 357 TH/MM3 (150-450); RED BLOOD COUNT 2.93 MIL/MM3 (4.50-5.90); RED CELL DISTRIBUTION WIDTH 15.3 % (11.6-17.2); WHITE BLOOD COUNT 7.8 TH/MM3 (4.0-11.0)
[2017-06-20 05:55] LABS: ANION GAP 9 MEQ/L (5-15); AST (GOT) 102 U/L (15-37); BICARBONATE 25.2 MEQ/L (21.0-32.0); BLOOD UREA NITROGEN 14 MG/DL (7-18); CHLORIDE 109 MEQ/L (98-107); GLOMERULAR FILTRATION RATE 152 ML/MIN (>89); MAGNESIUM 1.8 MG/DL (1.5-2.5); POTASSIUM 3.9 MEQ/L (3.5-5.1); SODIUM (NA) 143 MEQ/L (136-145)
[2017-06-20 05:59] LABS: ALKALINE PHOSPHATASE 226 U/L (45-117); ALT (GPT) 119 U/L (12-78); TOTAL BILIRUBIN ADULT 0.3 MG/DL (0.2-1.0)
--- NOTE | 2017-06-20 06:11 | RADRPT ---
EXAM DATE/TIME: 06/20/2017 05:05 [facility] COMPARISON: CHEST SINGLE AP, June 18, 2017, 3:48. INDICATIONS : Short of breath. MEDICAL HISTORY : Cardiovascular disease. Hypertension Myocardial infarction. Venous SURGICAL HISTORY : None. ENCOUNTER: Subsequent ACUITY: 3 weeks PAIN SCORE: 0/10 LOCATION: Bilateral chest FINDINGS: Portable AP view of the chest demonstrates a normal-sized cardiac silhouette. Tracheostomy remains pr esent. There is stable bibasilar pleural-parenchymal opacities. No pneumothorax is identified. CONCLUSION: Stable chest x-ray with bibasilar opacities and likely pleural effusions. Rodney Stanford MD on June 20, 2017 at 6:09 Board Certified Radiologist. This report was verified electronically.
[2017-06-20] MEDS: CHLORHEXIDINE 0.12% (ORAL KIT) 15 ML CUP MT SCH (08:53)
[2017-06-20] MEDS: SODIUM CHLORIDE 0.9% FLUSH 5 ML FLUSH IVF SCH (09:00)
[2017-06-20] MEDS: DOCUSATE SODIUM 100 MG/10 ML UDC PO SCH (09:00)
[2017-06-20] MEDS: LEVOFLOXACIN 500 MG TAB PO SCH (09:49)
[2017-06-20] MEDS: VALPROIC ACID SYRUP 250 MG/5 ML UDC PO SCH (09:49)
[2017-06-20] MEDS: LISINOPRIL 20 MG TAB PO SCH (09:49)
[2017-06-20] MEDS: FAMOTIDINE 20 MG TAB NG SCH (09:49)
[2017-06-20] MEDS: SODIUM CHLORIDE 0.9% FLUSH 10 ML FLUSH IV FLUSH PRN (09:50)
--- NOTE | 2017-06-20 11:50 | HHI.PR ---
Neuropsych Progress Notes/Response to Tx Contents of Sessions: Adjustment, Level of Consciousness Time with Patient: 15 minutes Premorbid psychological status Premorbid Cognitive, Emotional and Behavioral Status: Deferred. The patient was unable to provide information, nor was the family able to do so at this time. Behavioral Reactions of Patient and Family/Support System: Deferred. The patients family is experiencing ongoing issues of adjustment given the nature of the injury, and this aspect of recovery will require ongoing monitoring. Emotional/Behavioral Status of Patient and Family/Support System: Deferred. Pertinent issues, if appropriate to this patients clinical care, are described in detail above. Maximizing acute care outcome It is recommended that the patient be monitored for emergent behavioral impulsivity as the medical condition evolves. This patients neuropathological challenges may limit their rehabilitation potential going forward, and these challenges will require specialized therapeutic skills to maximize outcome. Additionally, the patients family is experiencing ongoing issues of adjustment given the traumatic nature of the injury, and they may benefit from ongoing psychological assistance. Anticipated Problems Ongoing areas of concern will include behavioral impulsivity, lack of insight and judgment, which is expected to improve with time and treatment. Presently , the patient is intubated and sedated. Treatment Plan This clinician will continue to follow with you throughout the course of this patients acute care treatment, and I will be available to meet with the patient s family/support system to facilitate their understanding and the ongoing care of their family member. The goals of neuropsychological intervention shall be both educational and supportive to the family/support system as is deemed clinically appropriate. [facility] Level: V:Confused-non agitated Impression This patient suffered a severe traumatic brain injury from his ladder fall on 05/30/2017. He is expected to have significant residual neurocognitive deficit from this injury. Diagnosis: Progress Note Narrative Ongoing follow-up of patient seen during daily trauma rounds. This is day 21 post injury. The patient is awake, with eyes open and tracks and follows basic commands. He does not appear agitated/restless/impulsive at present, and it is determined that he is now [place]. He remains on Valproic Acid 500 BID for behavior control, with seroquel being adjusted down to 25 BID (and then tomorrow , d/c altogether). The Haldol PRN order (which has not be utilized since 06/15) is d/c'ed. I will continue to follow. Mike Burns PhD Jun 20, 2017 11:50 am
--- NOTE | 2017-06-20 15:40 | HHI.CCPN ---
Subjective Brief History AUGUSTINE: This is a patient who fell from six-foot ladder while working hit his head sustained severe brain injury with decreasing [place] Coma Scale from 11 down to 3. Intubated and ventilated on the scene brought in as priority 1 trauma alert. Patient underwent right decompressive craniotomy and remains in the ICU since Final injuries: TBI: Left subdural hemorrhage, bilateral subarachnoid hemorrhage left greater than right, bifrontal contusions, left temporal lobe contusion Encephalopathy Elevated ICP status post Left frontotemporal parietal decompressive craniectomy , evacuation of acute subdural hematoma with placement of right I's CP monitor Splenic laceration Acute respiratory failure on mechanical ventilation Suspect aspiration pneumonia at the time of the event 24 Hour Review/Hospital Course 05/31/17 Patient suffered elevation in his ICP, responsive to increase sedation and hypertonic saline boluses Repeat imaging shows slight improvement 06/01/17 ICP continue to increase when sedation is stopped, neurosurgery considering surgical intervention 06/02/17 Patient underwent right craniectomy yesterday, his ICPs have been in the single digits Weaning Versed drip to off, we will continue propofol for sedation as he does continue to become agitated Discuss likelihood of tracheostomy and PEG placement with 06/03/17 Clinically patient is stable, he continues to be on sedation CT scan suggests loss of bowen-white matter indicative of possible [place] 06/04/17 off sedation moving extremities opening eyes but not following commands ICP ies in normal range 06/05 mental status unchanged,not opening eyes today requires sedation prn 06/06 no changes remains low GCS BP slightly elevated on cardene drip Had high residuals -tube feeds 06/07 GCS 3T today BP better controlled tube feeds better controlled neuro input appreciated 06/08 moving lower extremities today -however not purposeful episode of storming BP -low dose cardene 06/[address] good response ro pain meds storming episode 06/08-when off sedation GCS 5T unchanged 06/10/17 Patient has been stable overnight yet the yesterday developed some jerking motion and repeat EEG G reveals complex focal seizure activity Patient currently on Keppra Dilantin and valproic acid Remains intubated and ventilated Initial plan to wean and extubate the patient at this point has to be abandoned till we control the seizures syndrome and will go from there 06/11/17 Patient is unchanged since yesterday as far neurologic status is concerned Repeat EEG doesn't show any epileptic activity Patient remains on valproic acid Dilantin and Dora Neurology help greatly appreciated 06/13/17 No change in current status patient remains obtunded no neurologically depressed with low [place] Coma Scale of about 5 Slight movement in upper extremities Patient at this point will need tracheostomy in order to wean off the ventilator because he can keep his upper airway Tracheostomy will be placed tomorrow for there was no bronchoscope available today 06/12/17 Patient has been stable overnight This morning patient opens eyes to command but doesn't track yet Is moving all 4 extremities, arms more than legs At this point I'll hold off with a tracheostomy because patient appears to be slightly more awake significant save him a tracheostomy, I will 06/14/17 Patient was doing respiratory very well throughout last few days is starting to open his eyes yet is not improving beyond that neurologically In face of that patient will require tracheostomy Will proceed will tracheostomy tomorrow 06/15/17 Patient opening eyes but not tracking Moving all 4 extremities Patient is not waking up sufficiently to separate off the ventilator or to allow for nonprotected airway Blue Rhino tracheostomy today 06/16/17 No change in last 24 hours Patient underwent placement of the Blue Rhino tracheostomy cannula and will be now weaned off the ventilator We'll try CPAP trial and prolonged every day eventually to switch to the tpiece or trach collar 06/17/17 No change in current status patient is opening eyes but not following any commands Since tracheostomy patient has been placed on CPAP which he tolerates for a few hours and then tires out Will gradually prolong CPAP time and eventually get patient off the respirator A gradient is improving and so his PO2 FiO2 ratio sent believe this will be eventually successful 06/18/17 Patient improving every day He is awake at the alert but disoriented Follows simple commands while intubated on a ventilator Patient has tolerated CPAP today very well and if he does well tomorrow we'll extubate him Secretions still significant and hence the maintenance of the airway with endotracheal tube 06/19/17 Patient little more awake today opening eyes and seems to be tracking Moving left side more than right Tolerating CPAP well 06/20/2017 PTD: 21 Patient much more awake today. Smiling. Remains on mechanical ventilation Patient has been discharged to [facility] center for continued management, care, and rehabilitation. Objective Vital Signs Date Time Temp Pulse Resp B/P Pulse Ox O2 Delivery O2 Flow Rate FiO2 7/26/17 11:50 100 35 06/20/17 08:00 104 06/20/17 07:00 Mechanical Ventilator 06/20/17 05:00 135/76 06/20/17 04:00 99.2 32 Intake and Output 06/19/17 06/19/17 06/20/17 08:00 16:00 00:00 Intake Total 757 ml 641 ml 609 ml Output Total 750 ml 1050 ml 910.0 ml Balance 7 ml -409 ml -301.0 ml Result Diagram: 06/20/17 0353 06/20/17 0353 Imaging Last 24 hours Impressions Chest X-Ray 06/20/17 0600 Signed Impressions: Service Date/Time: Sunday, June 20, 2017 05:05 - CONCLUSION: Stable chest x-ray with bibasilar opacities and likely pleural effusions. Rodney Stanford MD Objective Remarks GENERAL: This is a 62-year-old male lying in bed, mechanically ventilated. No distress noted. SKIN: Warm and dry. HEAD: Atraumatic. Normocephalic. EYES: PERRLA ENT: No nasal bleeding or discharge. Mucous membranes pink and moist. NECK: VASCULAR ULTRASOUND TECHNOLOGIST Trachea midline. No JVD. CARDIOVASCULAR: Regular rate and rhythm. RESPIRATORY: No accessory muscle use. Lungs are clear to auscultation. Breath sounds equal bilaterally. No distress or dyspnea. GASTROINTESTINAL: BS + x 4 quads. Abdomen soft, non-tender, nondistended. PEG tube in place. Flexi seal in place Whitfield catheter in place to bedside drainage bag MUSCULOSKELETAL: Extremities without cyanosis, or edema. + peripheral pulses x 4 extremities. Warm with good capillary refill and sensation. MAEW. NEUROLOGICAL: Awake, alert. Smiling. Urinary Catheter Assessment Urinary Catheter: Yes Assessment to: Continue Whitfield insert reason: Prolonged Immobilization Date of Insertion: May 30, 2017 Vascular Central Line Catheter Vascular Central Line Catheter: No Assessment and Plan Assessment: (1) Subarachnoid hemorrhage ICD Code: I60.9 Status: Acute (2) Dyspnea ICD Code: R06.00 Status: Acute (3) Respiratory failure ICD Code: J96.90 Status: Acute (4) Agitation ICD Code: R45.1 Status: Acute (5) Altered mental status ICD Code: R41.82 Status: Acute (6) Hypertension ICD Code: I10 Status: Acute (7) Pain ICD Code: R52 Status: Acute (8) Head injury ICD Code: S09.90XA Status: Acute (9) Traumatic brain injury ICD Code: S06.9X9A Status: Acute (10) Previous myocardial infarction older than 8 weeks ICD Code: I25.2 Status: Acute Plan AUGUSTINE: 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 He sustained a fall from 6 feet in his head on a curb. Then begin active pink bizarre. GCS 11. Combative at the scene. Repeating words. Not making sense. Hypertensive 180-205. Intubated in the ED due to being combative. INJURIES: Occiput laceration BILAT SAH (LEFT greater than RIGHT) LEFT SDH w/ 3 mm separation next to left temporal lobe Bilateral frontal lobe contusions Hemorrhagic contusion LEFT temporal lobe Bilateral pulmonary contusions ? spleen laceration? *LEFT renal cyst* Procedures: 05/30: Intubated in ED 05/30: RIGHT ICP bolt 06/01: LEFT decompressive craniotomy w evacuation of SDH. 06/05: [facility] DCd 06/12: PEG placement 06/15: VASCULAR ULTRASOUND TECHNOLOGIST placement Consults: CCM. Neurosurgery. Rehabilitation medicine. Neuropsych. Palliative care. GI. Diet: Tube feeding: Vital@60 mL/HR. Free water flush 200 mL q8h. Pulmonary: Encourage good pulmonary toileting. L&S via ET tube PAIN Management: Tylenol via NG tube Activity: OOB. PT and OT ordered. GI prophylaxis: Pepcid via NG tube. Bowel regimen: Colace and MOM. Bisacodyl PRN. LBM: 06/20 DVT prophylaxis: Mechanical VTE with SCDs. Chemical management with Lovenox 40 daily SQ. DC Planning: Case management consulted for assistance with final discharge disposition. Patient has been accepted at [facility] rehabilitation center. Awaiting insurance authorization. Patient can safely be discharged to [facility] rehabilitation when all arrangements have been made for continued care. Emotional support provided to patient and family at bedside and plan of care discussed. Discussed with RN at bedside. Patient is hemodynamically stable and being managed in the ICU. [facility]charge [facility]. The trauma team will round each day, and evaluate plan of care on a daily basis. Problem Qualifiers (1) Respiratory failure: Qualified Code: J96.00 - Acute respiratory failure, unspecified whether with hypoxia or hypercapnia (2) Altered mental status: Qualified Code: R41.0 - Delirium (3) Head injury: Qualified Code: S09.90XA - Head injury, initial encounter (4) Traumatic brain injury: Keysha Arriaga Jun 20, 2017 15:40
[2017-06-20] MEDS: SODIUM CHLOR 0.9% 1000 ML INJ 1,000 ML IV SCH (17:15)
[2017-06-20] MEDS: ACETAMINOPHEN 325 MG TAB PO PRN (19:11)
[2017-06-20] MEDS ORDERED: QUEtiapine FUMARATE 25 MG TAB PO SCH (21:00)
--- NOTE | 2017-06-21 08:39 | PD.NP.DS ---
Discharge Summary Reason for Referral: The patient is a 62 year old unknown handed male status post traumatic brain injury secondary to a fall from a ladder on 05/30/2017. Head CT showed bilateral SAH, small left SDH, frontal contusions, hemorrhagic contusions in the left temporal lobe. Recent EEG showed seizure activity, and he was started on seizure medications, including Keppra, Dilantin and Valproic Acid. Also complicating his recovery was development of cerebral storming, for which he is treated with propranolol 60 q8H. He is now referred for baseline neurobehavioral status examination per trauma protocol to assess cognitive, behavioral and emotional aspects of the injury and to provide treatment recommendations.The patient remains in the [facility] for a total of 21 days. Neurobehavioral issues included expected agitation/restlessness related to TBI recovery, which was successfully managed with Valproic Acid 500 BID, initially seroquel at 50 q8H, and reduced to 25 BID prior to discharge. He also received Haldol PRN x3 throughout his stay, which gradually became unnecessary with continued spontaneous recovery and appropriate pharmacological management. At the time of discharge he was considered a medicated Rancho IV, evolving Rancho V. He was discharged to [facility] for continued neurorehabilitation. Past Medical History: Please refer to the patient's history and physical for information concerning the patient's past medical, surgical, and psychiatric histories. 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 The patient is but his was never present during my rounding. The patient lives in [place], [place]. Premorbid Cognitive, Emotional and Behavioral Status: Deferred. The patient was unable to provide information, nor was the family able to do so at this time. Behavioral Reactions of Patient and Family/Support System: Deferred. The patients family is experiencing ongoing issues of adjustment given the nature of the injury, and this aspect of recovery will require ongoing monitoring. Emotional/Behavioral Status of Patient and Family/Support System: Deferred. Pertinent issues, if appropriate to this patients clinical care, are described in detail above. Treatment Interventions: During the course of their acute care stay, this patient and their family/ support system were provided information concerning the neuropsychological aspects of the injury, education regarding course of recovery, and psychological support in the form of counseling with the person served and the family/support system as documented in the neuropsychology service progress notes, as deemed clinically appropriate. Current, Cognitive, Emotional and Behavioral Status: Stable. This patient has experienced a severe injury, and will be adjusting to significant cognitive, emotional and behavioral challenges going forward. Impression at Discharge: The cognitive and behavioral status of this patient meets criteria for Ranch[place] Level IV: Confused/Agitated - maximal assistance, emerging Rancho V. Major Neurocognitive Disorder due to Traumatic Brain Injury, with behavioral disturbance CODE: F02.80) The above listed diagnoses are supported by the following clinical criteria: Major Neurocognitive Disorder: This person demonstrates a significant cognitive decline from a previous level of estimated baseline performance in one or more cognitive domains (complex attention, executive functioning, learning and memory, language, perceptual-motor, or social cognition) based on the patients /informants report, further documented by todays testing results , with these cognitive deficits interfering with the patients independence in everyday activities. Status of Family/Support System Adjustment: Stable. The patients family/ support system will experience ongoing issues of adjustment given the nature of the injury, and this aspect of the patients recovery will require ongoing monitoring. Post Acute Recommendations: It is recommended that the patient continue to be monitored for behavioral impulsivity as they continue to be early in their course of recovery. This patients neuropathological challenges may limit their reintegration into work and family life going forward, and these challenges may require specialized therapeutic skills to maximize outcome. Thank you for the opportunity to assist in this patients care. Mike Burns, Ph.D., ABPP Board Certified in Clinical Neuropsychology [place] [employer] [place] Licensed Psychologist #[id number] Mike Burns PhD Jun 21, 2017 08:39
== END 2017-06-20 20:13 | DRG 3 ==
LOC: NEPI 13:33 → EDBD 14:12 → NEDA 14:12 → N03B 14:31
PROVIDERS: ADMIT Surgery; ATTEND Surgery
PROC: 0T9B70Z Drainage of Bladder with Drainage Device, Via Natural or Artificial Opening (ICD-10-PCS; principal; 2017-05-30)
PROC: 5A1955Z Respiratory Ventilation, Greater than 96 Consecutive Hours (ICD-10-PCS; 2017-05-30)
PROC: 00H032Z Insertion of Monitoring Device into Brain, Percutaneous Approach (ICD-10-PCS; 2017-05-30)
PROC: 30253R1 (ICD-10-PCS; 2017-05-30)
PROC: 4A103BD Monitoring of Intracranial Pressure, Percutaneous Approach (ICD-10-PCS; 2017-05-30)
PROC: 0BH17EZ Insertion of Endotracheal Airway into Trachea, Via Natural or Artificial Opening (ICD-10-PCS; 2017-05-30)
PROC: 05H633Z Insertion of Infusion Device into Left Subclavian Vein, Percutaneous Approach (ICD-10-PCS; 2017-05-30)
PROC: 05H533Z Insertion of Infusion Device into Right Subclavian Vein, Percutaneous Approach (ICD-10-PCS; 2017-05-30)
PROC: 00C40ZZ Extirpation of Matter from Intracranial Subdural Space, Open Approach (ICD-10-PCS; 2017-06-01)
PROC: 0DH63UZ Insertion of Feeding Device into Stomach, Percutaneous Approach (ICD-10-PCS; 2017-06-12)
PROC: 0DB68ZX Excision of Stomach, Via Natural or Artificial Opening Endoscopic, Diagnostic (ICD-10-PCS; 2017-06-12)
PROC: 0B113F4 Bypass Trachea to Cutaneous with Tracheostomy Device, Percutaneous Approach (ICD-10-PCS; 2017-06-15)
PROC: 0BJ08ZZ Inspection of Tracheobronchial Tree, Via Natural or Artificial Opening Endoscopic (ICD-10-PCS; 2017-06-15)
DX: S06.6X0A Traumatic subarachnoid hemorrhage without loss of consciousness, initial encounter (principal); J69.0 Pneumonitis due to inhalation of food and vomit; S27.322A Contusion of lung, bilateral, initial encounter; E87.0 Hyperosmolality and hypernatremia; D69.1 Qualitative platelet defects; R56.9 Unspecified convulsions; J96.00 Acute respiratory failure, unspecified whether with hypoxia or hypercapnia; S36.039A Unspecified laceration of spleen, initial encounter; S06.5X0A Traumatic subdural hemorrhage without loss of consciousness, initial encounter; I10 Essential (primary) hypertension; S01.01XA Laceration without foreign body of scalp, initial encounter; Y93.89 Activity, other specified; Y92.89 Other specified places as the place of occurrence of the external cause; Y99.0 Civilian activity done for income or pay; Z72.0 Tobacco use; I25.2 Old myocardial infarction; W11.XXXA Fall on and from ladder, initial encounter; Y93.9 Activity, unspecified; N28.1 Cyst of kidney, acquired; I25.10 Atherosclerotic heart disease of native coronary artery without angina pectoris; Z95.5 Presence of coronary angioplasty implant and graft; Z96.653 Presence of artificial knee joint, bilateral; Z51.5 Encounter for palliative care; R45.1 Restlessness and agitation; M19.90 Unspecified osteoarthritis, unspecified site
CPT/HCPCS: 31500; 36430; 36556; 36600; 36620; 61210; 70450; 71010; 71260; 72125; 72170; 74177; 76937; 80048; 80053; 80164; 80185; 81001; 82435; 82565; 82805; 82947; 83735; 83930; 84100; 84132; 84295; 84520; 85025; 85027; 85610; 85730; 86850; 86900; 86901; 86965; 87040; 87070; 87077; 87086; 87186; 87205; 87641; 88304; 88305; 88312; 94002; 94003; 94640; 94664; 94770; 95819; 96374; A7521; C9113; J0360; J0690; J1165; J1580; J1630; J1650; J1940; J1953; J2060; J2150; J2175; J2250; J2270; J2370; J2405; J2543; J2765; J3010; J3370; J3480; J7030; J7050; L0150; P9035; Q2009; Q9967